=== PATIENT | male | born 1945 | race Caucasian/White ===

== ENCOUNTER 2017-06-28 13:29 | Emergency (ER) | payer MEDICARE, OTHER, SELFPAY | END 2017-06-28 18:04 | disposition short-term general hospital (02) | PROVIDERS: Emergency Provider Emergency Medicine; Visit Provider Emergency Medicine | DX: I24.9 Acute ischemic heart disease, unspecified (principal) | CPT/HCPCS: 71010; 71045; 80053; 84484; 85025; 85610; 85730; 93005; 93010; 96365; 96366; 99058; 99285; J1644 ==

== ENCOUNTER → 2018-12-27 09:55 | Outpatient (CLI) | payer MEDICARE, OTHER, SELFPAY ==
[2018-12-27 10:32] LABS: HEMOLYSIS < 15 (0-50)
[2018-12-27 10:40] LABS: Alanine Aminotransferase 36 IU/L (21-72); Albumin 4.5 g/dL (3.5-5.0); Albumin Globulin Ratio 1.6 (1.0-2.8); Alkaline Phosphatase 85 U/L (38-126); Aspartate Aminotransferase 33 IU/L (17-59); BUN Creatinine Ratio 17.3 (6-22); Blood Urea Nitrogen 19 mg/dL (9-20); Calcium 10.1 mg/dL (8.4-10.2); Carbon Dioxide 31 mmol/L (22-32); Chloride 100 mmol/L (98-107); Estimated Glomerular Filt Rate > 60.0 mL/min (>60); Globulin 2.8 g/dL (1.7-4.1); Glucose 354 mg/dL (80-110); Potassium 4.7 mmol/L (3.4-5.1); Sodium 137 mmol/L (137-145); Total Protein 7.3 g/dL (6.3-8.2)
[2018-12-27 11:01] LABS: Vitamin D 25 Hydroxy (D3) 21.7 ng/mL (30.0-100.0)
[2018-12-27 11:44] LABS: Creatinine Urine Random 60.1 mg/dL
[2018-12-27 11:49] LABS: Microalbumi Creatinin Ratio Ur 74.8 ug/mg CR (<30); Microalbumin Urine Random 4.5 mg/dL (0-1.6)
[2018-12-27 16:33] LABS: Prostate Specific Antigen < 0.064 ng/mL (0.10-4.00)
== END ==
PROVIDERS: PCP Student in an Organized Health Care Education/Training Program; Visit Provider Student in an Organized Health Care Education/Training Program
DX: C61 Malignant neoplasm of prostate (principal); E11.9 Type 2 diabetes mellitus without complications; E55.9 Vitamin D deficiency, unspecified; I24.9 Acute ischemic heart disease, unspecified; Z79.899 Other long term (current) drug therapy
CPT/HCPCS: 36415; 80053; 82043; 82306; 82570; 83036; 84153

== ENCOUNTER → 2019-03-25 10:01 | Outpatient (CLI) | payer MEDICARE, OTHER, SELFPAY ==
[2019-03-25 11:01] LABS: Hemoglobin A1C% w Est Avg Glu 8.2 % (4.0-6.0)
[2019-03-25 13:58] LABS: Creatinine Urine Random 101.4 mg/dL
[2019-03-25 14:02] LABS: Microalbumi Creatinin Ratio Ur 59.1 ug/mg CR (<30)
== END ==
PROVIDERS: PCP Student in an Organized Health Care Education/Training Program; Visit Provider Student in an Organized Health Care Education/Training Program
DX: E11.65 Type 2 diabetes mellitus with hyperglycemia (principal); R80.9 Proteinuria, unspecified
CPT/HCPCS: 36415; 82043; 82570; 83036

== ENCOUNTER → 2019-04-09 08:57 | Outpatient (CLI) | payer MEDICARE, OTHER, SELFPAY | PROVIDERS: PCP Student in an Organized Health Care Education/Training Program; Visit Provider Student in an Organized Health Care Education/Training Program | DX: E11.9 Type 2 diabetes mellitus without complications (principal) | CPT/HCPCS: G0108 ==

== ENCOUNTER → 2019-04-16 14:14 | Outpatient (CLI) | payer MEDICARE, OTHER, SELFPAY ==
--- NOTE | 2019-04-16 15:30 | DIET.PN ---
Exercise/Lifestyle change: 1. Importance of exercise 2. FITT (frequency, intensity, time, type) 3. Strength training tips and guidelines 4. Glucose monitoring/ranges before and after 5. Proper foot attire 6. Developing strategies for behavior change 7. SMART Goal Setting 8. Home exercise routine demonstration (as a class)
== END ==
PROVIDERS: PCP Student in an Organized Health Care Education/Training Program; Referring Provider Student in an Organized Health Care Education/Training Program; Visit Provider Student in an Organized Health Care Education/Training Program
DX: E11.9 Type 2 diabetes mellitus without complications (principal); Z71.3 Dietary counseling and surveillance
CPT/HCPCS: G0109

== ENCOUNTER → 2019-04-26 09:37 | Outpatient (CLI) | payer MEDICARE, OTHER, SELFPAY ==
--- NOTE | 2019-04-26 12:09 | DIET.PN ---
Diabetes: Healthy Eating 1 Intervention: ? Discussed pathophysiology of diabetes and impact of nutrition/diet on blood sugar control.? Discussed fed versus non-fed state.?? ? Reviewed importance of Balance, Variety, and Moderation. ? Discussed the effect of carbohydrates/protein/fat on blood sugar control.? ? Stressed importance of consistent carbohydrate intake at each meal and provided instructions for recommended servings/portions of carbohydrates/protein per meal. Provided educational material. ? Reviewed carbohydrate counting and measuring carbohydrate content via serving sizes and reading nutrition labels.? Provided handouts.?? ? Discussed the difference between simple versus complex carbohydrates and the effect of fiber on blood sugar control.? Discussed various methods to increase fiber content in diet. ? Discussed the plate method for creating more carbohydrate conscious balanced meals. ? Stressed importance of meal timing and not going >4-5 hours between meals. Encouraged adding protein to evening snack to support glucose control overnight. ? Discussed importance of making dietary habits part of lifestyle change.
== END ==
PROVIDERS: PCP Student in an Organized Health Care Education/Training Program; Referring Provider Student in an Organized Health Care Education/Training Program; Visit Provider Student in an Organized Health Care Education/Training Program
DX: E11.9 Type 2 diabetes mellitus without complications (principal); Z71.3 Dietary counseling and surveillance
CPT/HCPCS: G0109

== ENCOUNTER → 2019-04-30 14:26 | Outpatient (CLI) | payer MEDICARE, OTHER, SELFPAY ==
--- NOTE | 2019-04-30 16:10 | DIET.PN ---
Diabetes: Healthy Eating 2 Intervention: Fats effects on glucose, weight, heart disease, cholesterol Sat Vs Unsat Protein- animal and plant based options Low, med, high fat meats Sugar substitutes Sodium Health claims Grocery shopping guidelines Eating away from home Alcohol Sick day guidelines
== END ==
PROVIDERS: PCP Student in an Organized Health Care Education/Training Program; Referring Provider Student in an Organized Health Care Education/Training Program; Visit Provider Student in an Organized Health Care Education/Training Program
DX: E11.9 Type 2 diabetes mellitus without complications (principal); Z71.3 Dietary counseling and surveillance
CPT/HCPCS: G0109

== ENCOUNTER → 2019-05-08 10:56 | Outpatient (CLI) | payer MEDICARE, OTHER, SELFPAY ==
--- NOTE | 2019-05-08 10:57 | DI.RAD.S_ITS ---
PROCEDURE: XR CHEST 2V INDICATIONS: cough and Hx of lesion central chest last xray [place] 5 yrs TECHNIQUE: 2 views of the chest were acquired. COMPARISON: [facility], FABY, ABDOMEN ACUTE SERIES, 12/26/2011, 22:25. [facility], FABY, CHEST 1 VIEW, 06/28/2017, 13:50. FINDINGS: Surgical changes and devices: None. Lungs and pleura: Lungs are clear except for calcified granuloma lateral right upper lobe. This also was present 12/26/11. No pleural effusions or pneumothorax. Mediastinum: Mediastinal contours are normal. Heart size is normal. Bones and chest wall: No suspicious bony abnormalities. Soft tissues appear unremarkable. IMPRESSION: Normal for age, source of current cough symptoms is not seen. Calcified granuloma chronically present lateral right upper lobe, no followup needed. Dictated by: Juan Alberto Stewart M.D. on 05/08/2019 at 12:17 Approved by: Juan Alberto Stewart M.D. on 05/08/2019 at 12:18
== END ==
PROVIDERS: PCP Student in an Organized Health Care Education/Training Program; Referring Provider Student in an Organized Health Care Education/Training Program
DX: J40 Bronchitis, not specified as acute or chronic (principal)
CPT/HCPCS: 71046

== ENCOUNTER → 2019-08-23 11:25 | Outpatient (CLI) | payer MEDICARE, OTHER, SELFPAY ==
[2019-08-23 12:31] LABS: BUN Creatinine Ratio 16.2 (6-22); Blood Urea Nitrogen 17 mg/dL (9-20); Calcium 9.6 mg/dL (8.4-10.2); Carbon Dioxide 28 mmol/L (22-32); Chloride 102 mmol/L (98-107); Estimated Glomerular Filt Rate > 60.0 mL/min (>60); Glucose 113 mg/dL (80-110); HEMOLYSIS < 15 (0-50); Hemoglobin A1C% w Est Avg Glu 7.8 % (4.0-6.0); Potassium 4.4 mmol/L (3.4-5.1); Sodium 139 mmol/L (137-145)
== END ==
PROVIDERS: PCP Student in an Organized Health Care Education/Training Program; Referring Provider Student in an Organized Health Care Education/Training Program; Visit Provider Student in an Organized Health Care Education/Training Program
DX: E11.00 Type 2 diabetes mellitus with hyperosmolarity without nonketotic hyperglycemic-hyperosmolar coma (NKHHC) (principal); E11.65 Type 2 diabetes mellitus with hyperglycemia; I10 Essential (primary) hypertension; R80.9 Proteinuria, unspecified
CPT/HCPCS: 36415; 80048; 83036

== ENCOUNTER → 2019-11-26 06:58 | Outpatient (CLI) | payer MEDICARE, OTHER, SELFPAY ==
[2019-11-26 08:51] LABS: Hemoglobin A1C% w Est Avg Glu 7.3 % (4.0-6.0)
[2019-11-26 09:01] LABS: Cholesterol 132 mg/dL (140-199); HDL Cholesterol 34 mg/dL (40-60); LDL Cholesterol Calculated 45 mg/dL (<100); Triglycerides 266 mg/dL (35-150)
[2019-11-26 09:04] LABS: Microalbumin Urine Random 3.6 mg/dL (0-1.6)
[2019-11-26 09:13] LABS: Vitamin D 25 Hydroxy (D3) 39.5 ng/mL (30.0-100.0)
== END ==
PROVIDERS: PCP Student in an Organized Health Care Education/Training Program; Referring Provider Student in an Organized Health Care Education/Training Program; Visit Provider Student in an Organized Health Care Education/Training Program
DX: E11.29 Type 2 diabetes mellitus with other diabetic kidney complication (principal); E11.69 Type 2 diabetes mellitus with other specified complication; E55.9 Vitamin D deficiency, unspecified; E78.5 Hyperlipidemia, unspecified; R80.9 Proteinuria, unspecified; E11.65 Type 2 diabetes mellitus with hyperglycemia
CPT/HCPCS: 36415; 80061; 82043; 82306; 82570; 83036

== ENCOUNTER → 2020-02-22 07:48 | Outpatient (CLI) | payer MEDICARE, OTHER, SELFPAY ==
[2020-02-22 09:33] LABS: Hemoglobin A1C% w Est Avg Glu 7.6 % (4.0-6.0)
[2020-02-22 09:47] LABS: BUN Creatinine Ratio 16.4 (6-22); Blood Urea Nitrogen 20 mg/dL (9-20); Estimated Glomerular Filt Rate 58.1 mL/min (>60)
== END ==
PROVIDERS: PCP Student in an Organized Health Care Education/Training Program; Referring Provider Student in an Organized Health Care Education/Training Program; Visit Provider Student in an Organized Health Care Education/Training Program
DX: R80.9 Proteinuria, unspecified (principal); E11.65 Type 2 diabetes mellitus with hyperglycemia; E11.29 Type 2 diabetes mellitus with other diabetic kidney complication
CPT/HCPCS: 36415; 82565; 83036; 84520

== ENCOUNTER → 2020-05-21 07:38 | Outpatient (CLI) | payer MEDICARE, OTHER, SELFPAY ==
[2020-05-21] MEDS: COVID-19 VACC, Ad26(JANSSEN)/PF 0.5 ML IM (07:51)
== END ==
PROVIDERS: PCP Student in an Organized Health Care Education/Training Program; Visit Provider Internal Medicine
DX: Z23 Encounter for immunization (principal)
CPT/HCPCS: 0031A; 91303

== ENCOUNTER → 2020-06-01 09:12 | Outpatient (CLI) | payer MEDICARE, OTHER, SELFPAY ==
[2020-06-01 10:25] LABS: Hemoglobin A1C% w Est Avg Glu 7.1 % (4.0-6.0)
[2020-06-01 10:43] LABS: BUN Creatinine Ratio 15.7 (6-22); Blood Urea Nitrogen 18 mg/dL (9-20); Estimated Glomerular Filt Rate > 60.0 mL/min (>60)
[2020-06-01 11:14] LABS: Prostate Specific Antigen < 0.064 ng/mL (0.10-4.00)
== END ==
PROVIDERS: PCP Student in an Organized Health Care Education/Training Program; Referring Provider Student in an Organized Health Care Education/Training Program; Visit Provider Student in an Organized Health Care Education/Training Program
DX: C61 Malignant neoplasm of prostate (principal); E11.29 Type 2 diabetes mellitus with other diabetic kidney complication; Z98.890 Other specified postprocedural states; E11.65 Type 2 diabetes mellitus with hyperglycemia; R80.9 Proteinuria, unspecified
CPT/HCPCS: 36415; 82565; 83036; 84153; 84520

== ENCOUNTER → 2020-12-21 07:00 | Outpatient (CLI) | payer MEDICARE, OTHER, SELFPAY ==
[2020-12-21 08:20] LABS: Hemoglobin A1C% w Est Avg Glu 7.2 % (4.0-6.0)
[2020-12-21 08:25] LABS: BUN Creatinine Ratio 15.3 (6-22); Blood Urea Nitrogen 17 mg/dL (9-20); Calcium 10.3 mg/dL (8.4-10.2); Carbon Dioxide 27 mmol/L (22-32); Chloride 104 mmol/L (98-107); Estimated Glomerular Filt Rate > 60.0 mL/min (>60); Glucose 168 mg/dL (80-110); HEMOLYSIS < 15 (0-50); Potassium 4.8 mmol/L (3.4-5.1); Sodium 142 mmol/L (137-145)
[2020-12-21 08:27] LABS: Microalbumi Creatinin Ratio Ur 35.2 ug/mg CR (<30)
== END ==
PROVIDERS: PCP Student in an Organized Health Care Education/Training Program; Referring Provider Student in an Organized Health Care Education/Training Program; Visit Provider Student in an Organized Health Care Education/Training Program
DX: E11.29 Type 2 diabetes mellitus with other diabetic kidney complication (principal); R80.9 Proteinuria, unspecified
CPT/HCPCS: 36415; 80048; 82043; 82570; 83036

== ENCOUNTER → 2021-06-05 08:02 | Outpatient (CLI) | payer MEDICARE, OTHER, SELFPAY ==
[2021-06-05 09:00] LABS: Hemoglobin A1C% w Est Avg Glu 7.6 % (4.0-6.0)
[2021-06-05 09:07] LABS: BUN Creatinine Ratio 14.3 (6-22); Blood Urea Nitrogen 17 mg/dL (9-20); Estimated Glomerular Filt Rate 59.6 mL/min (>60)
[2021-06-05 09:34] LABS: Prostate Specific Antigen < 0.064 ng/mL (0.10-4.00)
== END ==
PROVIDERS: PCP Student in an Organized Health Care Education/Training Program; Referring Provider Student in an Organized Health Care Education/Training Program; Visit Provider Student in an Organized Health Care Education/Training Program
DX: E11.29 Type 2 diabetes mellitus with other diabetic kidney complication (principal); C61 Malignant neoplasm of prostate; R80.9 Proteinuria, unspecified
CPT/HCPCS: 36415; 82565; 83036; 84153; 84520

== ENCOUNTER → 2021-07-19 07:58 | Outpatient (CLI) | payer MEDICARE, OTHER, SELFPAY ==
[2021-07-19 08:47] LABS: COVID19 -Nasal RAPID Negative (Negative)
== END ==
PROVIDERS: PCP Student in an Organized Health Care Education/Training Program; Visit Provider Nurse Practitioner Family
DX: Z20.822 Contact with and (suspected) exposure to COVID-19 (principal)
CPT/HCPCS: 87635

== ENCOUNTER 2021-07-26 15:16 | Emergency (ER) | payer MEDICARE, OTHER, SELFPAY ==
[2021-07-26] VITALS (8 sets, daily range): BP systolic 132–162; BP diastolic 63–76; PULSE 80–89; RESP 15–24; TEMP 36.9; O2SAT 96–99
--- NOTE | 2021-07-26 15:24 | DI.RAD.S_ITS ---
PROCEDURE: XR CHEST 1V INDICATIONS: chest pain TECHNIQUE: One view of the chest was acquired. COMPARISON: [facility], FABY, XR CHEST 2V, 05/08/2019, 11:09. [facility], , CHEST 1 VIEW, 06/28/2017, 13:50. FINDINGS: Surgical changes and devices: None. Lungs and pleura: Stable subcentimeter pulmonary nodule in the right mid lung zone. This likely represents a pulmonary granuloma. Otherwise, lungs are clear. No focal consolidations. No substantial pleural effusion. No pneumothorax. Mediastinum: Mediastinal contours appear normal. Heart size is normal. Bones and chest wall: No suspicious bony lesions. Overlying soft tissues appear unremarkable. IMPRESSION: Stable radiographic evaluation of the chest without acute cardiopulmonary abnormalities or focal airspace disease. Dictated by: Edward Jaramillo M.D. on 07/26/2021 at 16:42 Approved by: Edward Jaramillo M.D. on 07/26/2021 at 16:42
[2021-07-26 15:55] LABS: Add Manual Diff / Slide Review NO; Basophils Absolute Auto 100 /uL (0-100); Basophils Percent Auto 0.8 % (0-2); Eosinophils Absolute Auto 300 /uL (0-450); Eosinophils Percent Auto 5.3 % (2-4); Hemoglobin 15.2 g/dL (13.5-17.5); Lymphocytes Absolute Auto 900 /uL (1100-4500); Lymphocytes Percent Auto 14.1 % (25-40); Mean Corpuscular HGB Conc 33.8 % (30-36); Mean Corpuscular Hemoglobin 28.7 PG (26-34); Mean Corpuscular Volume 84.8 fL (80-100); Monocytes Absolute Auto 600 /uL (0-900); Monocytes Percent Auto 9.6 % (3-14); Neutrophils Absolute Auto 4500 /uL (1500-7000); Neutrophils Percent Auto 70.2 % (50-75); Platelet Count 143 X10^3/uL (150-400); Red Cell Distribution Width 14.3 % (11.6-14.8); White Blood Cell Count 6.5 X10^3/uL (4.5-11.0)
[2021-07-26 16:08] LABS: Alanine Aminotransferase 25 IU/L (<50); Albumin 4.5 g/dL (3.5-5.0); Albumin Globulin Ratio 1.5 (1.0-2.8); Alkaline Phosphatase 95 U/L (38-126); Aspartate Aminotransferase 27 IU/L (17-59); BUN Creatinine Ratio 16.9 (6-22); Bilirubin Total 0.7 mg/dL (0.2-1.3); Blood Urea Nitrogen 20 mg/dL (9-20); Calcium 9.7 mg/dL (8.4-10.2); Carbon Dioxide 27 mmol/L (22-32); Chloride 104 mmol/L (98-107); Creatine Kinase 79 U/L (55-170); Estimated Glomerular Filt Rate > 60 mL/min (>60); Globulin 3.1 g/dL (1.7-4.1); Glucose 371 mg/dL (80-110); HEMOLYSIS 16 (0-50); Lipase 349 U/L (23-300); Magnesium 2.1 mg/dL (1.6-2.3); Potassium 4.3 mmol/L (3.4-5.1); Sodium 141 mmol/L (137-145); Total Protein 7.6 g/dL (6.3-8.2)
[2021-07-26 16:20] LABS: Troponin I < 0.012 ng/mL (0.01-0.034)
--- NOTE | 2021-07-26 16:29 | ED.CHESTPAIN ---
HPI - Chest Pain General Chief Complaint: Chest Pain Stated Complaint: LOTS OF JOINT PAIN LEFT SHOULDER PAIN GOES DOWN AR Time Seen by Provider: 07/26/21 15:35 Source: patient Mode of arrival: Ambulatory History of Present Illness HPI narrative: Patient is a 75-year-old male a history of coronary artery disease diabetes presenting today with on going and joint pain. He says his left shoulder hurts the most. His symptoms have been going on for about 1 month. He says couple weeks ago he had upper respiratory like virus he had a cough. He has had multiple negative COVID tests. However his joint continue to hurt. His left shoulder hurts he has aching in his arm. His right hip and left knee were also hurting. He says they seem to be worse in the morning better throughout the day. Pain also goes away Tylenol or ibuprofen. He it was his heart initially he took nitro couple times without any relief. And it has been ongoing for awhile. Today it is not any worse or different. He just wanted to make sure it is not his heart. He has no shortness of breath with exertion. He overall is feeling better from his illness he is appointment with his primary care provider but not for couple of weeks. Related Data Home Medications Medication Instructions Recorded Confirmed aspirin 81 mg tablet,delayed 81 mg PO QDAY #0 12/26/11 07/19/21 release Previous Rx's Medication Instructions Recorded Contour Blood Glucose Test Strips #100 each 02/05/19 clopidogrel 75 mg tablet 75 mg PO QDAY #90 tab 01/07/21 atorvastatin 40 mg tablet 40 mg PO BEDTIME #90 tab 02/11/21 metoprolol succinate 100 mg 100 mg PO DAILY #90 tab 02/11/21 tablet,extended release 24 hr (Toprol XL) glipizide 10 mg tablet See Rx Instructions .ROUTE 02/15/21 .COMPLEX #90 tab nitroglycerin 0.3 mg sublingual 0.3 mg SUBLINGUAL Q5-15M PRN #20 02/15/21 tablet tab empagliflozin 10 mg tablet 10 mg PO DAILY #90 tab 03/30/21 metformin 1,000 mg tablet 1,000 mg PO BID #180 tab 05/04/21 olmesartan 5 mg tablet 10 mg PO DAILY #180 tab 06/02/21 Allergies Allergy/AdvReac Type Severity Reaction Status Date / Time No Known Drug Allergies Allergy Unverified 07/19/21 07:29 Review of Systems Review of Systems Narrative: GENERAL: Denies chills, fatigue, malaise, fever, sweats, travel HEENT: Denies sinus pain, ear pain, sore throat, difficulty swallowing, neck pain RESPIRATORY: Denies dyspnea, cough, wheezing, hemoptysis, sputum. CARDIOVASCULAR: See HPI GASTROINTESTINAL: Denies nausea, vomiting, abdominal pain, diarrhea, constipation, melena. : Denies dysuria, frequency, incontinence, hematuria, urinary retention, flank pain. MUSCULOSKELETAL: See HPI SKIN: No rash, no erythema, no pruritus NEUROLOGIC: Denies weakness, dizziness, headache, numbness, change in speech, confusion PSYCHIATRIC: No concerning psychosocial issues. 12 point review of systems is negative except for those stated above and HPI Patient History Medical History (Updated 07/26/21 @ 17:51 by Ro Doss DO) Hearing loss (~1964) Prostate cancer Tinnitus (~1964) Vitamin D deficiency Social History Smoking Status: Never smoker eating out: 4 or more times/week Type(s) of exercise: other Smoking Status: Never smoker Exam Initial Vital Signs Initial Vital Signs: Vital Signs Temperature 98.4 F 07/26/21 15:19 Pulse Rate 89 07/26/21 15:19 Respiratory Rate 20 07/26/21 15:19 Blood Pressure 162/76 H 07/26/21 15:19 Pulse Oximetry 99 07/26/21 15:19 GENERAL: Alert well-appearing 75-year-old and in no acute distress. HEENT: Head atraumatic,EOMI, pupils reactive, face symmetric, moist mucous membranes CARDIOVASCULAR: Regular rate and rhythm without murmurs, rubs or gallops. RESPIRATORY: Breath sounds equal bilaterally, no wheezes rales or rhonchi. ABDOMEN: Soft, nontender. Normoactive bowel sounds all 4 quadrants. No guarding or rebound. EXTREMITIES: Normal range of motion, no clubbing or edema. Neurovascularly intact left shoulder no significant pain or swelling no erythema. Distal radial pulse intact NEUROLOGICAL: Alert and oriented x4.Normal gait and speech. SKIN: Warm, dry, no laceration, no petechiae, no rashes or lesions. Course Orders Ordered: ED Orders 07/26/21 15:20 Complete Blood Count AUTO DIFF Stat Comprehensive Metabolic Panel Stat Lipase Stat Magnesium Stat Troponin & CK Cardiac Panel Stat 07/26/21 15:24 XR chest 1V Stat EKG-12 Lead Stat 07/26/21 17:03 XR shoulder LT min 2V Stat Vital Signs Vital signs: Vital Signs - 8 hr 07/26/21 15:19 07/26/21 15:33 07/26/21 15:34 Temperature 98.4 F Pulse Rate 89 86 86 Respiratory Rate 20 Blood Pressure 162/76 H 151/69 H Pulse Oximetry 99 99 98 07/26/21 16:00 07/26/21 17:13 07/26/21 17:26 Temperature Pulse Rate 83 80 80 Respiratory Rate 24 23 18 Blood Pressure 138/63 132/70 Pulse Oximetry 97 97 97 07/26/21 17:30 07/26/21 18:00 Temperature Pulse Rate 83 80 Respiratory Rate 15 22 Blood Pressure 138/74 137/63 Pulse Oximetry 97 96 MDM - Chest Pain Lab Data Result diagrams: 07/26/21 15:20 07/26/21 15:20 Labs: Lab Results 07/26/21 07/26/21 Range/Units 15:20 15:20 WBC 6.5 (4.5-11.0) X10^3/uL RBC 5.30 (4.5-5.9) X10^6/uL Hgb 15.2 (13.5-17.5) g/dL Hct 45.0 (41-53) % MCV 84.8 (80-100) fL MCH 28.7 (26-34) PG MCHC 33.8 (30-36) % RDW 14.3 (11.6-14.8) % Plt Count 143 L (150-400) X10^3/uL Neut % (Auto) 70.2 (50-75) % Lymph % (Auto) 14.1 L (25-40) % Thomas % (Auto) 9.6 (3-14) % Eos % (Auto) 5.3 H (2-4) % Baso % (Auto) 0.8 (0-2) % Neut # (Auto) 4500 (1368-1499) /uL Lymph # (Auto) 900 L (3815-5300) /uL Thomas # (Auto) 600 (0-900) /uL Eos # (Auto) 300 (0-450) /uL Baso # (Auto) 100 (0-100) /uL Sodium 141 (137-145) mmol/L Potassium 4.3 (3.4-5.1) mmol/L Chloride 104 (98-107) mmol/L Carbon Dioxide 27 (22-32) mmol/L BUN 20 (9-20) mg/dL Creatinine 1.18 (0.66-1.25) mg/dL Estimated GFR > 60 (>60) mL/min BUN/Creatinine Ratio 16.9 (6-22) Glucose 371 H (80-110) mg/dL Calcium 9.7 (8.4-10.2) mg/dL Magnesium 2.1 (1.6-2.3) mg/dL Total Bilirubin 0.7 (0.2-1.3) mg/dL AST 27 (17-59) IU/L ALT 25 (<50) IU/L Alkaline Phosphatase 95 (38-126) U/L Total Creatine Kinase 79 (55-170) U/L CK-MB (CK-2) TNP CK-MB (CK-2) Rel Index TNP Troponin I < 0.012 (0.01-0.034) ng/mL Total Protein 7.6 (6.3-8.2) g/dL Albumin 4.5 (3.5-5.0) g/dL Globulin 3.1 (1.7-4.1) g/dL Albumin/Globulin Ratio 1.5 (1.0-2.8) Lipase 349 H (23-300) U/L Imaging Data Chest x-ray: Radiologist's Impression: XRay Report Signed Patient: Dennys Mckeon MR#: [id number] : 1945 Acct:[id number] Age/Sex: 75 / M Date of Service: 07/26/21 Loc: ED Accession Number: [id number] ?? Procedure: XR chest 1V Ordering Provider: Ro Doss D.O. PROCEDURE:? XR CHEST 1V ? INDICATIONS:? chest pain ? TECHNIQUE:? One view of the chest was acquired.? ? COMPARISON:? [facility], , XR CHEST 2V, 05/08/2019, 11:09.? [facility], , CHEST 1 VIEW, 06/28/2017, 13:50. ? FINDINGS:? ? Surgical changes and devices:? None.? ? Lungs and pleura:? Stable subcentimeter pulmonary nodule in the right mid lung zone.? This likely represents a pulmonary granuloma.? Otherwise, lungs are clear.? No focal consolidations.? No substantial pleural effusion.? No pneumothorax. ? Mediastinum:? Mediastinal contours appear normal.? Heart size is normal.? ? Bones and chest wall:? No suspicious bony lesions.? Overlying soft tissues appear unremarkable.? ? IMPRESSION:? Stable radiographic evaluation of the chest without acute cardiopulmonary abnormalities or focal airspace disease. ? ? ? Dictated by: Edward Jaramillo M.D. on 07/26/2021 at 16:42? Extremity x-ray #1: Radiologist's Impression: ession Number: [id number] ?? Procedure: XR shoulder LT min 2V Ordering Provider: Ro Doss D.O. PROCEDURE:? XR SHOULDER LT MIN 2V ? INDICATIONS:? pain ? TECHNIQUE:? 3 views of the shoulder were acquired.? ? COMPARISON:? None. ? FINDINGS:? ? Bones:? No fractures or dislocations.? No suspicious bony lesions.? Visualized ribs appear intact.? ? Soft tissues:? No suspicious soft tissue calcifications.? ? IMPRESSION:? No fracture. No acute osseous lesion. If symptoms and/or clinical suspicion for pathology persists, further assessment with repeat radiographs (7-10 days) or advanced imaging (e.g. CT, MRI or bone scan) should be considered. ? ? Dictated by: Shakira Arce MD, PhD on 07/26/2021 at 17:24 ? ? ECG Data Interpretation: Normal sinus rhythm rate 84 KS interval 152 QRS [address] changes similar to previous EKG Q-waves noted inferiorly. Right bundle-branch MDM Narrative Medical decision making narrative: Patient has been has had issues ongoing for least 1 month. Symptoms are not significantly worse today. EKG is similar to previous troponin and cardiac workup negative. Symptoms seem to be musculoskeletal and arthritis like in nature. Worse in the morning. Multiple large joints affected. Patient recently had upper respiratory like infection. This is possibly a reactive like arthritis. X-ray does not show significant bony arthritis. Pain is relatively well controlled with Tylenol and ibuprofen. Patient was most concerned about his heart which appears well at this time. Discharge Plan Departure Patient Disposition: Home Clinical Impression: Reactive arthritis Instructions: Reactive Arthritis Activity Restrictions/Additional Instructions: *You have been diagnosed with reactive arthritis *What to do: At this time I think your joints are hurting from a recent infection. Your x-ray does not show significant arthritis. Your heart workup in the emergency department appears okay however still recommend he follow-up with your well tester. *Continue to take medications as directed Tylenol 650 mg every 4-6 hours if needed for [id number] or arthritis Tylenol as directed [id number] *Follow up with your primary care provider in 2-3 days or call [phone] *Return to ER if you should have increasing pain fever chest pain shortness of breath any new, worsening or concerning symptoms Prescriptions: No Action aspirin 81 MG tablet,delayed release (DR/EC) 81 mg PO QDAY Qty: 0 0RF (DME) Contour Blood Glucose Test Strips Qty: 100 0RF Rx Instructions: Use to test blood sugars 1-2x daily. clopidogrel 75 mg tablet 75 mg PO QDAY Qty: 90 2RF metoprolol succinate [Toprol XL] 100 mg tablet extended release 24 hr 100 mg PO DAILY Qty: 90 1RF atorvastatin 40 mg tablet 40 mg PO BEDTIME Qty: 90 1RF empagliflozin 10 mg tablet 10 mg PO DAILY Qty: 90 1RF metformin 1,000 mg tablet 1,000 mg PO BID Qty: 180 0RF Rx Instructions: w/Meals olmesartan 5 mg tablet 10 mg PO DAILY Qty: 180 1RF nitroglycerin 0.3 mg tablet, sublingual 0.3 mg Sublingual Q5-15M PRN (Reason: chest pain) Qty: 20 11RF Rx Instructions: Max dose 3 tabs. glipizide 10 mg tablet See Rx Instructions .ROUTE .COMPLEX Qty: 90 1RF Dose Instruction: Take 1 tablet by mouth daily. Rx Instructions: Take 1 tablet by mouth daily. Referrals: Phil Beyer MD [Primary Care Provider] -
--- NOTE | 2021-07-26 17:03 | DI.RAD.S_ITS ---
PROCEDURE: XR SHOULDER LT MIN 2V INDICATIONS: pain TECHNIQUE: 3 views of the shoulder were acquired. COMPARISON: None. FINDINGS: Bones: No fractures or dislocations. No suspicious bony lesions. Visualized ribs appear intact. Soft tissues: No suspicious soft tissue calcifications. IMPRESSION: No fracture. No acute osseous lesion. If symptoms and/or clinical suspicion for pathology persists, further assessment with repeat radiographs (7-10 days) or advanced imaging (e.g. CT, MRI or bone scan) should be considered. Dictated by: Shakira Arce MD, PhD on 07/26/2021 at 17:24 Approved by: Shakira Arce MD, PhD on 07/26/2021 at 17:24
== END 2021-07-26 18:22 | disposition home or self-care (01) ==
PROVIDERS: Emergency Provider Emergency Medicine; PCP Student in an Organized Health Care Education/Training Program
DX: M02.312 Reiter's disease, left shoulder (principal); R07.9 Chest pain, unspecified
CPT/HCPCS: 36415; 71045; 73030; 80053; 82550; 83690; 83735; 84484; 85025; 93005; 93010; 99284

== ENCOUNTER 2021-07-29 20:30 | Emergency (ER) | payer MEDICARE, OTHER, SELFPAY ==
[2021-07-29 20:38] VITALS: BP 161/76; PULSE 82; RESP 18; TEMP 36.9; O2SAT 97; BMI 27.0
== END 2021-07-29 22:03 | disposition left against medical advice (07) ==
PROVIDERS: Emergency Provider Emergency Medicine; PCP Student in an Organized Health Care Education/Training Program
CPT/HCPCS: 99281

== ENCOUNTER → 2021-08-23 09:27 | Outpatient (CLI) | payer MEDICARE, OTHER, SELFPAY ==
--- NOTE | 2021-08-23 09:30 | DI.RAD.S_ITS ---
PROCEDURE: XR SHOULDER LT MIN 2V INDICATIONS: Shoulder pain TECHNIQUE: 3 views of the shoulder were acquired. COMPARISON: [facility], , XR SHOULDER LT MIN 2V, 07/26/2021, 16:55. FINDINGS: Bones: No fractures or dislocations. No suspicious bony lesions. Visualized ribs appear intact. Soft tissues: No suspicious soft tissue calcifications. IMPRESSION: Unremarkable left shoulder radiographs, no change from the prior Approved by: Ulices Foster M.D. on 08/23/2021 at 12:22
== END ==
PROVIDERS: PCP Student in an Organized Health Care Education/Training Program; Referring Provider Student in an Organized Health Care Education/Training Program; Visit Provider Student in an Organized Health Care Education/Training Program
DX: M25.512 Pain in left shoulder (principal)
CPT/HCPCS: 73030

== ENCOUNTER → 2021-08-25 06:40 | Outpatient (CLI) | payer MEDICARE, OTHER, SELFPAY ==
--- NOTE | 2021-08-25 06:42 | DI.MRI.S_ITS ---
PROCEDURE: MR SHOULDER LT WO CON INDICATIONS: Persistent left shoulder pain. TECHNIQUE: Noncontrast oblique coronal T2 fast spin echo with fat saturation, oblique sagittal T1 spin echo and T2 fast spin echo with fat saturation, axial T1 spin echo and T2 fast spin echo with fat saturation through the shoulder. COMPARISON: [facility], CR, XR SHOULDER LT MIN 2V, 07/26/2021, 16:55. [facility], CR, XR SHOULDER LT MIN 2V, 08/23/2021, 9:21. FINDINGS: Image quality: Excellent. Rotator cuff: There is moderate to severe supraspinatus and infraspinatus tendinosis. The teres minor tendon is intact. Moderate to severe tendinosis is also seen at the distal subscapularis tendon with low-grade intrasubstance tearing no superior insertion. No definite full-thickness rotator cuff tendon tear is seen. Edema is seen within the medial portions of the supraspinatus and subscapularis muscles, consistent low-grade strains. There is mild edema within the infraspinatus muscle near the myotendinous junction. Bones and bursae: No acute trabecular bone injury. Chronic traction cystic changes are seen at the posterosuperior humeral head and greater tuberosity near the rotator cuff tendon insertions. 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 Moderate fluid is seen in the subacromial/subdeltoid bursa. There is a small glenohumeral effusion. Capsule and soft tissues: There is nondisplaced tearing of the superior labrum extending into the anterosuperior and posterosuperior labrum. The biceps long head tendon demonstrates mild tendinosis. There is effacement of the normal fat signal in the rotator interval. The glenohumeral ligaments are grossly intact. IMPRESSION: 1. Moderate to severe rotator cuff tendinosis involving the supraspinatus, infraspinatus, and subscapularis tendons. There is superimposed low-grade intrasubstance tearing of the subscapularis tendon near its superior insertion. No full-thickness rotator cuff tendon tear. 2. Mild edema within the medial supraspinatus and subscapularis muscles and in the infraspinatus muscle at the myotendinous junction is consistent with low-grade muscle strains. 3. Mild tendinosis of the proximal biceps long head tendon. 4. Nondisplaced tearing of the superior labrum extending into the anterosuperior and posterosuperior labrum. 5. 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 6. Moderate subacromial/subdeltoid bursal effusion or bursitis. Small glenohumeral effusion. Dictated by: Satya Tee M.D. on 08/25/2021 at 8:48 Approved by: Satya Tee M.D. on 08/25/2021 at 8:55
== END ==
PROVIDERS: PCP Student in an Organized Health Care Education/Training Program; Referring Provider Student in an Organized Health Care Education/Training Program; Visit Provider Student in an Organized Health Care Education/Training Program
DX: M25.512 Pain in left shoulder (principal); M77.8 Other enthesopathies, not elsewhere classified; M75.102 Unspecified rotator cuff tear or rupture of left shoulder, not specified as traumatic; M75.22 Bicipital tendinitis, left shoulder; M19.012 Primary osteoarthritis, left shoulder; M25.412 Effusion, left shoulder
CPT/HCPCS: 73221

== ENCOUNTER → 2021-11-01 09:35 | Outpatient (CLI) | payer MEDICARE, OTHER, SELFPAY ==
[2021-11-01 12:03] LABS: Creatinine Urine Random 31.7 mg/dL
[2021-11-01 12:07] LABS: Microalbumi Creatinin Ratio Ur 28.3 ug/mg CR (<30); Microalbumin Urine Random 0.9 mg/dL (0-1.6)
[2021-11-01 12:09] LABS: Hemoglobin A1C% w Est Avg Glu 7.8 % (4.0-6.0)
[2021-11-01 12:20] LABS: BUN Creatinine Ratio 18.3 (6-22); Blood Urea Nitrogen 19 mg/dL (9-20); Cholesterol 115 mg/dL (140-199); Estimated Glomerular Filt Rate > 60 mL/min (>60); HDL Cholesterol 31 mg/dL (40-60); LDL Cholesterol Calculated 42 mg/dL (<100); Triglycerides 210 mg/dL (35-150)
== END ==
PROVIDERS: Family Provider Student in an Organized Health Care Education/Training Program; PCP Student in an Organized Health Care Education/Training Program; Referring Provider Student in an Organized Health Care Education/Training Program; Visit Provider Student in an Organized Health Care Education/Training Program
DX: E11.22 Type 2 diabetes mellitus with diabetic chronic kidney disease (principal); I10 Essential (primary) hypertension; E11.29 Type 2 diabetes mellitus with other diabetic kidney complication; N18.2 Chronic kidney disease, stage 2 (mild); R80.9 Proteinuria, unspecified; E11.69 Type 2 diabetes mellitus with other specified complication; E78.5 Hyperlipidemia, unspecified
CPT/HCPCS: 36415; 80061; 82043; 82565; 82570; 83036; 84520

== ENCOUNTER 2021-11-04 09:45 | Outpatient (RCR) | payer MEDICARE, OTHER, SELFPAY ==
--- NOTE | 2021-10-04 16:18 | PT.OIE ---
Current Diagnoses Pain in left shoulder (10/04/21) Muscle weakness (generalized) (10/04/21) Past Medical History (Last Updated 08/08/21 @ 10:04 by Phil Beyer MD) Acute coronary syndrome Dystrophic nail Hearing loss (~1964) Prostate cancer Tinnitus (~1964) Ureterolithiasis Vitamin D deficiency Visit Care Team Role Provider Type Phil Beyer MD Attending Provider Physician Family Provider Primary Care Provider Referring Provider Specialty: Internal Medicine Address: [address] [place] [address], [address], [facility] Email: [email or web address] Physical Therapy Initial Evaluation PT-OP-A Visit Information Start: 09/30/21 19:37 Freq: Status: Active Protocol: Document 10/04/21 08:17 LRN (Rec: 10/04/21 16:15 LRN [id number]) Out-Patient Physical Therapy Visit Information Visit Information Visit Type Initial Evaluation Visit Start Time 08:17 Visit Stop Time 09:07 Total Visit Minutes 50 Visit Number 03/27 Evaluation Information Evaluation Date 10/04/21 Precautions Precautions 4 heart attacks over past 20 yrs w/most recent 5-8 yrs ago (4 stents), prostate removed due to CA with PSA 0 since, Diabetes controlled by meds, CHF, HBP controlled by meds, arthritis - 5-8 yrs ago. PT-OP-B Current Condition Start: 09/30/21 19:37 Freq: Status: Active Protocol: Document 10/04/21 08:17 LRN (Rec: 10/04/21 16:15 LRN [id number]) Current Condition History of Current Condition Onset Date 3 months ago Current Complaints Most severe pain L shoulder when trying to lift the arm. History of Current Condition Instant onset of L sided pain in the shoulder, knee. Went to ER and was told he had reactive arthritis. He is having consistent L shoulder pain, generally around the joint and upper brachium. 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 Having LE knees/ hips problems and can't stand 15 minutes before starting to shake due to LE pains. 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 Prior Treatments and Tests Wears a Salonpas on L shoulder and takes Alleve and finds it moderately helpful. Can always feel the L shoulder but can't raise the arm. X-rays: No fractures or dislocations. MRI: Moderate to severe rotator cuff tendinosis involving the supraspinatus, infraspinatus, and subscapularis tendons. There is superimposed low- grade intrasubstance tearing of the subscapularis tendon near its superior insertion. No full- thickness rotator cuff tendon tear. Mild tendinosis of the proximal biceps long head tendon. Nondisplaced tearing of the superior labrum extending into the anterosuperior and posterosuperior labrum. 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 Moderate subacromial/subdeltoid bursal effusion or bursitis. Developmental History Developmental History Has daughter and son nearby who is able to help. Treatment Goals Patient/Caregiver Goals Pt goal is to be able to lift, and use the L arm above shoulder height to reach into cupboard, reach for tools with tolerable pain. Be able to reach out and close car door with L arm. Pt is R handed. 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 Baseline Function- Other No functional hindrances. Current Functional Impairments (Reported) Functional Limitations- ADL's Difficulty due to R hip and L > R knee pain. Knee pn relieved by cremes. has to help him put his T -shirt on and Salonpas patches , but has dementia. Personal Factors Other Personal Factors That May Effect Hand Ii Thermal Cutter to who has Therapy/Recovery dementia, Diabetes controlled by meds, CHF, HBP controlled by meds, arthritis diagnosed - 5-8 yrs ago. History of 4 heart attacks over past 20 yrs w/most recent 5-8 yrs ago (4 stents), prostate removed due to CA with PSA 0 since. PT-OP-C Subjective Start: 09/30/21 19:37 Freq: Status: Active Protocol: Document 10/04/21 08:17 LRN (Rec: 10/04/21 16:15 LRN [id number]) Patient Questionnaires Quick Dash- Upper Extremity Quick Dash UE Score 36 Quick Dash UE Impairment 20 to 39% Impaired (Score 20- 39) OP-PT Pain Assessment Pain Assessment Grid Paper Pain Assessment Grid Completed Yes Location L shoulder Pain Location Details Lateral L brachium Intensity 3 Scale Used Numeric (0 - 10) Description Aching,Sharp,Shooting Description- Other Pain range 3-7 Frequency Constant Radiating Location down arm to wrist (like heart attack pain) Pain Aggravating Factors Changing Position Other Pain Alleviating Factors Salonpas patch & Alleve. PT-OP-E Functional Tests Start: 09/30/21 19:37 Freq: Status: Active Protocol: Document 10/04/21 08:17 LRN (Rec: 10/04/21 16:15 LRN [id number]) Functional Tests Apley's Scratch Test Action 2- Left Top of shoulder Action 2- Right T2 Action 3- Left L4 Action 3- Right T12 PT-OP-J Posture/Palpation/Skin Start: 09/30/21 19:37 Freq: Status: Active Protocol: Document 10/04/21 08:17 LRN (Rec: 10/04/21 16:15 LRN [id number]) Posture Evaluation Position Standing Head/C-Spine Posture Forward Head Shoulder Posture (L) Forward,(R) Forward,(L) Elevated Scapula Posture (L) Rotated Up Comments Posture Comments Mild C-curve of spine with apex on L side. Palpation Assessment Location L shoulder Palpation Location Anterior acromion, posterior border of middle deltoid Palpation Findings Soft Tissue Tightness,Muscle Guarding,Tenderness PT-OP-K Range of Motion Start: 09/30/21 19:37 Freq: Status: Active Protocol: Document 10/04/21 08:17 LRN (Rec: 10/04/21 16:15 LRN [id number]) Cervical Spine Range of Motion Cervical Spine Active Degrees Testing Position Sitting Flexion 40 Extension 40 Rotation Left 60 Rotation Right 70 Lateral Flexion Left 34 Lateral Flexion Right 39 Comments Discomfort with extension and SB L>R Shoulder Goniometric Range of Motion Shoulder Right Passive Shoulder ROM WFL Yes Testing Position Supine Flexion 152 Abduction 150 External Rotation at 0 degrees Abduction 52 Internal Rotation 90 Comments AB pain range is 90-150 Left Passive Shoulder ROM WFL No Testing Position Supine Flexion 125 Abduction 70 External Rotation at 90 degrees 58 Abduction Internal Rotation 34 Right Active Shoulder ROM WFL Yes Testing Position Sitting Flexion 130 Extension 65 Abduction 140 Internal Rotation Behind Back (text) T12 Comments ER Reaching behind head - T2 Left Active Shoulder ROM WFL No Testing Position Sitting Flexion 70 Extension 57 Abduction 70 Internal Rotation Behind Back (text) L4 Comments ER Reaching behind head - Top of shoulder Elbow/Forearm Range of Motion Elbow/Forearm Right Active Elbow/Forearm ROM WFL Yes Left Active Elbow/Forearm ROM WFL Yes PT-OP-L Special Tests Start: 09/30/21 19:37 Freq: Status: Active Protocol: Document 10/04/21 08:17 LRN (Rec: 10/04/21 16:15 LRN [id number]) Special Tests Shoulder Special Tests Elevation Impingement Test Results + L shoulder [place] Impingement Test Results + L shoulder Drop Arm Rotator Cuff Test Results + L shoulder Comments Pt able to lower arm if moving extremely slow. PT-OP-M Strength Start: 09/30/21 19:37 Freq: Status: Active Protocol: Document 10/04/21 08:17 LRN (Rec: 10/04/21 16:15 LRN [id number]) Shoulder Strength Shoulder Manual Muscle Testing Right External Rotation 3 Fair Comments Generally 5/5 except as indicated abovel Left Flexion 2 Poor Extension 2+ Poor+ Abduction (C5) 2 Poor External Rotation 2 Poor Internal Rotation 3 Fair Elbow/Forearm Strength Elbow and Forearm Manual Muscle Testing Right Comments Generally 5/5 Left Comments Generally 5/5 PT-OP-Q Treatments Start: 09/30/21 19:37 Freq: Status: Active Protocol: Document 10/04/21 08:17 LRN (Rec: 10/04/21 16:15 LRN [id number]) Therapeutic Exercises Sitting Exercises L shoulder ER stretch Sitting Exercise Name ER stretch Side left Equipment Used goniometer, but I/S pt to use cane or broom handle. Reps/Minutes 2' Self-Care/Home Management Treatment Education Other Education Discussed results of evaluation, goals, and plan of care (POC). Pt agreeable to goals and POC. Educated pt in use of cryotherapy to the L shoulder for pain management. Discussed and generally educated pt in importance of the rotator cuff muscles in movement of the L arm ( coordination and function), as well as importance of proper posturing to allow for painfree arm motion. Activities Self-Care/Home Management Activities I/S pt in active sitting shoulder IR/ER and Passive stretch of L shoulder into ER using a cane but demonstrating with goniometer. Requested pt to bring in ex's previously issued for review. PT-OP-T Assessment and Plan Start: 09/30/21 19:37 Freq: Status: Active Protocol: Document 10/04/21 08:17 LRN (Rec: 10/04/21 16:15 LRN [id number]) Physical Therapy Assessment Rehab Potential Rehabilitation Potential Good Evaluation Complexity Number of Personal Factors/Comorbidities 3 or More Number of Body Systems Impaired 4 or More Clinical Presentation at Evaluation Evolving Impairments Impairments Activity Tolerance,Functional Activities,Functional Mobility ,Pain,Posture,ROM,Soft Tissue Mobility,Strength Goals Three Impairment Decreased L shoulder strength with Pain rating 3-7/10. Impairment L shoulder strength is 2/5 except ext is 2+/5, IR is 3/5. (R shoulder is 5/5 except ER is 3/5). Initial Pain rating 3-7/10. Short Term Goal (STG) Pt will be able to lift L arm overhead with tolerable pain. STG Duration 11/20/21 Pairer Substandard Goal (LTG) Improve L shoulder strength with pt able to reach cupboards for tools and be able to reach out to side to the close the car door with tolerable pain of 1-2/10. LTG Duration 01/02/22 Two Impairment Decreased L shoulder ROM with Pain rating 3-7/10. Impairment L shoulder AROM sitting: Flex & AB is 70 deg's, ext is 57 deg's. Reaching behind back is to L4, behind head is to top of the shoulder. (R shoulder sitting: Flex 130 deg 's, AB is 140 deg's, ext 65. Behind back is &12, behind head is T2). L shoulder PROM supine (in deg 's): Flex 125, AB 70, ER 58, IR 34. (R shldr supine: Flex 152, AB 250, ER 52, IR 90). Short Term Goal (STG) Pt will be educated in neck AROM ex's. STG Duration 10/08/21 Usp Goal (LTG) Improve L shoulder AROM in order for the pt to be able to tolerate a functional PROM of overhead, and out to side with tolerable pain. LTG Duration 01/02/22 One Impairment Partially lacks knowledge of self detention program. Short Term Goal (STG) Pt will be educated in use of home modalities for pain management. STG Duration 10/08/21 Usp Goal (LTG) Pt will be independent in a self care HEP. LTG Duration 01/02/22 Assessment Summary Assessment Pt presents with signs and symptoms of L rotator cuff dysfunction with MRI indicating low-grade intrasubstance tearing of the subscapularis tendon near its superior insertion, and tendinosis involving the supraspinatus, infraspinatus, and subscapularis tendons. Pt is is limited in active and passive L shoulder mobility and limited in strength due to pain. Pt demonstrates poor L shoulder posturing at the GHJ , causing poor mechanics at the joint. Pt will beneifit from skilled physical therapy to progress the pt towards achieving the above stated goals. Physical Therapy Plan Frequency and Duration Frequency of Treatment 2x/Week Plan of Care Start Date 10/04/21 Plan of Care End Date 01/02/22 Therapeutic Interventions Therapeutic Interventions Aquatic Therapy,Home Exercise Program,Manual Therapy, Neuromuscular Re-education, Patient/Caregiver Education, Self-Care/Home Management,Soft Tissue Mobilization,Taping, Therapeutic Exercises Modalities Cold Pack/Ice Massage,Electric Stimulation,Hot Packs, Ultrasound Next Visit Focus/Plan Next Note Type Treatment Note Next Visit Plan CAUTION: Tear of subscapularis tendon near its superior insertion. Review active sitting shoulder IR/ER and Passive stretch of L shoulder into ER with cane. Review pt's previously issued HEP. Pt education: posture, pain management. Modalities: US, MH or ICE/ EStim. Ther Ex: L shoulder/scapula stab: PROM/AROM/ARROM.
--- NOTE | 2021-10-04 16:18 | PT.OPPOC ---
Physical, Occupational & Speech Therapy At [facility] Current Diagnoses Pain in left shoulder (10/04/21) Muscle weakness (generalized) (10/04/21) Visit Care Team Role Provider Type Phil Beyer MD Attending Provider Physician Family Provider Primary Care Provider Referring Provider Specialty: Internal Medicine Address: [address] [place] [address], [facility] Email: [email or web address] Plan Of Care PT-OP-T Assessment and Plan Start: 09/30/21 19:37 Freq: Status: Active Protocol: Document 10/04/21 08:17 LRN (Rec: 10/04/21 16:15 LRN [id number]) Physical Therapy Assessment Rehab Potential Rehabilitation Potential Good Evaluation Complexity Number of Personal Factors/Comorbidities 3 or More Number of Body Systems Impaired 4 or More Clinical Presentation at Evaluation Evolving Impairments Impairments Activity Tolerance,Functional Activities,Functional Mobility ,Pain,Posture,ROM,Soft Tissue Mobility,Strength Goals Three Impairment Decreased L shoulder strength with Pain rating 3-7/10. Impairment L shoulder strength is 2/5 except ext is 2+/5, IR is 3/5. (R shoulder is 5/5 except ER is 3/5). Initial Pain rating 3-7/10. Short Term Goal (STG) Pt will be able to lift L arm overhead with tolerable pain. STG Duration 11/20/21 Retirement Goal (LTG) Improve L shoulder strength with pt able to reach cupboards for tools and be able to reach out to side to the close the car door with tolerable pain of 1-2/10. LTG Duration 01/02/22 Two Impairment Decreased L shoulder ROM with Pain rating 3-7/10. Impairment L shoulder AROM sitting: Flex & AB is 70 deg's, ext is 57 deg's. Reaching behind back is to L4, behind head is to top of the shoulder. (R shoulder sitting: Flex 130 deg 's, AB is 140 deg's, ext 65. Behind back is &12, behind head is T2). L shoulder PROM supine (in deg 's): Flex 125, AB 70, ER 58, IR 34. (R shldr supine: Flex 152, AB 250, ER 52, IR 90). Short Term Goal (STG) Pt will be educated in neck AROM ex's. STG Duration 10/08/21 Customer Service Operator Goal (LTG) Improve L shoulder AROM in order for the pt to be able to tolerate a functional PROM of overhead, and out to side with tolerable pain. LTG Duration 01/02/22 One Impairment Partially lacks knowledge of self jail program. Short Term Goal (STG) Pt will be educated in use of home modalities for pain management. STG Duration 10/08/21 Customer Service Operator Goal (LTG) Pt will be independent in a self care HEP. LTG Duration 01/02/22 Assessment Summary Assessment Pt presents with signs and symptoms of L rotator cuff dysfunction with MRI indicating low-grade intrasubstance tearing of the subscapularis tendon near its superior insertion, and tendinosis involving the supraspinatus, infraspinatus, and subscapularis tendons. Pt is is limited in active and passive L shoulder mobility and limited in strength due to pain. Pt demonstrates poor L shoulder posturing at the GHJ , causing poor mechanics at the joint. Pt will beneifit from skilled physical therapy to progress the pt towards achieving the above stated goals. Physical Therapy Plan Frequency and Duration Frequency of Treatment 2x/Week Plan of Care Start Date 10/04/21 Plan of Care End Date 01/02/22 Therapeutic Interventions Therapeutic Interventions Aquatic Therapy,Home Exercise Program,Manual Therapy, Neuromuscular Re-education, Patient/Caregiver Education, Self-Care/Home Management,Soft Tissue Mobilization,Taping, Therapeutic Exercises Modalities Cold Pack/Ice Massage,Electric Stimulation,Hot Packs, Ultrasound Next Visit Focus/Plan Next Note Type Treatment Note Next Visit Plan CAUTION: Tear of subscapularis tendon near its superior insertion. Review active sitting shoulder IR/ER and Passive stretch of L shoulder into ER with cane. Review pt's previously issued HEP. Pt education: posture, pain management. Modalities: US, MH or ICE/ EStim. Ther Ex: L shoulder/scapula stab: PROM/AROM/ARROM. Plan of Care Dates Plan of Care Start Date 10/04/21 Plan of Care End Date 01/02/22 Electronically Signed by: Giovanna Gautam, PT 10/04/21 1017 If you are in agreement with this Plan of Care, please return a signed and dated copy. I have reviewed this Plan of Care and certify that the skilled therapy services above are required to meet the patient?s needs. Physician Signature Date Printed Name and Credentials Clinical Instructor Signature Printed Name and Credentials
--- NOTE | 2021-10-06 08:15 | PT.OTN ---
Current Diagnoses Pain in left shoulder (10/06/21) Muscle weakness (generalized) (10/06/21) Physical Therapy Treatment Note PT-OP-A Visit Information Start: 09/30/21 19:37 Freq: Status: Active Protocol: Document 10/06/21 07:31 SP (Rec: 10/06/21 08:18 SP [id number]) Out-Patient Physical Therapy Visit Information Visit Information Visit Type Treatment Note Visit Note SUHAS Hurd assisted pt with manual while being directly supervised by WELL DRILL OPERATOR ROTARY DRILL Aleena with pt feedback pressure/benefit response post WELL DRILL OPERATOR ROTARY DRILL demonstration. Visit Start Time 07:31 Visit Stop Time 08:15 Total Visit Minutes 44 Visit Number 04/27 Number of WELL DRILL OPERATOR ROTARY DRILL Visits 1 Evaluation Information Evaluation Date 10/04/21 Precautions Precautions 4 heart attacks over past 20 yrs w/most recent 5-8 yrs ago (4 stents), prostate removed due to CA with PSA 0 since, Diabetes controlled by meds, CHF, HBP controlled by meds, arthritis - 5-8 yrs ago. PT-OP-B Current Condition Start: 09/30/21 19:37 Freq: Status: Active Protocol: Document 10/04/21 08:17 LRN (Rec: 10/04/21 16:15 LRN [id number]) Current Condition History of Current Condition Onset Date 3 months ago Current Complaints Most severe pain L shoulder when trying to lift the arm. History of Current Condition Instant onset of L sided pain in the shoulder, knee. Went to ER and was told he had reactive arthritis. He is having consistent L shoulder pain, generally around the joint and upper brachium. 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 Having LE knees/ hips problems and can't stand 15 minutes before starting to shake due to LE pains. 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 Prior Treatments and Tests Wears a Salonpas on L shoulder and takes Alleve and finds it moderately helpful. Can always feel the L shoulder but can't raise the arm. X-rays: No fractures or dislocations. MRI: Moderate to severe rotator cuff tendinosis involving the supraspinatus, infraspinatus, and subscapularis tendons. There is superimposed low- grade intrasubstance tearing of the subscapularis tendon near its superior insertion. No full- thickness rotator cuff tendon tear. Mild tendinosis of the proximal biceps long head tendon. Nondisplaced tearing of the superior labrum extending into the anterosuperior and posterosuperior labrum. 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 Moderate subacromial/subdeltoid bursal effusion or bursitis. Developmental History Developmental History Has daughter and son nearby who is able to help. Treatment Goals Patient/Caregiver Goals Pt goal is to be able to lift, and use the L arm above shoulder height to reach into cupboard, reach for tools with tolerable pain. Be able to reach out and close car door with L arm. Pt is R handed. 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 Baseline Function- Other No functional hindrances. Current Functional Impairments (Reported) Functional Limitations- ADL's Difficulty due to R hip and L > R knee pain. Knee pn relieved by cremes. has to help him put his T -shirt on and Salonpas patches , but has dementia. 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 History of 4 heart attacks over past 20 yrs w/most recent 5-8 yrs ago (4 stents), prostate removed due to CA with PSA 0 since. PT-OP-C Subjective Start: 09/30/21 19:37 Freq: Status: Active Protocol: Document 10/06/21 07:31 SP (Rec: 10/06/21 08:18 SP [id number]) OP-PT Subjective Patient Comments Patient Comments Pt stated manual and gentle HEP initiated eval last tx was helpful. He reports continues have pain in L shld what coming for but has pain in all his jts B knees/hips worse than L shld today. PT-OP-E Functional Tests Start: 09/30/21 19:37 Freq: Status: Active Protocol: Document 10/04/21 08:17 LRN (Rec: 10/04/21 16:15 LRN [id number]) Functional Tests Apley's Scratch Test Action 2- Left Top of shoulder Action 2- Right T2 Action 3- Left L4 Action 3- Right T12 PT-OP-J Posture/Palpation/Skin Start: 09/30/21 19:37 Freq: Status: Active Protocol: Document 10/04/21 08:17 LRN (Rec: 10/04/21 16:15 LRN [id number]) Posture Evaluation Position Standing Head/C-Spine Posture Forward Head Shoulder Posture (L) Forward,(R) Forward,(L) Elevated Scapula Posture (L) Rotated Up Comments Posture Comments Mild C-curve of spine with apex on L side. Palpation Assessment Location L shoulder Palpation Location Anterior acromion, posterior border of middle deltoid Palpation Findings Soft Tissue Tightness,Muscle Guarding,Tenderness PT-OP-K Range of Motion Start: 09/30/21 19:37 Freq: Status: Active Protocol: Document 10/04/21 08:17 LRN (Rec: 10/04/21 16:15 LRN [id number]) Cervical Spine Range of Motion Cervical Spine Active Degrees Testing Position Sitting Flexion 40 Extension 40 Rotation Left 60 Rotation Right 70 Lateral Flexion Left 34 Lateral Flexion Right 39 Comments Discomfort with extension and SB L>R Shoulder Goniometric Range of Motion Shoulder Right Passive Shoulder ROM WFL Yes Testing Position Supine Flexion 152 Abduction 150 External Rotation at 0 degrees Abduction 52 Internal Rotation 90 Comments AB pain range is 90-150 Left Passive Shoulder ROM WFL No Testing Position Supine Flexion 125 Abduction 70 External Rotation at 90 degrees 58 Abduction Internal Rotation 34 Right Active Shoulder ROM WFL Yes Testing Position Sitting Flexion 130 Extension 65 Abduction 140 Internal Rotation Behind Back (text) T12 Comments ER Reaching behind head - T2 Left Active Shoulder ROM WFL No Testing Position Sitting Flexion 70 Extension 57 Abduction 70 Internal Rotation Behind Back (text) L4 Comments ER Reaching behind head - Top of shoulder Elbow/Forearm Range of Motion Elbow/Forearm Right Active Elbow/Forearm ROM WFL Yes Left Active Elbow/Forearm ROM WFL Yes PT-OP-L Special Tests Start: 09/30/21 19:37 Freq: Status: Active Protocol: Document 10/04/21 08:17 LRN (Rec: 10/04/21 16:15 LRN [id number]) Special Tests Shoulder Special Tests Elevation Impingement Test Results + L shoulder [place] Impingement Test Results + L shoulder Drop Arm Rotator Cuff Test Results + L shoulder Comments Pt able to lower arm if moving extremely slow. PT-OP-M Strength Start: 09/30/21 19:37 Freq: Status: Active Protocol: Document 10/04/21 08:17 LRN (Rec: 10/04/21 16:15 LRN [id number]) Shoulder Strength Shoulder Manual Muscle Testing Right External Rotation 3 Fair Comments Generally 5/5 except as indicated abovel Left Flexion 2 Poor Extension 2+ Poor+ Abduction (C5) 2 Poor External Rotation 2 Poor Internal Rotation 3 Fair Elbow/Forearm Strength Elbow and Forearm Manual Muscle Testing Right Comments Generally 5/5 Left Comments Generally 5/5 PT-OP-Q Treatments Start: 09/30/21 19:37 Freq: Status: Active Protocol: Document 10/06/21 07:31 SP (Rec: 10/06/21 08:18 SP [id number]) Therapeutic Exercises Supine Exercises FF Supine Exercise Name in PT only Side left Resistance AAROM w/ dowel (together BUE vs RUE assist LUE) Reps/Minutes x2 reps each set up Comments caused increased anterior shld pain so stopped. Sitting Exercises table slide Sitting Exercise Name added toHEP: FF Side left Reps/Minutes x10 Comments good form, painfree scap retraction Sitting Exercise Name added to HEP Side left Reps/Minutes 5 sec hold x10 Comments good postural corrections with less UT recruitment UT stretch Sitting Exercise Name added to HEP Side left Resistance opp UE gentle AAROM Reps/Minutes 15 sec x3 Comments cued can add little overpressure stretch with opp UE, good postur alignment L shoulder ER stretch Sitting Exercise Name ER stretch- reviewed HEP ( given supine by physician vs seated today) Side left Equipment Used purple wand (uses stick at home) Reps/Minutes x10 Comments cued posture and painfree range Manual Therapy Treatment Soft Tissue Mobilization deltoid Body Location L anterolateral deltoid Mobilization Type Cross-Friction,Strumming Intensity/Depth Superficial Body Position Hooklying Comments manual Pec, bicep tendon Body Location L major, minor, prox long head bicep Mobilization Type Instrument Assisted,Myofascial Release,Strumming Intensity/Depth Superficial Body Position Hooklying Comments manual RTC Body Location L : supra, infraspinatus Mobilization Type Cross-Friction,Myofascial Release,Strumming Intensity/Depth Superficial Body Position Hooklying Comments manual Joint Mobilizations GH jt Joint L shld Direction AP, inferior glide Grade II Body Position Hooklying Comments good feedback response Manual Techniques PROM L shld Type FF, ABD, ER Body Position Hooklying Comments manual, limited range (didn't measure) stayed in painfree range Self-Care/Home Management Treatment Education Patient Education Body Mechanics,Home Exercise Program,Pain Management, Posture Other Education Time spent discussion previous HEP given to him from ortho and general practioner and what able to do as HEP at this time for painfree, see HOs scanned today from WELL DRILL OPERATOR ROTARY DRILL: UT stretch, scap retraction, AAROM w/dowel, table slide FF only at this time with better understanding painfree range with good postural form. PT-OP-T Assessment and Plan Start: 09/30/21 19:37 Freq: Status: Active Protocol: Document 10/06/21 07:31 SP (Rec: 10/06/21 08:18 SP [id number]) Physical Therapy Assessment Goals Three Impairment Decreased L shoulder strength with Pain rating 3-7/10. Impairment L shoulder strength is 2/5 except ext is 2+/5, IR is 3/5. (R shoulder is 5/5 except ER is 3/5). Initial Pain rating 3-7/10. Short Term Goal (STG) Pt will be able to lift L arm overhead with tolerable pain. STG Duration 11/20/21 [facility] Goal (LTG) Improve L shoulder strength with pt able to reach cupboards for tools and be able to reach out to side to the close the car door with tolerable pain of 1-2/10. LTG Duration 01/02/22 Two Impairment Decreased L shoulder ROM with Pain rating 3-7/10. Impairment L shoulder AROM sitting: Flex & AB is 70 deg's, ext is 57 deg's. Reaching behind back is to L4, behind head is to top of the shoulder. (R shoulder sitting: Flex 130 deg 's, AB is 140 deg's, ext 65. Behind back is &12, behind head is T2). L shoulder PROM supine (in deg 's): Flex 125, AB 70, ER 58, IR 34. (R shldr supine: Flex 152, AB 250, ER 52, IR 90). Short Term Goal (STG) Pt will be educated in neck AROM ex's. STG Duration 10/08/21 [facility] Goal (LTG) Improve L shoulder AROM in order for the pt to be able to tolerate a functional PROM of overhead, and out to side with tolerable pain. LTG Duration 01/02/22 One Impairment Partially lacks knowledge of self longterm program. Short Term Goal (STG) Pt will be educated in use of home modalities for pain management. STG Duration 10/08/21 [facility] Goal (LTG) Pt will be independent in a self care HEP. LTG Duration 01/02/22 Assessment Summary Assessment Pt improved understanding of postural alignment and better GH jt positioning with scap retraction and added table slides today painfree ROM. Physical Therapy Plan Frequency and Duration Frequency of Treatment 2x/Week Plan of Care Start Date 10/04/21 Plan of Care End Date 01/02/22 Next Visit Focus/Plan Next Note Type Treatment Note Next Visit Plan Reviewed HEP: scap retraction, table slide, shld ER AAROM, progress scaption/ER with table slide next tx. Initiated manual scapulothoracic L next tx. CAUTION: Tear of subscapularis tendon near its superior insertion. Review active sitting shoulder IR/ER and Passive stretch of L shoulder into ER with cane. Pt education: posture, pain management. Modalities: US, MH or ICE/ EStim. Ther Ex: L shoulder/scapula stab: PROM/AROM/ARROM.
--- NOTE | 2021-10-11 12:31 | PT.OTN ---
Current Diagnoses Pain in left shoulder (10/11/21) Muscle weakness (generalized) (10/11/21) Physical Therapy Treatment Note PT-OP-A Visit Information Start: 09/30/21 19:37 Freq: Status: Active Protocol: Document 10/11/21 08:15 LRN (Rec: 10/11/21 09:03 LRN [id number]) Out-Patient Physical Therapy Visit Information Visit Information Visit Type Treatment Note Visit Start Time 08:15 Visit Stop Time 08:58 Total Visit Minutes 43 Visit Number 05/25 Precautions Precautions 4 heart attacks over past 20 yrs w/most recent 5-8 yrs ago (4 stents), prostate removed due to CA with PSA 0 since, Diabetes controlled by meds, CHF, HBP controlled by meds, arthritis - 5-8 yrs ago. PT-OP-B Current Condition Start: 09/30/21 19:37 Freq: Status: Active Protocol: Document 10/04/21 08:17 LRN (Rec: 10/04/21 16:15 LRN [id number]) Current Condition History of Current Condition Onset Date 3 months ago Current Complaints Most severe pain L shoulder when trying to lift the arm. History of Current Condition Instant onset of L sided pain in the shoulder, knee. Went to ER and was told he had reactive arthritis. He is having consistent L shoulder pain, generally around the joint and upper brachium. 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 Having LE knees/ hips problems and can't stand 15 minutes before starting to shake due to LE pains. 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 Prior Treatments and Tests Wears a Salonpas on L shoulder and takes Alleve and finds it moderately helpful. Can always feel the L shoulder but can't raise the arm. X-rays: No fractures or dislocations. MRI: Moderate to severe rotator cuff tendinosis involving the supraspinatus, infraspinatus, and subscapularis tendons. There is superimposed low- grade intrasubstance tearing of the subscapularis tendon near its superior insertion. No full- thickness rotator cuff tendon tear. Mild tendinosis of the proximal biceps long head tendon. Nondisplaced tearing of the superior labrum extending into the anterosuperior and posterosuperior labrum. 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 Moderate subacromial/subdeltoid bursal effusion or bursitis. Developmental History Developmental History Has daughter and son nearby who is able to help. Treatment Goals Patient/Caregiver Goals Pt goal is to be able to lift, and use the L arm above shoulder height to reach into cupboard, reach for tools with tolerable pain. Be able to reach out and close car door with L arm. Pt is R handed. 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 Baseline Function- Other No functional hindrances. Current Functional Impairments (Reported) Functional Limitations- ADL's Difficulty due to R hip and L > R knee pain. Knee pn relieved by cremes. has to help him put his T -shirt on and Salonpas patches , but has dementia. 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 History of 4 heart attacks over past 20 yrs w/most recent 5-8 yrs ago (4 stents), prostate removed due to CA with PSA 0 since. PT-OP-C Subjective Start: 09/30/21 19:37 Freq: Status: Active Protocol: Document 10/11/21 08:15 LRN (Rec: 10/11/21 09:03 LRN [id number]) OP-PT Subjective Patient Comments Patient Comments Feels he is getting better. PT-OP-E Functional Tests Start: 09/30/21 19:37 Freq: Status: Active Protocol: Document 10/04/21 08:17 LRN (Rec: 10/04/21 16:15 LRN [id number]) Functional Tests Apley's Scratch Test Action 2- Left Top of shoulder Action 2- Right T2 Action 3- Left L4 Action 3- Right T12 PT-OP-J Posture/Palpation/Skin Start: 09/30/21 19:37 Freq: Status: Active Protocol: Document 10/04/21 08:17 LRN (Rec: 10/04/21 16:15 LRN [id number]) Posture Evaluation Position Standing Head/C-Spine Posture Forward Head Shoulder Posture (L) Forward,(R) Forward,(L) Elevated Scapula Posture (L) Rotated Up Comments Posture Comments Mild C-curve of spine with apex on L side. Palpation Assessment Location L shoulder Palpation Location Anterior acromion, posterior border of middle deltoid Palpation Findings Soft Tissue Tightness,Muscle Guarding,Tenderness PT-OP-K Range of Motion Start: 09/30/21 19:37 Freq: Status: Active Protocol: Document 10/04/21 08:17 LRN (Rec: 10/04/21 16:15 LRN [id number]) Cervical Spine Range of Motion Cervical Spine Active Degrees Testing Position Sitting Flexion 40 Extension 40 Rotation Left 60 Rotation Right 70 Lateral Flexion Left 34 Lateral Flexion Right 39 Comments Discomfort with extension and SB L>R Shoulder Goniometric Range of Motion Shoulder Right Passive Shoulder ROM WFL Yes Testing Position Supine Flexion 152 Abduction 150 External Rotation at 0 degrees Abduction 52 Internal Rotation 90 Comments AB pain range is 90-150 Left Passive Shoulder ROM WFL No Testing Position Supine Flexion 125 Abduction 70 External Rotation at 90 degrees 58 Abduction Internal Rotation 34 Right Active Shoulder ROM WFL Yes Testing Position Sitting Flexion 130 Extension 65 Abduction 140 Internal Rotation Behind Back (text) T12 Comments ER Reaching behind head - T2 Left Active Shoulder ROM WFL No Testing Position Sitting Flexion 70 Extension 57 Abduction 70 Internal Rotation Behind Back (text) L4 Comments ER Reaching behind head - Top of shoulder Elbow/Forearm Range of Motion Elbow/Forearm Right Active Elbow/Forearm ROM WFL Yes Left Active Elbow/Forearm ROM WFL Yes PT-OP-L Special Tests Start: 09/30/21 19:37 Freq: Status: Active Protocol: Document 10/04/21 08:17 LRN (Rec: 10/04/21 16:15 LRN [id number]) Special Tests Shoulder Special Tests Elevation Impingement Test Results + L shoulder [place] Impingement Test Results + L shoulder Drop Arm Rotator Cuff Test Results + L shoulder Comments Pt able to lower arm if moving extremely slow. PT-OP-M Strength Start: 09/30/21 19:37 Freq: Status: Active Protocol: Document 10/04/21 08:17 LRN (Rec: 10/04/21 16:15 LRN [id number]) Shoulder Strength Shoulder Manual Muscle Testing Right External Rotation 3 Fair Comments Generally 5/5 except as indicated abovel Left Flexion 2 Poor Extension 2+ Poor+ Abduction (C5) 2 Poor External Rotation 2 Poor Internal Rotation 3 Fair Elbow/Forearm Strength Elbow and Forearm Manual Muscle Testing Right Comments Generally 5/5 Left Comments Generally 5/5 PT-OP-Q Treatments Start: 09/30/21 19:37 Freq: Status: Active Protocol: Document 10/11/21 08:15 LRN (Rec: 10/11/21 09:03 LRN [id number]) Therapeutic Exercises Supine Exercises Lat pull down Supine Exercise Name Lat pull down and with manual c. tx Equipment Used Lev 2 Reps/Minutes 15x Comments Extra time to determine margarita and relief of pain with manual tx/ ER/IR Supine Exercise Name Windshield Wipe Side left Reps/Minutes 15x Comments Painfree range. extra time to determine tolerated range. FF Supine Exercise Name FF w/scaption & ER Side bilateral Equipment Used BLue dowel Reps/Minutes 15x Comments assist on return to normal position Sidelying Exercises Shldr ER Sidelying Exercise Name Shldr ER Side left Reps/Minutes 15x Comments Extra time for positioning Sitting Exercises Table slide w/scap retract & depression Sitting Exercise Name Table slide with scaption/ER Side left Reps/Minutes 10x Comments Much phy & v cuing needed at scapula table slide Sitting Exercise Name added to HEP: FF Side left Reps/Minutes x10 Comments good form, painfree scap retraction Sitting Exercise Name added to HEP Side left Reps/Minutes 5 sec hold x10 Comments good postural corrections with less UT recruitment UT stretch Sitting Exercise Name added to HEP Side left Resistance opp UE gentle AAROM Reps/Minutes 15 sec x3 Comments cued can add little overpressure stretch with opp UE, good postur alignment L shoulder ER stretch Sitting Exercise Name ER stretch- reviewed HEP ( given supine by physician vs seated today) Side left Equipment Used purple wand (uses stick at home) Reps/Minutes x10 Comments cued posture and painfree range Self-Care/Home Management Treatment Education Patient Education Home Exercise Program Activities Self-Care/Home Management Activities Issued & reveiwed HEP: Sidelie shoulder ER/IR strengthening. PT-OP-T Assessment and Plan Start: 09/30/21 19:37 Freq: Status: Active Protocol: Document 10/11/21 08:15 LRN (Rec: 10/11/21 09:03 LRN [id number]) Physical Therapy Assessment Goals Three Impairment Decreased L shoulder strength with Pain rating 3-7/10. Impairment L shoulder strength is 2/5 except ext is 2+/5, IR is 3/5. (R shoulder is 5/5 except ER is 3/5). Initial Pain rating 3-7/10. Short Term Goal (STG) Pt will be able to lift L arm overhead with tolerable pain. STG Duration 11/20/21 [facility] Goal (LTG) Improve L shoulder strength with pt able to reach cupboards for tools and be able to reach out to side to the close the car door with tolerable pain of 1-2/10. LTG Duration 01/02/22 Two Impairment Decreased L shoulder ROM with Pain rating 3-7/10. Impairment L shoulder AROM sitting: Flex & AB is 70 deg's, ext is 57 deg's. Reaching behind back is to L4, behind head is to top of the shoulder. (R shoulder sitting: Flex 130 deg 's, AB is 140 deg's, ext 65. Behind back is &12, behind head is T2). L shoulder PROM supine (in deg 's): Flex 125, AB 70, ER 58, IR 34. (R shldr supine: Flex 152, AB 250, ER 52, IR 90). Short Term Goal (STG) Pt will be educated in neck AROM ex's. STG Duration 10/08/21 [facility] Goal (LTG) Improve L shoulder AROM in order for the pt to be able to tolerate a functional PROM of overhead, and out to side with tolerable pain. LTG Duration 01/02/22 One Impairment Partially lacks knowledge of self fci program. Short Term Goal (STG) Pt will be educated in use of home modalities for pain management. STG Duration 10/08/21 Analysis Internship Goal (LTG) Pt will be independent in a self care HEP. LTG Duration 01/02/22 Assessment Summary Assessment Pt did well with issued HEP, he appeared to know them well, except review of ER stretch was needed since pt was doing as a shoulder AB stretch. Pain with resistive IR as expected. Pain in L brachium probably due to nerve pain since manual C. tx relieved pain with supine lat pull down . Physical Therapy Plan Frequency and Duration Frequency of Treatment 2x/Week Plan of Care Start Date 10/04/21 Plan of Care End Date 01/02/22 Next Visit Focus/Plan Next Note Type Treatment Note Next Visit Plan Review: scaption/ER with table slide next tx. Add Scap protraction. Possible IFES at C5-C7 to decrease L brachial nerve pain. Next treatment address pt education (STG #1): posture, pain management ( [place]). CAUTION: Tear of subscapularis tendon near its superior insertion. Modalities: US, MH or ICE/ EStim. Ther Ex: L shoulder/scapula stab: PROM/AROM/ARROM.
--- NOTE | 2021-10-14 07:43 | PT-OP ANOTE ---
Pt DNS for 730 appt today, BIOLOGY ADJUNCT INSTRUCTOR called and spoke with , she reported he went to town and wonder if forgot about appt. BIOLOGY ADJUNCT INSTRUCTOR reminded may receive a NS fee for missed appt. BIOLOGY ADJUNCT INSTRUCTOR also discussed next appt on 10/19, she confirmed all appts are written on their calendar.
--- NOTE | 2021-10-19 09:00 | PT.OTN ---
Current Diagnoses Pain in left shoulder (10/19/21) Muscle weakness (generalized) (10/19/21) Physical Therapy Treatment Note PT-OP-A Visit Information Start: 09/30/21 19:37 Freq: Status: Active Protocol: Document 10/19/21 08:14 NBM (Rec: 10/19/21 09:04 NBM [id number]) Out-Patient Physical Therapy Visit Information Visit Information Visit Type Treatment Note Visit Start Time 08:15 Visit Stop Time 08:55 Total Visit Minutes 40 Visit Number 06/25 Number of AREA COORDINATOR Visits 1 PT-OP-B Current Condition Start: 09/30/21 19:37 Freq: Status: Active Protocol: Document 10/04/21 08:17 LRN (Rec: 10/04/21 16:15 LRN [id number]) Current Condition History of Current Condition Onset Date 3 months ago Current Complaints Most severe pain L shoulder when trying to lift the arm. History of Current Condition Instant onset of L sided pain in the shoulder, knee. Went to ER and was told he had reactive arthritis. He is having consistent L shoulder pain, generally around the joint and upper brachium. 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 Having LE knees/ hips problems and can't stand 15 minutes before starting to shake due to LE pains. 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 Prior Treatments and Tests Wears a Salonpas on L shoulder and takes Alleve and finds it moderately helpful. Can always feel the L shoulder but can't raise the arm. X-rays: No fractures or dislocations. MRI: Moderate to severe rotator cuff tendinosis involving the supraspinatus, infraspinatus, and subscapularis tendons. There is superimposed low- grade intrasubstance tearing of the subscapularis tendon near its superior insertion. No full- thickness rotator cuff tendon tear. Mild tendinosis of the proximal biceps long head tendon. Nondisplaced tearing of the superior labrum extending into the anterosuperior and posterosuperior labrum. 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 Moderate subacromial/subdeltoid bursal effusion or bursitis. Developmental History Developmental History Has daughter and son nearby who is able to help. Treatment Goals Patient/Caregiver Goals Pt goal is to be able to lift, and use the L arm above shoulder height to reach into cupboard, reach for tools with tolerable pain. Be able to reach out and close car door with L arm. Pt is R handed. 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 Baseline Function- Other No functional hindrances. Current Functional Impairments (Reported) Functional Limitations- ADL's Difficulty due to R hip and L > R knee pain. Knee pn relieved by cremes. has to help him put his T -shirt on and Salonpas patches , but has dementia. 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 History of 4 heart attacks over past 20 yrs w/most recent 5-8 yrs ago (4 stents), prostate removed due to CA with PSA 0 since. PT-OP-C Subjective Start: 09/30/21 19:37 Freq: Status: Active Protocol: Document 10/19/21 08:14 NBM (Rec: 10/19/21 09:04 NBM [id number]) OP-PT Subjective Patient Comments Patient Comments Pt says shoulder is doing well and he has been doing his exercises, but his legs are really hurting, especially in the morning. He sees his MD on 11/01 and is going to ask for PT referral for legs. PT-OP-E Functional Tests Start: 09/30/21 19:37 Freq: Status: Active Protocol: Document 10/04/21 08:17 LRN (Rec: 10/04/21 16:15 LRN [id number]) Functional Tests Apley's Scratch Test Action 2- Left Top of shoulder Action 2- Right T2 Action 3- Left L4 Action 3- Right T12 PT-OP-J Posture/Palpation/Skin Start: 09/30/21 19:37 Freq: Status: Active Protocol: Document 10/04/21 08:17 LRN (Rec: 10/04/21 16:15 LRN [id number]) Posture Evaluation Position Standing Head/C-Spine Posture Forward Head Shoulder Posture (L) Forward,(R) Forward,(L) Elevated Scapula Posture (L) Rotated Up Comments Posture Comments Mild C-curve of spine with apex on L side. Palpation Assessment Location L shoulder Palpation Location Anterior acromion, posterior border of middle deltoid Palpation Findings Soft Tissue Tightness,Muscle Guarding,Tenderness PT-OP-K Range of Motion Start: 09/30/21 19:37 Freq: Status: Active Protocol: Document 10/04/21 08:17 LRN (Rec: 10/04/21 16:15 LRN [id number]) Cervical Spine Range of Motion Cervical Spine Active Degrees Testing Position Sitting Flexion 40 Extension 40 Rotation Left 60 Rotation Right 70 Lateral Flexion Left 34 Lateral Flexion Right 39 Comments Discomfort with extension and SB L>R Shoulder Goniometric Range of Motion Shoulder Right Passive Shoulder ROM WFL Yes Testing Position Supine Flexion 152 Abduction 150 External Rotation at 0 degrees Abduction 52 Internal Rotation 90 Comments AB pain range is 90-150 Left Passive Shoulder ROM WFL No Testing Position Supine Flexion 125 Abduction 70 External Rotation at 90 degrees 58 Abduction Internal Rotation 34 Right Active Shoulder ROM WFL Yes Testing Position Sitting Flexion 130 Extension 65 Abduction 140 Internal Rotation Behind Back (text) T12 Comments ER Reaching behind head - T2 Left Active Shoulder ROM WFL No Testing Position Sitting Flexion 70 Extension 57 Abduction 70 Internal Rotation Behind Back (text) L4 Comments ER Reaching behind head - Top of shoulder Elbow/Forearm Range of Motion Elbow/Forearm Right Active Elbow/Forearm ROM WFL Yes Left Active Elbow/Forearm ROM WFL Yes PT-OP-L Special Tests Start: 09/30/21 19:37 Freq: Status: Active Protocol: Document 10/04/21 08:17 LRN (Rec: 10/04/21 16:15 LRN [id number]) Special Tests Shoulder Special Tests Elevation Impingement Test Results + L shoulder [place] Impingement Test Results + L shoulder Drop Arm Rotator Cuff Test Results + L shoulder Comments Pt able to lower arm if moving extremely slow. PT-OP-M Strength Start: 09/30/21 19:37 Freq: Status: Active Protocol: Document 10/04/21 08:17 LRN (Rec: 10/04/21 16:15 LRN [id number]) Shoulder Strength Shoulder Manual Muscle Testing Right External Rotation 3 Fair Comments Generally 5/5 except as indicated abovel Left Flexion 2 Poor Extension 2+ Poor+ Abduction (C5) 2 Poor External Rotation 2 Poor Internal Rotation 3 Fair Elbow/Forearm Strength Elbow and Forearm Manual Muscle Testing Right Comments Generally 5/5 Left Comments Generally 5/5 PT-OP-Q Treatments Start: 09/30/21 19:37 Freq: Status: Active Protocol: Document 10/19/21 08:14 NBM (Rec: 10/19/21 09:04 NBM [id number]) Therapeutic Exercises Sidelying Exercises Shldr IR Sidelying Exercise Name added to HEP Side left Resistance 1# Reps/Minutes x15 Comments increased pn after 5reps 1#-dc 'd Shldr ER Sidelying Exercise Name added to HEP Side left Resistance None Reps/Minutes x15 Comments most challenging at end-range Sitting Exercises Table slide w/scap retract & depression Sitting Exercise Name Table slide with scaption/ER Side left Reps/Minutes 10x Comments Much phy & v cuing needed at scapula table slide Sitting Exercise Name added to HEP: FF Side left Reps/Minutes x10 Comments good form, painfree scap retraction Sitting Exercise Name rows Side bilateral Resistance Lvl2 Tb held by AREA COORDINATOR Reps/Minutes 5 sec hold x10 Comments good response - cued for less UT recruitment UT stretch Sitting Exercise Name added to HEP Side bilateral Resistance opp UE gentle AAROM Reps/Minutes 30 sec x 2 Comments pt able to add little overpressure stretch w/ L hand L shoulder ER stretch Sitting Exercise Name ER stretch- reviewed HEP ( given supine by physician vs seated today) Side left Equipment Used purple wand (uses stick at home) Reps/Minutes x10 Comments cued posture and painfree range Manual Therapy Treatment Soft Tissue Mobilization deltoid Body Location L anterolateral deltoid Mobilization Type Cross-Friction,Strumming Intensity/Depth Superficial Body Position Hooklying Comments manual Pec, bicep tendon Body Location L major, minor, prox long head bicep Mobilization Type Instrument Assisted,Myofascial Release,Strumming Intensity/Depth Superficial Body Position Hooklying Comments manual Self-Care/Home Management Treatment Education Patient Education Home Exercise Program Other Education Pt given HO for IR/ER sidelying exercises. PT-OP-R Modalities Start: 09/30/21 19:37 Freq: Status: Active Protocol: Document 10/19/21 08:14 NBM (Rec: 08/09/22 09:04 [facility] [id number]) Hot Pack/Cold Pack Treatment Cold Pack Location L shoulder Patient Position Hooklying Treatment Duration (minutes) 10 Patient Tolerance Good Comments w UE pillow support PT-OP-T Assessment and Plan Start: 09/30/21 19:37 Freq: Status: Active Protocol: Document 10/19/21 08:14 [facility] (Rec: 10/19/21 09:04 [facility] [id number]) Physical Therapy Assessment Goals Three Impairment Decreased L shoulder strength with Pain rating 3-7/10. Impairment L shoulder strength is 2/5 except ext is 2+/5, IR is 3/5. (R shoulder is 5/5 except ER is 3/5). Initial Pain rating 3-7/10. Short Term Goal (STG) Pt will be able to lift L arm overhead with tolerable pain. STG Duration 11/20/21 Half-Way Goal (LTG) Improve L shoulder strength with pt able to reach cupboards for tools and be able to reach out to side to the close the car door with tolerable pain of 1-2/10. LTG Duration 01/02/22 Two Impairment Decreased L shoulder ROM with Pain rating 3-7/10. Impairment L shoulder AROM sitting: Flex & AB is 70 deg's, ext is 57 deg's. Reaching behind back is to L4, behind head is to top of the shoulder. (R shoulder sitting: Flex 130 deg 's, AB is 140 deg's, ext 65. Behind back is &12, behind head is T2). L shoulder PROM supine (in deg 's): Flex 125, AB 70, ER 58, IR 34. (R shldr supine: Flex 152, AB 250, ER 52, IR 90). Short Term Goal (STG) Pt will be educated in neck AROM ex's. STG Duration 10/08/21 Road Crossing Guard Goal (LTG) Improve L shoulder AROM in order for the pt to be able to tolerate a functional PROM of overhead, and out to side with tolerable pain. LTG Duration 01/02/22 One Impairment Partially lacks knowledge of self [facility] program. Short Term Goal (STG) Pt will be educated in use of home modalities for pain management. STG Duration 10/08/21 Half-Way Goal (LTG) Pt will be independent in a self care HEP. LTG Duration 01/02/22 Assessment Summary Assessment Pt is able to perform treatment today without increase in symptoms. Pt requires consistent cues for UT overrecruitment and scapular retraction for improved posture. Physical Therapy Plan Frequency and Duration Frequency of Treatment 2x/Week Plan of Care Start Date 10/04/21 Plan of Care End Date 01/02/22 Therapeutic Interventions Therapeutic Interventions Aquatic Therapy,Home Exercise Program,Manual Therapy, Neuromuscular Re-education, Patient/Caregiver Education, Self-Care/Home Management,Soft Tissue Mobilization,Taping, Therapeutic Exercises Modalities Cold Pack/Ice Massage,Electric Stimulation,Hot Packs, Ultrasound Next Visit Focus/Plan Next Note Type Treatment Note Next Visit Plan Review: scaption/ER with table slide next tx. Add Scap protraction. Possible IFES at C5-C7 to decrease L brachial nerve pain. Next treatment address pt education (STG #1): posture, pain management ( [place]). CAUTION: Tear of subscapularis tendon near its superior insertion. Modalities: US, MH or ICE/ EStim. Ther Ex: L shoulder/scapula stab: PROM/AROM/ARROM.
--- NOTE | 2021-10-22 10:45 | PT.OTN ---
Current Diagnoses Pain in left shoulder (10/22/21) Muscle weakness (generalized) (10/22/21) Physical Therapy Treatment Note PT-OP-A Visit Information Start: 09/30/21 19:37 Freq: Status: Active Protocol: Document 10/22/21 09:49 NBM (Rec: 10/22/21 10:45 NBM [id number]) Out-Patient Physical Therapy Visit Information Visit Information Visit Type Treatment Note Visit Start Time 10:00 Visit Stop Time 10:40 Total Visit Minutes 40 Visit Number 07/25 Number of OCEANOGRAPHY PROFESSOR Visits 2 Precautions Precautions 4 heart attacks over past 20 yrs w/most recent 5-8 yrs ago (4 stents), prostate removed due to CA with PSA 0 since, Diabetes controlled by meds, CHF, HBP controlled by meds, arthritis - 5-8 yrs ago. PT-OP-B Current Condition Start: 09/30/21 19:37 Freq: Status: Active Protocol: Document 10/04/21 08:17 LRN (Rec: 10/04/21 16:15 LRN [id number]) Current Condition History of Current Condition Onset Date 3 months ago Current Complaints Most severe pain L shoulder when trying to lift the arm. History of Current Condition Instant onset of L sided pain in the shoulder, knee. Went to ER and was told he had reactive arthritis. He is having consistent L shoulder pain, generally around the joint and upper brachium. 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 Having LE knees/ hips problems and can't stand 15 minutes before starting to shake due to LE pains. 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 Prior Treatments and Tests Wears a Salonpas on L shoulder and takes Alleve and finds it moderately helpful. Can always feel the L shoulder but can't raise the arm. X-rays: No fractures or dislocations. MRI: Moderate to severe rotator cuff tendinosis involving the supraspinatus, infraspinatus, and subscapularis tendons. There is superimposed low- grade intrasubstance tearing of the subscapularis tendon near its superior insertion. No full- thickness rotator cuff tendon tear. Mild tendinosis of the proximal biceps long head tendon. Nondisplaced tearing of the superior labrum extending into the anterosuperior and posterosuperior labrum. 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 Moderate subacromial/subdeltoid bursal effusion or bursitis. Developmental History Developmental History Has daughter and son nearby who is able to help. Treatment Goals Patient/Caregiver Goals Pt goal is to be able to lift, and use the L arm above shoulder height to reach into cupboard, reach for tools with tolerable pain. Be able to reach out and close car door with L arm. Pt is R handed. 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 Baseline Function- Other No functional hindrances. Current Functional Impairments (Reported) Functional Limitations- ADL's Difficulty due to R hip and L > R knee pain. Knee pn relieved by cremes. has to help him put his T -shirt on and Salonpas patches , but has dementia. 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 History of 4 heart attacks over past 20 yrs w/most recent 5-8 yrs ago (4 stents), prostate removed due to CA with PSA 0 since. PT-OP-C Subjective Start: 09/30/21 19:37 Freq: Status: Active Protocol: Document 10/22/21 09:49 NBM (Rec: 10/22/21 10:45 [facility] [id number]) OP-PT Subjective Patient Comments Patient Comments Pt states his legs are really bothering him, especially in the morning, and his L shoulder has a dull ache. He got stuck on the couch after napping and wasn't able to get up and might have hurt his shoulder pushing up. He sees his MD on 11/01 and is going to ask for PT referral for legs. [ End ] PT-OP-E Functional Tests Start: 09/30/21 19:37 Freq: Status: Active Protocol: Document 10/04/21 08:17 LRN (Rec: 10/04/21 16:15 LRN [id number]) Functional Tests Apley's Scratch Test Action 2- Left Top of shoulder Action 2- Right T2 Action 3- Left L4 Action 3- Right T12 PT-OP-J Posture/Palpation/Skin Start: 09/30/21 19:37 Freq: Status: Active Protocol: Document 10/04/21 08:17 LRN (Rec: 10/04/21 16:15 LRN [id number]) Posture Evaluation Position Standing Head/C-Spine Posture Forward Head Shoulder Posture (L) Forward,(R) Forward,(L) Elevated Scapula Posture (L) Rotated Up Comments Posture Comments Mild C-curve of spine with apex on L side. Palpation Assessment Location L shoulder Palpation Location Anterior acromion, posterior border of middle deltoid Palpation Findings Soft Tissue Tightness,Muscle Guarding,Tenderness PT-OP-K Range of Motion Start: 09/30/21 19:37 Freq: Status: Active Protocol: Document 10/04/21 08:17 LRN (Rec: 10/04/21 16:15 LRN [id number]) Cervical Spine Range of Motion Cervical Spine Active Degrees Testing Position Sitting Flexion 40 Extension 40 Rotation Left 60 Rotation Right 70 Lateral Flexion Left 34 Lateral Flexion Right 39 Comments Discomfort with extension and SB L>R Shoulder Goniometric Range of Motion Shoulder Right Passive Shoulder ROM WFL Yes Testing Position Supine Flexion 152 Abduction 150 External Rotation at 0 degrees Abduction 52 Internal Rotation 90 Comments AB pain range is 90-150 Left Passive Shoulder ROM WFL No Testing Position Supine Flexion 125 Abduction 70 External Rotation at 90 degrees 58 Abduction Internal Rotation 34 Right Active Shoulder ROM WFL Yes Testing Position Sitting Flexion 130 Extension 65 Abduction 140 Internal Rotation Behind Back (text) T12 Comments ER Reaching behind head - T2 Left Active Shoulder ROM WFL No Testing Position Sitting Flexion 70 Extension 57 Abduction 70 Internal Rotation Behind Back (text) L4 Comments ER Reaching behind head - Top of shoulder Elbow/Forearm Range of Motion Elbow/Forearm Right Active Elbow/Forearm ROM WFL Yes Left Active Elbow/Forearm ROM WFL Yes PT-OP-L Special Tests Start: 09/30/21 19:37 Freq: Status: Active Protocol: Document 10/04/21 08:17 LRN (Rec: 10/04/21 16:15 LRN [id number]) Special Tests Shoulder Special Tests Elevation Impingement Test Results + L shoulder [place] Impingement Test Results + L shoulder Drop Arm Rotator Cuff Test Results + L shoulder Comments Pt able to lower arm if moving extremely slow. PT-OP-M Strength Start: 09/30/21 19:37 Freq: Status: Active Protocol: Document 10/04/21 08:17 LRN (Rec: 10/04/21 16:15 LRN [id number]) Shoulder Strength Shoulder Manual Muscle Testing Right External Rotation 3 Fair Comments Generally 5/5 except as indicated abovel Left Flexion 2 Poor Extension 2+ Poor+ Abduction (C5) 2 Poor External Rotation 2 Poor Internal Rotation 3 Fair Elbow/Forearm Strength Elbow and Forearm Manual Muscle Testing Right Comments Generally 5/5 Left Comments Generally 5/5 PT-OP-Q Treatments Start: 09/30/21 19:37 Freq: Status: Active Protocol: Document 10/22/21 09:49 NBM (Rec: 10/22/21 10:45 NBM [id number]) Therapeutic Exercises Supine Exercises Scap protraction Supine Exercise Name serratus punch - added to HEP Reps/Minutes 15x FF Supine Exercise Name FF w/scaption & ER Side bilateral Equipment Used Purple dowel Reps/Minutes 15x Comments assist on return to normal position Sitting Exercises Table slide w/scap retract & depression Sitting Exercise Name Table slide with scaption/ER Side left Reps/Minutes 10x Comments Cues for initial positioning table slide Sitting Exercise Name FF, scaption Side left Reps/Minutes x10 Comments good form, painfree scap retraction Sitting Exercise Name rows Side bilateral Resistance Lvl2 Tb held by OCEANOGRAPHY PROFESSOR Reps/Minutes 5 sec hold x10 Comments good response - cued for less UT recruitment UT stretch Side bilateral Resistance opp UE gentle AAROM Reps/Minutes 30 sec x 2 Comments pt able to add little overpressure stretch w/ L hand L shoulder ER stretch Sitting Exercise Name ER stretch- reviewed HEP ( given supine by physician vs seated today) Side left Equipment Used purple wand (uses stick at home) Reps/Minutes x10 Comments cued posture, elbow at side, painfree range Manual Therapy Treatment Soft Tissue Mobilization UT Body Location Elder UT, cervical paraspinals Mobilization Type Rolling,Sustained Pressure, Trigger Point Release Intensity/Depth Moderate Body Position Hooklying deltoid Body Location L anterolateral deltoid Mobilization Type Cross-Friction,Strumming Intensity/Depth Superficial Body Position Hooklying Comments manual Self-Care/Home Management Treatment Education Patient Education Home Exercise Program Other Education Pt given HO for supine scap protraction, and Table slides in scaption/ER - added to HEP. PT-OP-R Modalities Start: 09/30/21 19:37 Freq: Status: Active Protocol: Document 10/22/21 09:49 NBM (Rec: 10/22/21 10:45 NBM [id number]) Hot Pack/Cold Pack Treatment Cold Pack Location L shoulder Patient Position Hooklying Treatment Duration (minutes) 10 Patient Tolerance Good Comments w UE pillow support PT-OP-T Assessment and Plan Start: 09/30/21 19:37 Freq: Status: Active Protocol: Document 10/22/21 09:49 NBM (Rec: 10/22/21 10:45 NB [id number]) Physical Therapy Assessment Goals Three Impairment Decreased L shoulder strength with Pain rating 3-7/10. Impairment L shoulder strength is 2/5 except ext is 2+/5, IR is 3/5. (R shoulder is 5/5 except ER is 3/5). Initial Pain rating 3-7/10. Short Term Goal (STG) Pt will be able to lift L arm overhead with tolerable pain. STG Duration 11/20/21 Neighborhood Planner Goal (LTG) Improve L shoulder strength with pt able to reach cupboards for tools and be able to reach out to side to the close the car door with tolerable pain of 1-2/10. LTG Duration 01/02/22 Two Impairment Decreased L shoulder ROM with Pain rating 3-7/10. Impairment L shoulder AROM sitting: Flex & AB is 70 deg's, ext is 57 deg's. Reaching behind back is to L4, behind head is to top of the shoulder. (R shoulder sitting: Flex 130 deg 's, AB is 140 deg's, ext 65. Behind back is &12, behind head is T2). L shoulder PROM supine (in deg 's): Flex 125, AB 70, ER 58, IR 34. (R shldr supine: Flex 152, AB 250, ER 52, IR 90). Short Term Goal (STG) Pt will be educated in neck AROM ex's. STG Duration 10/08/21 Senior Care Goal (LTG) Improve L shoulder AROM in order for the pt to be able to tolerate a functional PROM of overhead, and out to side with tolerable pain. LTG Duration 01/02/22 One Impairment Partially lacks knowledge of self longterm program. Short Term Goal (STG) Pt will be educated in use of home modalities for pain management. STG Duration 10/08/21 Senior Care Goal (LTG) Pt will be independent in a self care HEP. LTG Duration 01/02/22 Assessment Summary Assessment Pt requires cues for posture and elbow positioning for HEP exercises and is able to demonstrate exercise correctly with repetition. Pt requires cues for holding stretch and is challenged w/ self- awareness for improved posture . Physical Therapy Plan Frequency and Duration Frequency of Treatment 2x/Week Plan of Care Start Date 10/04/21 Plan of Care End Date 01/02/22 Therapeutic Interventions Therapeutic Interventions Aquatic Therapy,Home Exercise Program,Manual Therapy, Neuromuscular Re-education, Patient/Caregiver Education, Self-Care/Home Management,Soft Tissue Mobilization,Taping, Therapeutic Exercises Modalities Cold Pack/Ice Massage,Electric Stimulation,Hot Packs, Ultrasound Next Visit Focus/Plan Next Note Type Treatment Note Next Visit Plan Review: sidelying IR/ER, scaption/ER with table slide and Scap protraction. Possible IFES at C5-C7 to decrease L brachial nerve pain . Next treatment address pt education (STG #1): posture, pain management (RICE). CAUTION: Tear of subscapularis tendon near its superior insertion. Modalities: US, MH or ICE/ EStim. Ther Ex: L shoulder/scapula stab: PROM/AROM/ARROM.
--- NOTE | 2021-10-26 17:10 | PT.OTN ---
Current Diagnoses Pain in left shoulder (10/26/21) Muscle weakness (generalized) (10/26/21) Physical Therapy Treatment Note PT-OP-A Visit Information Start: 09/30/21 19:37 Freq: Status: Active Protocol: Document 10/26/21 08:17 LRN (Rec: 10/26/21 09:04 LRN [id number]) Out-Patient Physical Therapy Visit Information Visit Information Visit Type Treatment Note Visit Start Time 08:17 Visit Stop Time 08:57 Total Visit Minutes 40 Visit Number 15 Precautions Precautions 4 heart attacks over past 20 yrs w/most recent 5-8 yrs ago (4 stents), prostate removed due to CA with PSA 0 since, Diabetes controlled by meds, CHF, HBP controlled by meds, arthritis - 5-8 yrs ago. PT-OP-B Current Condition Start: 09/30/21 19:37 Freq: Status: Active Protocol: Document 10/04/21 08:17 LRN (Rec: 10/04/21 16:15 LRN [id number]) Current Condition History of Current Condition Onset Date 3 months ago Current Complaints Most severe pain L shoulder when trying to lift the arm. History of Current Condition Instant onset of L sided pain in the shoulder, knee. Went to ER and was told he had reactive arthritis. He is having consistent L shoulder pain, generally around the joint and upper brachium. 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 Having LE knees/ hips problems and can't stand 15 minutes before starting to shake due to LE pains. 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 Prior Treatments and Tests Wears a Salonpas on L shoulder and takes Alleve and finds it moderately helpful. Can always feel the L shoulder but can't raise the arm. X-rays: No fractures or dislocations. MRI: Moderate to severe rotator cuff tendinosis involving the supraspinatus, infraspinatus, and subscapularis tendons. There is superimposed low- grade intrasubstance tearing of the subscapularis tendon near its superior insertion. No full- thickness rotator cuff tendon tear. Mild tendinosis of the proximal biceps long head tendon. Nondisplaced tearing of the superior labrum extending into the anterosuperior and posterosuperior labrum. 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 Moderate subacromial/subdeltoid bursal effusion or bursitis. Developmental History Developmental History Has daughter and son nearby who is able to help. Treatment Goals Patient/Caregiver Goals Pt goal is to be able to lift, and use the L arm above shoulder height to reach into cupboard, reach for tools with tolerable pain. Be able to reach out and close car door with L arm. Pt is R handed. 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 Baseline Function- Other No functional hindrances. Current Functional Impairments (Reported) Functional Limitations- ADL's Difficulty due to R hip and L > R knee pain. Knee pn relieved by cremes. has to help him put his T -shirt on and Salonpas patches , but has dementia. 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 History of 4 heart attacks over past 20 yrs w/most recent 5-8 yrs ago (4 stents), prostate removed due to CA with PSA 0 since. PT-OP-C Subjective Start: 09/30/21 19:37 Freq: Status: Active Protocol: Document 10/26/21 08:17 LRN (Rec: 10/26/21 09:04 LRN [id number]) OP-PT Subjective Patient Comments Patient Comments States his L shoulder is still stiff but can reach up if goes slow. States he is so much better. Can reach top of head to wash hair. Doesn't have more pain in the L shoulder than the R shoulder. Is no longer using medicated pads on his shoulder due to rashes and for the most part stopped tylenol and alleve, and ms spasms meds. States he is primarily very stiff in the morning, but goes away after being up first in the AM . At least 90% better. PT-OP-E Functional Tests Start: 09/30/21 19:37 Freq: Status: Active Protocol: Document 10/04/21 08:17 LRN (Rec: 10/04/21 16:15 LRN [id number]) Functional Tests Apley's Scratch Test Action 2- Left Top of shoulder Action 2- Right T2 Action 3- Left L4 Action 3- Right T12 PT-OP-J Posture/Palpation/Skin Start: 09/30/21 19:37 Freq: Status: Active Protocol: Document 10/04/21 08:17 LRN (Rec: 10/04/21 16:15 LRN [id number]) Posture Evaluation Position Standing Head/C-Spine Posture Forward Head Shoulder Posture (L) Forward,(R) Forward,(L) Elevated Scapula Posture (L) Rotated Up Comments Posture Comments Mild C-curve of spine with apex on L side. Palpation Assessment Location L shoulder Palpation Location Anterior acromion, posterior border of middle deltoid Palpation Findings Soft Tissue Tightness,Muscle Guarding,Tenderness PT-OP-K Range of Motion Start: 09/30/21 19:37 Freq: Status: Active Protocol: Document 10/26/21 08:17 LRN (Rec: 10/26/21 09:04 LRN [id number]) Shoulder Goniometric Range of Motion Shoulder Right Active Shoulder ROM WFL Yes Testing Position Sitting Flexion 130 Extension 65 Abduction 140 Internal Rotation Behind Back (text) T12 Comments ER Reaching behind head - T2 Left Active Shoulder ROM WFL No Testing Position Sitting Flexion 128 Extension 45 Abduction 125 Internal Rotation Behind Back (text) L1 Comments ER Reaching behind head - T1 PT-OP-L Special Tests Start: 09/30/21 19:37 Freq: Status: Active Protocol: Document 10/04/21 08:17 LRN (Rec: 10/04/21 16:15 LRN [id number]) Special Tests Shoulder Special Tests Elevation Impingement Test Results + L shoulder [place] Impingement Test Results + L shoulder Drop Arm Rotator Cuff Test Results + L shoulder Comments Pt able to lower arm if moving extremely slow. PT-OP-M Strength Start: 09/30/21 19:37 Freq: Status: Active Protocol: Document 10/04/21 08:17 LRN (Rec: 10/04/21 16:15 LRN [id number]) Shoulder Strength Shoulder Manual Muscle Testing Right External Rotation 3 Fair Comments Generally 5/5 except as indicated abovel Left Flexion 2 Poor Extension 2+ Poor+ Abduction (C5) 2 Poor External Rotation 2 Poor Internal Rotation 3 Fair Elbow/Forearm Strength Elbow and Forearm Manual Muscle Testing Right Comments Generally 5/5 Left Comments Generally 5/5 PT-OP-Q Treatments Start: 09/30/21 19:37 Freq: Status: Active Protocol: Document 10/26/21 08:17 LRN (Rec: 10/26/21 09:04 LRN [id number]) Therapeutic Exercises Supine Exercises Scap protraction Supine Exercise Name serratus punch Reps/Minutes 15x Comments Cuing needed to L scapula for retract/depression on return from protraction Lat pull down Supine Exercise Name Lat pull down Equipment Used Lev 2 Reps/Minutes 15x Comments Extra time to determine margarita and relief of pain with manual tx/ Sidelying Exercises Shldr ER Sidelying Exercise Name Shoulder ER with scapular retract/depression Side left Reps/Minutes 15x with some 5SH. Sitting Exercises Shoulder Protraction Sitting Exercise Name L Shoulder Protraction Side left Equipment Used Table set for 90 degs shoulder flex Reps/Minutes 5 SH L shoulder AROM Sitting Exercise Name L shoulder AROM stretch Side left Comments ROM taken Table slide w/scap retract & depression Sitting Exercise Name Table slide with scaption/ER Side left Equipment Used Table set for 90 degs shoulder flex Reps/Minutes 10x Comments Cues for initial positioning table slide Sitting Exercise Name FF, scaption Side left Reps/Minutes 15 SH x10 Comments good form, painfree UT stretch Side bilateral Resistance opp UE gentle AAROM Reps/Minutes 30 sec x 2 Comments pt able to add little overpressure stretch w/ L hand Self-Care/Home Management Treatment Education Patient Education Pain Management Other Education Discussed and educated pt in use of heat prior to ex to improve mobility and use of ice for pain management. Pt educated in proper standing and sitting posture with handout issued. PT-OP-R Modalities Start: 09/30/21 19:37 Freq: Status: Active Protocol: Document 10/22/21 09:49 NBM (Rec: 10/22/21 10:45 NBM [id number]) Hot Pack/Cold Pack Treatment Cold Pack Location L shoulder Patient Position Hooklying Treatment Duration (minutes) 10 Patient Tolerance Good Comments w UE pillow support PT-OP-T Assessment and Plan Start: 09/30/21 19:37 Freq: Status: Active Protocol: Document 10/26/21 08:17 LRN (Rec: 10/26/21 09:04 LRN [id number]) Physical Therapy Assessment Goals Three Impairment Decreased L shoulder strength with Pain rating 3-7/10. Impairment L shoulder strength is 2/5 except ext is 2+/5, IR is 3/5. (R shoulder is 5/5 except ER is 3/5). Initial Pain rating 3-7/10. Short Term Goal (STG) Pt will be able to lift L arm overhead with tolerable pain. (10/26/21: Able to lift arm overhead with tolerable pain). STG Duration 11/20/21 (10/26/21: MET GOAL) Fdc Goal (LTG) Improve L shoulder strength with pt able to reach cupboards for tools and be able to reach out to side to the close the car door with tolerable pain of 1-2/10. (10/26/21: Can close his car door and reach his seatbelt without pain). LTG Duration 01/02/22 (10/26/21: MET GOAL) Two Impairment Decreased L shoulder ROM with Pain rating 3-7/10. Impairment L shoulder AROM sitting: Flex & AB is 70 deg's, ext is 57 deg's. Reaching behind back is to L4, behind head is to top of the shoulder. (R shoulder sitting: Flex 130 deg 's, AB is 140 deg's, ext 65. Behind back is &12, behind head is T2). L shoulder PROM supine (in deg 's): Flex 125, AB 70, ER 58, IR 34. (R shldr supine: Flex 152, AB 250, ER 52, IR 90). Short Term Goal (STG) Pt will be educated in neck AROM ex's. STG Duration 10/08/21 (10/26/21: MET GOAL) Welding Machine Operator/Tender Goal (LTG) Improve L shoulder AROM in order for the pt to be able to tolerate a functional PROM of overhead, and out to side with tolerable pain. LTG Duration 01/02/22 One Impairment Partially lacks knowledge of self shelter program. Short Term Goal (STG) Pt will be educated in use of home modalities for pain management. STG Duration 10/08/21 (10/26/21: MET GOAL) Fdc Goal (LTG) Pt will be independent in a self care HEP. LTG Duration 01/02/22 Assessment Summary Assessment Pt doing very well with return of functional use of his L UE . AROM L shoulder much improved. He appears to be doing his HEP. He will use ice to L shoulder at home. Physical Therapy Plan Frequency and Duration Frequency of Treatment 2x/Week Plan of Care Start Date 10/04/21 Plan of Care End Date 01/02/22 Next Visit Focus/Plan Next Note Type Treatment Note Next Visit Plan Teach HEP of C. active stretch exercises. Strengthen shoulder ext. Expect DC to HEP in 1-2 weeks. CAUTION: Tear of subscapularis tendon near its superior insertion. Modalities: US, MH or ICE/ EStim. Ther Ex: L shoulder/scapula stab: PROM/AROM/ARROM.
--- NOTE | 2021-10-28 15:38 | PT.OTN ---
Current Diagnoses Pain in left shoulder (10/28/21) Muscle weakness (generalized) (10/28/21) Physical Therapy Treatment Note PT-OP-A Visit Information Start: 09/30/21 19:37 Freq: Status: Active Protocol: Document 10/28/21 08:16 LRN (Rec: 10/28/21 09:00 LRN [id number]) Out-Patient Physical Therapy Visit Information Visit Information Visit Type Treatment Note Visit Start Time 08:17 Visit Stop Time 08:56 Total Visit Minutes 39 Visit Number 09/24 Precautions Precautions 4 heart attacks over past 20 yrs w/most recent 5-8 yrs ago (4 stents), prostate removed due to CA with PSA 0 since, Diabetes controlled by meds, CHF, HBP controlled by meds, arthritis - 5-8 yrs ago. PT-OP-B Current Condition Start: 09/30/21 19:37 Freq: Status: Active Protocol: Document 10/04/21 08:17 LRN (Rec: 10/04/21 16:15 LRN [id number]) Current Condition History of Current Condition Onset Date 3 months ago Current Complaints Most severe pain L shoulder when trying to lift the arm. History of Current Condition Instant onset of L sided pain in the shoulder, knee. Went to ER and was told he had reactive arthritis. He is having consistent L shoulder pain, generally around the joint and upper brachium. 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 Having LE knees/ hips problems and can't stand 15 minutes before starting to shake due to LE pains. 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 Prior Treatments and Tests Wears a Salonpas on L shoulder and takes Alleve and finds it moderately helpful. Can always feel the L shoulder but can't raise the arm. X-rays: No fractures or dislocations. MRI: Moderate to severe rotator cuff tendinosis involving the supraspinatus, infraspinatus, and subscapularis tendons. There is superimposed low- grade intrasubstance tearing of the subscapularis tendon near its superior insertion. No full- thickness rotator cuff tendon tear. Mild tendinosis of the proximal biceps long head tendon. Nondisplaced tearing of the superior labrum extending into the anterosuperior and posterosuperior labrum. 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 Moderate subacromial/subdeltoid bursal effusion or bursitis. Developmental History Developmental History Has daughter and son nearby who is able to help. Treatment Goals Patient/Caregiver Goals Pt goal is to be able to lift, and use the L arm above shoulder height to reach into cupboard, reach for tools with tolerable pain. Be able to reach out and close car door with L arm. Pt is R handed. 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 Baseline Function- Other No functional hindrances. Current Functional Impairments (Reported) Functional Limitations- ADL's Difficulty due to R hip and L > R knee pain. Knee pn relieved by cremes. has to help him put his T -shirt on and Salonpas patches , but has dementia. 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 History of 4 heart attacks over past 20 yrs w/most recent 5-8 yrs ago (4 stents), prostate removed due to CA with PSA 0 since. PT-OP-C Subjective Start: 09/30/21 19:37 Freq: Status: Active Protocol: Document 10/28/21 08:16 LRN (Rec: 10/28/21 09:00 LRN [id number]) OP-PT Subjective Patient Comments Patient Comments States his L shoulder is doing better than everywhere else in his body. PT-OP-E Functional Tests Start: 09/30/21 19:37 Freq: Status: Active Protocol: Document 10/04/21 08:17 LRN (Rec: 10/04/21 16:15 LRN [id number]) Functional Tests Apley's Scratch Test Action 2- Left Top of shoulder Action 2- Right T2 Action 3- Left L4 Action 3- Right T12 PT-OP-J Posture/Palpation/Skin Start: 09/30/21 19:37 Freq: Status: Active Protocol: Document 10/04/21 08:17 LRN (Rec: 10/04/21 16:15 LRN [id number]) Posture Evaluation Position Standing Head/C-Spine Posture Forward Head Shoulder Posture (L) Forward,(R) Forward,(L) Elevated Scapula Posture (L) Rotated Up Comments Posture Comments Mild C-curve of spine with apex on L side. Palpation Assessment Location L shoulder Palpation Location Anterior acromion, posterior border of middle deltoid Palpation Findings Soft Tissue Tightness,Muscle Guarding,Tenderness PT-OP-K Range of Motion Start: 09/30/21 19:37 Freq: Status: Active Protocol: Document 10/26/21 08:17 LRN (Rec: 10/26/21 09:04 LRN [id number]) Shoulder Goniometric Range of Motion Shoulder Right Active Shoulder ROM WFL Yes Testing Position Sitting Flexion 130 Extension 65 Abduction 140 Internal Rotation Behind Back (text) T12 Comments ER Reaching behind head - T2 Left Active Shoulder ROM WFL No Testing Position Sitting Flexion 128 Extension 45 Abduction 125 Internal Rotation Behind Back (text) L1 Comments ER Reaching behind head - T1 PT-OP-L Special Tests Start: 09/30/21 19:37 Freq: Status: Active Protocol: Document 10/04/21 08:17 LRN (Rec: 10/04/21 16:15 LRN [id number]) Special Tests Shoulder Special Tests Elevation Impingement Test Results + L shoulder [place] Impingement Test Results + L shoulder Drop Arm Rotator Cuff Test Results + L shoulder Comments Pt able to lower arm if moving extremely slow. PT-OP-M Strength Start: 09/30/21 19:37 Freq: Status: Active Protocol: Document 10/04/21 08:17 LRN (Rec: 10/04/21 16:15 LRN [id number]) Shoulder Strength Shoulder Manual Muscle Testing Right External Rotation 3 Fair Comments Generally 5/5 except as indicated abovel Left Flexion 2 Poor Extension 2+ Poor+ Abduction (C5) 2 Poor External Rotation 2 Poor Internal Rotation 3 Fair Elbow/Forearm Strength Elbow and Forearm Manual Muscle Testing Right Comments Generally 5/5 Left Comments Generally 5/5 PT-OP-Q Treatments Start: 09/30/21 19:37 Freq: Status: Active Protocol: Document 10/28/21 08:16 LRN (Rec: 10/28/21 09:00 LRN [id number]) Therapeutic Exercises Supine Exercises Lat pull down Supine Exercise Name Lat pull down Equipment Used Lev 3 Reps/Minutes 15x Comments Extra time to determine margarita and relief of pain with manual tx/ FF Supine Exercise Name FF w/scaption & ER Side bilateral Equipment Used Purple dowel Reps/Minutes 15x Comments assist on return to normal position Sitting Exercises Shoulder Ext Sitting Exercise Name Shoulder ext strengthening Side left Equipment Used Lev 3 TB Reps/Minutes 10x Cervical AROM Sitting Exercise Name C/S AROM stretchung. Side bilateral Reps/Minutes 8' Self-Care/Home Management Treatment Education Patient Education Home Exercise Program,Pain Management Other Education Per pt request discussed current condition and his other health concerns of weakness of LE's and general joint pain. Requested pt discuss with referring physician and if appropriate return to therapy with new referral to add areas of concern. Activities Self-Care/Home Management Activities Issued & reviewed HEP: Shoulder Ext & C/S SB & Rotation active stretches and Chin tuck/neck elongation. PT-OP-R Modalities Start: 09/30/21 19:37 Freq: Status: Active Protocol: Document 10/22/21 09:49 NBM (Rec: 10/22/21 10:45 NBM [id number]) Hot Pack/Cold Pack Treatment Cold Pack Location L shoulder Patient Position Hooklying Treatment Duration (minutes) 10 Patient Tolerance Good Comments w UE pillow support PT-OP-T Assessment and Plan Start: 09/30/21 19:37 Freq: Status: Active Protocol: Document 10/28/21 08:16 LRN (Rec: 10/28/21 09:00 LRN [id number]) Physical Therapy Assessment Goals Three Impairment Decreased L shoulder strength with Pain rating 3-7/10. Impairment L shoulder strength is 2/5 except ext is 2+/5, IR is 3/5. (R shoulder is 5/5 except ER is 3/5). Initial Pain rating 3-7/10. Short Term Goal (STG) Pt will be able to lift L arm overhead with tolerable pain. (10/26/21: Able to lift arm overhead with tolerable pain). STG Duration 11/20/21 (10/26/21: MET GOAL) Retirement Goal (LTG) Improve L shoulder strength with pt able to reach cupboards for tools and be able to reach out to side to the close the car door with tolerable pain of 1-2/10. (10/26/21: Can close his car door and reach his seatbelt without pain). LTG Duration 01/02/22 (10/26/21: MET GOAL) Two Impairment Decreased L shoulder ROM with Pain rating 3-7/10. Impairment L shoulder AROM sitting: Flex & AB is 70 deg's, ext is 57 deg's. Reaching behind back is to L4, behind head is to top of the shoulder. (R shoulder sitting: Flex 130 deg 's, AB is 140 deg's, ext 65. Behind back is &12, behind head is T2). L shoulder PROM supine (in deg 's): Flex 125, AB 70, ER 58, IR 34. (R shldr supine: Flex 152, AB 250, ER 52, IR 90). Short Term Goal (STG) Pt will be educated in neck AROM ex's. STG Duration 10/08/21 (10/26/21: MET GOAL) Retirement Goal (LTG) Improve L shoulder AROM in order for the pt to be able to tolerate a functional PROM of overhead, and out to side with tolerable pain. LTG Duration 01/02/22 One Impairment Partially lacks knowledge of self half-way program. Short Term Goal (STG) Pt will be educated in use of home modalities for pain management. STG Duration 10/08/21 (10/26/21: MET GOAL) Linen Folder Goal (LTG) Pt will be independent in a self care HEP. LTG Duration 01/02/22 Assessment Summary Assessment Pt weak with Serratus Anterior and did not tolerate weighted resistance, but good tolerance to TBand. Physical Therapy Plan Frequency and Duration Frequency of Treatment 2x/Week Plan of Care Start Date 10/04/21 Plan of Care End Date 01/02/22 Next Visit Focus/Plan Next Note Type Treatment Note Next Visit Plan Review HEP of C. active stretch exercises. Strengthen shoulder ext. Pt to return with new referral for weakness if referring physician feels it is appropriate, otherwise expect DC to HEP next visit. CAUTION: Tear of subscapularis tendon near its superior insertion. Modalities: US, MH or ICE/ EStim. Ther Ex: L shoulder/scapula stab: PROM/AROM/ARROM.
--- NOTE | 2021-11-01 08:37 | PT-OP ANOTE ---
Pt called and notified of missed appt and notified of next appt, but to schedule with PT for possible DC or re-eval for new condition. Requested pt call back to notify of plan.
--- NOTE | 2021-11-04 07:41 | PT-OP ANOTE ---
Pt arrive for appt with ACID DIPPER at 0730 today and stated he got the message left later day yesterday, decided to come in to speak in person instead of cancelling over phone message, reported his shoulder is great, wanting to reschedule today's appt to see PT for DC and schedule appt with PT for reeval for new referral of LE weakness sent from Dr Shah. ACID DIPPER assisted pt to front end application developer and today's appt rescheduled for 944 with RACHEL Ho.
--- NOTE | 2021-11-04 10:20 | PT.OTN ---
Current Diagnoses Pain in left shoulder (11/04/21) Muscle weakness (generalized) (11/04/21) Physical Therapy Treatment Note PT-OP-A Visit Information Start: 09/30/21 19:37 Freq: Status: Active Protocol: Document 11/04/21 09:49 LRN (Rec: 11/04/21 10:19 LRN [id number]) Out-Patient Physical Therapy Visit Information Visit Information Visit Type Treatment Note Visit Start Time 09:49 Visit Stop Time 10:14 Total Visit Minutes 25 Visit Number 15 Precautions Precautions 4 heart attacks over past 20 yrs w/most recent 5-8 yrs ago (4 stents), prostate removed due to CA with PSA 0 since, Diabetes controlled by meds, CHF, HBP controlled by meds, arthritis - 5-8 yrs ago. PT-OP-B Current Condition Start: 09/30/21 19:37 Freq: Status: Active Protocol: Document 10/04/21 08:17 LRN (Rec: 10/04/21 16:15 LRN [id number]) Current Condition History of Current Condition Onset Date 3 months ago Current Complaints Most severe pain L shoulder when trying to lift the arm. History of Current Condition Instant onset of L sided pain in the shoulder, knee. Went to ER and was told he had reactive arthritis. He is having consistent L shoulder pain, generally around the joint and upper brachium. 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 Having LE knees/ hips problems and can't stand 15 minutes before starting to shake due to LE pains. 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 Prior Treatments and Tests Wears a Salonpas on L shoulder and takes Alleve and finds it moderately helpful. Can always feel the L shoulder but can't raise the arm. X-rays: No fractures or dislocations. MRI: Moderate to severe rotator cuff tendinosis involving the supraspinatus, infraspinatus, and subscapularis tendons. There is superimposed low- grade intrasubstance tearing of the subscapularis tendon near its superior insertion. No full- thickness rotator cuff tendon tear. Mild tendinosis of the proximal biceps long head tendon. Nondisplaced tearing of the superior labrum extending into the anterosuperior and posterosuperior labrum. 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 Moderate subacromial/subdeltoid bursal effusion or bursitis. Developmental History Developmental History Has daughter and son nearby who is able to help. Treatment Goals Patient/Caregiver Goals Pt goal is to be able to lift, and use the L arm above shoulder height to reach into cupboard, reach for tools with tolerable pain. Be able to reach out and close car door with L arm. Pt is R handed. 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 Baseline Function- Other No functional hindrances. Current Functional Impairments (Reported) Functional Limitations- ADL's Difficulty due to R hip and L > R knee pain. Knee pn relieved by cremes. has to help him put his T -shirt on and Salonpas patches , but has dementia. 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 History of 4 heart attacks over past 20 yrs w/most recent 5-8 yrs ago (4 stents), prostate removed due to CA with PSA 0 since. PT-OP-C Subjective Start: 09/30/21 19:37 Freq: Status: Active Protocol: Document 11/04/21 09:49 LRN (Rec: 11/04/21 10:19 N [id number]) OP-PT Subjective Patient Comments Patient Comments Pt requests early leave due to rescheuling of appt from 8a to 09:45 today. He has an eye appt at 10:30a. put him on steroids so his pain is gone. No pain or stiffness in knees and hips like last time . PT-OP-E Functional Tests Start: 09/30/21 19:37 Freq: Status: Active Protocol: Document 11/04/21 09:49 LRN (Rec: 11/04/21 10:19 N [id number]) Functional Tests Madaney's Scratch Test Action 2- Left ER Reaching behind head - T2 Action 2- Right ER Reaching behind head - T2 Action 3- Left T12 Action 3- Right T12 PT-OP-J Posture/Palpation/Skin Start: 09/30/21 19:37 Freq: Status: Active Protocol: Document 10/04/21 08:17 LRN (Rec: 10/04/21 16:15 LRN [id number]) Posture Evaluation Position Standing Head/C-Spine Posture Forward Head Shoulder Posture (L) Forward,(R) Forward,(L) Elevated Scapula Posture (L) Rotated Up Comments Posture Comments Mild C-curve of spine with apex on L side. Palpation Assessment Location L shoulder Palpation Location Anterior acromion, posterior border of middle deltoid Palpation Findings Soft Tissue Tightness,Muscle Guarding,Tenderness PT-OP-K Range of Motion Start: 09/30/21 19:37 Freq: Status: Active Protocol: Document 11/04/21 09:49 LRN (Rec: 11/04/21 10:19 LRN [id number]) Shoulder Goniometric Range of Motion Shoulder Right Passive Shoulder ROM WFL Yes Testing Position Supine Flexion 152 Abduction 150 External Rotation at 0 degrees Abduction 52 Internal Rotation 90 Left Passive Shoulder ROM WFL No Testing Position Supine Flexion 150 Abduction 135 External Rotation at 90 degrees 75 Abduction Internal Rotation 68 Right Active Shoulder ROM WFL Yes Testing Position Sitting Flexion 130 Extension 65 Abduction 140 Internal Rotation Behind Back (text) T12 Comments ER Reaching behind head - T2 Left Active Shoulder ROM WFL No Testing Position Sitting Flexion 135 Extension 62 Horizontal Adduction 150 Internal Rotation Behind Back (text) T12 Comments ER Reaching behind head - T2 PT-OP-L Special Tests Start: 09/30/21 19:37 Freq: Status: Active Protocol: Document 10/04/21 08:17 LRN (Rec: 10/04/21 16:15 LRN [id number]) Special Tests Shoulder Special Tests Elevation Impingement Test Results + L shoulder [place] Impingement Test Results + L shoulder Drop Arm Rotator Cuff Test Results + L shoulder Comments Pt able to lower arm if moving extremely slow. PT-OP-M Strength Start: 09/30/21 19:37 Freq: Status: Active Protocol: Document 10/04/21 08:17 LRN (Rec: 10/04/21 16:15 LRN [id number]) Shoulder Strength Shoulder Manual Muscle Testing Right External Rotation 3 Fair Comments Generally 5/5 except as indicated abovel Left Flexion 2 Poor Extension 2+ Poor+ Abduction (C5) 2 Poor External Rotation 2 Poor Internal Rotation 3 Fair Elbow/Forearm Strength Elbow and Forearm Manual Muscle Testing Right Comments Generally 5/5 Left Comments Generally 5/5 PT-OP-Q Treatments Start: 09/30/21 19:37 Freq: Status: Active Protocol: Document 11/04/21 09:49 LRN (Rec: 11/04/21 10:19 LRN [id number]) Therapeutic Exercises Supine Exercises L shoulder ROM Supine Exercise Name Shoulder flex, ER Side bilateral Comments ROM taken Scap protraction Supine Exercise Name serratus punch Reps/Minutes 30x Comments Cuing needed to L scapula for retract/depression on return from protraction Lat pull down Supine Exercise Name Lat pull down Equipment Used Lev 3 Reps/Minutes 15x Comments Extra time to determine margarita and relief of pain with manual tx/ ER/IR Supine Exercise Name ER stretch w/cane, elbow by side Side left Reps/Minutes 2SH x 10 FF Supine Exercise Name FF w/scaption & ER Side bilateral Equipment Used Purple dowel Reps/Minutes 15x Comments assist on return to normal position Sitting Exercises Cervical AROM Sitting Exercise Name C/S AROM (SB, rot) stretchung. Side bilateral Reps/Minutes 5x each L shoulder AROM Sitting Exercise Name L shoulder AROM stretch Side left Comments ROM taken Table slide w/scap retract & depression Sitting Exercise Name Table slide with scaption/ER Side left Equipment Used Table set for 90 degs shoulder flex Reps/Minutes 2x Comments Cues for initial positioning table slide Sitting Exercise Name FF, scaption Side left Reps/Minutes 2x Comments good form, painfree Self-Care/Home Management Treatment Education Patient Education Home Exercise Program Activities Self-Care/Home Management Activities Verbal review f/b active review of HEP. PT-OP-R Modalities Start: 09/30/21 19:37 Freq: Status: Active Protocol: Document 10/22/21 09:49 NBM (Rec: 10/22/21 10:45 NB [id number]) Hot Pack/Cold Pack Treatment Cold Pack Location L shoulder Patient Position Hooklying Treatment Duration (minutes) 10 Patient Tolerance Good Comments w UE pillow support PT-OP-T Assessment and Plan Start: 09/30/21 19:37 Freq: Status: Active Protocol: Document 11/04/21 09:49 LRN (Rec: 11/04/21 10:19 LRN [id number]) Physical Therapy Assessment Goals Three Impairment Decreased L shoulder strength with Pain rating 3-7/10. Impairment L shoulder strength is 2/5 except ext is 2+/5, IR is 3/5. (R shoulder is 5/5 except ER is 3/5). Initial Pain rating 3-7/10. Short Term Goal (STG) Pt will be able to lift L arm overhead with tolerable pain. (10/26/21: Able to lift arm overhead with tolerable pain). STG Duration 11/20/21 (10/26/21: MET GOAL) Retirement Goal (LTG) Improve L shoulder strength with pt able to reach cupboards for tools and be able to reach out to side to the close the car door with tolerable pain of 1-2/10. (10/26/21: Can close his car door and reach his seatbelt without pain). LTG Duration 01/02/22 (10/26/21: MET GOAL) Two Impairment Decreased L shoulder ROM with Pain rating 3-7/10. Impairment L shoulder AROM sitting: Flex & AB is 70 deg's, ext is 57 deg's. Reaching behind back is to L4, behind head is to top of the shoulder. (R shoulder sitting: Flex 130 deg 's, AB is 140 deg's, ext 65. Behind back is &12, behind head is T2). L shoulder PROM supine (in deg 's): Flex 125, AB 70, ER 58, IR 34. (R shldr supine: Flex 152, AB 250, ER 52, IR 90). Short Term Goal (STG) Pt will be educated in neck AROM ex's. STG Duration 10/08/21 (10/26/21: MET GOAL) Outside Sales Professional Goal (LTG) Improve L shoulder AROM in order for the pt to be able to tolerate a functional PROM of overhead, and out to side with tolerable pain. LTG Duration 01/02/22 (11/04/21: MET GOAL) One Impairment Partially lacks knowledge of self prison program. Short Term Goal (STG) Pt will be educated in use of home modalities for pain management. STG Duration 10/08/21 (10/26/21: MET GOAL) Retirement Goal (LTG) Pt will be independent in a self care HEP. ((11/04/21: Reviewed HEP) LTG Duration 01/02/22 (11/04/21: MET GOAL) Assessment Summary Assessment Pt therapy shortened due to rescheuduling for PT to see for DC. Pt had appt conflict with eye appt at 10:30am. Pt well aware of his HEP and scapular positioning effect on L shoulder pain. Pt is having less pain today due to steroid medications started due to reactive arthritis. Physical Therapy Plan Frequency and Duration Frequency of Treatment 2x/Week Plan of Care Start Date 10/04/21 Plan of Care End Date 01/02/22 Discharge Physical Therapy Discharge Reasons Goals Met Discharge Comments Thank you for your referral. Pt to start PT for LE weakness at next appt after DC from today's L shoulder rehabilitation.
== END 2021-11-09 13:17 ==
LOC: PHYS 09:45
PROVIDERS: Family Provider Student in an Organized Health Care Education/Training Program; PCP Student in an Organized Health Care Education/Training Program; Referring Provider Student in an Organized Health Care Education/Training Program; Visit Provider Student in an Organized Health Care Education/Training Program
DX: M25.512 Pain in left shoulder (principal); M62.81 Muscle weakness (generalized)
CPT/HCPCS: 97110; 97140; 97162; 97535

== ENCOUNTER 2022-02-07 07:30 | Outpatient (RCR) | payer MEDICARE, OTHER, SELFPAY ==
--- NOTE | 2021-12-20 09:37 | PT.OIE ---
Current Diagnoses Polymyalgia rheumatica (12/20/21) Other symptoms and signs involving the musculoskeletal system (12/20/21) Past Medical History (Last Updated 08/08/21 @ 10:04 by Phil Beyer MD) Acute coronary syndrome Dystrophic nail Hearing loss (~1965) Prostate cancer Tinnitus (~1965) Ureterolithiasis Vitamin D deficiency Visit Care Team Role Provider Type Phil Beyer MD Attending Provider Physician Family Provider Primary Care Provider Referring Provider Specialty: Internal Medicine Address: [address] [place] [address], [address], [facility] Email: [email or web address] Physical Therapy Initial Evaluation PT-OP-A Visit Information Start: 12/19/21 21:22 Freq: Status: Active Protocol: Document 12/20/21 07:31 AMB (Rec: 12/20/21 07:40 AMB [id number]) Out-Patient Physical Therapy Visit Information Visit Information Visit Type Initial Evaluation Visit Start Time 07:30 Visit Stop Time 08:15 Total Visit Minutes 45 Visit Number 1 PT-OP-B Current Condition Start: 12/19/21 21:22 Freq: Status: Active Protocol: Document 12/20/21 07:31 AMB (Rec: 12/20/21 07:40 AMB [id number]) Current Condition History of Current Condition Onset Date 6 months Current Complaints Bilateral leg pain and weakness History of Current Condition On steroids, has 4 day left before completely off of steroids. Bilateral hips knees ankles, feels like pain would move around. Overnight all of a sudden pain and weakness started 6 months ago. Generally on feet all day, denies peripheral neuropathy. Getting out of bed, getting off the floor without UE assistance, standing for more than 15 minutes is still challenging. 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 Stopped biking and sailing due to this , felt balance/strength wasn't up to it. Treatment Goals Patient/Caregiver Goals Get stronger, be able to sail without worrying he's going to fall off the boat. Personal Factors Other Personal Factors That May Effect DMII, CHF Therapy/Recovery PT-OP-C Subjective Start: 12/19/21 21:22 Freq: Status: Active Protocol: Document 12/20/21 07:30 AMB (Rec: 12/20/21 08:18 AMB [id number]) Patient Questionnaires Lower Extremity Functional Scale LEFS Score 54 LEFS Impairment 20 to 39% Impaired (Score 48- 62) OP-PT Pain Assessment Comments Pain Comments knees 3/10, hip pain bilateral , shoulder pain bilateral PT-OP-D Balance Start: 12/19/21 21:22 Freq: Status: Active Protocol: Document 12/20/21 07:30 AMB (Rec: 12/20/21 09:37 AMB [id number]) Balance Tests mCTSIB mCTSIB Position 1 30 mCTSIB Position 2 increased ankle sway Single Limb Standing Single Limb- Right 6 Single Limb- Left 6 PT-OP-E Functional Tests Start: 12/19/21 21:22 Freq: Status: Active Protocol: Document 12/20/21 07:30 AMB (Rec: 12/20/21 08:18 AMB [id number]) Functional Tests Five Times Sit to Stand Test Score 16 PT-OP-G Mobility & Gait Start: 12/19/21 21:22 Freq: Status: Active Protocol: Document 12/20/21 07:30 AMB (Rec: 12/20/21 09:37 AMB [id number]) OP Gait Assessment Comments Gait Comments stiff torso without significant trunk rotation PT-OP-K Range of Motion Start: 12/19/21 21:22 Freq: Status: Active Protocol: Document 12/20/21 07:47 AMB (Rec: 12/20/21 07:47 AMB [id number]) Knee Goniometric Range of Motion Knee Left Knee ROM WFL Yes Comments L and R WFL PT-OP-M Strength Start: 12/19/21 21:22 Freq: Status: Active Protocol: Document 12/20/21 07:41 AMB (Rec: 12/20/21 07:47 AMB [id number]) Hip Strength Hip Manual Muscle Testing Right Flexion (L2) 4+ Good+ Extension (S1) 4+ Good+ Abduction 4+ Good+ Adduction 4+ Good+ Left Flexion (L2) 4+ Good+ Extension (S1) 4+ Good+ Abduction 4+ Good+ Adduction 4+ Good+ Knee Strength Knee Manual Muscle Testing Right Flexion (S2) 4+ Good+ Extension (L3) 4 Good Left Flexion (S2) 4+ Good+ Extension (L3) 4- Good- PT-OP-Q Treatments Start: 12/19/21 21:22 Freq: Status: Active Protocol: Document 12/20/21 07:30 AMB (Rec: 12/20/21 08:18 AMB [id number]) Therapeutic Exercises Standing Exercises wall squat Reps/Minutes 20 Comments small PT-OP-T Assessment and Plan Start: 12/19/21 21:22 Freq: Status: Active Protocol: Document 12/20/21 09:10 AMB (Rec: 12/20/21 09:33 AMB [id number]) Physical Therapy Assessment Rehab Potential Rehabilitation Potential Good Impairments Impairments Activity Tolerance,Balance, Functional Activities,Gait, Pain,Strength Goals Three Impairment ADLs Short Term Goal (STG) Dennys will move from supine to sitting with good body mechanics without an increase in pain. STG Duration 5 weeks Correction Goal (LTG) Dennys will perform a floor transfer without UE support. LTG Duration 10 weeks Two Impairment Strength Short Term Goal (STG) Dennys will improve his quad strength to at lest 4+/5. STG Duration 4 weeks Inclusion Teacher Goal (LTG) Dennys will show improved LE strength by performing a full squat. LTG Duration 8 weeks Assessment Summary Assessment Dennys attends PT with concerns regarding recent onset pain/stiffness/weakness in bilateral LEs. Pain has been well managed with 6 weeks of steroids, but weakness remains. Will be finished tapering this week and is concerned about rebound pain. Presented with weakness most evident in bilateral quads. Will benefit from PT to strengthen quads without flaring hernia. Will also address more advanced transfers being more challenging and feeling of being off balance so pt can return to sailing/bicycling safely. Physical Therapy Plan Frequency and Duration Frequency of Treatment 2x/Week Duration of treatment (weeks) 10 Plan of Care Start Date 12/20/21 Plan of Care End Date 02/28/22 Therapeutic Interventions Therapeutic Interventions Aquatic Therapy,Gait Training, Home Exercise Program,Manual Therapy,Neuromuscular Re- education,Self-Care/Home Management,Therapeutic Activities,Therapeutic Exercises Modalities Cold Pack/Ice Massage,Electric Stimulation,Hot Packs Next Visit Focus/Plan Next Note Type Treatment Note Next Visit Plan Follow up with wall sits, consider mild lunges to work on strengthening and balance if pain allows
--- NOTE | 2021-12-20 09:37 | PT.OPPOC ---
Physical, Occupational & Speech Therapy At [facility] Current Diagnoses Polymyalgia rheumatica (12/20/21) Other symptoms and signs involving the musculoskeletal system (12/20/21) Visit Care Team Role Provider Type Phil Beyer MD Attending Provider Physician Family Provider Primary Care Provider Referring Provider Specialty: Internal Medicine Address: [address] [place] [address], [address], [facility] Email: [email or web address] Plan Of Care PT-OP-T Assessment and Plan Start: 12/19/21 21:22 Freq: Status: Active Protocol: Document 12/20/21 09:10 AMB (Rec: 12/20/21 09:33 AMB [id number]) Physical Therapy Assessment Rehab Potential Rehabilitation Potential Good Impairments Impairments Activity Tolerance,Balance, Functional Activities,Gait, Pain,Strength Goals Three Impairment ADLs Short Term Goal (STG) Dennys will move from supine to sitting with good body mechanics without an increase in pain. STG Duration 5 weeks Tree Feller Operator Goal (LTG) Dennys will perform a floor transfer without UE support. LTG Duration 10 weeks Two Impairment Strength Short Term Goal (STG) Dennys will improve his quad strength to at lest 4+/5. STG Duration 4 weeks Tree Feller Operator Goal (LTG) Dennys will show improved LE strength by performing a full squat. LTG Duration 8 weeks Assessment Summary Assessment Dennys attends PT with concerns regarding recent onset pain/stiffness/weakness in bilateral LEs. Pain has been well managed with 6 weeks of steroids, but weakness remains. Will be finished tapering this week and is concerned about rebound pain. Presented with weakness most evident in bilateral quads. Will benefit from PT to strengthen quads without flaring hernia. Will also address more advanced transfers being more challenging and feeling of being off balance so pt can return to sailing/bicycling safely. Physical Therapy Plan Frequency and Duration Frequency of Treatment 2x/Week Duration of treatment (weeks) 10 Plan of Care Start Date 12/20/21 Plan of Care End Date 02/28/22 Therapeutic Interventions Therapeutic Interventions Aquatic Therapy,Gait Training, Home Exercise Program,Manual Therapy,Neuromuscular Re- education,Self-Care/Home Management,Therapeutic Activities,Therapeutic Exercises Modalities Cold Pack/Ice Massage,Electric Stimulation,Hot Packs Next Visit Focus/Plan Next Note Type Treatment Note Next Visit Plan Follow up with wall sits, consider mild lunges to work on strengthening and balance if pain allows Plan of Care Dates Plan of Care Start Date 12/20/21 Plan of Care End Date 02/28/22 Electronically Signed by: Linda Jimenez, PT 12/20/21 0937 If you are in agreement with this Plan of Care, please return a signed and dated copy. I have reviewed this Plan of Care and certify that the skilled therapy services above are required to meet the patient?s needs. Physician Signature Date Printed Name and Credentials Clinical Instructor Signature Printed Name and Credentials
--- NOTE | 2021-12-24 14:30 | PT.OTN ---
Current Diagnoses Polymyalgia rheumatica (12/24/21) Other symptoms and signs involving the musculoskeletal system (12/24/21) Physical Therapy Treatment Note PT-OP-A Visit Information Start: 12/19/21:22 Freq: Status: Active Protocol: Document 12/24/21 09:45 AMB (Rec: 12/24/21 10:40 AMB [id number]) Out-Patient Physical Therapy Visit Information Visit Information Visit Type Treatment Note Visit Start Time 09:45 Visit Stop Time 10:30 Total Visit Minutes 45 Visit Number 2 PT-OP-B Current Condition Start: 12/19/21 21:22 Freq: Status: Active Protocol: Document 12/20/21 07:31 AMB (Rec: 12/20/21 07:40 AMB [id number]) Current Condition History of Current Condition Onset Date 6 months Current Complaints Bilateral leg pain and weakness History of Current Condition On steroids, has 4 day left before completely off of steroids. Bilateral hips knees ankles, feels like pain would move around. Overnight all of a sudden pain and weakness started 6 months ago. Generally on feet all day, denies peripheral neuropathy. Getting out of bed, getting off the floor without UE assistance, standing for more than 15 minutes is still challenging. Everything that I picker/puller now feels much heavier than 6 months ago. 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 Stopped biking and sailing due to this , felt balance/strength wasn't up to it. Treatment Goals Patient/Caregiver Goals Get stronger, be able to sail without worrying he's going to fall off the boat. Personal Factors Other Personal Factors That May Effect DMII, CHF Therapy/Recovery PT-OP-C Subjective Start: 12/19/21:22 Freq: Status: Active Protocol: Document 12/24/21 09:45 AMB (Rec: 12/24/21 10:40 AMB [id number]) OP-PT Subjective Patient Comments Patient Comments Pt walked 2.5 miles a couple of times and was sore with that, had to sit down a couple times but not too bad. Took him over an hour. PT-OP-D Balance Start: 12/19/21:22 Freq: Status: Active Protocol: Document 12/20/21 07:30 AMB (Rec: 12/20/21 09:37 AMB [id number]) Balance Tests mCTSIB mCTSIB Position 1 30 mCTSIB Position 2 increased ankle sway Single Limb Standing Single Limb- Right 6 Single Limb- Left 6 PT-OP-E Functional Tests Start: 12/19/21 21:22 Freq: Status: Active Protocol: Document 12/20/21 07:30 AMB (Rec: 12/20/21 08:18 AMB [id number]) Functional Tests Five Times Sit to Stand Test Score 16 PT-OP-G Mobility & Gait Start: 12/19/21 21:22 Freq: Status: Active Protocol: Document 12/20/21 07:30 AMB (Rec: 12/20/21 09:37 AMB [id number]) OP Gait Assessment Comments Gait Comments stiff torso without significant trunk rotation PT-OP-K Range of Motion Start: 12/19/21 21:22 Freq: Status: Active Protocol: Document 12/20/21 07:47 AMB (Rec: 12/20/21 07:47 AMB [id number]) Knee Goniometric Range of Motion Knee Left Knee ROM WFL Yes Comments L and R WFL PT-OP-M Strength Start: 12/19/21 21:22 Freq: Status: Active Protocol: Document 12/20/21 07:41 AMB (Rec: 12/20/21 07:47 AMB [id number]) Hip Strength Hip Manual Muscle Testing Right Flexion (L2) 4+ Good+ Extension (S1) 4+ Good+ Abduction 4+ Good+ Adduction 4+ Good+ Left Flexion (L2) 4+ Good+ Extension (S1) 4+ Good+ Abduction 4+ Good+ Adduction 4+ Good+ Knee Strength Knee Manual Muscle Testing Right Flexion (S2) 4+ Good+ Extension (L3) 4 Good Left Flexion (S2) 4+ Good+ Extension (L3) 4- Good- PT-OP-Q Treatments Start: 12/19/21 21:22 Freq: Status: Active Protocol: Document 12/24/21 09:45 AMB (Rec: 12/24/21 10:40 AMB [id number]) Cardio Equipment Recumbent Elliptical (Biodex) Duration (Minutes) 5 Resistance 3 Gym Equipment Shuttle Recovery Bilateral Squats Resistance 75 Shuttle Recovery Platform Stable Shuttle Balance BLUE Details WBOS and stride stance Reps/Duration 7 min Comments added EO HT, pt did well Therapeutic Exercises Standing Exercises mini squat Standing Exercise Name on blue foam mini lunges Reps/Minutes 2x10 wall squat Reps/Minutes 20 Comments small PT-OP-T Assessment and Plan Start: 12/19/21 21:22 Freq: Status: Active Protocol: Document 12/24/21 09:45 AMB (Rec: 12/24/21 10:40 AMB [id number]) Physical Therapy Assessment Goals Three Impairment ADLs Short Term Goal (STG) Dennys will move from supine to sitting with good body mechanics without an increase in pain. STG Duration 5 weeks Hoe Runner Goal (LTG) Dennys will perform a floor transfer without UE support. LTG Duration 10 weeks Two Impairment Strength Short Term Goal (STG) Dennys will improve his quad strength to at lest 4+/5. STG Duration 4 weeks Hoe Runner Goal (LTG) Dennys will show improved LE strength by performing a full squat. LTG Duration 8 weeks Assessment Summary Assessment Dennys tolerated squats and lunges well. Did get some fatigue after reps, is concerned with balance as has a sail boat. Feeling like strength/agility isn't quite there yet. Denies current joint pain, has been off steroids for 3 days. Physical Therapy Plan Frequency and Duration Frequency of Treatment 2x/Week Duration of treatment (weeks) 10 Plan of Care Start Date 12/20/21 Plan of Care End Date 02/28/22 Next Visit Focus/Plan Next Note Type Treatment Note Next Visit Plan Progress strength/balance, body weight strengthening, progress dynamic balance
--- NOTE | 2021-12-27 08:14 | PT.OTN ---
Current Diagnoses Polymyalgia rheumatica (12/27/21) Other symptoms and signs involving the musculoskeletal system (12/27/21) Physical Therapy Treatment Note PT-OP-A Visit Information Start: 12/19/21 21:22 Freq: Status: Active Protocol: Document 12/27/21 07:31 AMB (Rec: 12/27/21 08:14 AMB [id number]) Out-Patient Physical Therapy Visit Information Visit Information Visit Type Treatment Note Visit Start Time 07:30 Visit Stop Time 08:15 Total Visit Minutes 45 Visit Number 3 PT-OP-B Current Condition Start: 12/19/21 21:22 Freq: Status: Active Protocol: Document 12/20/21 07:31 AMB (Rec: 12/20/21 07:40 AMB [id number]) Current Condition History of Current Condition Onset Date 6 months Current Complaints Bilateral leg pain and weakness History of Current Condition On steroids, has 4 day left before completely off of steroids. Bilateral hips knees ankles, feels like pain would move around. Overnight all of a sudden pain and weakness started 6 months ago. Generally on feet all day, denies peripheral neuropathy. Getting out of bed, getting off the floor without UE assistance, standing for more than 15 minutes is still challenging. Everything that I cotton picker now feels much heavier than 6 months ago. 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 Stopped biking and sailing due to this , felt balance/strength wasn't up to it. Treatment Goals Patient/Caregiver Goals Get stronger, be able to sail without worrying he's going to fall off the boat. Personal Factors Other Personal Factors That May Effect DMII, CHF Therapy/Recovery PT-OP-C Subjective Start: 12/19/21:22 Freq: Status: Active Protocol: Document 12/27/21 07:31 AMB (Rec: 12/27/21 08:14 AMB [id number]) OP-PT Subjective Patient Comments Patient Comments Pt was sore this weekend, was working out in the shop, but didn't go on any walks. PT-OP-D Balance Start: 12/19/21 21:22 Freq: Status: Active Protocol: Document 12/20/21 07:30 AMB (Rec: 12/20/21 09:37 AMB [id number]) Balance Tests mCTSIB mCTSIB Position 1 30 mCTSIB Position 2 increased ankle sway Single Limb Standing Single Limb- Right 6 Single Limb- Left 6 PT-OP-E Functional Tests Start: 12/19/21 21:22 Freq: Status: Active Protocol: Document 12/20/21 07:30 AMB (Rec: 12/20/21 08:18 AMB [id number]) Functional Tests Five Times Sit to Stand Test Score 16 PT-OP-G Mobility & Gait Start: 12/19/21 21:22 Freq: Status: Active Protocol: Document 12/20/21 07:30 AMB (Rec: 12/20/21 09:37 AMB [id number]) OP Gait Assessment Comments Gait Comments stiff torso without significant trunk rotation PT-OP-K Range of Motion Start: 12/19/21 21:22 Freq: Status: Active Protocol: Document 12/20/21 07:47 AMB (Rec: 12/20/21 07:47 AMB [id number]) Knee Goniometric Range of Motion Knee Left Knee ROM WFL Yes Comments L and R WFL PT-OP-M Strength Start: 12/19/21 21:22 Freq: Status: Active Protocol: Document 12/20/21 07:41 AMB (Rec: 12/20/21 07:47 AMB [id number]) Hip Strength Hip Manual Muscle Testing Right Flexion (L2) 4+ Good+ Extension (S1) 4+ Good+ Abduction 4+ Good+ Adduction 4+ Good+ Left Flexion (L2) 4+ Good+ Extension (S1) 4+ Good+ Abduction 4+ Good+ Adduction 4+ Good+ Knee Strength Knee Manual Muscle Testing Right Flexion (S2) 4+ Good+ Extension (L3) 4 Good Left Flexion (S2) 4+ Good+ Extension (L3) 4- Good- PT-OP-Q Treatments Start: 12/19/21 21:22 Freq: Status: Active Protocol: Document 12/27/21 07:31 AMB (Rec: 12/27/21 08:14 AMB [id number]) Cardio Equipment Recumbent Elliptical (Biodex) Duration (Minutes) 6 Resistance 3 Gym Equipment Shuttle Recovery Bilateral Squats Resistance 62 Shuttle Recovery Platform Stable Reps/Time 2x15 Shuttle Balance BLUE Details WBOS and stride stance Reps/Duration 7 min Comments added EO HT, pt did well Therapeutic Exercises Standing Exercises sit to stand Reps/Minutes 10 Comments some knee discomfort mini squat Standing Exercise Name on blue foam mini lunges Reps/Minutes 2x10 wall squat Reps/Minutes 20 Comments small Neuro Re-Education Treatment Balance Activities blue foam Comments modified tandem EO HT PT-OP-T Assessment and Plan Start: 12/19/21 21:22 Freq: Status: Active Protocol: Document 12/27/21 07:31 AMB (Rec: 12/27/21 08:14 AMB [id number]) Physical Therapy Assessment Goals Three Impairment ADLs Short Term Goal (STG) Dennys will move from supine to sitting with good body mechanics without an increase in pain. STG Duration 5 weeks Group Home Goal (LTG) Dennys will perform a floor transfer without UE support. LTG Duration 10 weeks Two Impairment Strength Short Term Goal (STG) Dennys will improve his quad strength to at lest 4+/5. STG Duration 4 weeks Supervisor Telephone Answering Service Goal (LTG) Dennys will show improved LE strength by performing a full squat. LTG Duration 8 weeks Assessment Summary Assessment Dennys is doing well with his strengthening and balance, but did reduce reps a bit because of his soreness after last visit. Had soreness in shoulders and elbows as well, so thinking it's more being off the steroids than the exericses. Physical Therapy Plan Next Visit Focus/Plan Next Note Type Treatment Note Next Visit Plan Progress strength/balance, body weight strengthening, progress dynamic balance
--- NOTE | 2021-12-29 08:15 | PT.OTN ---
Current Diagnoses Polymyalgia rheumatica (12/29/21) Other symptoms and signs involving the musculoskeletal system (12/29/21) Physical Therapy Treatment Note PT-OP-A Visit Information Start: 12/19/21 21:22 Freq: Status: Active Protocol: Document 12/29/21 07:29 SP (Rec: 12/29/21 08:18 SP [id number]) Out-Patient Physical Therapy Visit Information Visit Information Visit Type Treatment Note Visit Start Time 07:30 Visit Stop Time 08:15 Total Visit Minutes 45 Visit Number 4 Number of PEARL GLUE OPERATOR Visits 1 PT-OP-B Current Condition Start: 12/19/21 21:22 Freq: Status: Active Protocol: Document 12/20/21 07:31 AMB (Rec: 12/20/21 07:40 AMB [id number]) Current Condition History of Current Condition Onset Date 6 months Current Complaints Bilateral leg pain and weakness History of Current Condition On steroids, has 4 day left before completely off of steroids. Bilateral hips knees ankles, feels like pain would move around. Overnight all of a sudden pain and weakness started 6 months ago. Generally on feet all day, denies peripheral neuropathy. Getting out of bed, getting off the floor without UE assistance, standing for more than 15 minutes is still challenging. Everything that I pickle cutter now feels much heavier than 6 months ago. 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 Stopped biking and sailing due to this , felt balance/strength wasn't up to it. Treatment Goals Patient/Caregiver Goals Get stronger, be able to sail without worrying he's going to fall off the boat. Personal Factors Other Personal Factors That May Effect DMII, CHF Therapy/Recovery PT-OP-C Subjective Start: 12/19/21 21:22 Freq: Status: Active Protocol: Document 12/29/21 07:29 SP (Rec: 12/29/21 08:18 SP [id number]) OP-PT Subjective Patient Comments Patient Comments Pt reports is sore after txs takes couple days to recovery. Compliant with wall sits and lunges if not sore. Only taking 5 mg every 3 days and seems like is helping with mobility. He states wants to be able to get something off the floor if needs to, at the moment has to go really really slow to acccomplish getting it due to pain and feels like going to balance and falling. PT-OP-D Balance Start: 12/19/21 21:22 Freq: Status: Active Protocol: Document 12/20/21 07:30 AMB (Rec: 12/20/21 09:37 AMB [id number]) Balance Tests mCTSIB mCTSIB Position 1 30 mCTSIB Position 2 increased ankle sway Single Limb Standing Single Limb- Right 6 Single Limb- Left 6 PT-OP-E Functional Tests Start: 12/19/21 21:22 Freq: Status: Active Protocol: Document 12/20/21 07:30 AMB (Rec: 12/20/21 08:18 AMB [id number]) Functional Tests Five Times Sit to Stand Test Score 16 PT-OP-G Mobility & Gait Start: 12/19/21 21:22 Freq: Status: Active Protocol: Document 12/20/21 07:30 AMB (Rec: 12/20/21 09:37 AMB [id number]) OP Gait Assessment Comments Gait Comments stiff torso without significant trunk rotation PT-OP-K Range of Motion Start: 12/19/21 21:22 Freq: Status: Active Protocol: Document 12/20/21 07:47 AMB (Rec: 12/20/21 07:47 AMB [id number]) Knee Goniometric Range of Motion Knee Left Knee ROM WFL Yes Comments L and R WFL PT-OP-M Strength Start: 12/19/21 21:22 Freq: Status: Active Protocol: Document 12/20/21 07:41 AMB (Rec: 12/20/21 07:47 AMB [id number]) Hip Strength Hip Manual Muscle Testing Right Flexion (L2) 4+ Good+ Extension (S1) 4+ Good+ Abduction 4+ Good+ Adduction 4+ Good+ Left Flexion (L2) 4+ Good+ Extension (S1) 4+ Good+ Abduction 4+ Good+ Adduction 4+ Good+ Knee Strength Knee Manual Muscle Testing Right Flexion (S2) 4+ Good+ Extension (L3) 4 Good Left Flexion (S2) 4+ Good+ Extension (L3) 4- Good- PT-OP-Q Treatments Start: 12/19/21 21:22 Freq: Status: Active Protocol: Document 12/29/21 07:29 SP (Rec: 12/29/21 08:18 SP [id number]) Cardio Equipment Recumbent Elliptical (Biodex) Duration (Minutes) 6 Resistance 3 Seat Position 8 Other LEs only 40-45 RPM, 545 steps Gym Equipment Shuttle Recovery Unilateral Squats Resistance 37# Reps/Time x10 Bilateral Squats Resistance 62 Shuttle Recovery Platform Stable Reps/Time x20 Therapeutic Exercises Standing Exercises sit to stand Resistance mesh chair Equipment Used 5 reps floor, 5 reps blue foam Comments not pain but tiring mini squat Standing Exercise Name on blue foam Equipment Used hands hover rail Reps/Minutes 5 reps 3 sec holds Neuro Re-Education Treatment Balance Activities corner balance Details added to HEP Equipment back to wall, chair front Comments 1. NBOS EC 30s 2. semi tandem EC 30s B 3. tandem EO head turns 4. SLS not timed intermittent contact wall ball cone transfer squats Surface 6 cones, 4 pods, 10 golf balls , Comments squat cross body transfer balls, little more challenge pods but no LOB, try floor next for few and maybe red yoga mat? hurdles Details next tx uneven surface blue foam Comments modified tandem EO HT, EC up to 30 sec NBOS PT-OP-T Assessment and Plan Start: 12/19/21 21:22 Freq: Status: Active Protocol: Document 12/29/21 07:29 SP (Rec: 12/29/21 08:18 SP [id number]) Physical Therapy Assessment Goals Three Impairment ADLs Impairment L shoulder strength is 2/5 except ext is 2+/5, IR is 3/5. (R shoulder is 5/5 except ER is 3/5). Initial Pain rating 3-7/10. Short Term Goal (STG) Dennys will move from supine to sitting with good body mechanics without an increase in pain. STG Duration 5 weeks Sonar Subsystem Equipment Operator Goal (LTG) Dennys will perform a floor transfer without UE support. LTG Duration 10 weeks Two Impairment Strength Impairment L shoulder AROM sitting: Flex & AB is 70 deg's, ext is 57 deg's. Reaching behind back is to L4, behind head is to top of the shoulder. (R shoulder sitting: Flex 130 deg 's, AB is 140 deg's, ext 65. Behind back is &12, behind head is T2). L shoulder PROM supine (in deg 's): Flex 125, AB 70, ER 58, IR 34. (R shldr supine: Flex 152, AB 250, ER 52, IR 90). Short Term Goal (STG) Dennys will improve his quad strength to at lest 4+/5. STG Duration 4 weeks Sonar Subsystem Equipment Operator Goal (LTG) Dennys will show improved LE strength by performing a full squat. LTG Duration 8 weeks Assessment Summary Assessment Pt worked hard during tx, occasional seated rests. Added corner balance to HEP for self carryover balance recovery with safe support able to complete EC positions. Responded well to squat ball/ cone transfer, added pods for more flexion challenge to allow getting items off floor nervous about. Will continue use pods and add few on floor level next tx. possibly add yoga mat for challenge stability w/ cone level 1st. Physical Therapy Plan Frequency and Duration Frequency of Treatment 2x/Week Duration of treatment (weeks) 10 Plan of Care Start Date 12/20/21 Plan of Care End Date 02/28/22 Therapeutic Interventions Therapeutic Interventions Aquatic Therapy,Gait Training, Home Exercise Program,Manual Therapy,Neuromuscular Re- education,Self-Care/Home Management,Therapeutic Activities,Therapeutic Exercises Modalities Cold Pack/Ice Massage,Electric Stimulation,Hot Packs Next Visit Focus/Plan Next Note Type Treatment Note Next Visit Plan see assessment 12/29 for activities try. POC: Progress strength/balance , body weight strengthening, progress dynamic balance
--- NOTE | 2022-01-03 12:53 | PT.OTN ---
Current Diagnoses Polymyalgia rheumatica (01/03/22) Other symptoms and signs involving the musculoskeletal system (01/03/22) Physical Therapy Treatment Note PT-OP-A Visit Information Start: 12/19/21 21:22 Freq: Status: Active Protocol: Document 01/03/22 07:27 AMB (Rec: 01/03/22 08:16 AMB [id number]) Out-Patient Physical Therapy Visit Information Visit Information Visit Type Treatment Note Visit Start Time 07:30 Visit Stop Time 08:15 Total Visit Minutes 45 Visit Number 5 PT-OP-B Current Condition Start: 12/19/21 21:22 Freq: Status: Active Protocol: Document 12/20/21 07:31 AMB (Rec: 12/20/21 07:40 AMB [id number]) Current Condition History of Current Condition Onset Date 6 months Current Complaints Bilateral leg pain and weakness History of Current Condition On steroids, has 4 day left before completely off of steroids. Bilateral hips knees ankles, feels like pain would move around. Overnight all of a sudden pain and weakness started 6 months ago. Generally on feet all day, denies peripheral neuropathy. Getting out of bed, getting off the floor without UE assistance, standing for more than 15 minutes is still challenging. Everything that I tack picker now feels much heavier than 6 months ago. 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 Stopped biking and sailing due to this , felt balance/strength wasn't up to it. Treatment Goals Patient/Caregiver Goals Get stronger, be able to sail without worrying he's going to fall off the boat. Personal Factors Other Personal Factors That May Effect DMII, CHF Therapy/Recovery PT-OP-C Subjective Start: 12/19/21:22 Freq: Status: Active Protocol: Document 01/03/22 07:27 AMB (Rec: 01/03/22 08:16 AMB [id number]) OP-PT Subjective Patient Comments Patient Comments Pt reports worked on cars all day yesterday. Has to lie down on the ground and getting up is challenging. PT-OP-D Balance Start: 12/19/21 21:22 Freq: Status: Active Protocol: Document 12/20/21 07:30 AMB (Rec: 12/20/21 09:37 AMB [id number]) Balance Tests mCTSIB mCTSIB Position 1 30 mCTSIB Position 2 increased ankle sway Single Limb Standing Single Limb- Right 6 Single Limb- Left 6 PT-OP-E Functional Tests Start: 12/19/21 21:22 Freq: Status: Active Protocol: Document 12/20/21 07:30 AMB (Rec: 12/20/21 08:18 AMB [id number]) Functional Tests Five Times Sit to Stand Test Score 16 PT-OP-G Mobility & Gait Start: 12/19/21 21:22 Freq: Status: Active Protocol: Document 12/20/21 07:30 AMB (Rec: 12/20/21 09:37 AMB [id number]) OP Gait Assessment Comments Gait Comments stiff torso without significant trunk rotation PT-OP-K Range of Motion Start: 12/19/21 21:22 Freq: Status: Active Protocol: Document 12/20/21 07:47 AMB (Rec: 12/20/21 07:47 AMB [id number]) Knee Goniometric Range of Motion Knee Left Knee ROM WFL Yes Comments L and R WFL PT-OP-M Strength Start: 12/19/21 21:22 Freq: Status: Active Protocol: Document 12/20/21 07:41 AMB (Rec: 12/20/21 07:47 AMB [id number]) Hip Strength Hip Manual Muscle Testing Right Flexion (L2) 4+ Good+ Extension (S1) 4+ Good+ Abduction 4+ Good+ Adduction 4+ Good+ Left Flexion (L2) 4+ Good+ Extension (S1) 4+ Good+ Abduction 4+ Good+ Adduction 4+ Good+ Knee Strength Knee Manual Muscle Testing Right Flexion (S2) 4+ Good+ Extension (L3) 4 Good Left Flexion (S2) 4+ Good+ Extension (L3) 4- Good- PT-OP-Q Treatments Start: 12/19/21 21:22 Freq: Status: Active Protocol: Document 01/03/22 07:30 AMB (Rec: 01/03/22 12:52 AMB [id number]) Cardio Equipment Recumbent Elliptical (Biodex) Duration (Minutes) 6 Resistance 3 Seat Position 8 Other LEs only 40-45 RPM, Therapeutic Exercises Standing Exercises mini lunges Reps/Minutes 2x10 Therapeutic Activity Therapeutic Activity bed mobility Reps/Minutes 5 min Comments cued punch to roll over then push with elbow and free hand floor transfer Reps/Minutes 10 min Comments with environmental support as needed, sit<>quadruped<>high kneeling<>stand using chair Neuro Re-Education Treatment Balance Activities corner balance Details reviewed Equipment back to wall, chair front Comments 1. NBOS EC 30s 2. semi tandem EC 30s B 3. tandem EO head turns 4. SLS not timed intermittent contact wall hurdles Reps/Duration 5 min Comments hurdles with green and blue balance foam between hurdles ( challenging) PT-OP-T Assessment and Plan Start: 12/19/21 21:22 Freq: Status: Active Protocol: Document 01/03/22 07:27 AMB (Rec: 01/03/22 08:16 AMB [id number]) Physical Therapy Assessment Goals Three Impairment ADLs Short Term Goal (STG) Dennys will move from supine to sitting with good body mechanics without an increase in pain. STG Duration 5 weeks Nightclub Manager Goal (LTG) Dennys will perform a floor transfer without UE support. LTG Duration 10 weeks Two Impairment Strength Short Term Goal (STG) Dennys will improve his quad strength to at lest 4+/5. STG Duration 4 weeks Nightclub Manager Goal (LTG) Dennys will show improved LE strength by performing a full squat. LTG Duration 8 weeks Assessment Summary Assessment Pt with good challenge with dynamic balance challenges with balance pods and hurdles. floor transfer with UE support is going well, pt reports significant difficulty getting up from couch when lying down, encouraged to use both hands to push up rather than just one. Physical Therapy Plan Frequency and Duration Frequency of Treatment 2x/Week Duration of treatment (weeks) 10 Plan of Care Start Date 12/20/21 Plan of Care End Date 02/28/22 Next Visit Focus/Plan Next Note Type Treatment Note Next Visit Plan POC: Progress strength/balance , body weight strengthening, progress dynamic balance
--- NOTE | 2022-01-05 08:15 | PT.OTN ---
Current Diagnoses Polymyalgia rheumatica (01/05/22) Other symptoms and signs involving the musculoskeletal system (01/05/22) Physical Therapy Treatment Note PT-OP-A Visit Information Start: 12/19/21: Freq: Status: Active Protocol: Document 01/05/22 07:31 SP (Rec: 01/05/22 08:18 SP [id number]) Out-Patient Physical Therapy Visit Information Visit Information Visit Type Treatment Note Visit Note SUHAS Smith provided support to pt needed during balance activities under direct supervision and guidence of LOADING MACHINE ADJUSTER Bry. Visit Start Time 07:31 Visit Stop Time 08:15 Total Visit Minutes 44 Visit Number 6 Number of LOADING MACHINE ADJUSTER Visits 1 PT-OP-B Current Condition Start: 12/19/21:22 Freq: Status: Active Protocol: Document 12/20/21 07:31 AMB (Rec: 12/20/21 07:40 AMB [id number]) Current Condition History of Current Condition Onset Date 6 months Current Complaints Bilateral leg pain and weakness History of Current Condition On steroids, has 4 day left before completely off of steroids. Bilateral hips knees ankles, feels like pain would move around. Overnight all of a sudden pain and weakness started 6 months ago. Generally on feet all day, denies peripheral neuropathy. Getting out of bed, getting off the floor without UE assistance, standing for more than 15 minutes is still challenging. Everything that I pick out hand now feels much heavier than 6 months ago. 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 Stopped biking and sailing due to this , felt balance/strength wasn't up to it. Treatment Goals Patient/Caregiver Goals Get stronger, be able to sail without worrying he's going to fall off the boat. Personal Factors Other Personal Factors That May Effect DMII, CHF Therapy/Recovery PT-OP-C Subjective Start: 12/19/21: Freq: Status: Active Protocol: Document 01/05/22 07:31 SP (Rec: 01/05/22 08:18 SP [id number]) OP-PT Subjective Patient Comments Patient Comments Pt stated being taught using both UEs to help sit up to get off couch and getting on/off floor in PT has help alot more at home. Is able to get things off floor with more ease. PT-OP-D Balance Start: 12/19/21 21:22 Freq: Status: Active Protocol: Document 12/20/21 07:30 AMB (Rec: 12/20/21 09:37 AMB [id number]) Balance Tests mCTSIB mCTSIB Position 1 30 mCTSIB Position 2 increased ankle sway Single Limb Standing Single Limb- Right 6 Single Limb- Left 6 PT-OP-E Functional Tests Start: 12/19/21 21:22 Freq: Status: Active Protocol: Document 12/20/21 07:30 AMB (Rec: 12/20/21 08:18 AMB [id number]) Functional Tests Five Times Sit to Stand Test Score 16 PT-OP-G Mobility & Gait Start: 12/19/21 21:22 Freq: Status: Active Protocol: Document 12/20/21 07:30 AMB (Rec: 12/20/21 09:37 AMB [id number]) OP Gait Assessment Comments Gait Comments stiff torso without significant trunk rotation PT-OP-K Range of Motion Start: 12/19/21 21:22 Freq: Status: Active Protocol: Document 12/20/21 07:47 AMB (Rec: 12/20/21 07:47 AMB [id number]) Knee Goniometric Range of Motion Knee Left Knee ROM WFL Yes Comments L and R WFL PT-OP-M Strength Start: 12/19/21 21:22 Freq: Status: Active Protocol: Document 12/20/21 07:41 AMB (Rec: 12/20/21 07:47 AMB [id number]) Hip Strength Hip Manual Muscle Testing Right Flexion (L2) 4+ Good+ Extension (S1) 4+ Good+ Abduction 4+ Good+ Adduction 4+ Good+ Left Flexion (L2) 4+ Good+ Extension (S1) 4+ Good+ Abduction 4+ Good+ Adduction 4+ Good+ Knee Strength Knee Manual Muscle Testing Right Flexion (S2) 4+ Good+ Extension (L3) 4 Good Left Flexion (S2) 4+ Good+ Extension (L3) 4- Good- PT-OP-Q Treatments Start: 12/19/21 21:22 Freq: Status: Active Protocol: Document 01/05/22 07:31 SP (Rec: 01/05/22 08:18 SP [id number]) Cardio Equipment Recumbent Elliptical ([employer]) Duration (Minutes) 6 Resistance 4 Seat Position 8 Other LEs only 45 RPM, Gym Equipment Shuttle Balance BLUE Details Red: WBOS (4s), NBOS, stagger Reps/Duration 7 min Comments 1. wt shifting 2. HTs CUed core, glut fac and trunk alignment for improved stability, Mod<> CG/Min Therapeutic Exercises Standing Exercises sit to stand Resistance mesh chair Equipment Used 5 reps blue foam Comments not pain but tiring Therapeutic Activity Therapeutic Activity floor transfer Reps/Minutes 3 reps Comments Environmental support as needed, supine<>sit<>quadruped <>high kneeling<><> squat<> stand: using chair and without hands on thighs Neuro Re-Education Treatment Balance Activities ball cone transfer squats Surface pods, 3 golf balls, Reps/Duration x3 sets Comments squat cross body transfer balls, improved squat range and transfer using pods no LOB hurdles Reps/Duration 5 min Comments hurdles with green and blue balance foam between hurdles ( challenging) PT-OP-T Assessment and Plan Start: 12/19/21 21:22 Freq: Status: Active Protocol: Document 01/05/22 07:31 SP (Rec: 01/05/22 08:18 SP [id number]) Physical Therapy Assessment Goals Three Impairment ADLs Impairment L shoulder strength is 2/5 except ext is 2+/5, IR is 3/5. (R shoulder is 5/5 except ER is 3/5). Initial Pain rating 3-7/10. Short Term Goal (STG) Dennys will move from supine to sitting with good body mechanics without an increase in pain. STG Duration 5 weeks Senior Living Goal (LTG) Dennys will perform a floor transfer without UE support. LTG Duration 10 weeks Two Impairment Strength Impairment L shoulder AROM sitting: Flex & AB is 70 deg's, ext is 57 deg's. Reaching behind back is to L4, behind head is to top of the shoulder. (R shoulder sitting: Flex 130 deg 's, AB is 140 deg's, ext 65. Behind back is &12, behind head is T2). L shoulder PROM supine (in deg 's): Flex 125, AB 70, ER 58, IR 34. (R shldr supine: Flex 152, AB 250, ER 52, IR 90). Short Term Goal (STG) Dennys will improve his quad strength to at lest 4+/5. STG Duration 4 weeks [employer] Supervisor Goal (LTG) Dennys will show improved LE strength by performing a full squat. LTG Duration 8 weeks Assessment Summary Assessment Pt improved dynamic balance able to progress challenge uneven surface shuttle balance with head turns various stance Mod>CG/Min. Able to squat deeper for ball transfer to pods no LOB today to allow functional strength ease picking up items of floor in garage simulation. Physical Therapy Plan Frequency and Duration Frequency of Treatment 2x/Week Duration of treatment (weeks) 10 Plan of Care Start Date 12/20/21 Plan of Care End Date 02/28/22 Therapeutic Interventions Therapeutic Interventions Aquatic Therapy,Gait Training, Home Exercise Program,Manual Therapy,Neuromuscular Re- education,Self-Care/Home Management,Therapeutic Activities,Therapeutic Exercises Modalities Cold Pack/Ice Massage,Electric Stimulation,Hot Packs Next Visit Focus/Plan Next Note Type Treatment Note Next Visit Plan Continue challenge balance. POC: Progress strength/balance , body weight strengthening, progress dynamic balance
--- NOTE | 2022-01-11 15:53 | PT.OTN ---
Current Diagnoses Polymyalgia rheumatica (01/11/22) Other symptoms and signs involving the musculoskeletal system (01/11/22) Physical Therapy Treatment Note PT-OP-A Visit Information Start: 12/19/21 21:22 Freq: Status: Active Protocol: Document 01/11/22 07:36 AMB (Rec: 01/11/22 08:25 AMB [id number]) Out-Patient Physical Therapy Visit Information Visit Information Visit Type Treatment Note Visit Start Time 07:31 Visit Stop Time 08:15 Total Visit Minutes 44 Visit Number 7 Number of RADIOLOGY ASST Visits 0 PT-OP-B Current Condition Start: 12/19/21 21:22 Freq: Status: Active Protocol: Document 12/20/21 07:31 AMB (Rec: 12/20/21 07:40 AMB [id number]) Current Condition History of Current Condition Onset Date 6 months Current Complaints Bilateral leg pain and weakness History of Current Condition On steroids, has 4 day left before completely off of steroids. Bilateral hips knees ankles, feels like pain would move around. Overnight all of a sudden pain and weakness started 6 months ago. Generally on feet all day, denies peripheral neuropathy. Getting out of bed, getting off the floor without UE assistance, standing for more than 15 minutes is still challenging. 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 Stopped biking and sailing due to this , felt balance/strength wasn't up to it. Treatment Goals Patient/Caregiver Goals Get stronger, be able to sail without worrying he's going to fall off the boat. Personal Factors Other Personal Factors That May Effect DMII, CHF Therapy/Recovery PT-OP-C Subjective Start: 12/19/21:22 Freq: Status: Active Protocol: Document 01/11/22 07:30 AMB (Rec: 01/11/22 15:51 AMB [id number]) OP-PT Subjective Patient Comments Patient Comments Pt reports he is taking steroids every 3 days now. Getting better picking things up from the floor and getting off the couch. Not sure if he will get back to sailing. PT-OP-D Balance Start: 12/19/21 21:22 Freq: Status: Active Protocol: Document 12/20/21 07:30 AMB (Rec: 12/20/21 09:37 AMB [id number]) Balance Tests mCTSIB mCTSIB Position 1 30 mCTSIB Position 2 increased ankle sway Single Limb Standing Single Limb- Right 6 Single Limb- Left 6 PT-OP-E Functional Tests Start: 12/19/21 21:22 Freq: Status: Active Protocol: Document 12/20/21 07:30 AMB (Rec: 12/20/21 08:18 AMB [id number]) Functional Tests Five Times Sit to Stand Test Score 16 PT-OP-G Mobility & Gait Start: 12/19/21 21:22 Freq: Status: Active Protocol: Document 12/20/21 07:30 AMB (Rec: 12/20/21 09:37 AMB [id number]) OP Gait Assessment Comments Gait Comments stiff torso without significant trunk rotation PT-OP-K Range of Motion Start: 12/19/21 21:22 Freq: Status: Active Protocol: Document 12/20/21 07:47 AMB (Rec: 12/20/21 07:47 AMB [id number]) Knee Goniometric Range of Motion Knee Left Knee ROM WFL Yes Comments L and R WFL PT-OP-M Strength Start: 12/19/21 21:22 Freq: Status: Active Protocol: Document 12/20/21 07:41 AMB (Rec: 12/20/21 07:47 AMB [id number]) Hip Strength Hip Manual Muscle Testing Right Flexion (L2) 4+ Good+ Extension (S1) 4+ Good+ Abduction 4+ Good+ Adduction 4+ Good+ Left Flexion (L2) 4+ Good+ Extension (S1) 4+ Good+ Abduction 4+ Good+ Adduction 4+ Good+ Knee Strength Knee Manual Muscle Testing Right Flexion (S2) 4+ Good+ Extension (L3) 4 Good Left Flexion (S2) 4+ Good+ Extension (L3) 4- Good- PT-OP-Q Treatments Start: 12/19/21 21:22 Freq: Status: Active Protocol: Document 01/11/22 07:30 AMB (Rec: 01/11/22 15:51 AMB [id number]) Cardio Equipment Recumbent Elliptical ([employer]) Duration (Minutes) 6 Resistance 5 Seat Position 8 Other LEs only 45 RPM, Gym Equipment Shuttle Balance BLUE Details Red: NBOS, stagger Reps/Duration 8 min Comments 1. wt shifting 2. HTs m/l: challenging WBOS CUed core, glut fac and trunk alignment for improved stability, Mod<> CG/Min Therapeutic Exercises Standing Exercises sit to stand Resistance mesh chair Equipment Used 5 reps blue foam Comments not pain but tiring mini lunges Reps/Minutes 2x10 wall squat Standing Exercise Name reviewed Reps/Minutes 3x20 Comments small Neuro Re-Education Treatment Balance Activities single leg stance Comments challenging, next to railing blue foam Comments modified tandem EO HT, EC up to 30 sec NBOS PT-OP-T Assessment and Plan Start: 12/19/21 21:22 Freq: Status: Active Protocol: Document 01/11/22 07:36 AMB (Rec: 01/11/22 08:25 AMB [id number]) Physical Therapy Assessment Goals Three Impairment ADLs Short Term Goal (STG) Dennys will move from supine to sitting with good body mechanics without an increase in pain. STG Duration 5 weeks Correction Goal (LTG) Dennys will perform a floor transfer without UE support. LTG Duration 10 weeks Two Impairment Strength Short Term Goal (STG) Dennys will improve his quad strength to at lest 4+/5. STG Duration 4 weeks Correction Goal (LTG) Dennys will show improved LE strength by performing a full squat. LTG Duration 8 weeks Assessment Summary Assessment 5x sit to stand 13 seconds. Overall Dennys feels that he is improving, feeling better balanced, still feels fatigued after session which he reports would not be his normal. Stiffness in morning is noticable on days not taking steroids. Physical Therapy Plan Frequency and Duration Frequency of Treatment 2x/Week Duration of treatment (weeks) 10 Plan of Care Start Date 12/20/21 Plan of Care End Date 02/28/22 Next Visit Focus/Plan Next Note Type Treatment Note Next Visit Plan Continue challenge balance. POC: Progress strength/balance , body weight strengthening, progress dynamic balance
--- NOTE | 2022-01-13 08:16 | PT.OTN ---
Current Diagnoses Polymyalgia rheumatica (01/13/22) Other symptoms and signs involving the musculoskeletal system (01/13/22) Physical Therapy Treatment Note PT-OP-A Visit Information Start: 12/19/21 21:22 Freq: Status: Active Protocol: Document 01/13/22 07:20 TS (Rec: 01/13/22 08:38 TS [id number]) Out-Patient Physical Therapy Visit Information Visit Information Visit Type Treatment Note Visit Note SIDRAA Luis lead treatment supervised and directd by ANGEL Flood Visit Start Time 07:30 Visit Stop Time 08:16 Total Visit Minutes 46 Visit Number 8 Number of TECHNOLOGY COACH Visits 1 PT-OP-B Current Condition Start: 12/19/21 21:22 Freq: Status: Active Protocol: Document 12/20/21 07:31 AMB (Rec: 12/20/21 07:40 AMB [id number]) Current Condition History of Current Condition Onset Date 6 months Current Complaints Bilateral leg pain and weakness History of Current Condition On steroids, has 4 day left before completely off of steroids. Bilateral hips knees ankles, feels like pain would move around. Overnight all of a sudden pain and weakness started 6 months ago. Generally on feet all day, denies peripheral neuropathy. Getting out of bed, getting off the floor without UE assistance, standing for more than 15 minutes is still challenging. 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 Stopped biking and sailing due to this , felt balance/strength wasn't up to it. Treatment Goals Patient/Caregiver Goals Get stronger, be able to sail without worrying he's going to fall off the boat. Personal Factors Other Personal Factors That May Effect DMII, CHF Therapy/Recovery PT-OP-C Subjective Start: 12/19/21 21: Freq: Status: Active Protocol: Document 01/13/22 07:20 TS (Rec: 01/13/22 08:38 TS [id number]) OP-PT Subjective Patient Comments Patient Comments Pt states he's feeling good. Says his balance is improving and is having an easier time getting out of bed and off the floor. PT-OP-D Balance Start: 12/19/21:22 Freq: Status: Active Protocol: Document 12/20/21 07:30 AMB (Rec: 12/20/21 09:37 AMB [id number]) Balance Tests mCTSIB mCTSIB Position 1 30 mCTSIB Position 2 increased ankle sway Single Limb Standing Single Limb- Right 6 Single Limb- Left 6 PT-OP-E Functional Tests Start: 12/19/21 21:22 Freq: Status: Active Protocol: Document 12/20/21 07:30 AMB (Rec: 12/20/21 08:18 AMB [id number]) Functional Tests Five Times Sit to Stand Test Score 16 PT-OP-G Mobility & Gait Start: 12/19/21 21:22 Freq: Status: Active Protocol: Document 12/20/21 07:30 AMB (Rec: 12/20/21 09:37 AMB [id number]) OP Gait Assessment Comments Gait Comments stiff torso without significant trunk rotation PT-OP-K Range of Motion Start: 12/19/21 21:22 Freq: Status: Active Protocol: Document 12/20/21 07:47 AMB (Rec: 12/20/21 07:47 AMB [id number]) Knee Goniometric Range of Motion Knee Left Knee ROM WFL Yes Comments L and R WFL PT-OP-M Strength Start: 12/19/21 21:22 Freq: Status: Active Protocol: Document 12/20/21 07:41 AMB (Rec: 12/20/21 07:47 AMB [id number]) Hip Strength Hip Manual Muscle Testing Right Flexion (L2) 4+ Good+ Extension (S1) 4+ Good+ Abduction 4+ Good+ Adduction 4+ Good+ Left Flexion (L2) 4+ Good+ Extension (S1) 4+ Good+ Abduction 4+ Good+ Adduction 4+ Good+ Knee Strength Knee Manual Muscle Testing Right Flexion (S2) 4+ Good+ Extension (L3) 4 Good Left Flexion (S2) 4+ Good+ Extension (L3) 4- Good- PT-OP-Q Treatments Start: 12/19/21 21:22 Freq: Status: Active Protocol: Document 01/13/22 07:20 TS (Rec: 01/13/22 08:38 TS [id number]) Cardio Equipment Recumbent Elliptical ([employer]) Duration (Minutes) 6 Resistance 5 Seat Position 10 Other LEs only 40-45 RPM, Gym Equipment Shuttle Balance BLUE Details Red: NBOS, stagger Reps/Duration 8 min Comments 1. wt shifting 2. HTs 3. eyes closed m/l: challenging WBOS CUed core, glut fac and trunk alignment for improved stability, Mod<> CG/Min Therapeutic Exercises Standing Exercises sit to stand Resistance mesh chair Equipment Used 1x10, 1x5 (legs fatiguing)reps blue foam Comments not pain but tiring having feet higher on foam mini lunges Standing Exercise Name Mini lunges with chair support Equipment Used Chair for UE support Reps/Minutes 1x10 Comments Cues to keep knees behind toes wall squat Standing Exercise Name Wall Squat Reps/Minutes 3x20, 1x12 Comments Cued for upright posture and core activation legs feeling shaky Therapeutic Activity Therapeutic Activity bed mobility Reps/Minutes 3 min Comments cued punch to roll over then push with elbow and free hand floor transfer Name Floor transfer on yoga mat Reps/Minutes 2reps Comments supine to quadruped to kneeling to standing Neuro Re-Education Treatment Balance Activities Tandem walk Details Tandem walk in // bars Reps/Duration 2x10' eyes open, 2x10 HT 2 x10 ' eyes closed Comments Cued for core activation. Displayed some buckling of RLE with tandem stance. single leg stance Details SLS w/ handrail & SLS balancing madrigal bag on head Equipment Handrail Comments RLE 5 secs, LLE 20 secs without madrigal bag, RLE 8 secs with madrigal bag, LLE with madrigal bag 20 secs. Pt education on core activation and evenly distribute weight across foot. PT-OP-T Assessment and Plan Start: 12/19/21 21:22 Freq: Status: Active Protocol: Document 01/13/22 07:20 TS (Rec: 01/13/22 08:38 TS [id number]) Physical Therapy Assessment Goals Three Impairment ADLs Impairment L shoulder strength is 2/5 except ext is 2+/5, IR is 3/5. (R shoulder is 5/5 except ER is 3/5). Initial Pain rating 3-7/10. Short Term Goal (STG) Dennys will move from supine to sitting with good body mechanics without an increase in pain. 01/13/22- some straining and slight discomfort in R shldr. STG Duration 5 weeks Ring Sewer Goal (LTG) Dennys will perform a floor transfer without UE support. 01/13/22- Requires chair for UE support into standing from floor. LTG Duration 10 weeks Two Impairment Strength Impairment L shoulder AROM sitting: Flex & AB is 70 deg's, ext is 57 deg's. Reaching behind back is to L4, behind head is to top of the shoulder. (R shoulder sitting: Flex 130 deg 's, AB is 140 deg's, ext 65. Behind back is &12, behind head is T2). L shoulder PROM supine (in deg 's): Flex 125, AB 70, ER 58, IR 34. (R shldr supine: Flex 152, AB 250, ER 52, IR 90). Short Term Goal (STG) Dennys will improve his quad strength to at lest 4+/5. STG Duration 4 weeks Skilled Nursing Goal (LTG) Dennys will show improved LE strength by performing a full squat. LTG Duration 8 weeks Progress Towards Goals Progress Towards Goals Progressing Toward Goals Progress Comments Improved SLS balance during session, still requring UE support for floor transfers. Assessment Summary Assessment Pt is progressing towards his goal of going from supine to sit demonstrating good body mechanics but has some straining in R shoulder. He is still requiring some UE with chair to some into standing. He continues to require CGA progressing to Veda/ModA during shuttle balance. He would continue to benefit from skilled intervention to improve balance and floor transfers. Physical Therapy Plan Frequency and Duration Frequency of Treatment 2x/Week Duration of treatment (weeks) 10 Plan of Care Start Date 12/20/21 Plan of Care End Date 02/28/22 Therapeutic Interventions Therapeutic Interventions Aquatic Therapy,Gait Training, Home Exercise Program,Manual Therapy,Neuromuscular Re- education,Self-Care/Home Management,Therapeutic Activities,Therapeutic Exercises Modalities Cold Pack/Ice Massage,Electric Stimulation,Hot Packs Next Visit Focus/Plan Next Note Type Treatment Note Next Visit Plan Continue challenge balance. Cont tandem stance with eyes closed/open and HTs. POC: Progress strength/balance , body weight strengthening, progress dynamic balance.
--- NOTE | 2022-01-17 09:24 | PT.OTN ---
Current Diagnoses Polymyalgia rheumatica (01/17/22) Other symptoms and signs involving the musculoskeletal system (01/17/22) Physical Therapy Treatment Note PT-OP-A Visit Information Start: 12/19/21 21:22 Freq: Status: Active Protocol: Document 01/17/22 07:28 AMB (Rec: 01/17/22 08:17 AMB [id number]) Out-Patient Physical Therapy Visit Information Visit Information Visit Type Progress Note Visit Start Time 07:30 Visit Stop Time 08:15 Total Visit Minutes 45 Visit Number 9 PT-OP-B Current Condition Start: 12/19/21 21:22 Freq: Status: Active Protocol: Document 12/20/21 07:31 AMB (Rec: 12/20/21 07:40 AMB [id number]) Current Condition History of Current Condition Onset Date 6 months Current Complaints Bilateral leg pain and weakness History of Current Condition On steroids, has 4 day left before completely off of steroids. Bilateral hips knees ankles, feels like pain would move around. Overnight all of a sudden pain and weakness started 6 months ago. Generally on feet all day, denies peripheral neuropathy. Getting out of bed, getting off the floor without UE assistance, standing for more than 15 minutes is still challenging. 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 Stopped biking and sailing due to this , felt balance/strength wasn't up to it. Treatment Goals Patient/Caregiver Goals Get stronger, be able to sail without worrying he's going to fall off the boat. Personal Factors Other Personal Factors That May Effect DMII, CHF Therapy/Recovery PT-OP-C Subjective Start: 12/19/21 21:22 Freq: Status: Active Protocol: Document 01/17/22 07:28 AMB (Rec: 01/17/22 08:17 AMB [id number]) OP-PT Subjective Patient Comments Patient Comments Pt had a busy weekend, feeling good overall. PT-OP-D Balance Start: 12/19/21 21:22 Freq: Status: Active Protocol: Document 12/20/21 07:30 AMB (Rec: 12/20/21 09:37 AMB [id number]) Balance Tests mCTSIB mCTSIB Position 1 30 mCTSIB Position 2 increased ankle sway Single Limb Standing Single Limb- Right 6 Single Limb- Left 6 PT-OP-E Functional Tests Start: 12/19/21 21:22 Freq: Status: Active Protocol: Document 12/20/21 07:30 AMB (Rec: 12/20/21 08:18 AMB [id number]) Functional Tests Five Times Sit to Stand Test Score 16 PT-OP-G Mobility & Gait Start: 12/19/21 21:22 Freq: Status: Active Protocol: Document 12/20/21 07:30 AMB (Rec: 12/20/21 09:37 AMB [id number]) OP Gait Assessment Comments Gait Comments stiff torso without significant trunk rotation PT-OP-K Range of Motion Start: 12/19/21 21:22 Freq: Status: Active Protocol: Document 12/20/21 07:47 AMB (Rec: 12/20/21 07:47 AMB [id number]) Knee Goniometric Range of Motion Knee Left Knee ROM WFL Yes Comments L and R WFL PT-OP-M Strength Start: 12/19/21 21:22 Freq: Status: Active Protocol: Document 01/17/22 09:21 AMB (Rec: 01/17/22 09:24 AMB [id number]) Knee Strength Knee Manual Muscle Testing Right Flexion (S2) 4+ Good+ Extension (L3) 4+ Good+ Left Flexion (S2) 4+ Good+ Extension (L3) 4+ Good+ PT-OP-Q Treatments Start: 12/19/21 21:22 Freq: Status: Active Protocol: Document 01/17/22 07:28 AMB (Rec: 01/17/22 08:17 AMB [id number]) Cardio Equipment Recumbent Elliptical (Biodex) Duration (Minutes) 6 Resistance 5 Seat Position 10 Other LEs only 40-45 RPM, Gym Equipment Shuttle Balance BLUE Details Red: NBOS, stagger Reps/Duration 8 min Comments 1. wt shifting 2. HTs 3. eyes closed m/l: challenging WBOS CUed core, glut fac and trunk alignment for improved stability, Mod<> CG/Min Therapeutic Exercises Standing Exercises heel raises Standing Exercise Name on stair-- double leg Reps/Minutes 2x10 sit to stand Resistance mesh chair Equipment Used 2x10 (legs fatiguing)reps blue foam Comments not pain but tiring having feet higher on foam mini lunges Standing Exercise Name Mini lunges with chair support Equipment Used Chair for UE support Reps/Minutes 1x10 Comments Cues to keep knees behind toes Neuro Re-Education Treatment Balance Activities single leg stance Details SLS w/ handrail & SLS balancing madrigal bag on head Equipment Handrail PT-OP-T Assessment and Plan Start: 12/19/21 21:22 Freq: Status: Active Protocol: Document 01/17/22 07:28 AMB (Rec: 01/17/22 08:17 AMB [id number]) Physical Therapy Assessment Goals Three Impairment ADLs Short Term Goal (STG) Dennys will move from supine to sitting with good body mechanics without an increase in pain. 01/13/22- some straining and slight discomfort in R shldr. STG Duration 5 weeks Title 1 Tutor Goal (LTG) Dennys will perform a floor transfer without UE support. 01/13/22- Requires chair for UE support into standing from floor. LTG Duration 10 weeks Two Impairment Strength Short Term Goal (STG) Dennys will improve his quad strength to at lest 4+/5. STG Duration MET Alf Goal (LTG) Dennys will show improved LE strength by performing a full squat. 01/17: Partial squat LTG Duration Progress made Assessment Summary Assessment Dennys has been showing good improvement with his strength and balance. Continues to progress with his ability to perform sit to stand and floor transfers. He is hoping to improve his balance to the point where he can confidently get on and off his bike without fear of falling, as that was a good way for him to get cardio previously. Physical Therapy Plan Frequency and Duration Frequency of Treatment 2x/Week Duration of treatment (weeks) 10 Plan of Care Start Date 12/20/21 Plan of Care End Date 02/28/22 Therapeutic Interventions Therapeutic Interventions Aquatic Therapy,Gait Training, Home Exercise Program,Manual Therapy,Neuromuscular Re- education,Self-Care/Home Management,Therapeutic Activities,Therapeutic Exercises Modalities Cold Pack/Ice Massage,Electric Stimulation,Hot Packs Next Visit Focus/Plan Next Note Type Treatment Note Next Visit Plan Continue challenge balance. Cont tandem stance with eyes closed/open and HTs. POC: Progress strength/balance , body weight strengthening, progress dynamic balance.
--- NOTE | 2022-01-19 08:13 | PT.OTN ---
Current Diagnoses Polymyalgia rheumatica (01/19/22) Other symptoms and signs involving the musculoskeletal system (01/19/22) Physical Therapy Treatment Note PT-OP-A Visit Information Start: 12/19/21 21:22 Freq: Status: Active Protocol: Document 01/19/22 07:27 TS (Rec: 01/19/22 08:47 TS [id number]) Out-Patient Physical Therapy Visit Information Visit Information Visit Type Treatment Note Visit Note SUHAS Smith lead treatment under supervision and direction of ANGEL Flood. Visit Start Time 07:33 Visit Stop Time 08:13 Total Visit Minutes 40 Visit Number 10 Number of APPLICATION DBA Visits 1 PT-OP-B Current Condition Start: 12/19/21 21:22 Freq: Status: Active Protocol: Document 12/20/21 07:31 AMB (Rec: 12/20/21 07:40 AMB [id number]) Current Condition History of Current Condition Onset Date 6 months Current Complaints Bilateral leg pain and weakness History of Current Condition On steroids, has 4 day left before completely off of steroids. Bilateral hips knees ankles, feels like pain would move around. Overnight all of a sudden pain and weakness started 6 months ago. Generally on feet all day, denies peripheral neuropathy. Getting out of bed, getting off the floor without UE assistance, standing for more than 15 minutes is still challenging. 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 Stopped biking and sailing due to this , felt balance/strength wasn't up to it. Treatment Goals Patient/Caregiver Goals Get stronger, be able to sail without worrying he's going to fall off the boat. Personal Factors Other Personal Factors That May Effect DMII, CHF Therapy/Recovery PT-OP-C Subjective Start: 12/19/21: Freq: Status: Active Protocol: Document 01/19/22 07:27 TS (Rec: 01/19/22 08:47 TS [id number]) OP-PT Subjective Patient Comments Patient Comments Pt states he feels his balance has improved signifcantly and is able to pick things off the floor much easier. Spent his weekend helping his son construct a studio and says he didn't have any issues with loss of balance. PT-OP-D Balance Start: 10/09/22 21:22 Freq: Status: Active Protocol: Document 12/20/21 07:30 AMB (Rec: 12/20/21 09:37 AMB [id number]) Balance Tests mCTSIB mCTSIB Position 1 30 mCTSIB Position 2 increased ankle sway Single Limb Standing Single Limb- Right 6 Single Limb- Left 6 PT-OP-E Functional Tests Start: 12/19/21 21:22 Freq: Status: Active Protocol: Document 12/20/21 07:30 AMB (Rec: 12/20/21 08:18 AMB [id number]) Functional Tests Five Times Sit to Stand Test Score 16 PT-OP-G Mobility & Gait Start: 12/19/21 21:22 Freq: Status: Active Protocol: Document 12/20/21 07:30 AMB (Rec: 12/20/21 09:37 AMB [id number]) OP Gait Assessment Comments Gait Comments stiff torso without significant trunk rotation PT-OP-K Range of Motion Start: 12/19/21 21:22 Freq: Status: Active Protocol: Document 12/20/21 07:47 AMB (Rec: 12/20/21 07:47 AMB [id number]) Knee Goniometric Range of Motion Knee Left Knee ROM WFL Yes Comments L and R WFL PT-OP-M Strength Start: 12/19/21 21:22 Freq: Status: Active Protocol: Document 01/17/22 09:21 AMB (Rec: 01/17/22 09:24 AMB [id number]) Knee Strength Knee Manual Muscle Testing Right Flexion (S2) 4+ Good+ Extension (L3) 4+ Good+ Left Flexion (S2) 4+ Good+ Extension (L3) 4+ Good+ PT-OP-Q Treatments Start: 12/19/21 21:22 Freq: Status: Active Protocol: Document 01/19/22 07:27 TS (Rec: 01/19/22 08:47 TS [id number]) Cardio Equipment Recumbent Elliptical (Biodex) Duration (Minutes) 6 Resistance 5 Seat Position 10 Other LEs only 40-45 RPM, Gym Equipment Shuttle Balance BLUE Details Red: NBOS, stagger Reps/Duration 12 min Comments 1. wt shifting w/ NBOS and Stagger 2. HTs w WBOS/NBOS 3. eyes closed- 4 secs NBOS Cued core, glute fac and trunk alignment for improved stability. CGA to Veda Therapeutic Exercises Standing Exercises Squat Standing Exercise Name Squat Reps/Minutes x5 Comments Demonstrated good form with knees behind toes and weight over balls of feet heel raises Standing Exercise Name on stair-- double leg Reps/Minutes 2x10 Comments Cues for keeping feet straight when plantar flexing. sit to stand Resistance mesh chair Equipment Used 1x10, 1x10 reps blue foam Comments Pt reports foam more challenging, slower into standing. mini lunges Standing Exercise Name Mini lunges with chair support , Oval foam pad Equipment Used Chair for UE support Reps/Minutes 1x10 Comments Good form, knees behind toes, required cues to keep knee aligned with foot Neuro Re-Education Treatment Balance Activities Tandem stance Equipment // bars Reps/Duration RLE in front x22 secs, LLE x30 secs Comments Good carryover of form. PT reports has been practicing at home. Tandem walk Details Tandem walk in // bars Reps/Duration 4x10' eyes open Comments Didn't demonstrate any buckling, sways but no LOB PT-OP-T Assessment and Plan Start: 12/19/21 21:22 Freq: Status: Active Protocol: Document 01/19/22 07:27 TS (Rec: 01/19/22 08:47 TS [id number]) Physical Therapy Assessment Goals Three Impairment ADLs Impairment L shoulder strength is 2/5 except ext is 2+/5, IR is 3/5. (R shoulder is 5/5 except ER is 3/5). Initial Pain rating 3-7/10. Short Term Goal (STG) Dennys will move from supine to sitting with good body mechanics without an increase in pain. 01/13/22- some straining and slight discomfort in R shldr. STG Duration 5 weeks Group Home Goal (LTG) Dennys will perform a floor transfer without UE support. 01/13/22- Requires chair for UE support into standing from floor. LTG Duration 10 weeks Two Impairment Strength Impairment L shoulder AROM sitting: Flex & AB is 70 deg's, ext is 57 deg's. Reaching behind back is to L4, behind head is to top of the shoulder. (R shoulder sitting: Flex 130 deg 's, AB is 140 deg's, ext 65. Behind back is &12, behind head is T2). L shoulder PROM supine (in deg 's): Flex 125, AB 70, ER 58, IR 34. (R shldr supine: Flex 152, AB 250, ER 52, IR 90). Short Term Goal (STG) Dennys will improve his quad strength to at lest 4+/5. STG Duration MET Group Home Goal (LTG) Dennys will show improved LE strength by performing a full squat. 01/17: Partial squat. 01/19/22: Full squat LTG Duration Goal Met Progress Towards Goals Progress Towards Goals Goals Met Progress Comments Long-term goal #2 met with full squat 01/19/22 Assessment Summary Assessment Pt progressed his partial squat to a full squat this session. Progressed mini lunges to front foot on foam for increased balance challenge. He did report some discomfort in R knee during mini lunges and required cues to keep knees straight. Required cues for maintaing feet straight and not inverting during plantar flexion with heel raises. Pt will continue to benefit from intervention to improve balance and floor transfers. Physical Therapy Plan Frequency and Duration Frequency of Treatment 2x/Week Duration of treatment (weeks) 10 Plan of Care Start Date 12/20/21 Plan of Care End Date 02/28/22 Therapeutic Interventions Therapeutic Interventions Aquatic Therapy,Gait Training, Home Exercise Program,Manual Therapy,Neuromuscular Re- education,Self-Care/Home Management,Therapeutic Activities,Therapeutic Exercises Modalities Cold Pack/Ice Massage,Electric Stimulation,Hot Packs Next Visit Focus/Plan Next Note Type Treatment Note Next Visit Plan Continue challenge balance. Cont tandem stance with eyes closed/open, HTs, carrying water, step ups with weight and mini lunges with foam. Assess floor transfers with and without UE support. POC: Progress strength/balance , body weight strengthening, progress dynamic balance.
--- NOTE | 2022-01-20 08:13 | PT.OTN ---
Current Diagnoses Polymyalgia rheumatica (01/19/22) Other symptoms and signs involving the musculoskeletal system (01/19/22) Physical Therapy Treatment Note PT-OP-A Visit Information Start: 12/19/21 21:22 Freq: Status: Active Protocol: Document 01/19/22 07:27 TS (Rec: 01/19/22 08:47 TS [id number]) Out-Patient Physical Therapy Visit Information Visit Information Visit Type Treatment Note Visit Note SUHAS Smith lead treatment under supervision and direction of ANGEL Flood. Visit Start Time 07:33 Visit Stop Time 08:13 Total Visit Minutes 40 Visit Number 10 Number of RECOVERY UNIT OPERATOR Visits 1 PT-OP-B Current Condition Start: 12/19/21 21:22 Freq: Status: Active Protocol: Document 12/20/21 07:31 AMB (Rec: 12/20/21 07:40 AMB [id number]) Current Condition History of Current Condition Onset Date 6 months Current Complaints Bilateral leg pain and weakness History of Current Condition On steroids, has 4 day left before completely off of steroids. Bilateral hips knees ankles, feels like pain would move around. Overnight all of a sudden pain and weakness started 6 months ago. Generally on feet all day, denies peripheral neuropathy. Getting out of bed, getting off the floor without UE assistance, standing for more than 15 minutes is still challenging. 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 Stopped biking and sailing due to this , felt balance/strength wasn't up to it. Treatment Goals Patient/Caregiver Goals Get stronger, be able to sail without worrying he's going to fall off the boat. Personal Factors Other Personal Factors That May Effect DMII, CHF Therapy/Recovery PT-OP-C Subjective Start: 12/19/21: Freq: Status: Active Protocol: Document 01/19/22 07:27 TS (Rec: 01/19/22 08:47 TS [id number]) OP-PT Subjective Patient Comments Patient Comments Pt states he feels his balance has improved signifcantly and is able to pick things off the floor much easier. Spent his weekend helping his son construct a studio and says he didn't have any issues with loss of balance. PT-OP-D Balance Start: 10/09/22 21:22 Freq: Status: Active Protocol: Document 12/20/21 07:30 AMB (Rec: 12/20/21 09:37 AMB [id number]) Balance Tests mCTSIB mCTSIB Position 1 30 mCTSIB Position 2 increased ankle sway Single Limb Standing Single Limb- Right 6 Single Limb- Left 6 PT-OP-E Functional Tests Start: 12/19/21 21:22 Freq: Status: Active Protocol: Document 12/20/21 07:30 AMB (Rec: 12/20/21 08:18 AMB [id number]) Functional Tests Five Times Sit to Stand Test Score 16 PT-OP-G Mobility & Gait Start: 12/19/21 21:22 Freq: Status: Active Protocol: Document 12/20/21 07:30 AMB (Rec: 12/20/21 09:37 AMB [id number]) OP Gait Assessment Comments Gait Comments stiff torso without significant trunk rotation PT-OP-K Range of Motion Start: 12/19/21 21:22 Freq: Status: Active Protocol: Document 12/20/21 07:47 AMB (Rec: 12/20/21 07:47 AMB [id number]) Knee Goniometric Range of Motion Knee Left Knee ROM WFL Yes Comments L and R WFL PT-OP-M Strength Start: 12/19/21 21:22 Freq: Status: Active Protocol: Document 01/17/22 09:21 AMB (Rec: 01/17/22 09:24 AMB [id number]) Knee Strength Knee Manual Muscle Testing Right Flexion (S2) 4+ Good+ Extension (L3) 4+ Good+ Left Flexion (S2) 4+ Good+ Extension (L3) 4+ Good+ PT-OP-Q Treatments Start: 12/19/21 21:22 Freq: Status: Active Protocol: Document 01/19/22 07:27 TS (Rec: 01/19/22 08:47 TS [id number]) Cardio Equipment Recumbent Elliptical (Biodex) Duration (Minutes) 6 Resistance 5 Seat Position 10 Other LEs only 40-45 RPM, Gym Equipment Shuttle Balance BLUE Details Red: NBOS, stagger Reps/Duration 12 min Comments 1. wt shifting w/ NBOS and Stagger 2. HTs w WBOS/NBOS 3. eyes closed- 4 secs NBOS Cued core, glute fac and trunk alignment for improved stability. CGA to Veda Therapeutic Exercises Standing Exercises Squat Standing Exercise Name Squat Reps/Minutes x5 Comments Demonstrated good form with knees behind toes and weight over balls of feet heel raises Standing Exercise Name on stair-- double leg Reps/Minutes 2x10 Comments Cues for keeping feet straight when plantar flexing. sit to stand Resistance mesh chair Equipment Used 1x10, 1x10 reps blue foam Comments Pt reports foam more challenging, slower into standing. mini lunges Standing Exercise Name Mini lunges with chair support , Oval foam pad Equipment Used Chair for UE support Reps/Minutes 1x10 Comments Good form, knees behind toes, required cues to keep knee aligned with foot Neuro Re-Education Treatment Balance Activities Tandem stance Equipment // bars Reps/Duration RLE in front x22 secs, LLE x30 secs Comments Good carryover of form. PT reports has been practicing at home. Tandem walk Details Tandem walk in // bars Reps/Duration 4x10' eyes open Comments Didn't demonstrate any buckling, sways but no LOB PT-OP-T Assessment and Plan Start: 12/19/21 21:22 Freq: Status: Active Protocol: Document 01/19/22 07:27 TS (Rec: 01/19/22 08:47 TS [id number]) Physical Therapy Assessment Goals Three Impairment ADLs Impairment L shoulder strength is 2/5 except ext is 2+/5, IR is 3/5. (R shoulder is 5/5 except ER is 3/5). Initial Pain rating 3-7/10. Short Term Goal (STG) Dennys will move from supine to sitting with good body mechanics without an increase in pain. 01/13/22- some straining and slight discomfort in R shldr. STG Duration 5 weeks Usp Goal (LTG) Dennys will perform a floor transfer without UE support. 01/13/22- Requires chair for UE support into standing from floor. LTG Duration 10 weeks Two Impairment Strength Impairment L shoulder AROM sitting: Flex & AB is 70 deg's, ext is 57 deg's. Reaching behind back is to L4, behind head is to top of the shoulder. (R shoulder sitting: Flex 130 deg 's, AB is 140 deg's, ext 65. Behind back is &12, behind head is T2). L shoulder PROM supine (in deg 's): Flex 125, AB 70, ER 58, IR 34. (R shldr supine: Flex 152, AB 250, ER 52, IR 90). Short Term Goal (STG) Dennys will improve his quad strength to at lest 4+/5. STG Duration MET Usp Goal (LTG) Dennys will show improved LE strength by performing a full squat. 01/17: Partial squat. 01/19/22: Full squat LTG Duration Goal Met Progress Towards Goals Progress Towards Goals Goals Met Progress Comments Long-term goal #2 met with full squat 01/19/22 Assessment Summary Assessment Pt progressed his partial squat to a full squat this session. Progressed mini lunges to front foot on foam for increased balance challenge. He did report some discomfort in R knee during mini lunges and required cues to keep knees straight. Required cues for maintaing feet straight and not inverting during plantar flexion with heel raises. Pt will continue to benefit from intervention to improve balance and floor transfers. Physical Therapy Plan Frequency and Duration Frequency of Treatment 2x/Week Duration of treatment (weeks) 10 Plan of Care Start Date 12/20/21 Plan of Care End Date 02/28/22 Therapeutic Interventions Therapeutic Interventions Aquatic Therapy,Gait Training, Home Exercise Program,Manual Therapy,Neuromuscular Re- education,Self-Care/Home Management,Therapeutic Activities,Therapeutic Exercises Modalities Cold Pack/Ice Massage,Electric Stimulation,Hot Packs Next Visit Focus/Plan Next Note Type Treatment Note Next Visit Plan Continue challenge balance. Cont tandem stance with eyes closed/open, HTs, carrying water, step ups with weight and mini lunges with foam. Assess floor transfers with and without UE support. POC: Progress strength/balance , body weight strengthening, progress dynamic balance.
--- NOTE | 2022-01-24 21:37 | PT.OTN ---
Current Diagnoses Polymyalgia rheumatica (01/24/22) Other symptoms and signs involving the musculoskeletal system (01/24/22) Physical Therapy Treatment Note PT-OP-A Visit Information Start: 12/19/21 21:22 Freq: Status: Active Protocol: Document 01/24/22 07:31 AMB (Rec: 01/24/22 08:13 AMB [id number]) Out-Patient Physical Therapy Visit Information Visit Information Visit Type Treatment Note Visit Start Time 07:30 Visit Stop Time 08:15 Total Visit Minutes 45 Visit Number 11 PT-OP-B Current Condition Start: 12/19/21 21:22 Freq: Status: Active Protocol: Document 12/20/21 07:31 AMB (Rec: 12/20/21 07:40 AMB [id number]) Current Condition History of Current Condition Onset Date 6 months Current Complaints Bilateral leg pain and weakness History of Current Condition On steroids, has 4 day left before completely off of steroids. Bilateral hips knees ankles, feels like pain would move around. Overnight all of a sudden pain and weakness started 6 months ago. Generally on feet all day, denies peripheral neuropathy. Getting out of bed, getting off the floor without UE assistance, standing for more than 15 minutes is still challenging. 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 Stopped biking and sailing due to this , felt balance/strength wasn't up to it. Treatment Goals Patient/Caregiver Goals Get stronger, be able to sail without worrying he's going to fall off the boat. 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 Went 4 days between steroids most recently . PT-OP-D Balance Start: 12/19/21 21:22 Freq: Status: Active Protocol: Document 12/20/21 07:30 AMB (Rec: 12/20/21 09:37 AMB [id number]) Balance Tests mCTSIB mCTSIB Position 1 30 mCTSIB Position 2 increased ankle sway Single Limb Standing Single Limb- Right 6 Single Limb- Left 6 PT-OP-E Functional Tests Start: 12/19/21 21:22 Freq: Status: Active Protocol: Document 12/20/21 07:30 AMB (Rec: 12/20/21 08:18 AMB [id number]) Functional Tests Five Times Sit to Stand Test Score 16 PT-OP-G Mobility & Gait Start: 12/19/21 21:22 Freq: Status: Active Protocol: Document 12/20/21 07:30 AMB (Rec: 12/20/21 09:37 AMB [id number]) OP Gait Assessment Comments Gait Comments stiff torso without significant trunk rotation PT-OP-K Range of Motion Start: 12/19/21 21:22 Freq: Status: Active Protocol: Document 12/20/21 07:47 AMB (Rec: 12/20/21 07:47 AMB [id number]) Knee Goniometric Range of Motion Knee Left Knee ROM WFL Yes Comments L and R WFL PT-OP-M Strength Start: 12/19/21 21:22 Freq: Status: Active Protocol: Document 01/17/22 09:21 AMB (Rec: 01/17/22 09:24 AMB [id number]) Knee Strength Knee Manual Muscle Testing Right Flexion (S2) 4+ Good+ Extension (L3) 4+ Good+ Left Flexion (S2) 4+ Good+ Extension (L3) 4+ Good+ PT-OP-Q Treatments Start: 12/19/21 21:22 Freq: Status: Active Protocol: Document 01/24/22 07:31 AMB (Rec: 01/24/22 08:13 AMB [id number]) Cardio Equipment Recumbent Elliptical (Biodex) Duration (Minutes) 6 Resistance 6 Seat Position 10 Other LEs only 40-45 RPM, Therapeutic Exercises Standing Exercises Squat Standing Exercise Name Squat Reps/Minutes x5 Comments Demonstrated good form with knees behind toes and weight over balls of feet heel raises Standing Exercise Name on stair-- double leg Reps/Minutes 2x10 Comments Cues for keeping feet straight when plantar flexing. mini lunges Standing Exercise Name walking forward Equipment Used no UE support Reps/Minutes 1x10 Comments Good form, knees behind toes, required cues to keep knee aligned with foot Neuro Re-Education Treatment Balance Activities stairs Details 6 Reps/Duration 4sets of 4, alternating Comments holding 5# crate Tandem stance Equipment // bars Reps/Duration RLE in front x22 secs, LLE x30 secs Comments Good carryover of form. PT reports has been practicing at home. Tandem walk Details Tandem walk in // bars Reps/Duration 4x10' eyes open Comments Didn't demonstrate any buckling, sways but no LOB PT-OP-T Assessment and Plan Start: 12/19/21 21:22 Freq: Status: Active Protocol: Document 01/24/22 07:31 AMB (Rec: 01/24/22 08:13 AMB [id number]) Physical Therapy Assessment Goals Three Impairment ADLs Impairment . Short Term Goal (STG) Dennys will move from supine to sitting with good body mechanics without an increase in pain. 01/13/22- some straining and slight discomfort in R shldr. STG Duration 5 weeks Care Home Goal (LTG) Dennys will perform a floor transfer without UE support. 01/13/22- Requires chair for UE support into standing from floor. LTG Duration 10 weeks Two Impairment Strength Impairment . Short Term Goal (STG) Dennys will improve his quad strength to at lest 4+/5. STG Duration MET Care Home Goal (LTG) Dennys will show improved LE strength by performing a full squat. 01/17: Partial squat. 01/19/22: Full squat LTG Duration Goal Met Assessment Summary Assessment Pt continues to want to get back onhis bicycle, did discuss recumbent vs step through to aid in getting on and off. Otherwise pt did well with carrying items on the stairs and tandem balance today. Physical Therapy Plan Frequency and Duration Frequency of Treatment 2x/Week Duration of treatment (weeks) 10 Plan of Care Start Date 12/20/21 Plan of Care End Date 02/28/22 Therapeutic Interventions Therapeutic Interventions Aquatic Therapy,Gait Training, Home Exercise Program,Manual Therapy,Neuromuscular Re- education,Self-Care/Home Management,Therapeutic Activities,Therapeutic Exercises Modalities Cold Pack/Ice Massage,Electric Stimulation,Hot Packs Next Visit Focus/Plan Next Note Type Treatment Note Next Visit Plan Review HEP. Continue challenge balance. Cont tandem stance with eyes closed/open, HTs, carrying water, step ups with weight and mini lunges with foam. Assess floor transfers with and without UE support. POC: Progress strength/balance , body weight strengthening, progress dynamic balance.
--- NOTE | 2022-01-26 08:14 | PT.OTN ---
Current Diagnoses Polymyalgia rheumatica (01/26/22) Other symptoms and signs involving the musculoskeletal system (01/26/22) Physical Therapy Treatment Note PT-OP-A Visit Information Start: 12/19/21 21:22 Freq: Status: Active Protocol: Document 01/26/22 07:20 TS (Rec: 01/26/22 08:20 TS [id number]) Out-Patient Physical Therapy Visit Information Visit Information Visit Type Treatment Note Visit Note SUHAS Luis lead treatment under the supervision of ANGEL Flood Visit Start Time 07:30 Visit Stop Time 08:14 Total Visit Minutes 44 Visit Number 12 PT-OP-B Current Condition Start: 12/19/21 21:22 Freq: Status: Active Protocol: Document 12/20/21 07:31 AMB (Rec: 12/20/21 07:40 AMB [id number]) Current Condition History of Current Condition Onset Date 6 months Current Complaints Bilateral leg pain and weakness History of Current Condition On steroids, has 4 day left before completely off of steroids. Bilateral hips knees ankles, feels like pain would move around. Overnight all of a sudden pain and weakness started 6 months ago. Generally on feet all day, denies peripheral neuropathy. Getting out of bed, getting off the floor without UE assistance, standing for more than 15 minutes is still challenging. 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 Stopped biking and sailing due to this , felt balance/strength wasn't up to it. Treatment Goals Patient/Caregiver Goals Get stronger, be able to sail without worrying he's going to fall off the boat. Personal Factors Other Personal Factors That May Effect DMII, CHF Therapy/Recovery PT-OP-C Subjective Start: 12/19/21:22 Freq: Status: Active Protocol: Document 01/26/22 07:20 TS (Rec: 01/26/22 08:20 TS [id number]) OP-PT Subjective Patient Comments Patient Comments Pt reports he was pretty tired after his treatment on Monday . Reports his sons shelli has big steps to enter and can be challenging but otherwise feels like he is improving. PT-OP-D Balance Start: 12/19/21 21:22 Freq: Status: Active Protocol: Document 12/20/21 07:30 AMB (Rec: 12/20/21 09:37 AMB [id number]) Balance Tests mCTSIB mCTSIB Position 1 30 mCTSIB Position 2 increased ankle sway Single Limb Standing Single Limb- Right 6 Single Limb- Left 6 PT-OP-E Functional Tests Start: 12/19/21 21:22 Freq: Status: Active Protocol: Document 12/20/21 07:30 AMB (Rec: 12/20/21 08:18 AMB [id number]) Functional Tests Five Times Sit to Stand Test Score 16 PT-OP-G Mobility & Gait Start: 12/19/21 21:22 Freq: Status: Active Protocol: Document 12/20/21 07:30 AMB (Rec: 12/20/21 09:37 AMB [id number]) OP Gait Assessment Comments Gait Comments stiff torso without significant trunk rotation PT-OP-K Range of Motion Start: 12/19/21 21:22 Freq: Status: Active Protocol: Document 12/20/21 07:47 AMB (Rec: 12/20/21 07:47 AMB [id number]) Knee Goniometric Range of Motion Knee Left Knee ROM WFL Yes Comments L and R WFL PT-OP-M Strength Start: 12/19/21 21:22 Freq: Status: Active Protocol: Document 01/17/22 09:21 AMB (Rec: 01/17/22 09:24 AMB [id number]) Knee Strength Knee Manual Muscle Testing Right Flexion (S2) 4+ Good+ Extension (L3) 4+ Good+ Left Flexion (S2) 4+ Good+ Extension (L3) 4+ Good+ PT-OP-Q Treatments Start: 12/19/21 21:22 Freq: Status: Active Protocol: Document 01/26/22 07:20 TS (Rec: 01/26/22 08:20 TS [id number]) Cardio Equipment Recumbent Elliptical (Biodex) Duration (Minutes) 6 Resistance 6 Seat Position 10 Other LEs only 40-45 RPM, Therapeutic Exercises Standing Exercises Squat Standing Exercise Name Squat Reps/Minutes x10 Comments 19 from floor to glutes sit to stand Resistance Wood step Equipment Used x2 Reps/Minutes Performed sit to stand from 12 block no UE support Comments Pt reports foam more challenging, slower into standing. Therapeutic Activity Therapeutic Activity Stepping over Bike Reps/Minutes X3 Comments Pt demonstrated good form of stepping over bike and placing feet on peddles with no LOB. Education on setting up proper height of bike seat. floor transfer Reps/Minutes x1 Comments Pt reports no pain, did not use chair for UE support. Neuro Re-Education Treatment Balance Activities Tandem walk Details Dynamic gait with cup of water Equipment CGA-5% Reps/Duration 80'x6 Comments 1. HT's 2. EC 3. backward walk 4. Tandem with HT's-occasional scissor stepping, sways, no LOB PT-OP-T Assessment and Plan Start: 12/19/21 21:22 Freq: Status: Active Protocol: Document 01/26/22 07:20 TS (Rec: 01/26/22 08:20 TS [id number]) Physical Therapy Assessment Goals Three Impairment ADLs Impairment . Short Term Goal (STG) Dennys will move from supine to sitting with good body mechanics without an increase in pain. 01/13/22- some straining and slight discomfort in R shldr. 01/26/22: GOAL MET able to complete bed mobility and on/ off floor without pain STG Duration 5 weeks GOAL MET 01/26/22 [facility] Goal (LTG) Dennys will perform a floor transfer without UE support. 01/13/22- Requires chair for UE support into standing from floor. 01/26/22: progressing: Pt requires UE support pushing off floor and on knee to come into standing. Did not use chair for support. LTG Duration 10 weeks 01/26/22 Progressing Two Impairment Strength Impairment L shoulder AROM sitting: Flex & AB is 70 deg's, ext is 57 deg's. Reaching behind back is to L4, behind head is to top of the shoulder. (R shoulder sitting: Flex 130 deg 's, AB is 140 deg's, ext 65. Behind back is &12, behind head is T2). L shoulder PROM supine (in deg 's): Flex 125, AB 70, ER 58, IR 34. (R shldr supine: Flex 152, AB 250, ER 52, IR 90). Short Term Goal (STG) Dennys will improve his quad strength to at lest 4+/5. STG Duration MET Lace Sewer Goal (LTG) Dennys will show improved LE strength by performing a full squat. 01/17: Partial squat. 01/19/22: Full squat LTG Duration Goal Met Progress Towards Goals Progress Towards Goals Goals Met Progress Comments MET STG #3, mobility without pain. Assessment Summary Assessment Pt progressed his floor transfer with no use of chair support and without pain or discomfort but still requires some UE support for pushing off floor and coming into standing. Pt is looking to purchase bike with lower cross bar and practiced getting on and off the stand up bike. Pt demonstrated good form of getting on/off bike with no LOB. Pt demonstrated progress in getting deeper into his squat to 19 from floor. Pt will continue to benefit from continued intervention to improve dynamic balance. Physical Therapy Plan Frequency and Duration Frequency of Treatment 2x/Week Duration of treatment (weeks) 10 Plan of Care Start Date 12/20/21 Plan of Care End Date 02/28/22 Therapeutic Interventions Therapeutic Interventions Aquatic Therapy,Gait Training, Home Exercise Program,Manual Therapy,Neuromuscular Re- education,Self-Care/Home Management,Therapeutic Activities,Therapeutic Exercises Modalities Cold Pack/Ice Massage,Electric Stimulation,Hot Packs Next Visit Focus/Plan Next Note Type Treatment Note Next Visit Plan NExt session continue dynamic balance act to increase independence in personal goals . POC: Progress strength/ balance, body weight strengthening, progress dynamic balance.
--- NOTE | 2022-01-31 08:12 | PT.OTN ---
Current Diagnoses Polymyalgia rheumatica (01/31/22) Other symptoms and signs involving the musculoskeletal system (01/31/22) Physical Therapy Treatment Note PT-OP-A Visit Information Start: 12/19/21 21:22 Freq: Status: Active Protocol: Document 01/31/22 07:35 AMB (Rec: 01/31/22 08:12 AMB [id number]) Out-Patient Physical Therapy Visit Information Visit Information Visit Type Treatment Note Visit Start Time 07:30 Visit Stop Time 08:15 Total Visit Minutes 45 Visit Number 13 PT-OP-B Current Condition Start: 12/19/21 21:22 Freq: Status: Active Protocol: Document 12/20/21 07:31 AMB (Rec: 12/20/21 07:40 AMB [id number]) Current Condition History of Current Condition Onset Date 6 months Current Complaints Bilateral leg pain and weakness History of Current Condition On steroids, has 4 day left before completely off of steroids. Bilateral hips knees ankles, feels like pain would move around. Overnight all of a sudden pain and weakness started 6 months ago. Generally on feet all day, denies peripheral neuropathy. Getting out of bed, getting off the floor without UE assistance, standing for more than 15 minutes is still challenging. 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 Stopped biking and sailing due to this , felt balance/strength wasn't up to it. Treatment Goals Patient/Caregiver Goals Get stronger, be able to sail without worrying he's going to fall off the boat. Personal Factors Other Personal Factors That May Effect DMII, CHF Therapy/Recovery PT-OP-C Subjective Start: 12/19/21:22 Freq: Status: Active Protocol: Document 01/31/22 07:35 AMB (Rec: 01/31/22 08:12 AMB [id number]) OP-PT Subjective Patient Comments Patient Comments Dennys reports he is doing well, usally takes about a day to recover from PT-OP-D Balance Start: 12/19/21:22 Freq: Status: Active Protocol: Document 12/20/21 07:30 AMB (Rec: 12/20/21 09:37 AMB [id number]) Balance Tests mCTSIB mCTSIB Position 1 30 mCTSIB Position 2 increased ankle sway Single Limb Standing Single Limb- Right 6 Single Limb- Left 6 PT-OP-E Functional Tests Start: 12/19/21 21:22 Freq: Status: Active Protocol: Document 12/20/21 07:30 AMB (Rec: 12/20/21 08:18 AMB [id number]) Functional Tests Five Times Sit to Stand Test Score 16 PT-OP-G Mobility & Gait Start: 12/19/21 21:22 Freq: Status: Active Protocol: Document 12/20/21 07:30 AMB (Rec: 12/20/21 09:37 AMB [id number]) OP Gait Assessment Comments Gait Comments stiff torso without significant trunk rotation PT-OP-K Range of Motion Start: 12/19/21 21:22 Freq: Status: Active Protocol: Document 12/20/21 07:47 AMB (Rec: 12/20/21 07:47 AMB [id number]) Knee Goniometric Range of Motion Knee Left Knee ROM WFL Yes Comments L and R WFL PT-OP-M Strength Start: 12/19/21 21:22 Freq: Status: Active Protocol: Document 01/17/22 09:21 AMB (Rec: 01/17/22 09:24 AMB [id number]) Knee Strength Knee Manual Muscle Testing Right Flexion (S2) 4+ Good+ Extension (L3) 4+ Good+ Left Flexion (S2) 4+ Good+ Extension (L3) 4+ Good+ PT-OP-Q Treatments Start: 12/19/21 21:22 Freq: Status: Active Protocol: Document 01/31/22 07:35 AMB (Rec: 01/31/22 08:12 AMB [id number]) Gym Equipment Shuttle Balance RED Comments 1. wt shifting w/ NBOS and Stagger 2. HTs w WBOS/NBOS 3. mini squats 4. m/l balance. Therapeutic Exercises Standing Exercises Squat Standing Exercise Name Squat Reps/Minutes x10 Comments 19 from floor to glutes sit to stand Resistance Wood step Equipment Used x4 Reps/Minutes Performed sit to stand from 12 block no UE support Comments Pt reports foam more challenging, slower into standing. Neuro Re-Education Treatment Balance Activities stairs Details 6 Reps/Duration 4sets of 4, alternating Comments holding 5# crate Tandem stance Equipment // bars Reps/Duration RLE in front x22 secs, LLE x30 secs Comments Good carryover of form. PT reports has been practicing at home. hurdles Reps/Duration 5 min Comments hurdles with green and blue balance foam between hurdles PT-OP-T Assessment and Plan Start: 12/19/21 21:22 Freq: Status: Active Protocol: Document 01/31/22 07:35 AMB (Rec: 01/31/22 08:12 AMB [id number]) Physical Therapy Assessment Goals Three Impairment ADLs Impairment . Short Term Goal (STG) Dennys will move from supine to sitting with good body mechanics without an increase in pain. 01/13/22- some straining and slight discomfort in R shldr. 01/26/22: GOAL MET able to complete bed mobility and on/ off floor without pain STG Duration 5 weeks GOAL MET 01/26/22 Field Hand Goal (LTG) Dennys will perform a floor transfer without UE support. 01/13/22- Requires chair for UE support into standing from floor. 01/26/22: progressing: Pt requires UE support pushing off floor and on knee to come into standing. Did not use chair for support. LTG Duration 10 weeks 01/26/22 Progressing Two Impairment Strength Impairment . Short Term Goal (STG) Dennys will improve his quad strength to at lest 4+/5. STG Duration MET Field Hand Goal (LTG) Dennys will show improved LE strength by performing a full squat. 01/17: Partial squat. 01/19/22: Full squat LTG Duration Goal Met Assessment Summary Assessment Pt does get fatigued at end of PT session but otherwise doing well. Challenged by stair steppign and uneven surfaces, but able to maintain balance independently. Physical Therapy Plan Frequency and Duration Frequency of Treatment 2x/Week Duration of treatment (weeks) 10 Plan of Care Start Date 12/20/21 Plan of Care End Date 02/28/22 Therapeutic Interventions Therapeutic Interventions Aquatic Therapy,Gait Training, Home Exercise Program,Manual Therapy,Neuromuscular Re- education,Self-Care/Home Management,Therapeutic Activities,Therapeutic Exercises Modalities Cold Pack/Ice Massage,Electric Stimulation,Hot Packs Next Visit Focus/Plan Next Note Type Treatment Note Next Visit Plan NExt session continue dynamic balance act to increase independence in personal goals . POC: Progress strength/ balance, body weight strengthening, progress dynamic balance.
--- NOTE | 2022-02-02 08:15 | PT.OTN ---
Current Diagnoses Polymyalgia rheumatica (02/02/22) Other symptoms and signs involving the musculoskeletal system (02/02/22) Physical Therapy Treatment Note PT-OP-A Visit Information Start: 12/19/21 21:22 Freq: Status: Active Protocol: Document 02/02/22 07:33 SP (Rec: 02/02/22 08:18 SP [id number]) Out-Patient Physical Therapy Visit Information Visit Information Visit Type Treatment Note Visit Start Time 07:33 Visit Stop Time 08:15 Total Visit Minutes 42 Visit Number 14 Number of TEACHING MANAGER Visits 1 PT-OP-B Current Condition Start: 12/19/21 21:22 Freq: Status: Active Protocol: Document 12/20/21 07:31 AMB (Rec: 12/20/21 07:40 AMB [id number]) Current Condition History of Current Condition Onset Date 6 months Current Complaints Bilateral leg pain and weakness History of Current Condition On steroids, has 4 day left before completely off of steroids. Bilateral hips knees ankles, feels like pain would move around. Overnight all of a sudden pain and weakness started 6 months ago. Generally on feet all day, denies peripheral neuropathy. Getting out of bed, getting off the floor without UE assistance, standing for more than 15 minutes is still challenging. 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 Stopped biking and sailing due to this , felt balance/strength wasn't up to it. Treatment Goals Patient/Caregiver Goals Get stronger, be able to sail without worrying he's going to fall off the boat. Personal Factors Other Personal Factors That May Effect DMII, CHF Therapy/Recovery PT-OP-C Subjective Start: 12/19/21 21:22 Freq: Status: Active Protocol: Document 02/02/22 07:33 SP (Rec: 02/02/22 08:18 SP [id number]) OP-PT Subjective Patient Comments Patient Comments Pt reports was a good challenge with carrying box on stairs last tx. PT-OP-D Balance Start: 12/19/21 21:22 Freq: Status: Active Protocol: Document 12/20/21 07:30 AMB (Rec: 12/20/21 09:37 AMB [id number]) Balance Tests mCTSIB mCTSIB Position 1 30 mCTSIB Position 2 increased ankle sway Single Limb Standing Single Limb- Right 6 Single Limb- Left 6 PT-OP-E Functional Tests Start: 12/19/21 21:22 Freq: Status: Active Protocol: Document 12/20/21 07:30 AMB (Rec: 12/20/21 08:18 AMB [id number]) Functional Tests Five Times Sit to Stand Test Score 16 PT-OP-G Mobility & Gait Start: 12/19/21 21:22 Freq: Status: Active Protocol: Document 12/20/21 07:30 AMB (Rec: 12/20/21 09:37 AMB [id number]) OP Gait Assessment Comments Gait Comments stiff torso without significant trunk rotation PT-OP-K Range of Motion Start: 12/19/21 21:22 Freq: Status: Active Protocol: Document 12/20/21 07:47 AMB (Rec: 12/20/21 07:47 AMB [id number]) Knee Goniometric Range of Motion Knee Left Knee ROM WFL Yes Comments L and R WFL PT-OP-M Strength Start: 12/19/21 21:22 Freq: Status: Active Protocol: Document 01/17/22 09:21 AMB (Rec: 01/17/22 09:24 AMB [id number]) Knee Strength Knee Manual Muscle Testing Right Flexion (S2) 4+ Good+ Extension (L3) 4+ Good+ Left Flexion (S2) 4+ Good+ Extension (L3) 4+ Good+ PT-OP-Q Treatments Start: 12/19/21 21:22 Freq: Status: Active Protocol: Document 02/02/22 07:33 SP (Rec: 02/02/22 08:18 SP [id number]) Gym Equipment Shuttle Recovery Unilateral Squats Resistance 37#>50# Reps/Time x10, x12 Bilateral Squats Resistance 75# (87# next tx) Shuttle Recovery Platform Stable Reps/Time x30 Shuttle Balance RED Reps/Duration 5 min Comments 1. wt shifting w/ NBOS and Stagger 2. HTs wNBOS 3. mini squats 4. m/l balance (02/02/22 not today). Therapeutic Exercises Standing Exercises sit to stand Standing Exercise Name STS Resistance 18 mesh chair: foam and rocker board (f/b, med/lat) Equipment Used x4 Reps/Minutes 5 reps each surface Comments cued stable come to full stand before descent (SBA), retro x2 but self rec. Gait Training Gait Activity dynamic gait Description quick pacing fwd/bwd, pivots, HTs Device Used 0 Level of Assistance CG/close SBA Surface tile, carrying cup water Distance/Duration hallway 80 ftx 4 laps Treatment Focus stability NBOS/tandem walk balance recovery Comments 1. HTs 2. EC Cued tall posture, feet apart awareness, core fac- slows little with HTs but stable, viers R with EC bwd cues centering hallway. Neuro Re-Education Treatment Balance Activities stairs Details 6 Reps/Duration 4sets of 4, alternating Comments holding 5# crate, CGA little trunk sway, cautious stepping, cued be sure WBOS for stability/safety Tandem walk Details Dynamic (along carpet line gym ) Equipment SBA/CGA/10% Reps/Duration 20 ft 2 laps each Comments 1. tandem f/b 2. EC fwd CGA, bkwd Min A cued tall, core/ hip abd fac for centering recovery, EC back stepping most challenging , scissor step MIn A support required PT-OP-T Assessment and Plan Start: 12/19/21 21:22 Freq: Status: Active Protocol: Document 02/02/22 07:33 SP (Rec: 02/02/22 08:18 SP [id number]) Physical Therapy Assessment Goals Three Impairment ADLs Impairment . Short Term Goal (STG) Dennys will move from supine to sitting with good body mechanics without an increase in pain. 01/13/22- some straining and slight discomfort in R shldr. 01/26/22: GOAL MET able to complete bed mobility and on/ off floor without pain STG Duration 5 weeks GOAL MET 01/26/22 Detention Goal (LTG) Dennys will perform a floor transfer without UE support. 01/13/22- Requires chair for UE support into standing from floor. 01/26/22: progressing: Pt requires UE support pushing off floor and on knee to come into standing. Did not use chair for support. LTG Duration 10 weeks 01/26/22 Progressing Two Impairment Strength Impairment . Short Term Goal (STG) Dennys will improve his quad strength to at lest 4+/5. STG Duration MET Dumper Mold Cleaner Goal (LTG) Dennys will show improved LE strength by performing a full squat. 01/17: Partial squat. 01/19/22: Full squat LTG Duration Goal Met Assessment Summary Assessment Pt good effort with increased dynamic challenges, required cues for core fac, posturing and stable SLS before advance LE with improvement in forward /backward/ EC mobility this tx . Physical Therapy Plan Frequency and Duration Frequency of Treatment 2x/Week Duration of treatment (weeks) 10 Plan of Care Start Date 12/20/21 Plan of Care End Date 02/28/22 Therapeutic Interventions Therapeutic Interventions Aquatic Therapy,Gait Training, Home Exercise Program,Manual Therapy,Neuromuscular Re- education,Self-Care/Home Management,Therapeutic Activities,Therapeutic Exercises Modalities Cold Pack/Ice Massage,Electric Stimulation,Hot Packs Next Visit Focus/Plan Next Note Type Treatment Note Next Visit Plan NExt session continue dynamic balance act to increase independence in personal goals . POC: Progress strength/ balance, body weight strengthening, progress dynamic balance.
--- NOTE | 2022-02-07 12:45 | PT.OTN ---
Current Diagnoses Polymyalgia rheumatica (02/07/22) Other symptoms and signs involving the musculoskeletal system (02/07/22) Physical Therapy Treatment Note PT-OP-A Visit Information Start: 12/19/21 21:22 Freq: Status: Active Protocol: Document 02/07/22 07:33 AMB (Rec: 02/07/22 09:01 AMB [id number]) Out-Patient Physical Therapy Visit Information Visit Information Visit Type Treatment Note Visit Start Time 07:33 Visit Stop Time 08:15 Total Visit Minutes 42 Visit Number 15 PT-OP-B Current Condition Start: 12/19/21 21:22 Freq: Status: Active Protocol: Document 12/20/21 07:31 AMB (Rec: 12/20/21 07:40 AMB [id number]) Current Condition History of Current Condition Onset Date 6 months Current Complaints Bilateral leg pain and weakness History of Current Condition On steroids, has 4 day left before completely off of steroids. Bilateral hips knees ankles, feels like pain would move around. Overnight all of a sudden pain and weakness started 6 months ago. Generally on feet all day, denies peripheral neuropathy. Getting out of bed, getting off the floor without UE assistance, standing for more than 15 minutes is still challenging. 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 Stopped biking and sailing due to this , felt balance/strength wasn't up to it. Treatment Goals Patient/Caregiver Goals Get stronger, be able to sail without worrying he's going to fall off the boat. Personal Factors Other Personal Factors That May Effect DMII, CHF Therapy/Recovery PT-OP-C Subjective Start: 12/19/21:22 Freq: Status: Active Protocol: Document 02/07/22 07:33 AMB (Rec: 02/07/22 09:01 AMB [id number]) OP-PT Subjective Patient Comments Patient Comments Pt taking steroids every 4- 5days now. Stiffness in the morning. PT-OP-D Balance Start: 12/19/21 21:22 Freq: Status: Active Protocol: Document 12/20/21 07:30 AMB (Rec: 12/20/21 09:37 AMB [id number]) Balance Tests mCTSIB mCTSIB Position 1 30 mCTSIB Position 2 increased ankle sway Single Limb Standing Single Limb- Right 6 Single Limb- Left 6 PT-OP-E Functional Tests Start: 12/19/21 21:22 Freq: Status: Active Protocol: Document 12/20/21 07:30 AMB (Rec: 12/20/21 08:18 AMB [id number]) Functional Tests Five Times Sit to Stand Test Score 16 PT-OP-G Mobility & Gait Start: 12/19/21 21:22 Freq: Status: Active Protocol: Document 12/20/21 07:30 AMB (Rec: 12/20/21 09:37 AMB [id number]) OP Gait Assessment Comments Gait Comments stiff torso without significant trunk rotation PT-OP-K Range of Motion Start: 12/19/21 21:22 Freq: Status: Active Protocol: Document 12/20/21 07:47 AMB (Rec: 12/20/21 07:47 AMB [id number]) Knee Goniometric Range of Motion Knee Left Knee ROM WFL Yes Comments L and R WFL PT-OP-M Strength Start: 12/19/21 21:22 Freq: Status: Active Protocol: Document 01/17/22 09:21 AMB (Rec: 01/17/22 09:24 AMB [id number]) Knee Strength Knee Manual Muscle Testing Right Flexion (S2) 4+ Good+ Extension (L3) 4+ Good+ Left Flexion (S2) 4+ Good+ Extension (L3) 4+ Good+ PT-OP-Q Treatments Start: 12/19/21 21:22 Freq: Status: Active Protocol: Document 02/07/22 07:33 AMB (Rec: 02/07/22 09:01 AMB [id number]) Cardio Equipment Bicycle (Upright) Duration (Minutes) 10 Resistance 15 Seat Position 6 Therapeutic Exercises Standing Exercises hip flexor stretch Side bilateral Reps/Minutes 30x4 calf stretch Side bilateral Reps/Minutes 30x4 Comments on stair hamstring stretch Side bilateral Reps/Minutes 30x4 mini squat Standing Exercise Name on blue foam Equipment Used hands hover rail Reps/Minutes 5 reps 3 sec holds mini lunges Standing Exercise Name walking forward Equipment Used no UE support Reps/Minutes 1x10 Comments Good form, knees behind toes, required cues to keep knee aligned with foot PT-OP-T Assessment and Plan Start: 12/19/21 21:22 Freq: Status: Active Protocol: Document 02/07/22 07:33 AMB (Rec: 02/07/22 09:01 [facility] [id number]) Physical Therapy Assessment Goals Three Impairment ADLs Impairment . Short Term Goal (STG) Dennys will move from supine to sitting with good body mechanics without an increase in pain. 01/13/22- some straining and slight discomfort in R shldr. 01/26/22: GOAL MET able to complete bed mobility and on/ off floor without pain STG Duration 5 weeks GOAL MET 01/26/22 Mcc Goal (LTG) Dennys will perform a floor transfer without UE support. 01/13/22- Requires chair for UE support into standing from floor. 01/26/22: progressing: Pt requires UE support pushing off floor and on knee to come into standing. Did not use chair for support. LTG Duration 10 weeks 01/26/22 Progressing Two Impairment Strength Impairment . Short Term Goal (STG) Dennys will improve his quad strength to at lest 4+/5. STG Duration MET Interstate Bus Driver Goal (LTG) Dennys will show improved LE strength by performing a full squat. 01/17: Partial squat. 01/19/22: Full squat LTG Duration Goal Met Assessment Summary Assessment Dennys has met his goals. He feels ready to discharge. He appreciated the stretching and balance exercises and feels his pain is managable. He continues to try to wean himself from steroids and has been able to go 4-5 days between doses. He is interested in getting a bike so he can continue with cardio exercises, but was encouraged to get something that he can easily get on and off. Physical Therapy Plan Therapeutic Interventions Therapeutic Interventions Aquatic Therapy,Gait Training, Home Exercise Program,Manual Therapy,Neuromuscular Re- education,Self-Care/Home Management,Therapeutic Activities,Therapeutic Exercises Modalities Cold Pack/Ice Massage,Electric Stimulation,Hot Packs Discharge Physical Therapy Discharge Reasons Goals Met
--- NOTE | 2022-02-07 12:46 | PT.OTN ---
Current Diagnoses Polymyalgia rheumatica (02/07/22) Other symptoms and signs involving the musculoskeletal system (02/07/22) Physical Therapy Treatment Note PT-OP-A Visit Information Start: 12/19/21 21:22 Freq: Status: Active Protocol: Document 02/07/22 07:33 AMB (Rec: 02/07/22 09:01 AMB [id number]) Out-Patient Physical Therapy Visit Information Visit Information Visit Type Treatment Note Visit Start Time 07:33 Visit Stop Time 08:15 Total Visit Minutes 42 Visit Number 15 PT-OP-B Current Condition Start: 12/19/21 21:22 Freq: Status: Active Protocol: Document 12/20/21 07:31 AMB (Rec: 12/20/21 07:40 AMB [id number]) Current Condition History of Current Condition Onset Date 6 months Current Complaints Bilateral leg pain and weakness History of Current Condition On steroids, has 4 day left before completely off of steroids. Bilateral hips knees ankles, feels like pain would move around. Overnight all of a sudden pain and weakness started 6 months ago. Generally on feet all day, denies peripheral neuropathy. Getting out of bed, getting off the floor without UE assistance, standing for more than 15 minutes is still challenging. 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 Stopped biking and sailing due to this , felt balance/strength wasn't up to it. Treatment Goals Patient/Caregiver Goals Get stronger, be able to sail without worrying he's going to fall off the boat. Personal Factors Other Personal Factors That May Effect DMII, CHF Therapy/Recovery PT-OP-C Subjective Start: 12/19/21:22 Freq: Status: Active Protocol: Document 02/07/22 07:33 AMB (Rec: 02/07/22 09:01 AMB [id number]) OP-PT Subjective Patient Comments Patient Comments Pt taking steroids every 4- 5days now. Stiffness in the morning. PT-OP-D Balance Start: 12/19/21 21:22 Freq: Status: Active Protocol: Document 12/20/21 07:30 AMB (Rec: 12/20/21 09:37 AMB [id number]) Balance Tests mCTSIB mCTSIB Position 1 30 mCTSIB Position 2 increased ankle sway Single Limb Standing Single Limb- Right 6 Single Limb- Left 6 PT-OP-E Functional Tests Start: 12/19/21 21:22 Freq: Status: Active Protocol: Document 12/20/21 07:30 AMB (Rec: 12/20/21 08:18 AMB [id number]) Functional Tests Five Times Sit to Stand Test Score 16 PT-OP-G Mobility & Gait Start: 12/19/21 21:22 Freq: Status: Active Protocol: Document 12/20/21 07:30 AMB (Rec: 12/20/21 09:37 AMB [id number]) OP Gait Assessment Comments Gait Comments stiff torso without significant trunk rotation PT-OP-K Range of Motion Start: 12/19/21 21:22 Freq: Status: Active Protocol: Document 12/20/21 07:47 AMB (Rec: 12/20/21 07:47 AMB [id number]) Knee Goniometric Range of Motion Knee Left Knee ROM WFL Yes Comments L and R WFL PT-OP-M Strength Start: 12/19/21 21:22 Freq: Status: Active Protocol: Document 01/17/22 09:21 AMB (Rec: 01/17/22 09:24 AMB [id number]) Knee Strength Knee Manual Muscle Testing Right Flexion (S2) 4+ Good+ Extension (L3) 4+ Good+ Left Flexion (S2) 4+ Good+ Extension (L3) 4+ Good+ PT-OP-Q Treatments Start: 12/19/21 21:22 Freq: Status: Active Protocol: Document 02/07/22 07:33 AMB (Rec: 02/07/22 09:01 AMB [id number]) Cardio Equipment Bicycle (Upright) Duration (Minutes) 10 Resistance 15 Seat Position 6 Therapeutic Exercises Standing Exercises hip flexor stretch Side bilateral Reps/Minutes 30x4 calf stretch Side bilateral Reps/Minutes 30x4 Comments on stair hamstring stretch Side bilateral Reps/Minutes 30x4 mini squat Standing Exercise Name on blue foam Equipment Used hands hover rail Reps/Minutes 5 reps 3 sec holds mini lunges Standing Exercise Name walking forward Equipment Used no UE support Reps/Minutes 1x10 Comments Good form, knees behind toes, required cues to keep knee aligned with foot PT-OP-T Assessment and Plan Start: 12/19/21 21:22 Freq: Status: Active Protocol: Document 02/07/22 07:33 AMB (Rec: 02/07/22 09:01 [facility] [id number]) Physical Therapy Assessment Goals Three Impairment ADLs Impairment . Short Term Goal (STG) Dennys will move from supine to sitting with good body mechanics without an increase in pain. 01/13/22- some straining and slight discomfort in R shldr. 01/26/22: GOAL MET able to complete bed mobility and on/ off floor without pain STG Duration 5 weeks GOAL MET 01/26/22 Mcc Goal (LTG) Dennys will perform a floor transfer without UE support. 01/13/22- Requires chair for UE support into standing from floor. 01/26/22: progressing: Pt requires UE support pushing off floor and on knee to come into standing. Did not use chair for support. LTG Duration 10 weeks 01/26/22 Progressing Two Impairment Strength Impairment . Short Term Goal (STG) Dennys will improve his quad strength to at lest 4+/5. STG Duration MET Complex Director Goal (LTG) Dennys will show improved LE strength by performing a full squat. 01/17: Partial squat. 01/19/22: Full squat LTG Duration Goal Met Assessment Summary Assessment Dennys has met his goals. He feels ready to discharge. He appreciated the stretching and balance exercises and feels his pain is managable. He continues to try to wean himself from steroids and has been able to go 4-5 days between doses. He is interested in getting a bike so he can continue with cardio exercises, but was encouraged to get something that he can easily get on and off. Physical Therapy Plan Therapeutic Interventions Therapeutic Interventions Aquatic Therapy,Gait Training, Home Exercise Program,Manual Therapy,Neuromuscular Re- education,Self-Care/Home Management,Therapeutic Activities,Therapeutic Exercises Modalities Cold Pack/Ice Massage,Electric Stimulation,Hot Packs Discharge Physical Therapy Discharge Reasons Goals Met
--- NOTE | 2022-02-08 12:46 | PT.OPDS ---
Current Diagnoses Polymyalgia rheumatica (02/07/22) Other symptoms and signs involving the musculoskeletal system (02/07/22) Visit Care Team Role Provider Type Phil Beyer MD Attending Provider Physician Family Provider Primary Care Provider Referring Provider Specialty: Internal Medicine Address: [address] [place] [address], [address], [facility] Email: [email or web address] Visit Number Visit Number 15 Discharge Summary PT-OP-B Current Condition Start: 12/19/21 21:22 Freq: Status: Active Protocol: Document 12/20/21 07:31 AMB (Rec: 12/20/21 07:40 AMB [id number]) Current Condition History of Current Condition Onset Date 6 months Current Complaints Bilateral leg pain and weakness History of Current Condition On steroids, has 4 day left before completely off of steroids. Bilateral hips knees ankles, feels like pain would move around. Overnight all of a sudden pain and weakness started 6 months ago. Generally on feet all day, denies peripheral neuropathy. Getting out of bed, getting off the floor without UE assistance, standing for more than 15 minutes is still challenging. 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 Stopped biking and sailing due to this , felt balance/strength wasn't up to it. Treatment Goals Patient/Caregiver Goals Get stronger, be able to sail without worrying he's going to fall off the boat. Personal Factors Other Personal Factors That May Effect DMII, CHF Therapy/Recovery PT-OP-C Subjective Start: 12/19/21 21:22 Freq: Status: Active Protocol: Document 02/07/22 07:33 AMB (Rec: 02/07/22 09:01 AMB [id number]) OP-PT Subjective Patient Comments Patient Comments Pt taking steroids every 4- 5days now. Stiffness in the morning. PT-OP-D Balance Start: 12/19/21 21:22 Freq: Status: Active Protocol: Document 12/20/21 07:30 AMB (Rec: 12/20/21 09:37 AMB [id number]) Balance Tests mCTSIB mCTSIB Position 1 30 mCTSIB Position 2 increased ankle sway Single Limb Standing Single Limb- Right 6 Single Limb- Left 6 PT-OP-E Functional Tests Start: 12/19/21 21:22 Freq: Status: Active Protocol: Document 12/20/21 07:30 AMB (Rec: 12/20/21 08:18 AMB [id number]) Functional Tests Five Times Sit to Stand Test Score 16 PT-OP-G Mobility & Gait Start: 12/19/21 21:22 Freq: Status: Active Protocol: Document 12/20/21 07:30 AMB (Rec: 12/20/21 09:37 AMB [id number]) OP Gait Assessment Comments Gait Comments stiff torso without significant trunk rotation PT-OP-K Range of Motion Start: 12/19/21 21:22 Freq: Status: Active Protocol: Document 12/20/21 07:47 AMB (Rec: 12/20/21 07:47 AMB [id number]) Knee Goniometric Range of Motion Knee Left Knee ROM WFL Yes Comments L and R WFL PT-OP-M Strength Start: 12/19/21 21:22 Freq: Status: Active Protocol: Document 01/17/22 09:21 AMB (Rec: 01/17/22 09:24 AMB [id number]) Knee Strength Knee Manual Muscle Testing Right Flexion (S2) 4+ Good+ Extension (L3) 4+ Good+ Left Flexion (S2) 4+ Good+ Extension (L3) 4+ Good+ PT-OP-T Assessment and Plan Start: 12/19/21 21:22 Freq: Status: Active Protocol: Document 02/07/22 07:33 AMB (Rec: 02/07/22 09:01 AMB [id number]) Physical Therapy Assessment Goals Three Impairment ADLs Impairment . Short Term Goal (STG) Dennys will move from supine to sitting with good body mechanics without an increase in pain. 01/13/22- some straining and slight discomfort in R shldr. 01/26/22: GOAL MET able to complete bed mobility and on/ off floor without pain STG Duration 5 weeks GOAL MET 01/26/22 Intermediate Goal (LTG) Dennys will perform a floor transfer without UE support. 01/13/22- Requires chair for UE support into standing from floor. 01/26/22: progressing: Pt requires UE support pushing off floor and on knee to come into standing. Did not use chair for support. LTG Duration 10 weeks 11/16/22 Progressing Two Impairment Strength Impairment . Short Term Goal (STG) Dennys will improve his quad strength to at lest 4+/5. STG Duration MET Tape Cutting Machine Operator Goal (LTG) Dennys will show improved LE strength by performing a full squat. 01/17: Partial squat. 01/19/22: Full squat LTG Duration Goal Met Assessment Summary Assessment Dennys has met his goals. He feels ready to discharge. He appreciated the stretching and balance exercises and feels his pain is managable. He continues to try to wean himself from steroids and has been able to go 4-5 days between doses. He is interested in getting a bike so he can continue with cardio exercises, but was encouraged to get something that he can easily get on and off. Physical Therapy Plan Therapeutic Interventions Therapeutic Interventions Aquatic Therapy,Gait Training, Home Exercise Program,Manual Therapy,Neuromuscular Re- education,Self-Care/Home Management,Therapeutic Activities,Therapeutic Exercises Modalities Cold Pack/Ice Massage,Electric Stimulation,Hot Packs Discharge Physical Therapy Discharge Reasons Goals Met
== END 2022-02-09 11:40 | disposition home or self-care (01) ==
LOC: PHYS 07:30
PROVIDERS: Family Provider Student in an Organized Health Care Education/Training Program; PCP Student in an Organized Health Care Education/Training Program; Referring Provider Student in an Organized Health Care Education/Training Program; Visit Provider Student in an Organized Health Care Education/Training Program
DX: R29.898 Other symptoms and signs involving the musculoskeletal system (principal); M35.3 Polymyalgia rheumatica
CPT/HCPCS: 97110; 97112; 97161; 97530

== ENCOUNTER → 2022-05-11 16:52 | Outpatient (CLI) | payer MEDICARE, OTHER, SELFPAY ==
[2022-05-11 20:42] LABS: Hemoglobin A1C% w Est Avg Glu 9.1 % (4.0-6.0)
== END ==
PROVIDERS: Family Provider Student in an Organized Health Care Education/Training Program; PCP Student in an Organized Health Care Education/Training Program; Referring Provider Student in an Organized Health Care Education/Training Program; Visit Provider Student in an Organized Health Care Education/Training Program
DX: E11.9 Type 2 diabetes mellitus without complications (principal)
CPT/HCPCS: 36415; 83036

== ENCOUNTER → 2022-06-22 06:58 | Outpatient (CLI) | payer MEDICARE, OTHER, SELFPAY ==
--- NOTE | 2022-06-22 06:59 | DI.ECHO.S_ITS ---
[facility] +---------+ : : [address] : [place] : : : : [id number] : : : : Phone: [phone]+ Echocardiogram Report + + :Name: MINNIE YEUNG Study Date: 06/22/2022 Height: 68 in : :[facility] ReadingLocation: Weight: 173 lb : : Gender: Male BSA: 1.9 m2 : :: 1945 Age: 76 yrs BP: 132/67 mmHg: :Reason For Study: ATHEROSCLEROTIC HEART DISEASE OF [place] : :CORONARY ARTERY HR: 65 : :Ordering Physician: MARLIN, : :MINGO Performed By: RIO GARCIA : :Referring: MINGO ISAAC : + + Interpretation Summary The left ventricle is normal in size. Left ventricular ejection fraction is estimated to be 45 +/- 5%. 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 There is no thrombus. The right ventricle is normal size. Right ventricular systolic function is at the lower limits of normal. A bright, mostly linear structure seen without any independent mobility in the left atrium in some of the apical views. It appears during mitral valve closure and on views where only mitral annulus calcification seen without any leaflets. Mostly disappear with mitral valve opening. Likely an artifact and shadow of calcified mitral annulus. Does not appears to be typical mass or tumor or vegetation or thrombus. During contrast study, no obvious filling defect in the left atrium. Not visible from other views. Correlate clinically. There is moderate mitral regurgitation. The mitral regurgitant jet is eccentrically directed. There is mild aortic regurgitation. The IVC is of normal diameter and collapses greater than 50% with a sniff. This suggests a low right atrial pressure of 3 mm Hg. Procedure: A two-dimensional transthoracic echocardiogram with color flow and Doppler was performed in limited views only. The study quality was technically adequate. There is no prior echocardiogram noted for this patient. A contrast injection of Definity was performed to improve assessment of LV function. The patient was in normal sinus rhythm during the exam. Left Ventricle: The left ventricle is normal in size. Left ventricular wall thickness is at the upper limits of normal. There is no thrombus. Left ventricular ejection fraction is estimated to be 45 +/- 5%. 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 Diastolic parameters suggest a relaxation abnormality of the left ventricle, consistent with probable normal filling pressures. Right Ventricle: The right ventricle is normal size. Right ventricular systolic function is at the lower limits of normal. Atria: The left atrial size is normal. A bright, mostly linear structure seen without any independent mobility in the left atrium in some of the apical views. It appears during mitral valve closure and on views where only mitral annulus calcification seen without any leaflets. Mostly disappear with mitral valve opening. Likely an artifact and shadow of calcified mitral annulus. Does not appears to be typical mass or tumor or vegetation or thrombus. During contrast study, no obvious filling defect in the left atrium. Not visible from other views. Correlate clinically. Right atrial size is normal. There is no Doppler evidence for an interatrial shunt. Mitral Valve: The mitral valve leaflets appear mildly thickened, but open well. The mitral valve leaflets are slightly calcified. There is mild to moderate mitral annular calcification. There is no mitral valve stenosis. There is moderate mitral regurgitation. The mitral regurgitant jet is eccentrically directed. Aortic Valve: The aortic valve is trileaflet. The aortic valve opens well. The aortic valve is slightly calcified. There is no aortic valve stenosis. There is mild aortic regurgitation. Tricuspid Valve: The tricuspid valve is normal in structure and function. There is trace tricuspid regurgitation. Pulmonary artery pressures cannot be estimated because of the lack of a measurable TR jet velocity. Pulmonic Valve: The pulmonic valve leaflets are thin and pliable; valve motion is normal. There is mild pulmonic regurgitation. Great Vessels: The aortic root is normal size. The ascending aorta is normal in size. The IVC is of normal diameter and collapses greater than 50% with a sniff. This suggests a low right atrial pressure of 3 mm Hg. Pericardium/ Pleura There is no pericardial effusion. There is no pleural effusion. MMode/2D Measurements & Calculations LVIDd: 5.3 cm LVOT diam: 2.0 cm LVIDs: 3.9 cm Ao root diam: 3.4 cm FS: 27.1 % asc Aorta Diam: 3.4 cm IVSd: 0.86 cm LVPWd: 1.1 cm LV pemberton. diameter/BSA (cm/m^2): 2.7 LV sys. diameter/BSA (cm/m^2): 2.0 LA A2 area: 17.0 cm2 RA long axis: 4.7 cm LA A4 area: 18.8 cm2 RA area: 12.4 cm2 LA length (vol): 5.0 cm RA vol: 27.4 ml LA vol: 54.6 ml RA : 14.3 ml/m2 LA vol index: 28.4 ml/m2 IVC diam: 1.5 cm TAPSE: 1.7 cm Doppler Measurements & Calculations Ao V2 max: 101.6 cm/sec LVOT Max Steven: 91.5 cm/sec Ao V2 mean: 74.7 cm/sec LV V1 max P.4 mmHg Ao max P.1 mmHg LV V1 VTI: 19.2 cm Ao mean P.4 mmHg ROBBY(I,D): 2.9 cm2 Ao V2 VTI: 20.8 cm ROBBY(V,D): 2.9 cm2 sev ratio: 0.93 ROBBY indexed to BSA (cm^2/m^2): 1.5 MV E max steven: 71.9 cm/sec TR max steven: 189.8 cm/sec MV A max steven: 100.1 cm/sec TR max P.4 mmHg MV E/A: 0.72 PA V2 max: 128.4 cm/sec Med Peak E' Steven: 5.0 cm/sec PA V2 mean: 84.6 cm/sec E/E' med: 14.3 PA mean P.3 mmHg Lat Peak E' Steven: 4.8 cm/sec PA pr(Accel): 41.3 mmHg E/E' lat: 15.1 E/e' average: 14.7 MV dec time: 0.24 sec SV(LVOT): 61.1 ml Reading Physician:02:14 PM
== END ==
PROVIDERS: Family Provider Student in an Organized Health Care Education/Training Program; PCP Student in an Organized Health Care Education/Training Program; Referring Provider Student in an Organized Health Care Education/Training Program; Visit Provider Student in an Organized Health Care Education/Training Program
DX: I08.0 Rheumatic disorders of both mitral and aortic valves (principal); I25.118 Atherosclerotic heart disease of native coronary artery with other forms of angina pectoris; I50.20 Unspecified systolic (congestive) heart failure
CPT/HCPCS: 93306; Q9957

== ENCOUNTER → 2022-07-13 10:01 | Outpatient (CLI) | payer MEDICARE, OTHER, SELFPAY ==
--- NOTE | 2022-07-13 10:02 | DI.NM.S_ITS ---
PROCEDURE: NM LONNIE PERF SPECT R&S PHARM Rest and pharmacological stress myocardial perfusion SPECT with gated imaging and ejection fraction RADIOPHARMACEUTICAL: 12.3 mCi Tc-99m tetrafosmin IV at rest and 26.2 mCi Tc-99m tetrafosmin IV at peak effect of pharmacological stress. [id number] was performed. INDICATIONS: Angina TECHNIQUE: Radiopharmaceutical was injected at peak stress test, and also at rest. SPECT images were obtained. SPECT myocardial perfusion images were displayed in short axis, horizontal long axis, and vertical long axis views. Gated images were reviewed using [employer] software. COMPARISON: None. CARDIAC STRESS: A pharmacologic stress test was performed under the supervision of an attending staff, using an infusion of regadenoson 0.4 mg IV. Hemodynamic data: There is normal blood pressure and heart rate response to pharmacologic stress. Symptoms: The patient denied anginal chest pain. EKG: No diagnostic changes of ischemia; no ectopy. FINDINGS: Raw data: There is good myocardial uptake of radiotracer. No significant motion artifacts. Left ventricle function: Gated images demonstrate distal and apical akinesis. No transient ischemic dilation; TID is 1.11 (normal less than 1.3). Left ventricle resting end diastolic volume is 161 mL. Left ventricle stress ejection fraction is calculated at 46% however visually approximately 35%; normal range is above 45%. Myocardial perfusion: There is a large size, severe intensity fixed defect of all distal segments and the apex extending proximally through the mid anterior and anteroseptal ahmadi. No reversible perfusion defects. No prone images obtained. IMPRESSION: Abnormal study without reversible perfusion defects. There is a large size, severe intensity fixed defect in all distal segments including the apex extending proximally to the mid anterior septal ahmadi consistent with scar. All distal segments and apex appear akinetic. Dilated LV, EDV 161 mL. Visual ejection fraction approximately 35%. Dictated by: Natalia Plummer D.O. on 07/13/2022 at 16:22 Approved by: Natalia Plummer D.O. on 07/13/2022 at 16:28
== END ==
PROVIDERS: Family Provider Student in an Organized Health Care Education/Training Program; PCP Student in an Organized Health Care Education/Training Program; Referring Provider Student in an Organized Health Care Education/Training Program; Visit Provider Student in an Organized Health Care Education/Training Program
DX: I25.118 Atherosclerotic heart disease of native coronary artery with other forms of angina pectoris; I50.20 Unspecified systolic (congestive) heart failure; R94.39 Abnormal result of other cardiovascular function study
CPT/HCPCS: 78452; 93017; A9502; J2785

== ENCOUNTER → 2022-11-07 09:36 | Outpatient (CLI) | payer MEDICARE, OTHER, SELFPAY ==
--- NOTE | 2022-11-07 09:39 | DI.RAD.S_ITS ---
PROCEDURE: XR SHOULDER RT MIN 2V INDICATIONS: Right lateral shoulder pain TECHNIQUE: 3 views of the shoulder were acquired. COMPARISON: [facility], CR, XR CHEST 1V, 07/26/2021, 15:26. [facility], CR, XR SHOULDER LT MIN 2V, 08/23/2021, 9:21. [facility], CR, XR SHOULDER LT MIN 2V, 07/26/2021, 16:55. FINDINGS: Bones: No acute fractures or dislocations. No suspicious bony lesions. Visualized ribs appear intact. Moderate AC joint hypertrophy. Possible humeral head spurring. Glenohumeral joint not well evaluated on included views. IMPRESSION: 1. No acute osseous abnormality. 2. Acromioclavicular joint degenerative changes. 3. If symptoms persist, follow-up radiographs and/or CT or MRI may be helpful for further evaluation. Dictated by: Satya Kerr M.D. on 11/07/2022 at 11:04 Approved by: Satya Kerr M.D. on 11/07/2022 at 11:08
== END ==
PROVIDERS: Family Provider Student in an Organized Health Care Education/Training Program; PCP Student in an Organized Health Care Education/Training Program; Referring Provider Physician Assistant; Visit Provider Physician Assistant
DX: M25.511 Pain in right shoulder (principal)
CPT/HCPCS: 73030

== ENCOUNTER → 2023-02-23 07:52 | Outpatient (CLI) | payer MEDICARE, OTHER, SELFPAY ==
[2023-02-23 08:36] LABS: Influenza A - CEPHEID Flu A NEGATIVE (NEGATIVE); Influenza B - CEPHEID Flu B NEGATIVE (NEGATIVE); Respiratory Syncytial Virus Negative (Negative)
[2023-02-23 10:07] LABS: COVID-19 CEPHEID 4-PLEX PCR Negative (Negative)
== END ==
PROVIDERS: Family Provider Student in an Organized Health Care Education/Training Program; PCP Student in an Organized Health Care Education/Training Program; Visit Provider Nurse Practitioner Family
DX: R05.1 Acute cough (principal)
CPT/HCPCS: 0241U

== ENCOUNTER → 2023-03-24 10:17 | Outpatient (CLI) | payer MEDICARE, OTHER, SELFPAY ==
[2023-03-24 11:06] LABS: Add Manual Diff / Slide Review NO; Basophils Absolute Auto 100 /uL (0-100); Basophils Percent Auto 0.8 % (0-2); Eosinophils Absolute Auto 300 /uL (0-450); Eosinophils Percent Auto 4.5 % (2-4); Hematocrit 49.5 % (41-53); Hemoglobin 17.2 g/dL (13.5-17.5); Lymphocytes Absolute Auto 900 /uL (1100-4500); Lymphocytes Percent Auto 13.6 % (25-40); Mean Corpuscular HGB Conc 34.8 % (30-36); Mean Corpuscular Hemoglobin 29.3 PG (26-34); Mean Corpuscular Volume 84.2 fL (80-100); Monocytes Absolute Auto 800 /uL (0-900); Monocytes Percent Auto 11.1 % (3-14); Neutrophils Absolute Auto 4800 /uL (1500-7000); Platelet Count 148 X10^3/uL (150-400); Red Blood Cell Count 5.87 X10^6/uL (4.5-5.9); Red Cell Distribution Width 14.1 % (11.6-14.8); White Blood Cell Count 6.9 X10^3/uL (4.5-11.0)
[2023-03-24 11:15] LABS: Hemoglobin A1C% w Est Avg Glu 10.1 % (4.0-6.0)
[2023-03-24 11:19] LABS: Cholesterol 274 mg/dL (140-199); HDL Cholesterol 35 mg/dL (40-60)
[2023-03-24 11:35] LABS: Triglycerides 531 mg/dL (35-150)
[2023-03-24 11:53] LABS: Prostate Specific Antigen Scrn 0.231 ng/mL (0.1-4.0)
[2023-03-24 12:11] LABS: Creatinine Urine Random 56.6 mg/dL
[2023-03-24 12:15] LABS: Microalbumi Creatinin Ratio Ur 100.7 ug/mg CR (<30); Microalbumin Urine Random 5.7 mg/dL (0-1.6)
== END ==
PROVIDERS: Family Provider Student in an Organized Health Care Education/Training Program; PCP Family Medicine; Referring Provider Family Medicine; Visit Provider Family Medicine
DX: E11.22 Type 2 diabetes mellitus with diabetic chronic kidney disease (principal); N18.2 Chronic kidney disease, stage 2 (mild); E11.9 Type 2 diabetes mellitus without complications; I10 Essential (primary) hypertension; E11.69 Type 2 diabetes mellitus with other specified complication; E78.5 Hyperlipidemia, unspecified; Z12.5 Encounter for screening for malignant neoplasm of prostate
CPT/HCPCS: 36415; 80061; 82043; 82570; 82948; 83036; 85025; G0103

== ENCOUNTER → 2023-06-23 14:50 | Outpatient (CLI) | payer MEDICARE, OTHER, SELFPAY ==
[2023-06-23 15:56] LABS: Alanine Aminotransferase 25 IU/L (<50); Albumin 4.5 g/dL (3.5-5.0); Albumin Globulin Ratio 1.7 (1.0-2.8); Alkaline Phosphatase 89 U/L (38-126); Aspartate Aminotransferase 26 IU/L (17-59); BUN Creatinine Ratio 16.2 (6-22); Bilirubin Total 0.8 mg/dL (0.2-1.3); Blood Urea Nitrogen 19 mg/dL (9-20); Calcium 10.1 mg/dL (8.4-10.2); Carbon Dioxide 28 mmol/L (22-32); Chloride 101 mmol/L (98-107); Estimated Glomerular Filt Rate > 60 mL/min (>60); Globulin 2.6 g/dL (1.7-4.1); Glucose 259 mg/dL (80-110); HEMOLYSIS < 15 (0-50); Potassium 4.3 mmol/L (3.4-5.1); Sodium 140 mmol/L (137-145); Total Protein 7.1 g/dL (6.3-8.2)
== END ==
PROVIDERS: Family Provider Student in an Organized Health Care Education/Training Program; PCP Family Medicine; Referring Provider Family Medicine; Visit Provider Family Medicine
DX: E11.22 Type 2 diabetes mellitus with diabetic chronic kidney disease (principal); N18.2 Chronic kidney disease, stage 2 (mild); I10 Essential (primary) hypertension; E11.69 Type 2 diabetes mellitus with other specified complication; E78.5 Hyperlipidemia, unspecified
CPT/HCPCS: 36415; 80053

== ENCOUNTER 2023-06-27 06:32 | Emergency (ER) | payer MEDICARE, OTHER, SELFPAY ==
[2023-06-27] VITALS (10 sets, daily range): BP systolic 121–127; BP diastolic 60–66; PULSE 62–69; RESP 16–23; TEMP 36; O2SAT 96–100; BMI 27.8
--- NOTE | 2023-06-27 06:36 | DI.RAD.S_ITS ---
PROCEDURE: XR CHEST 1V INDICATIONS: chest pain TECHNIQUE: One view of the chest was acquired. COMPARISON: [facility], CR, XR CHEST 1V, 07/26/2021, 15:26. FINDINGS: Surgical changes and devices: None. Lungs and pleura: Lungs are clear. No pleural effusions or pneumothorax. Mediastinum: Mediastinal contours appear normal. Heart size is normal. Bones and chest wall: No suspicious bony lesions. Overlying soft tissues appear unremarkable. IMPRESSION: No acute cardiopulmonary abnormality is seen. Dictated by: Giovanna Kauffman M.D. on 06/27/2023 at 8:22 Approved by: Giovanna Kauffman M.D. on 06/27/2023 at 8:22
--- NOTE | 2023-06-27 06:39 | ED.CHESTPAIN ---
HPI - Chest Pain <Josee Self MD - Last Filed: 06/27/23 17:45> General Chief Complaint: Chest Pain Stated Complaint: heart issues Time Seen by Provider: 06/27/23 06:33 History of Present Illness HPI narrative: 77-year-old male with history of coronary artery disease status post stents, hypertension, hyperlipidemia, diabetes presents by private vehicle from home for chest tightness that woke him up from sleep approximately 2 hours ago. Patient states that it feels similar to when he was diagnosed with previous heart attacks, last heart attack was 4 years ago per patient. Patient took 2 nitroglycerin prior to arrival, which seemed to improve the tightness, but now he feels lightheaded. No aspirin taken prior to arrival. Related Data Home Medications Medication Instructions Recorded Confirmed aspirin 81 mg tablet,delayed 81 mg PO QDAY ##0 12/26/11 06/23/23 release Previous Rx's Medication Instructions Recorded contour nidhi 7151H monitor #1 ea 12/01/22 lidocaine 5 % topical patch 1 patch topical DAILY #30 ea 12/18/22 lancets 33 gauge #100 ea 01/10/23 fluticasone propionate 50 1 spray intranasal Q12H #16 grams 02/23/23 mcg/actuation nasal spray,suspension (Flonase Allergy Relief) atorvastatin 20 mg tablet 20 mg PO BEDTIME #90 tabs 03/24/23 blood-glucose meter #1 ea 03/24/23 lancets 30 gauge #100 ea 05/19/23 Contour Blood Glucose Test Strips #100 ea 05/24/23 atorvastatin 20 mg tablet 20 mg PO BEDTIME #90 tabs 05/24/23 blood sugar diagnostic (Blood #50 ea 05/24/23 Glucose Test strips) clopidogrel 75 mg tablet 75 mg PO DAILY #90 tabs 05/24/23 empagliflozin 25 mg tablet 25 mg PO DAILY #90 tabs 05/24/23 glipizide 2.5 mg tablet, extended 2.5 mg PO BID #180 tabs 05/24/23 release 24 hr metformin 1,000 mg tablet 1,000 mg PO BID #180 tabs 05/24/23 metoprolol succinate 25 mg 25 mg PO DAILY #90 tabs 05/24/23 tablet,extended release 24 hr nitroglycerin 0.3 mg sublingual 0.3 mg sublingual Q5-15M PRN chest 05/24/23 tablet pain #20 tabs Allergies Allergy/AdvReac Type Severity Reaction Status Date / Time No Known Drug Allergies Allergy Verified 06/23/23 14:25 <Jaydon Kuhn MD - Last Filed: 07/02/23 08:26> History of Present Illness HPI narrative: 77-year-old male with history of coronary artery disease status post stents, hypertension, hyperlipidemia, diabetes presents by private vehicle from home for chest tightness that woke him up from sleep approximately 2 hours ago. Patient states that it feels similar to when he was diagnosed with previous heart attacks, last heart attack was 4 years ago per patient. Patient took 2 nitroglycerin prior to arrival, which seemed to improve the tightness, but now he feels lightheaded. No aspirin taken prior to arrival. Patient did have diaphoresis. Substernal chest discomfort radiating to the arms. Review of Systems <Josee Self MD - Last Filed: 06/27/23 17:45> Review of Systems Narrative: See HPI Patient History <Josee Self MD - Last Filed: 06/27/23 17:45> Medical History Situational anxiety Hyperlipidemia Cognitive decline Prostate cancer Dystrophic nail Vitamin D deficiency Tinnitus (~1965) Hearing loss (~1965) Ureterolithiasis Social History Smoking Status: Never smoker eating out: 4 or more times/week Type(s) of exercise: other Smoking Status: Never smoker Substance Use Type: does not use Exam <Josee Self MD - Last Filed: 06/27/23 17:45> Narrative Exam Narrative: Const: Awake, alert, no acute distress Cardiac: regular rate, regular rhythm RESP: unlabored, clear bilaterally, no wheezing GI: Soft, nontender, nondistended, no rebound, no guarding Skin: Warm, Dry, intact, no rashes Neuro: AO x3, CN II-XII grossly intact, moves all extremities Initial Vital Signs Initial Vital Signs: Vital Signs Pulse Rate 68 06/27/23 06:38 Respiratory Rate 18 06/27/23 06:38 Blood Pressure 125/66 06/27/23 06:38 Pulse Oximetry 100 06/27/23 06:38 Oxygen Delivery Method Room Air 04/16/24 06:38 <Jaydon Kuhn MD - Last Filed: 07/02/23 08:26> Initial Vital Signs Initial Vital Signs: Vital Signs Pulse Rate 68 06/27/23 06:38 Respiratory Rate 18 06/27/23 06:38 Blood Pressure 125/66 06/27/23 06:38 Pulse Oximetry 100 06/27/23 06:38 Oxygen Delivery Method Room Air 06/27/23 06:38 Course <Josee Self MD - Last Filed: 06/27/23 17:45> Orders Ordered: Discontinued Medications Aspirin (Aspirin 81 Mg Chew Tab) 324 mg PO NOW ONE Stop: 06/27/23 06:37 Last Admin: 06/27/23 06:43 Dose: 324 mg Documented By: HEAVEN Sodium Chloride (Normal Saline 0.9%) 1,000 mls @ 150 mls/hr IV CONT [facility] Last Admin: 06/27/23 06:44 Dose: 150 mls/hr Documented By: HEAVEN Vital Signs Vital signs: Vital Signs - 8 hr 06/27/23 10:00 Pulse Rate 64 Respiratory Rate 16 Blood Pressure 124/62 Pulse Oximetry 99 Oxygen Delivery Method Room Air <Jaydon Kuhn MD - Last Filed: 07/02/23 08:26> Orders Ordered: Discontinued Medications Aspirin (Aspirin 81 Mg Chew Tab) 324 mg PO NOW ONE Stop: 06/27/23 06:37 Last Admin: 06/27/23 06:43 Dose: 324 mg Documented By: KH Sodium Chloride (Normal Saline 0.9%) 1,000 mls @ 150 mls/hr IV CONT [facility] Last Admin: 06/27/23 06:44 Dose: 150 mls/hr Documented By: HEAVEN Vital Signs Vital signs: Vital Signs - 8 hr 06/27/23 10:00 Pulse Rate 64 Respiratory Rate 16 Blood Pressure 124/62 Pulse Oximetry 99 Oxygen Delivery Method Room Air MDM - Chest Pain <Josee Self MD - Last Filed: 06/27/23 17:45> Differential Diagnosis Differential diagnosis: Likely stable angina, unstable angina pectoris, st elevation myocardial infarction and costochondritis Lab Data 06/27/23 06:35 06/27/23 06:35 Labs: Lab Results 06/27/23 Range/Units 06:35 WBC 5.9 (4.5-11.0) X10^3/uL RBC 5.99 H (4.5-5.9) X10^6/uL Hgb 17.3 (13.5-17.5) g/dL Hct 50.3 (41-53) % MCV 84.0 (80-100) fL MCH 28.8 (26-34) PG MCHC 34.3 (30-36) % RDW 14.5 (11.6-14.8) % Plt Count 146 L (150-400) X10^3/uL Neut % (Auto) 64.6 (50-75) % Lymph % (Auto) 19.4 L (25-40) % Walton % (Auto) 9.5 (3-14) % Eos % (Auto) 5.9 H (2-4) % Baso % (Auto) 0.6 (0-2) % Neut # (Auto) 3800 (5706-8255) /uL Lymph # (Auto) 1100 (5108-6510) /uL Walton # (Auto) 600 (0-900) /uL Eos # (Auto) 300 (0-450) /uL Baso # (Auto) 0 (0-100) /uL PT 11.2 (9.4-12.5) SECONDS INR 1.0 (0.9-1.3) APTT 37 H (25.1-36.5) SECONDS Sodium 138 (137-145) mmol/L Potassium 4.1 (3.4-5.1) mmol/L Chloride 104 (98-107) mmol/L Carbon Dioxide 26 (22-32) mmol/L BUN 19 (9-20) mg/dL Creatinine 1.14 (0.66-1.25) mg/dL Estimated GFR > 60 (>60) mL/min BUN/Creatinine Ratio 16.7 (6-22) Glucose 341 H (80-110) mg/dL Calcium 10.1 (8.4-10.2) mg/dL Total Bilirubin 1.0 (0.2-1.3) mg/dL AST 31 (17-59) IU/L ALT 29 (<50) IU/L Alkaline Phosphatase 102 (38-126) U/L Total Creatine Kinase 50 L (55-170) U/L Troponin I < 0.012 (0.01-0.034) ng/mL NT-Pro-B Natriuret Pep 155 (<450) pg/mL Total Protein 8.0 (6.3-8.2) g/dL Albumin 5.1 H (3.5-5.0) g/dL Globulin 2.9 (1.7-4.1) g/dL Albumin/Globulin Ratio 1.8 (1.0-2.8) Lipase 1213 H (23-300) U/L ECG Data Interpretation: Normal sinus rhythm at 67 beats per minute, RBBB, no change from EKG 06/2017 MDM Narrative Medical decision making narrative: Chest tightness and shortness of breath. History of coronary disease. EKG shows normal sinus rhythm with left axis deviation and right bundle-branch block, however when compared to EKG taken from 06/28/2017 there is no change found. Patient given full-strength aspirin and cardiac workup to be initiated. Care of patient is signed over to daytime physician. Final disposition pending laboratory work, chest x-ray, physician judgment. <Jaydon Kuhn MD - Last Filed: 07/02/23 08:26> Lab Data Labs: Lab Results 06/27/23 Range/Units 06:35 WBC 5.9 (4.5-11.0) X10^3/uL RBC 5.99 H (4.5-5.9) X10^6/uL Hgb 17.3 (13.5-17.5) g/dL Hct 50.3 (41-53) % MCV 84.0 (80-100) fL MCH 28.8 (26-34) PG MCHC 34.3 (30-36) % RDW 14.5 (11.6-14.8) % Plt Count 146 L (150-400) X10^3/uL Neut % (Auto) 64.6 (50-75) % Lymph % (Auto) 19.4 L (25-40) % Walton % (Auto) 9.5 (3-14) % Eos % (Auto) 5.9 H (2-4) % Baso % (Auto) 0.6 (0-2) % Neut # (Auto) 3800 (5543-2888) /uL Lymph # (Auto) 1100 (1603-0329) /uL Walton # (Auto) 600 (0-900) /uL Eos # (Auto) 300 (0-450) /uL Baso # (Auto) 0 (0-100) /uL PT 11.2 (9.4-12.5) SECONDS INR 1.0 (0.9-1.3) APTT 37 H (25.1-36.5) SECONDS Sodium 138 (137-145) mmol/L Potassium 4.1 (3.4-5.1) mmol/L Chloride 104 (98-107) mmol/L Carbon Dioxide 26 (22-32) mmol/L BUN 19 (9-20) mg/dL Creatinine 1.14 (0.66-1.25) mg/dL Estimated GFR > 60 (>60) mL/min BUN/Creatinine Ratio 16.7 (6-22) Glucose 341 H (80-110) mg/dL Calcium 10.1 (8.4-10.2) mg/dL Total Bilirubin 1.0 (0.2-1.3) mg/dL AST 31 (17-59) IU/L ALT 29 (<50) IU/L Alkaline Phosphatase 102 (38-126) U/L Total Creatine Kinase 50 L (55-170) U/L Troponin I < 0.012 (0.01-0.034) ng/mL NT-Pro-B Natriuret Pep 155 (<450) pg/mL Total Protein 8.0 (6.3-8.2) g/dL Albumin 5.1 H (3.5-5.0) g/dL Globulin 2.9 (1.7-4.1) g/dL Albumin/Globulin Ratio 1.8 (1.0-2.8) Lipase 1213 H (23-300) U/L Imaging Data Chest x-ray: Radiologist's Impression: [address] [address] XRay Report Signed Patient: Dennys Mckeon MR#: [id number] : 1945 Acct:[id number] Age/Sex: 77 / M Date of Service: 06/27/23 Loc: ED Accession Number: [id number] Procedure: XR chest 1V Ordering Provider: Josee Self MD PROCEDURE: XR CHEST 1V INDICATIONS: chest pain TECHNIQUE: One view of the chest was acquired. COMPARISON: [facility], CR, XR CHEST 1V, 07/26/2021, 15:26. FINDINGS: Surgical changes and devices: None. Lungs and pleura: Lungs are clear. No pleural effusions or pneumothorax. Mediastinum: Mediastinal contours appear normal. Heart size is normal. Bones and chest wall: No suspicious bony lesions. Overlying soft tissues appear unremarkable. IMPRESSION: No acute cardiopulmonary abnormality is seen. Dictated by: Giovanna Kauffman M.D. on 06/27/2023 at 8:22 Approved by: Giovanna Kauffman M.D. on 06/27/2023 at 8:22 [facility] Narrative Medical decision making narrative: Chest tightness and shortness of breath. History of coronary disease. EKG shows normal sinus rhythm with left axis deviation and right bundle-branch block, however when compared to EKG taken from 06/28/2017 there is no change found. Patient given full-strength aspirin and cardiac workup to be initiated. Care of patient is signed over to daytime physician. Final disposition pending laboratory work, chest x-ray, physician judgment. June 27, 2023. 7:[address] Khun: Sign-out from Dr. Self, patient chest pain has improved. Patient has history of significant coronary artery disease. Heart attacks in the past with multiple stents. EKG is reassuring unchanged from previous EKG. 7:10 a.m.. Spoke with patient, I did review his records and patient had abnormal stress test July of last year. He did follow up with his cyanide pot hardener Dr. Busby, with [facility] in September. At that time patient did not want to pursue any further testing. Medical management was recommended. Last night 2:00 a.m. patient had diaphoresis radiating chest pain to his arms, similar symptoms he had prior to his stents. Last intervention was 2017 with stents. Patient did contact Cardiology office about 2 months ago and was recommended to have office follow-up in September of this year. Currently chest pain-free. After history and exam CBC CMP chest x-ray EKG troponin aspirin [facility] Medical records reviewed: Stress test from July 2022. Office visit September 2022 with Cardiology Differential considered: Includes but not limited to STEMI non-STEMI unstable angina Lab Test results independently reviewed as above. Pertinent findings: WBC 5.9 hemoglobin 17.3 INR 1.0, troponin less than 0.012 AST 31 ALT 29 Lipase 1213 but no epigastric pain Independently reviewed EKG EKG normal sinus rhythm rate 67 right bundle-branch block present no ST elevation Imaging studies independently reviewed: Chest x-ray no acute finding Consultations: 8:22 a.m.. Spoke with [facility] Cardiology Dr. Elizabeth, recommends patient to be transferred to [facility], possible heart catheterization, no heparin at this time. 10:00 a.m.. I spoke with [facility] hospitalist, dr gallegos, who will admit patient. I did review with him lipase levels but patient is pain-free no abdominal pain. He accepts patient at [facility] Treatments: Aspirin Re-evaluations: 8:30 a.m.. Updated patient and he does agree for transfer to [facility] for continuity of care, currently chest pain-free. Denies abdominal pain. Abdomen is nontender. 10:10 a.m.. I went to speak with patient that he has been accepted however nursing staff has informed me that he has eloped. He pulled out his IV and refused to sign Against Medical Advice forms or discuss with me before he left. I was on the phone with Dr. Gallegos during his elopement. Nursing staff informed me that he was upset because he did not get a full breakfast tray. He was not going to wait and he was upset about this. Discussion: Appropriate for transfer for continuity of care, possible heart catheterization. Patient just had abnormal stress test 1 year ago. No heparin indicated at this time. Labs are reassuring. Diagnosis: Chest pain Discharge Plan Departure Patient Disposition: Elopement Clinical Impression: Eloped from emergency department Chest pain Qualifiers: Chest pain type: unspecified Qualified Code(s): R07.9 - Chest pain, unspecified Prescriptions: No Action lidocaine 5 % adhesive patch,medicated 1 patch topical DAILY Qty: 30 0RF Rx Instructions: leave on most painful area for up to 12 hrs fluticasone propionate [Flonase Allergy Relief] 50 mcg/actuation spray,suspension 1 spray intranasal Q12H Qty: 16 0RF Rx Instructions: administer into each nostril aspirin 81 MG tablet,delayed release (DR/EC) 81 mg PO QDAY Qty: 0 (DME) contour nidhi 7151H monitor See Rx Instructions .Route .MEDSUPPLY Qty: 1 0RF Rx Instructions: check blood sugar 1-2 times a day (DME) lancets 33 gauge misc See Rx Instructions .Route Qty: 100 3RF Rx Instructions: Use to test BS 1-2x a day (DME) lancets 30 gauge misc See Rx Instructions .Route Qty: 100 2RF Rx Instructions: use to test blood sugars BID atorvastatin 20 mg tablet 20 mg PO BEDTIME Qty: 90 3RF (DME) Blood Glucose Test Strip See Rx Instructions .Route Qty: 50 5RF Rx Instructions: use to test blood sugars twice a day clopidogrel 75 mg tablet 75 mg PO DAILY Qty: 90 3RF (DME) Contour Blood Glucose Test Strips Qty: 100 1RF Rx Instructions: Use to test blood sugars 1-2x daily. empagliflozin 25 mg tablet 25 mg PO DAILY Qty: 90 3RF Rx Instructions: continue taking one full dose glipizide 2.5 mg tablet extended release 24hr 2.5 mg PO BID Qty: 180 3RF Rx Instructions: continue taking twice a day with food metformin 1,000 mg tablet 1,000 mg PO BID Qty: 180 3RF Rx Instructions: start taking 1,000 mg twice a day after completing 500 mg twice a day for 2 weeks metoprolol succinate 25 mg tablet extended release 24 hr 25 mg PO DAILY Qty: 90 3RF nitroglycerin 0.3 mg tablet, sublingual 0.3 mg Sublingual Q5-15M PRN (Reason: chest pain) Qty: 20 11RF Rx Instructions: Max dose 3 tabs. atorvastatin 20 mg tablet 20 mg PO BEDTIME Qty: 90 3RF Rx Instructions: start taking atorvastatin 20 mg at bedtime (DME) blood-glucose meter Misc See Rx Instructions .Route Qty: 1 0RF Rx Instructions: Use to test blood sugars twice a day Referrals: Tung Santana, [Primary Care Provider] -
[2023-06-27] MEDS: ASPIRIN 81 MG CHEW TAB 324 MG PO (06:43)
[2023-06-27] MEDS: SODIUM CHLORIDE 0.9% 1,000 ML 150 ML IV (06:44)
[2023-06-27 06:55] LABS: Add Manual Diff / Slide Review NO; Basophils Absolute Auto 0 /uL (0-100); Basophils Percent Auto 0.6 % (0-2); Eosinophils Absolute Auto 300 /uL (0-450); Eosinophils Percent Auto 5.9 % (2-4); Hematocrit 50.3 % (41-53); Hemoglobin 17.3 g/dL (13.5-17.5); Lymphocytes Absolute Auto 1100 /uL (1100-4500); Lymphocytes Percent Auto 19.4 % (25-40); Mean Corpuscular HGB Conc 34.3 % (30-36); Mean Corpuscular Hemoglobin 28.8 PG (26-34); Monocytes Absolute Auto 600 /uL (0-900); Monocytes Percent Auto 9.5 % (3-14); Neutrophils Absolute Auto 3800 /uL (1500-7000); Neutrophils Percent Auto 64.6 % (50-75); Platelet Count 146 X10^3/uL (150-400); Red Blood Cell Count 5.99 X10^6/uL (4.5-5.9); Red Cell Distribution Width 14.5 % (11.6-14.8); White Blood Cell Count 5.9 X10^3/uL (4.5-11.0)
[2023-06-27 07:03] LABS: Prothrombin Time 11.2 SECONDS (9.4-12.5)
[2023-06-27 07:05] LABS: PTT Partial Thromboplastin Tim 37 SECONDS (25.1-36.5)
[2023-06-27 07:36] LABS: Alanine Aminotransferase 29 IU/L (<50); Albumin 5.1 g/dL (3.5-5.0); Albumin Globulin Ratio 1.8 (1.0-2.8); Alkaline Phosphatase 102 U/L (38-126); Aspartate Aminotransferase 31 IU/L (17-59); BUN Creatinine Ratio 16.7 (6-22); Blood Urea Nitrogen 19 mg/dL (9-20); Calcium 10.1 mg/dL (8.4-10.2); Carbon Dioxide 26 mmol/L (22-32); Chloride 104 mmol/L (98-107); Creatine Kinase 50 U/L (55-170); Estimated Glomerular Filt Rate > 60 mL/min (>60); Globulin 2.9 g/dL (1.7-4.1); Glucose 341 mg/dL (80-110); HEMOLYSIS 19 (0-50); Lipase 1213 U/L (23-300); Potassium 4.1 mmol/L (3.4-5.1); Sodium 138 mmol/L (137-145)
[2023-06-27 07:48] LABS: NT-proBNP (BNP-Adult 18+) 155 pg/mL (<450); Troponin I < 0.012 ng/mL (0.01-0.034)
--- NOTE | 2023-06-27 10:02 | PC.NURSE ---
Pt eloped at 1006 without physician consent. Pt here for chest pain, history of [place]. Physician [facility] for cardiac cath work-up when pt disconnected himself from the monitor, took out his IV and eloped. The IV was left at the bedside. Pt told RN that he was upset that his breakfast was yogurt, lowfat milk, hot tea and OJ. Pt stated he expected a full breakfast with all the things and stated the last time he was here in the ED he didn't get a full breakfast. Pt advised he should not leave without talking to the physician and he said I'm going. lightning rod erector spoke to pt in the hallway and advised he should stay and he said no. lightning rod erector asked him to sign paperwork stating he was leaving against medical advice and pt said no and walked out of the ED. Physician aware.
== END 2023-06-27 10:06 | disposition left against medical advice (07) ==
PROVIDERS: Emergency Medicine; Emergency Provider Emergency Medicine; Family Provider Student in an Organized Health Care Education/Training Program; PCP Family Medicine
DX: R07.9 Chest pain, unspecified (principal); I45.10 Unspecified right bundle-branch block; Z79.899 Other long term (current) drug therapy
CPT/HCPCS: 36415; 71045; 80053; 82550; 83690; 83880; 84484; 85025; 85610; 85730; 93005; 99284

== ENCOUNTER 2023-07-04 10:09 | Emergency (ER) | payer MEDICARE, OTHER, SELFPAY ==
[2023-07-04] VITALS (10 sets, daily range): BP systolic 116–166; BP diastolic 58–76; PULSE 74–84; RESP 14–24; TEMP 36.1–36.8; O2SAT 96–99; BMI 27.4
--- NOTE | 2023-07-04 10:19 | DI.RAD.S_ITS ---
PROCEDURE: XR CHEST 1V INDICATIONS: chest pain TECHNIQUE: One view of the chest was acquired. COMPARISON: [facility], CR, XR CHEST 1V, 06/27/2023, 6:42. [facility], CR, XR CHEST 1V, 07/26/2021, 15:26. FINDINGS: Surgical changes and devices: None. Lungs and pleura: Right mid lung granuloma again seen. Low lung volumes. No new dense consolidation or pleural effusion. Mediastinum: Unchanged cardiomediastinal contours. Bones and chest wall: Degenerative findings. IMPRESSION: No acute radiographic abnormality. Dictated by: Venancio Duval M.D. on 07/04/2023 at 12:07 Approved by: Venancio Duval M.D. on 07/04/2023 at 12:07
--- NOTE | 2023-07-04 10:34 | PC.NURSE ---
Pt c/o ongoing CP without relief from nitro. Pt states he was recently seen here and was supposed to be transferred but was hungry so he left.
[2023-07-04 10:39] LABS: Add Manual Diff / Slide Review NO; Basophils Absolute Auto 0 /uL (0-100); Basophils Percent Auto 0.5 % (0-2); Eosinophils Absolute Auto 200 /uL (0-450); Eosinophils Percent Auto 2.9 % (2-4); Hematocrit 51.2 % (41-53); Hemoglobin 17.5 g/dL (13.5-17.5); Lymphocytes Absolute Auto 1200 /uL (1100-4500); Lymphocytes Percent Auto 14.5 % (25-40); Mean Corpuscular HGB Conc 34.1 % (30-36); Mean Corpuscular Hemoglobin 28.8 PG (26-34); Mean Corpuscular Volume 84.6 fL (80-100); Monocytes Absolute Auto 800 /uL (0-900); Monocytes Percent Auto 9.7 % (3-14); Neutrophils Absolute Auto 5800 /uL (1500-7000); Neutrophils Percent Auto 72.4 % (50-75); Platelet Count 150 X10^3/uL (150-400); Red Blood Cell Count 6.05 X10^6/uL (4.5-5.9); Red Cell Distribution Width 14.3 % (11.6-14.8); White Blood Cell Count 7.9 X10^3/uL (4.5-11.0)
[2023-07-04 10:45] LABS: INR 1.1 (0.9-1.3); Prothrombin Time 12.2 SECONDS (9.4-12.5)
[2023-07-04 10:48] LABS: PTT Partial Thromboplastin Tim 36 SECONDS (25.1-36.5)
[2023-07-04 10:52] LABS: Alanine Aminotransferase 24 IU/L (<50); Albumin Globulin Ratio 1.9 (1.0-2.8); Alkaline Phosphatase 84 U/L (38-126); Aspartate Aminotransferase 26 IU/L (17-59); BUN Creatinine Ratio 20.8 (6-22); Bilirubin Total 1.4 mg/dL (0.2-1.3); Blood Urea Nitrogen 22 mg/dL (9-20); Calcium 9.9 mg/dL (8.4-10.2); Carbon Dioxide 24 mmol/L (22-32); Chloride 103 mmol/L (98-107); Creatine Kinase 47 U/L (55-170); Estimated Glomerular Filt Rate > 60 mL/min (>60); Globulin 2.7 g/dL (1.7-4.1); Glucose 297 mg/dL (80-110); HEMOLYSIS 23 (0-50); Lipase 314 U/L (23-300); Magnesium 2.1 mg/dL (1.6-2.3); Potassium 4.5 mmol/L (3.4-5.1); Sodium 137 mmol/L (137-145); Total Protein 7.7 g/dL (6.3-8.2)
[2023-07-04 11:03] LABS: Troponin I < 0.012 ng/mL (0.01-0.034)
[2023-07-04 13:22] LABS: Troponin I < 0.012 ng/mL (0.01-0.034)
--- NOTE | 2023-07-04 13:27 | ED_ITS ---
HPI - Chest Pain General Chief Complaint: Chest Pain Stated Complaint: weakness/ took nitro/ T-7/ increasing worst Time Seen by Provider: 07/04/23 13:27 Source: patient Mode of arrival: Family Vehicle Limitations: no limitations History of Present Illness HPI narrative: 77-year-old gentleman with a history of coronary artery disease, prior stenting, hypertension, hyperlipidemia, and diabetes. Reportedly is having continued episodes chest pain that is responsive to nitroglycerin. He was here on June 26 and was to be transferred to [facility] for evaluation and heart catheterization and he chose to leave against medical advice because he did not get a breakfast tray. He was here on July 02 and frustrated that he had to wait more than 2 hours in the waiting room and left prior to being seen. Today he has had a full workup and is frustrated that he was not offered lunch, people have not been into see him and that he has had to wait. When I go into evaluate him, he is frustrated and states that he is simply going to leave. Explained to him that we had more to talk about, I was concerned about his heart and he said that since he has been here 3 hours and was not offered lunch, or otherwise entertained that he was being mistreated and he would prefer to leave. At this point he has not having any acute STEMI, he is speaking in full sentences and choosing to leave prior to evaluation, discussion of lab work or further recommendations. I did clearly tell him that I am concerned about his heart, I think he does need a heart catheterization I think he needs to stay long enough for complete evaluation. He stated he would simply go to another emergency department. I told him he was more than welcome to do that, I did recommend that if he did do that he might consider choosing an emergency department with a associated heart catheterization opportunities including [facility], [facility] or [facility]. Patient did leave prior to exam and discussion of lab findings. Related Data Home Medications Medication Instructions Recorded Confirmed aspirin 81 mg tablet,delayed 81 mg PO QDAY ##0 12/26/11 06/23/23 release Previous Rx's Medication Instructions Recorded contour [employer] 7151H monitor #1 ea 12/01/22 lidocaine 5 % topical patch 1 patch topical DAILY #30 ea 12/18/22 lancets 33 gauge #100 ea 01/10/23 fluticasone propionate 50 1 spray intranasal Q12H #16 grams 02/23/23 mcg/actuation nasal spray,suspension (Flonase Allergy Relief) atorvastatin 20 mg tablet 20 mg PO BEDTIME #90 tabs 03/24/23 blood-glucose meter #1 ea 03/24/23 lancets 30 gauge #100 ea 05/19/23 Contour Blood Glucose Test Strips #100 ea 05/24/23 atorvastatin 20 mg tablet 20 mg PO BEDTIME #90 tabs 05/24/23 blood sugar diagnostic (Blood #50 ea 05/24/23 Glucose Test strips) clopidogrel 75 mg tablet 75 mg PO DAILY #90 tabs 05/24/23 empagliflozin 25 mg tablet 25 mg PO DAILY #90 tabs 05/24/23 glipizide 2.5 mg tablet, extended 2.5 mg PO BID #180 tabs 05/24/23 release 24 hr metformin 1,000 mg tablet 1,000 mg PO BID #180 tabs 05/24/23 metoprolol succinate 25 mg 25 mg PO DAILY #90 tabs 05/24/23 tablet,extended release 24 hr nitroglycerin 0.3 mg sublingual 0.3 mg sublingual Q5-15M PRN chest 05/24/23 tablet pain #20 tabs Allergies Allergy/AdvReac Type Severity Reaction Status Date / Time No Known Drug Allergies Allergy Verified 07/04/23 10:19 Review of Systems Review of Systems Narrative: Patient was not cooperative with questioning Patient History Medical History Situational anxiety Hyperlipidemia Cognitive decline Prostate cancer Dystrophic nail Vitamin D deficiency Tinnitus (~1965) Hearing loss (~1965) Ureterolithiasis Social History Smoking Status: Never smoker eating out: 4 or more times/week Type(s) of exercise: other Smoking Status: Never smoker Substance Use Type: does not use Exam Initial Vital Signs Initial Vital Signs: Vital Signs Temperature 97.0 F L 07/04/23 10:14 Pulse Rate 84 07/04/23 10:14 Respiratory Rate 19 07/04/23 10:14 Blood Pressure 137/72 07/04/23 10:14 Pulse Oximetry 99 07/04/23 10:14 Oxygen Delivery Method Room Air 07/04/23 10:14 Patient declined exam Course Orders Ordered: ED Orders 07/04/23 10:19 XR chest 1V Stat Complete Blood Count AUTO DIFF Stat Comprehensive Metabolic Panel Stat Lipase Stat Magnesium Stat PTT Partial Thromboplastin Fam Stat Prothrombin Time INR Stat Troponin & CK Cardiac Panel Stat EKG-12 Lead Stat 07/04/23 12:41 Troponin I Stat Discontinued Medications Aspirin (Aspirin 81 Mg Chew Tab) 324 mg PO NOW ONE Stop: 07/04/23 10:20 Last Admin: 07/04/23 10:32 Dose: Not Given Documented By: FROY Vital Signs Vital signs: Vital Signs - 8 hr 07/04/23 10:14 07/04/23 10:23 07/04/23 10:30 Temperature 97.0 F L Pulse Rate 84 81 Respiratory Rate 19 Blood Pressure 137/72 140/68 Pulse Oximetry 99 99 Oxygen Delivery Method Room Air 07/04/23 10:30 07/04/23 11:00 07/04/23 11:00 Temperature Pulse Rate 78 74 Respiratory Rate 20 17 Blood Pressure 123/61 Pulse Oximetry 99 96 Oxygen Delivery Method 07/04/23 11:30 07/04/23 11:30 07/04/23 12:00 Temperature Pulse Rate 75 Respiratory Rate 15 Blood Pressure 131/63 149/72 H Pulse Oximetry 96 Oxygen Delivery Method 07/04/23 12:00 07/04/23 12:33 07/04/23 12:34 Temperature Pulse Rate 81 81 Respiratory Rate 14 Blood Pressure 116/59 L Pulse Oximetry 97 Oxygen Delivery Method 07/04/23 12:34 07/04/23 13:00 07/04/23 13:00 Temperature Pulse Rate 76 79 Respiratory Rate 23 24 Blood Pressure 123/58 L Pulse Oximetry 98 98 Oxygen Delivery Method MDM - Chest Pain Lab Data 07/04/23 10:19 07/04/23 10:19 Labs: Lab Results 07/04/23 07/04/23 Range/Units 10:19 12:41 WBC 7.9 (4.5-11.0) X10^3/uL RBC 6.05 H (4.5-5.9) X10^6/uL Hgb 17.5 (13.5-17.5) g/dL Hct 51.2 (41-53) % MCV 84.6 (80-100) fL MCH 28.8 (26-34) PG MCHC 34.1 (30-36) % RDW 14.3 (11.6-14.8) % Plt Count 150 (150-400) X10^3/uL Neut % (Auto) 72.4 (50-75) % Lymph % (Auto) 14.5 L (25-40) % [place] % (Auto) 9.7 (3-14) % Eos % (Auto) 2.9 (2-4) % Baso % (Auto) 0.5 (0-2) % Neut # (Auto) 5800 (1103-3366) /uL Lymph # (Auto) 1200 (4795-4712) /uL [place] # (Auto) 800 (0-900) /uL Eos # (Auto) 200 (0-450) /uL Baso # (Auto) 0 (0-100) /uL PT 12.2 (9.4-12.5) SECONDS INR 1.1 (0.9-1.3) APTT 36 (25.1-36.5) SECONDS Sodium 137 (137-145) mmol/L Potassium 4.5 (3.4-5.1) mmol/L Chloride 103 (98-107) mmol/L Carbon Dioxide 24 (22-32) mmol/L BUN 22 H (9-20) mg/dL Creatinine 1.06 (0.66-1.25) mg/dL Estimated GFR > 60 (>60) mL/min BUN/Creatinine Ratio 20.8 (6-22) Glucose 297 H (80-110) mg/dL Calcium 9.9 (8.4-10.2) mg/dL Magnesium 2.1 (1.6-2.3) mg/dL Total Bilirubin 1.4 H (0.2-1.3) mg/dL AST 26 (17-59) IU/L ALT 24 (<50) IU/L Alkaline Phosphatase 84 (38-126) U/L Total Creatine Kinase 47 L (55-170) U/L Troponin I < 0.012 < 0.012 (0.01-0.034) ng/mL Total Protein 7.7 (6.3-8.2) g/dL Albumin 5.0 (3.5-5.0) g/dL Globulin 2.7 (1.7-4.1) g/dL Albumin/Globulin Ratio 1.9 (1.0-2.8) Lipase 314 H D (23-300) U/L Urine Dip Bedside Urine Glucose 1000 mg/dl Bedside Urine Bilirubin - Negative Bedside Urine Ketone - Negative Urine Specific [place] 1.015 Bedside Urine Occult Blood - Negative Bedside Urine pH 5.5 Bedside Urine Protein - Negative Bedside Urine Urobilinogen - Negative Bedside Urine Nitrite - Negative Bedside Urine Leukocytes - Negative Esterase MDM Narrative Medical decision making narrative: 77-year-old gentleman with a history of coronary artery disease, prior stenting, hypertension, hyperlipidemia, and diabetes. Reportedly is having continued episodes chest pain that is responsive to nitroglycerin. He was here on June 26 and was to be transferred to [facility] for evaluation and heart catheterization and he chose to leave against medical advice because he did not get a breakfast tray. He was here on July 02 and frustrated that he had to wait more than 2 hours in the waiting room and left prior to being seen. Today he has had a full workup and is frustrated that he was not offered lunch, people have not been into see him and that he has had to wait. When I go into evaluate him, he is frustrated and states that he is simply going to leave. Explained to him that we had more to talk about, I was concerned about his heart and he said that since he has been here 3 hours and was not offered lunch, or otherwise entertained that he was being mistreated and he would prefer to leave. At this point he has not having any acute STEMI, he is speaking in full sentences and choosing to leave prior to evaluation, discussion of lab work or further recommendations. I did clearly tell him that I am concerned about his heart, I think he does need a heart catheterization I think he needs to stay long enough for complete evaluation. He stated he would simply go to another emergency department. I told him he was more than welcome to do that, I did recommend that if he did do that he might consider choosing an emergency department with associated heart catheterization opportunities including [facility], [facility] or [facility]. Patient did leave prior to exam and discussion of lab findings. Brief review of labs chest x-ray and EKG do not suggest acute STEMI. The fact that he is continued to use escalating nitroglycerin over the last number of days is certainly concerning and the patient chose to leave the department, was able to walk out without pain, dyspnea or any type of disability. Discharge Plan Departure Patient Disposition: Left Against Medical Advice Clinical Impression: Chest pain Qualifiers: Chest pain type: unspecified Qualified Code(s): R07.9 - Chest pain, unspecified Prescriptions: No Action lidocaine 5 % adhesive patch,medicated 1 patch topical DAILY Qty: 30 0RF Rx Instructions: leave on most painful area for up to 12 hrs fluticasone propionate [Flonase Allergy Relief] 50 mcg/actuation spray,suspension 1 spray intranasal Q12H Qty: 16 0RF Rx Instructions: administer into each nostril aspirin 81 MG tablet,delayed release (DR/EC) 81 mg PO QDAY Qty: 0 (DME) contour nidhi 7151H monitor See Rx Instructions .Route .MEDSUPPLY Qty: 1 0RF Rx Instructions: check blood sugar 1-2 times a day (DME) lancets 33 gauge misc See Rx Instructions .Route Qty: 100 3RF Rx Instructions: Use to test BS 1-2x a day (DME) lancets 30 gauge misc See Rx Instructions .Route Qty: 100 2RF Rx Instructions: use to test blood sugars BID atorvastatin 20 mg tablet 20 mg PO BEDTIME Qty: 90 3RF (DME) Blood Glucose Test Strip See Rx Instructions .Route Qty: 50 5RF Rx Instructions: use to test blood sugars twice a day clopidogrel 75 mg tablet 75 mg PO DAILY Qty: 90 3RF (DME) Contour Blood Glucose Test Strips Qty: 100 1RF Rx Instructions: Use to test blood sugars 1-2x daily. empagliflozin 25 mg tablet 25 mg PO DAILY Qty: 90 3RF Rx Instructions: continue taking one full dose glipizide 2.5 mg tablet extended release 24hr 2.5 mg PO BID Qty: 180 3RF Rx Instructions: continue taking twice a day with food metformin 1,000 mg tablet 1,000 mg PO BID Qty: 180 3RF Rx Instructions: start taking 1,000 mg twice a day after completing 500 mg twice a day for 2 weeks metoprolol succinate 25 mg tablet extended release 24 hr 25 mg PO DAILY Qty: 90 3RF nitroglycerin 0.3 mg tablet, sublingual 0.3 mg Sublingual Q5-15M PRN (Reason: chest pain) Qty: 20 11RF Rx Instructions: Max dose 3 tabs. atorvastatin 20 mg tablet 20 mg PO BEDTIME Qty: 90 3RF Rx Instructions: start taking atorvastatin 20 mg at bedtime (DME) blood-glucose meter Misc See Rx Instructions .Route Qty: 1 0RF Rx Instructions: Use to test blood sugars twice a day Referrals: Tung Santana DO [Primary Care Provider] - Stand Alone Forms: Patient Portal/API, Against Medical Advice
== END 2023-07-04 13:42 | disposition left against medical advice (07) ==
PROVIDERS: Emergency Provider Emergency Medicine; Family Provider Student in an Organized Health Care Education/Training Program; PCP Family Medicine
DX: R07.9 Chest pain, unspecified (principal); Z53.29 Procedure and treatment not carried out because of patient's decision for other reasons
CPT/HCPCS: 36415; 71045; 80053; 81003; 82550; 83690; 83735; 84484; 85025; 85610; 85730; 93005; 99283; 99284

== ENCOUNTER 2023-08-24 08:14 | Emergency (ER) | payer MEDICARE, OTHER, SELFPAY ==
--- NOTE | 2023-08-24 08:26 | ED.CHESTPAIN ---
HPI - Chest Pain General Chief Complaint: Chest Pain Stated Complaint: Chest Pain Time Seen by Provider: 08/24/23 08:20 Source: patient, RN notes reviewed and old records reviewed Mode of arrival: EMS Limitations: no limitations History of Present Illness HPI narrative: 77-year-old male with known coronary artery disease and 4 stents who presents with complaint of chest pain that started about 3 hours prior to arrival, patient did try nitro x2 improved his symptoms but did not totally resolve it. His chest pain has since now resolved. He describes it as left-sided without radiation, no fevers chills cold cough or congestion. Denies any dyspnea, no diaphoresis, no nausea or vomiting. [place] slightly lightheaded but no syncope. No swelling of extremities. No issues with bowel movements or urination. He has had similar symptoms in the past with his prior MIs he has had he states 3 episodes in the past 5 weeks of similar symptoms. Patient states it feels similar to his prior MIs. He is on aspirin, Plavix, Imdur, beta blockers as well as medication for dyslipidemia and diabetes. Patient states he has had 4 cardiac stents as well as a hernia repair. Denies other surgeries. No known drug allergies. No tobacco, 1 alcoholic drink every 2 weeks, no recreational drugs. He is follows with Cardiology at [facility]. He had a heart catheterization in the past month. He was told it was a very small vessel they were unable to catheterize that they would have like to. He had an office visit this week with Dr. Noriega. Related Data Home Medications Medication Instructions Recorded Confirmed isosorbide mononitrate 30 mg 30 mg PO BID 07/18/23 07/18/23 tablet,extended release 24 hr Previous Rx's Medication Instructions Recorded contour [employer]hi 7151H monitor #1 ea 12/01/22 lancets 33 gauge #100 ea 01/10/23 fluticasone propionate 50 1 spray intranasal Q12H #16 grams 02/23/23 mcg/actuation nasal spray,suspension (Flonase Allergy Relief) blood-glucose meter #1 ea 03/24/23 lancets 30 gauge #100 ea 05/19/23 Contour Blood Glucose Test Strips #100 ea 05/24/23 atorvastatin 20 mg tablet 20 mg PO BEDTIME #90 tabs 05/24/23 blood sugar diagnostic (Blood #50 ea 05/24/23 Glucose Test strips) clopidogrel 75 mg tablet 75 mg PO DAILY #90 tabs 05/24/23 empagliflozin 25 mg tablet 25 mg PO DAILY #90 tabs 05/24/23 glipizide 2.5 mg tablet, extended 2.5 mg PO BID #180 tabs 05/24/23 release 24 hr metformin 1,000 mg tablet 1,000 mg PO BID #180 tabs 05/24/23 metoprolol succinate 25 mg 25 mg PO DAILY #90 tabs 05/24/23 tablet,extended release 24 hr nitroglycerin 0.3 mg sublingual 0.3 mg sublingual Q5-15M PRN chest 05/24/23 tablet pain #20 tabs metoprolol succinate 50 mg capsule 50 mg PO DAILY #30 ea 08/24/23 sprinkle, ext. release 24 hr Allergies Allergy/AdvReac Type Severity Reaction Status Date / Time No Known Drug Allergies Allergy Verified 07/18/23 09:40 Review of Systems Review of Systems ROS Unobtainable: All systems reviewed & are unremarkable except as noted in HPI and below Patient History Medical History Situational anxiety Hyperlipidemia Cognitive decline Prostate cancer Dystrophic nail Vitamin D deficiency Tinnitus (~1965) Hearing loss (~1965) Ureterolithiasis Social History Smoking Status: Never smoker eating out: 4 or more times/week Type(s) of exercise: other Smoking Status: Never smoker Substance Use Type: does not use Exam Narrative Exam Narrative: GENERAL: Alert and oriented x three, male in mild distress note. No diaphoresis. HEENT: Head normocephalic, atraumatic, EOMI, pupils reactive, face symmetric, moist mucous membranes NECK: Supple, full range of motion CARDIOVASCULAR: Regular rate and rhythm without murmurs, rubs or gallops. No JVD. No edema. RESPIRATORY: Breath sounds equal bilaterally, no wheezes rales or rhonchi. ABDOMEN: Soft, nontender. Normoactive bowel sounds all 4 quadrants. No guarding or rebound, rigidity, no mass : No CVA tenderness EXTREMITIES: Normal range of motion, no clubbing or edema. Neurovascularly intact NEUROLOGICAL: Cranial nerves II through XII grossly intact. Moving all extremities SKIN: Warm, dry, no petechiae, no rashes or lesions. Initial Vital Signs Initial Vital Signs: Vital Signs Temperature 98.6 F 08/24/23 08:27 Pulse Rate 74 08/24/23 08:27 Respiratory Rate 20 08/24/23 08:27 Blood Pressure 113/64 08/24/23 08:27 Pulse Oximetry 98 08/24/23 08:27 Oxygen Delivery Method Room Air 08/24/23 08:27 Course Orders Ordered: ED Orders 08/24/23 10:15 Trop I [Troponin I] Stat Discontinued Medications Sodium Chloride (Normal Saline 0.9%) 1,000 mls @ 150 mls/hr IV CONT YELENA Last Admin: 08/24/23 09:16 Dose: 150 mls/hr Documented By: OUMAR Vital Signs Vital signs: Vital Signs - 8 hr 08/24/23 11:15 08/24/23 12:10 Pulse Rate 68 74 Respiratory Rate 19 20 Blood Pressure 115/64 118/76 Pulse Oximetry 96 98 Oxygen Delivery Method Room Air MDM - Chest Pain Lab Data 08/24/23 08:20 08/24/23 08:20 Labs: Lab Results 08/24/23 08/24/23 Range/Units 08:20 10:15 WBC 7.0 (4.5-11.0) X10^3/uL RBC 5.59 (4.5-5.9) X10^6/uL Hgb 16.1 (13.5-17.5) g/dL Hct 47.0 (41-53) % MCV 84.1 (80-100) fL MCH 28.8 (26-34) PG MCHC 34.2 (30-36) % RDW 14.2 (11.6-14.8) % Plt Count 173 (150-400) X10^3/uL Neut % (Auto) 65.4 (50-75) % Lymph % (Auto) 18.5 L (25-40) % [place] % (Auto) 9.7 (3-14) % Eos % (Auto) 5.6 H (2-4) % Baso % (Auto) 0.8 (0-2) % Neut # (Auto) 4600 (7057-5858) /uL Lymph # (Auto) 1300 (3882-8013) /uL [place] # (Auto) 700 (0-900) /uL Eos # (Auto) 400 (0-450) /uL Baso # (Auto) 100 (0-100) /uL Sodium 138 (137-145) mmol/L Potassium 4.5 (3.4-5.1) mmol/L Chloride 107 (98-107) mmol/L Carbon Dioxide 26 (22-32) mmol/L BUN 22 H (9-20) mg/dL Creatinine 1.23 (0.66-1.25) mg/dL Estimated GFR > 60 (>60) mL/min BUN/Creatinine Ratio 17.9 (6-22) Glucose 208 H (80-110) mg/dL Calcium 9.7 (8.4-10.2) mg/dL Total Bilirubin 1.2 (0.2-1.3) mg/dL AST 37 (17-59) IU/L ALT 22 (<50) IU/L Alkaline Phosphatase 90 (38-126) U/L Total Creatine Kinase 42 L (55-170) U/L Troponin I < 0.012 < 0.012 (0.01-0.034) ng/mL Total Protein 7.1 (6.3-8.2) g/dL Albumin 4.5 (3.5-5.0) g/dL Globulin 2.6 (1.7-4.1) g/dL Albumin/Globulin Ratio 1.7 (1.0-2.8) Lipase 866 H (23-300) U/L Imaging Data Chest x-ray: Radiologist's Impression: Close Chest X-Ray (Signed) Dustin Cabral - 08/24/23 Chest X-Ray (Signed) Venancio Duval - 07/04/23 Chest X-Ray (Signed) Giovanna Kauffman - 06/27/23 Shoulder X-Ray (Signed) Satya Kerr - 11/07/22 Myocardial Perfusion Scan Nuc Med (Signed) Natalia Plummer - 07/13/22 Echocardiogram Ultrasound (Signed) Arturo Gongora - 06/22/22 Shoulder MRI (Signed) Satya Tee - 08/25/21 Shoulder X-Ray (Signed) Ulices Foster - 08/23/21 Shoulder X-Ray (Signed) Shakira Arce - 07/26/21 Chest X-Ray (Signed) Edward Jaramillo - 05/16/22 DI Result CC 01/08/20 Outside Echo 01/08/20 Chest X-Ray (Signed) Juan Alberto Stewart - 05/08/19 Launch?Image [address] [address] XRay Report Signed Patient: Dennys Mckeon MR#: [id number] : 1945 Acct:[id number] Age/Sex: 77 / M Date of Service: 08/24/23 Loc: ED Accession Number: [id number] Procedure: XR chest 1V Ordering Provider: Josee Rivera D.O. PROCEDURE: XR CHEST 1V INDICATIONS: chest pain TECHNIQUE: One view of the chest was acquired. COMPARISON: [facility], CR, XR CHEST 1V, 07/04/2023, 10:30. FINDINGS: Surgical changes and devices: Coronary artery stent. Lungs and pleura: Lungs are clear. No pleural effusions or pneumothorax. Mediastinum: Mediastinal contours appear normal. Heart size is normal. Bones and chest wall: No suspicious bony lesions. Overlying soft tissues appear unremarkable. IMPRESSION: Note made of coronary artery stent. No evidence acute pulmonary process. Dictated by: Dustin Cabral M.D. on 08/24/2023 at 9:46 Approved by: Dustin Cabral M.D. on 08/24/2023 at 9:47 ECG Data Attestation: I personally reviewed and interpreted this ECG as follows: Prior ECG tracings: available for review Interpretation: Normal sinus rhythm rate of 73 IA 158 QRS of 152 QTC of 447. Normal sinus rhythm, left axis deviation, right bundle-branch block appears similar to priors. EKG 2. Sinus rhythm rate of 70 IA 154 QRS of 154 QTC of 427, left axis deviation right bundle-branch block. No dynamic changes from prior appears similar from earlier today. MDM Narrative Medical decision making narrative: 77-year-old male with known coronary artery disease with symptoms consistent with prior episodes of [place]. Patient did take nitro at home over several hours did not totally resolve so he ultimately called 911. Labs show normal CBC, BUN 22, electrolytes are otherwise negative, creatinine is 1.23, glucose is 208, total CK is 42, lipase is 866. Troponin is less than 0.012 EKG shows left axis deviation, right bundle-branch block, EKG appears similar to prior from 07/04/2023. Chest x-ray shows no acute change Repeat troponin is less than 0.012 and EKG shows no acute changes. Spoke with Cardiology, Dr. Cantu on-call for [facility]: He notes that patient had run out of his Imdur it was refilled it his appointment. He would recommend increasing his metoprolol metoprolol to 50 mg daily from 30/07. We will continue his Imdur at its current dosage as patient's blood pressure likely would not tolerate an increase. Continue his other medications and medical management at this time. He does note that he had had a distal LAD lesion that they would not be amenable to stenting. Discussed with patient he continues to be chest pain-free he feels comfortable this plan we will send a prescription for additional metoprolol. Discussed return precautions all questions answered. Discharge Plan Departure Patient Disposition: Home Clinical Impression: Chest pain Instructions: DI for Chest Pain Activity Restrictions/Additional Instructions: Follow up with Cardiology, call to set up a follow up appointment as needed. I spoke with your team today continue your Imdur daily, they do ask that you increase your metoprolol from 25-50 mg daily. Take 2 tablets of your current dosage until you run out and I will send a prescription to [facility] for refill. Continue your other home medications as prescribed. Please return for recurrent symptoms, new chest pain, shortness of breath, lightheadedness or passing out, diaphoresis or sweatiness, vomiting or other new or concerning changes. Prescriptions: New metoprolol succinate 50 mg capsule,sprinkle,ER 24hr 50 mg PO DAILY Qty: 30 0RF No Action fluticasone propionate [Flonase Allergy Relief] 50 mcg/actuation spray,suspension 1 spray intranasal Q12H Qty: 16 0RF Rx Instructions: administer into each nostril (DME) contour nidhi 7151H monitor See Rx Instructions .Route .MEDSUPPLY Qty: 1 0RF Rx Instructions: check blood sugar 1-2 times a day (DME) lancets 33 gauge misc See Rx Instructions .Route Qty: 100 3RF Rx Instructions: Use to test BS 1-2x a day (DME) lancets 30 gauge misc See Rx Instructions .Route Qty: 100 2RF Rx Instructions: use to test blood sugars BID atorvastatin 20 mg tablet 20 mg PO BEDTIME Qty: 90 3RF (DME) Blood Glucose Test Strip See Rx Instructions .Route Qty: 50 5RF Rx Instructions: use to test blood sugars twice a day clopidogrel 75 mg tablet 75 mg PO DAILY Qty: 90 3RF (DME) Contour Blood Glucose Test Strips Qty: 100 1RF Rx Instructions: Use to test blood sugars 1-2x daily. empagliflozin 25 mg tablet 25 mg PO DAILY Qty: 90 3RF Rx Instructions: continue taking one full dose glipizide 2.5 mg tablet extended release 24hr 2.5 mg PO BID Qty: 180 3RF Rx Instructions: continue taking twice a day with food metformin 1,000 mg tablet 1,000 mg PO BID Qty: 180 3RF Rx Instructions: start taking 1,000 mg twice a day after completing 500 mg twice a day for 2 weeks metoprolol succinate 25 mg tablet extended release 24 hr 25 mg PO DAILY Qty: 90 3RF nitroglycerin 0.3 mg tablet, sublingual 0.3 mg Sublingual Q5-15M PRN (Reason: chest pain) Qty: 20 11RF Rx Instructions: Max dose 3 tabs. isosorbide mononitrate 30 mg tablet extended release 24 hr 30 mg PO BID (DME) blood-glucose meter Misc See Rx Instructions .Route Qty: 1 0RF Rx Instructions: Use to test blood sugars twice a day Referrals: Tung Santana DO [Primary Care Provider] - Sergio Cantu MD [Physician] - Stand Alone Forms: Patient Portal/API
[2023-08-24 08:27] VITALS: BP 113/64; PULSE 74; RESP 20; TEMP 37; O2SAT 98; BMI 26.6
--- NOTE | 2023-08-24 08:29 | EKG_ITS ---
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
--- NOTE | 2023-08-24 08:34 | DI.RAD.S_ITS ---
PROCEDURE: XR CHEST 1V INDICATIONS: chest pain TECHNIQUE: One view of the chest was acquired. COMPARISON: [facility], CR, XR CHEST 1V, 07/04/2023, 10:30. FINDINGS: Surgical changes and devices: Coronary artery stent. Lungs and pleura: Lungs are clear. No pleural effusions or pneumothorax. Mediastinum: Mediastinal contours appear normal. Heart size is normal. Bones and chest wall: No suspicious bony lesions. Overlying soft tissues appear unremarkable. IMPRESSION: Note made of coronary artery stent. No evidence acute pulmonary process. Dictated by: Dustin Cabral M.D. on 08/24/2023 at 9:46 Approved by: Dustin Cabral M.D. on 08/24/2023 at 9:47
[2023-08-24 08:42] LABS: Add Manual Diff / Slide Review NO; Basophils Absolute Auto 100 /uL (0-100); Basophils Percent Auto 0.8 % (0-2); Eosinophils Absolute Auto 400 /uL (0-450); Eosinophils Percent Auto 5.6 % (2-4); Hemoglobin 16.1 g/dL (13.5-17.5); Lymphocytes Absolute Auto 1300 /uL (1100-4500); Lymphocytes Percent Auto 18.5 % (25-40); Mean Corpuscular HGB Conc 34.2 % (30-36); Mean Corpuscular Hemoglobin 28.8 PG (26-34); Mean Corpuscular Volume 84.1 fL (80-100); Monocytes Absolute Auto 700 /uL (0-900); Monocytes Percent Auto 9.7 % (3-14); Neutrophils Absolute Auto 4600 /uL (1500-7000); Neutrophils Percent Auto 65.4 % (50-75); Platelet Count 173 X10^3/uL (150-400); Red Blood Cell Count 5.59 X10^6/uL (4.5-5.9); Red Cell Distribution Width 14.2 % (11.6-14.8)
[2023-08-24 09:02] LABS: Alanine Aminotransferase 22 IU/L (<50); Albumin 4.5 g/dL (3.5-5.0); Albumin Globulin Ratio 1.7 (1.0-2.8); Alkaline Phosphatase 90 U/L (38-126); Aspartate Aminotransferase 37 IU/L (17-59); BUN Creatinine Ratio 17.9 (6-22); Bilirubin Total 1.2 mg/dL (0.2-1.3); Blood Urea Nitrogen 22 mg/dL (9-20); Calcium 9.7 mg/dL (8.4-10.2); Carbon Dioxide 26 mmol/L (22-32); Chloride 107 mmol/L (98-107); Creatine Kinase 42 U/L (55-170); Estimated Glomerular Filt Rate > 60 mL/min (>60); Globulin 2.6 g/dL (1.7-4.1); Glucose 208 mg/dL (80-110); HEMOLYSIS 22 (0-50); Lipase 866 U/L (23-300); Potassium 4.5 mmol/L (3.4-5.1); Sodium 138 mmol/L (137-145); Total Protein 7.1 g/dL (6.3-8.2)
[2023-08-24 09:13] LABS: Troponin I < 0.012 ng/mL (0.01-0.034)
[2023-08-24] MEDS: SODIUM CHLORIDE 0.9% 1,000 ML 150 ML IV (09:16)
[2023-08-24 09:55] VITALS: PULSE 69; RESP 19; O2SAT 98
[2023-08-24 10:20] VITALS: PULSE 73; RESP 16; O2SAT 98
--- NOTE | 2023-08-24 10:21 | EKG_ITS ---
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
[2023-08-24 10:45] VITALS: PULSE 66; RESP 15; O2SAT 97
[2023-08-24 10:55] LABS: Troponin I < 0.012 ng/mL (0.01-0.034)
[2023-08-24 11:15] VITALS: BP 115/64; PULSE 68; RESP 19; O2SAT 96
[2023-08-24 12:10] VITALS: BP 118/76; PULSE 74; RESP 20; O2SAT 98
== END 2023-08-24 12:13 | disposition home or self-care (01) ==
PROVIDERS: Emergency Provider Emergency Medicine; PCP Family Medicine; Referring Provider Emergency Medicine
DX: R07.9 Chest pain, unspecified (principal); Z95.5 Presence of coronary angioplasty implant and graft
CPT/HCPCS: 36415; 71045; 80053; 82550; 83690; 84484; 85025; 93005; 99284

== ENCOUNTER 2023-09-30 15:01 | Emergency (ER) | payer MEDICARE, OTHER, SELFPAY ==
[2023-09-30 15:05] VITALS: O2SAT 99
[2023-09-30 15:06] VITALS: BP 160/75; PULSE 79; O2SAT 100
[2023-09-30 15:08] VITALS: BP 160/75; PULSE 76; RESP 18; TEMP 36.9; O2SAT 100; BMI 26.6
--- NOTE | 2023-09-30 15:17 | ED_ITS ---
HPI - General Adult General Chief complaint: Diabetic Problem Stated complaint: Glucose @405 Time Seen by Provider: 09/30/23 15:07 Source: patient Mode of arrival: Ambulatory History of Present Illness HPI narrative: Patient is a 78-year-old male. He has a diabetic. Is on metformin and glipizide. States that this morning his blood sugars were elevated to above 300. He checked a few hours later and was above 400. He reports no specific symptoms to include chest pain, nausea vomiting, fevers, abdominal pain. He states he was not calibrated his blood sugar monitor in quite some time. Does not report any changes in his diet. Related Data Previous Rx's Medication Instructions Recorded contour nidhi 7151H monitor #1 ea 12/01/22 lancets 33 gauge #100 ea 01/10/23 fluticasone propionate 50 1 spray intranasal Q12H #16 grams 02/23/23 mcg/actuation nasal spray,suspension (Flonase Allergy Relief) blood-glucose meter #1 ea 03/24/23 lancets 30 gauge #100 ea 05/19/23 Contour Blood Glucose Test Strips #100 ea 05/24/23 atorvastatin 20 mg tablet 20 mg PO BEDTIME #90 tabs 05/24/23 blood sugar diagnostic (Blood #50 ea 05/24/23 Glucose Test strips) clopidogrel 75 mg tablet 75 mg PO DAILY #90 tabs 05/24/23 glipizide 2.5 mg tablet, extended 2.5 mg PO BID #180 tabs 05/24/23 release 24 hr metformin 1,000 mg tablet 1,000 mg PO BID #180 tabs 05/24/23 metoprolol succinate 25 mg 25 mg PO DAILY #90 tabs 05/24/23 tablet,extended release 24 hr nitroglycerin 0.3 mg sublingual 0.3 mg sublingual Q5-15M PRN chest 05/24/23 tablet pain #20 tabs empagliflozin 25 mg tablet 25 mg PO DAILY #90 tabs 08/28/23 isosorbide mononitrate 30 mg 30 mg PO BID #180 tabs 09/05/23 tablet,extended release 24 hr Allergies Allergy/AdvReac Type Severity Reaction Status Date / Time No Known Drug Allergies Allergy Verified 08/28/23 10:33 Review of Systems Review of Systems ROS Unobtainable: All systems reviewed & are unremarkable except as noted in HPI and below Patient History Medical History Situational anxiety Hyperlipidemia Cognitive decline Prostate cancer Dystrophic nail Vitamin D deficiency Tinnitus (~1965) Hearing loss (~1965) Ureterolithiasis Social History Smoking Status: Never smoker eating out: 4 or more times/week Type(s) of exercise: other Smoking Status: Never smoker Substance Use Type: does not use Exam Initial Vital Signs Initial Vital Signs: Vital Signs Pulse Oximetry 99 09/30/23 15:05 Const General: cooperative, comfortable and No ill appearing HENMT Head: normal to inspection and normocephalic Resp Effort & Inspection: normal respiratory effort Auscultation: clear to auscultation bilaterally Cardio Rate: regular rate Rhythm: regular rhythm GI Inspection: normal to inspection and non-distended Skin General: no rashes or lesions noted Neuro General: patient alert and patient awake Extrem General: normal to inspection and capillary refill normal Course Orders Ordered: ED Orders 09/30/23 15:20 Complete Blood Count AUTO DIFF Stat Comprehensive Metabolic Panel Stat Ketones (Beta-Hydroxybutyrate) Stat Lipase Stat Magnesium Stat Phosphorous Stat 09/30/23 15:28 Venous Blood Gas Stat Discontinued Medications Sodium Chloride (Normal Saline 0.9%) 1,000 mls @ 1,000 mls/hr IV BOLUS ONE Stop: 09/30/23 16:06 Last Infusion: 09/30/23 15:57 Dose: Infused Documented By: Admin: 09/30/23 15:21 Dose: 1,000 mls/hr Documented By: ISAMAR Vital Signs Vital signs: Vital Signs - 8 hr 09/30/23 15:05 09/30/23 15:06 09/30/23 15:06 Temperature Pulse Rate 79 Respiratory Rate Blood Pressure 160/75 H Pulse Oximetry 99 100 Oxygen Delivery Method 09/30/23 15:08 09/30/23 15:30 Temperature 98.4 F Pulse Rate 76 69 Respiratory Rate 18 Blood Pressure 160/75 H Pulse Oximetry 100 99 Oxygen Delivery Method Room Air Medical Decision Making Lab Data 09/30/23 15:20 09/30/23 15:20 Labs: Lab Results 09/30/23 09/30/23 Range/Units 15:20 15:28 WBC 6.1 (4.5-11.0) X10^3/uL RBC 5.37 (4.5-5.9) X10^6/uL Hgb 15.6 (13.5-17.5) g/dL Hct 45.3 (41-53) % MCV 84.3 (80-100) fL MCH 29.1 (26-34) PG MCHC 34.5 (30-36) % RDW 14.1 (11.6-14.8) % Plt Count 138 L (150-400) X10^3/uL Neut % (Auto) 68.2 (50-75) % Lymph % (Auto) 16.4 L (25-40) % [place] % (Auto) 9.4 (3-14) % Eos % (Auto) 4.8 H (2-4) % Baso % (Auto) 1.2 (0-2) % Neut # (Auto) 4200 (7029-4612) /uL Lymph # (Auto) 1000 L (3779-5752) /uL [place] # (Auto) 600 (0-900) /uL Eos # (Auto) 300 (0-450) /uL Baso # (Auto) 100 (0-100) /uL VBG pH 7.38 (7.33-7.43) VBG pCO2 42.9 L (45-50) mmHg VBG pO2 35 (35-45) mmHg VBG HCO3 25 (24-28) mmol/L VBG Total CO2 25 (24-29) mmol/L VBG O2 Saturation 65 L (70-75) % VBG Base Excess -0.2 L (0-4) mmol/L FiO2 21 Sodium 137 (137-145) mmol/L Potassium 4.8 (3.4-5.1) mmol/L Chloride 105 (98-107) mmol/L Carbon Dioxide 24 (22-32) mmol/L BUN 19 (9-20) mg/dL Creatinine 1.10 (0.66-1.25) mg/dL Estimated GFR > 60 (>60) mL/min BUN/Creatinine Ratio 17.3 (6-22) Glucose 320 H (80-110) mg/dL Calcium 9.5 (8.4-10.2) mg/dL Phosphorus 4.0 H (2.3-3.7) mg/dL Magnesium 2.2 (1.6-2.3) mg/dL Total Bilirubin 0.8 (0.2-1.3) mg/dL AST 23 (17-59) IU/L ALT 24 (<50) IU/L Alkaline Phosphatase 75 (38-126) U/L Total Protein 7.0 (6.3-8.2) g/dL Albumin 4.3 (3.5-5.0) g/dL Globulin 2.7 (1.7-4.1) g/dL Albumin/Globulin Ratio 1.6 (1.0-2.8) Lipase 419 H (23-300) U/L Ketones < 0.20 (<0.27) mmol/L Point of Care Testing Glucose POC 301 Point of care testing: Point of Care Testing Glucose POC 301 MDM Narrative Medical decision making narrative: Patient is hyperglycemic but is not in DKA. His blood sugar improved with fluids. It appears that he was not calibrated his glucose monitor at home and some time if ever. Advised that he look up how to calibrate the monitor. No indication for changing any medications for now. Is afebrile. Will discharge home with instructions to follow up with primary doctor. Discharge Plan Departure Patient Disposition: Home Clinical Impression: Hyperglycemia Instructions: DI for Hyperglycemia -- Adult Activity Restrictions/Additional Instructions: Recommend that you look up how to calibrate your glucose monitor as that may have something to do with your blood sugar being elevated today. Continue all of your medications as directed. Contact your primary doctor for a follow-up. Return to the emergency department for new symptoms. Prescriptions: No Action fluticasone propionate [Flonase Allergy Relief] 50 mcg/actuation spray,suspension 1 spray intranasal Q12H Qty: 16 0RF Rx Instructions: administer into each nostril (DME) contour nidhi 7151H monitor See Rx Instructions .Route .MEDSUPPLY Qty: 1 0RF Rx Instructions: check blood sugar 1-2 times a day (DME) lancets 33 gauge misc See Rx Instructions .Route Qty: 100 3RF Rx Instructions: Use to test BS 1-2x a day (DME) lancets 30 gauge misc See Rx Instructions .Route Qty: 100 2RF Rx Instructions: use to test blood sugars BID atorvastatin 20 mg tablet 20 mg PO BEDTIME Qty: 90 3RF (DME) Blood Glucose Test Strip See Rx Instructions .Route Qty: 50 5RF Rx Instructions: use to test blood sugars twice a day clopidogrel 75 mg tablet 75 mg PO DAILY Qty: 90 3RF (DME) Contour Blood Glucose Test Strips Qty: 100 1RF Rx Instructions: Use to test blood sugars 1-2x daily. glipizide 2.5 mg tablet extended release 24hr 2.5 mg PO BID Qty: 180 3RF Rx Instructions: continue taking twice a day with food metformin 1,000 mg tablet 1,000 mg PO BID Qty: 180 3RF Rx Instructions: start taking 1,000 mg twice a day after completing 500 mg twice a day for 2 weeks metoprolol succinate 25 mg tablet extended release 24 hr 25 mg PO DAILY Qty: 90 3RF nitroglycerin 0.3 mg tablet, sublingual 0.3 mg Sublingual Q5-15M PRN (Reason: chest pain) Qty: 20 11RF Rx Instructions: Max dose 3 tabs. isosorbide mononitrate 30 mg tablet extended release 24 hr 30 mg PO BID Qty: 180 1RF empagliflozin 25 mg tablet 25 mg PO DAILY Qty: 90 3RF Rx Instructions: continue taking one full dose (DME) blood-glucose meter Misc See Rx Instructions .Route Qty: 1 0RF Rx Instructions: Use to test blood sugars twice a day Referrals: Tung Santana, [Primary Care Provider] - Stand Alone Forms: Patient Portal/API
[2023-09-30] MEDS: SODIUM CHLORIDE 0.9% 1,000 ML 1000 ML IV (15:21)
[2023-09-30 15:30] VITALS: PULSE 69; O2SAT 99
[2023-09-30 15:32] LABS: Add Manual Diff / Slide Review NO; Basophils Absolute Auto 100 /uL (0-100); Basophils Percent Auto 1.2 % (0-2); Eosinophils Absolute Auto 300 /uL (0-450); Eosinophils Percent Auto 4.8 % (2-4); Hematocrit 45.3 % (41-53); Hemoglobin 15.6 g/dL (13.5-17.5); Lymphocytes Absolute Auto 1000 /uL (1100-4500); Lymphocytes Percent Auto 16.4 % (25-40); Mean Corpuscular HGB Conc 34.5 % (30-36); Mean Corpuscular Hemoglobin 29.1 PG (26-34); Mean Corpuscular Volume 84.3 fL (80-100); Monocytes Absolute Auto 600 /uL (0-900); Monocytes Percent Auto 9.4 % (3-14); Neutrophils Absolute Auto 4200 /uL (1500-7000); Neutrophils Percent Auto 68.2 % (50-75); Platelet Count 138 X10^3/uL (150-400); Red Blood Cell Count 5.37 X10^6/uL (4.5-5.9); Red Cell Distribution Width 14.1 % (11.6-14.8); White Blood Cell Count 6.1 X10^3/uL (4.5-11.0)
[2023-09-30 15:43] LABS: Alanine Aminotransferase 24 IU/L (<50); Albumin 4.3 g/dL (3.5-5.0); Albumin Globulin Ratio 1.6 (1.0-2.8); Alkaline Phosphatase 75 U/L (38-126); Aspartate Aminotransferase 23 IU/L (17-59); BUN Creatinine Ratio 17.3 (6-22); Bilirubin Total 0.8 mg/dL (0.2-1.3); Blood Urea Nitrogen 19 mg/dL (9-20); Calcium 9.5 mg/dL (8.4-10.2); Carbon Dioxide 24 mmol/L (22-32); Chloride 105 mmol/L (98-107); Estimated Glomerular Filt Rate > 60 mL/min (>60); Globulin 2.7 g/dL (1.7-4.1); Glucose 320 mg/dL (80-110); HEMOLYSIS < 15 (0-50); Lipase 419 U/L (23-300); Magnesium 2.2 mg/dL (1.6-2.3); Potassium 4.8 mmol/L (3.4-5.1); Sodium 137 mmol/L (137-145)
[2023-09-30 15:50] LABS: Ketones (Beta-Hydroxybutyrate) < 0.20 mmol/L (<0.27)
[2023-09-30 15:53] LABS: PCO2 VBG 42.9 mmHg (45-50); PO2 VBG 35 mmHg (35-45); pH VBG 7.38 (7.33-7.43)
[2023-09-30 15:54] LABS: Base Excess VBG -0.2 mmol/L (0-4); Fractionated Inspired Oxygen 21; HCO3 VBG 25 mmol/L (24-28); Oxygen Saturation VBG 65 % (70-75); Total CO2 VBG 25 mmol/L (24-29)
[2023-09-30 15:57] VITALS: BP 131/63; PULSE 68; O2SAT 99
[2023-09-30 16:00] VITALS: BP 126/67; PULSE 67; O2SAT 98
== END 2023-09-30 16:25 | disposition home or self-care (01) ==
PROVIDERS: Emergency Provider Emergency Medicine; PCP Family Medicine
DX: E11.65 Type 2 diabetes mellitus with hyperglycemia (principal); Z79.899 Other long term (current) drug therapy
CPT/HCPCS: 36415; 80053; 82009; 82805; 82962; 83690; 83735; 84100; 85025; 96360; 99284

== ENCOUNTER → 2023-10-23 06:53 | Outpatient (CLI) | payer MEDICARE, OTHER, SELFPAY ==
[2023-10-23 08:20] LABS: Hemoglobin A1C% w Est Avg Glu 8.2 % (4.0-6.0)
[2023-10-23 08:30] LABS: Alanine Aminotransferase 25 IU/L (<50); Albumin 4.5 g/dL (3.5-5.0); Alkaline Phosphatase 89 U/L (38-126); Aspartate Aminotransferase 27 IU/L (17-59); BUN Creatinine Ratio 13.8 (6-22); Bilirubin Total 0.9 mg/dL (0.2-1.3); Blood Urea Nitrogen 16 mg/dL (9-20); Calcium 10.2 mg/dL (8.4-10.2); Carbon Dioxide 25 mmol/L (22-32); Chloride 104 mmol/L (98-107); Cholesterol 187 mg/dL (140-199); Estimated Glomerular Filt Rate > 60 mL/min (>60); Globulin 2.2 g/dL (1.7-4.1); Glucose 181 mg/dL (80-110); HDL Cholesterol 33 mg/dL (40-60); HEMOLYSIS < 15 (0-50); LDL Cholesterol Calculated 89 mg/dL (<100); Potassium 4.1 mmol/L (3.4-5.1); Sodium 139 mmol/L (137-145); Total Protein 6.7 g/dL (6.3-8.2); Triglycerides 324 mg/dL (35-150)
== END ==
PROVIDERS: PCP Family Medicine; Referring Provider Family Medicine; Visit Provider Family Medicine
DX: E11.9 Type 2 diabetes mellitus without complications (principal); I10 Essential (primary) hypertension; E11.69 Type 2 diabetes mellitus with other specified complication; E78.5 Hyperlipidemia, unspecified
CPT/HCPCS: 36415; 80053; 80061; 83036

== ENCOUNTER 2023-11-16 19:37 | Emergency (ER) | payer MEDICARE, OTHER, SELFPAY ==
[2023-11-16] VITALS (8 sets, daily range): BP systolic 142–187; BP diastolic 68–77; PULSE 70–85; RESP 18; TEMP 36.2; O2SAT 96–99; BMI 26.6
--- NOTE | 2023-11-16 19:52 | EKG_ITS ---
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
[2023-11-16] MEDS: SODIUM CHLORIDE 0.9% 1,000 ML 1000 ML IV (20:12)
[2023-11-16 20:19] LABS: Lactate (Lactic Acid) 1.9 mmol/L (0.7-2.1)
[2023-11-16 20:20] LABS: Alanine Aminotransferase 29 IU/L (<50); Albumin 4.2 g/dL (3.5-5.0); Albumin Globulin Ratio 1.6 (1.0-2.8); Alkaline Phosphatase 119 U/L (38-126); Aspartate Aminotransferase 25 IU/L (17-59); BUN Creatinine Ratio 15.9 (6-22); Bilirubin Total 0.7 mg/dL (0.2-1.3); Blood Urea Nitrogen 17 mg/dL (9-20); Calcium 9.5 mg/dL (8.4-10.2); Carbon Dioxide 25 mmol/L (22-32); Chloride 99 mmol/L (98-107); Estimated Glomerular Filt Rate > 60 mL/min (>60); Globulin 2.7 g/dL (1.7-4.1); HEMOLYSIS 41 (0-50); Potassium 4.4 mmol/L (3.4-5.1); Sodium 131 mmol/L (137-145); Total Protein 6.9 g/dL (6.3-8.2)
[2023-11-16 20:26] LABS: Add Manual Diff / Slide Review NO; Basophils Absolute Auto 100 /uL (0-100); Basophils Percent Auto 0.9 % (0-2); Eosinophils Absolute Auto 300 /uL (0-450); Hematocrit 45.9 % (41-53); Hemoglobin 15.8 g/dL (13.5-17.5); Ketones (Beta-Hydroxybutyrate) < 0.20 mmol/L (<0.27); Lymphocytes Absolute Auto 1000 /uL (1100-4500); Lymphocytes Percent Auto 17.4 % (25-40); Mean Corpuscular HGB Conc 34.4 % (30-36); Mean Corpuscular Volume 84.4 fL (80-100); Monocytes Absolute Auto 500 /uL (0-900); Neutrophils Absolute Auto 3800 /uL (1500-7000); Neutrophils Percent Auto 66.7 % (50-75); Platelet Count 132 X10^3/uL (150-400); Red Blood Cell Count 5.44 X10^6/uL (4.5-5.9); Red Cell Distribution Width 14.7 % (11.6-14.8); White Blood Cell Count 5.7 X10^3/uL (4.5-11.0)
[2023-11-16 20:45] LABS: Glucose 505 mg/dL (80-110)
[2023-11-16 22:33] LABS: Hemoglobin A1C% w Est Avg Glu 8.9 % (4.0-6.0)
--- NOTE | 2023-11-16 22:55 | ED_ITS ---
HPI - General Adult General Chief complaint: Diabetic Problem Stated complaint: high blood sugar, over 500 Time Seen by Provider: 11/16/23 21:58 Source: patient Mode of arrival: Ambulatory History of Present Illness HPI narrative: Patient is a 78-year-old male history of coronary artery disease post CABG, hypertension hyperlipidemia, diabetes presenting today with hyperglycemia he reports that he does not write shaky in weird and not thinking to clearly. Was here previously with hyperglycemia since then it was determined is glucose monitor was not quite working he is since gotten new monitors. Our triage glucose readings greater than 500. He denies any abdominal pain nausea vomiting chest pain or any other symptoms. Currently on metformin and glipizide. Related Data Previous Rx's Medication Instructions Recorded contour nidhi 7151H monitor #1 ea 12/01/22 lancets 33 gauge #100 ea 01/10/23 fluticasone propionate 50 1 spray intranasal Q12H #16 grams 02/23/23 mcg/actuation nasal spray,suspension (Flonase Allergy Relief) blood-glucose meter #1 ea 03/24/23 lancets 30 gauge #100 ea 05/19/23 Contour Blood Glucose Test Strips #100 ea 05/24/23 atorvastatin 20 mg tablet 20 mg PO BEDTIME #90 tabs 05/24/23 blood sugar diagnostic (Blood #50 ea 05/24/23 Glucose Test strips) clopidogrel 75 mg tablet 75 mg PO DAILY #90 tabs 05/24/23 glipizide 2.5 mg tablet, extended 2.5 mg PO BID #180 tabs 05/24/23 release 24 hr metformin 1,000 mg tablet 1,000 mg PO BID #180 tabs 05/24/23 metoprolol succinate 25 mg 25 mg PO DAILY #90 tabs 05/24/23 tablet,extended release 24 hr nitroglycerin 0.3 mg sublingual 0.3 mg sublingual Q5-15M PRN chest 05/24/23 tablet pain #20 tabs empagliflozin 25 mg tablet 25 mg PO DAILY #90 tabs 08/28/23 isosorbide mononitrate 30 mg 30 mg PO BID #180 tabs 09/05/23 tablet,extended release 24 hr Allergies Allergy/AdvReac Type Severity Reaction Status Date / Time No Known Drug Allergies Allergy Verified 10/23/23 09:40 Patient History Medical History Situational anxiety Hyperlipidemia Cognitive decline Prostate cancer Dystrophic nail Vitamin D deficiency Tinnitus (~1964) Hearing loss (~1964) Ureterolithiasis Social History Smoking Status: Never smoker eating out: 4 or more times/week Type(s) of exercise: other Smoking Status: Never smoker alcohol intake frequency: holidays/special occasions only Substance Use Type: does not use Exam Initial Vital Signs Initial Vital Signs: Vital Signs Temperature 97.2 F L 11/16/23 19:43 Pulse Rate 85 11/16/23 19:43 Respiratory Rate 18 11/16/23 19:43 Blood Pressure 187/77 H 11/16/23 19:43 Pulse Oximetry 99 11/16/23 19:43 Oxygen Delivery Method Room Air 11/16/23 19:43 GENERAL: Well-appearing, well-nourished and in no acute distress. CARDIOVASCULAR: peripheral pulses in tact, cap refill <2 sec RESPIRATORY: No respiratory distress, speaks in full sentences without difficulty EXTREMITIES: Normal range of motion, no clubbing or edema. Neurovascularly intact NEUROLOGICAL: Cranial nerves II through XII grossly intact. Normal gait and speech. SKIN: Warm, dry, no petechiae, no rashes or lesions. l Course Orders Ordered: ED Orders 11/16/23 19:50 Complete Blood Count AUTO DIFF Stat Comprehensive Metabolic Panel Stat Ketones (Beta-Hydroxybutyrate) Stat Lactate (Lactic Acid) Stat 11/16/23 19:52 EKG-12 Lead Stat Venous Blood Gas STAT 11/16/23 22:23 A1C [Hemoglobin A1C% w Est Avg Glu] Stat Discontinued Medications Sodium Chloride (Normal Saline 0.9%) 1,000 mls @ 1,000 mls/hr IV BOLUS ONE Stop: 11/16/23 20:59 Last Infusion: 11/16/23 21:25 Dose: Infused Documented By: Admin: 11/16/23 20:12 Dose: 1,000 mls/hr Documented By: MARLA Vital Signs Vital signs: Vital Signs - 8 hr 11/16/23 19:43 11/16/23 20:06 11/16/23 20:07 Temperature 97.2 F L Pulse Rate 85 Respiratory Rate 18 Blood Pressure 187/77 H 161/77 H Pulse Oximetry 99 98 Oxygen Delivery Method Room Air 11/16/23 20:07 11/16/23 20:30 11/16/23 20:30 Temperature Pulse Rate 77 74 Respiratory Rate 18 Blood Pressure 165/74 H Pulse Oximetry 98 97 Oxygen Delivery Method 11/16/23 21:00 11/16/23 21:00 11/16/23 21:30 Temperature Pulse Rate 71 Respiratory Rate Blood Pressure 146/70 H 149/68 H Pulse Oximetry 98 Oxygen Delivery Method 11/16/23 21:30 11/16/23 22:00 11/16/23 22:00 Temperature Pulse Rate 70 71 Respiratory Rate Blood Pressure 142/69 H Pulse Oximetry 96 98 Oxygen Delivery Method 11/16/23 22:30 11/16/23 22:30 Temperature Pulse Rate 70 Respiratory Rate 18 Blood Pressure 150/76 H Pulse Oximetry 98 Oxygen Delivery Method Medical Decision Making Lab Data 11/16/23 19:50 11/16/23 19:50 Labs: Lab Results 11/16/23 11/16/23 Range/Units 19:50 22:23 WBC 5.7 (4.5-11.0) X10^3/uL RBC 5.44 (4.5-5.9) X10^6/uL Hgb 15.8 (13.5-17.5) g/dL Hct 45.9 (41-53) % MCV 84.4 (80-100) fL MCH 29.0 (26-34) PG MCHC 34.4 (30-36) % RDW 14.7 (11.6-14.8) % Plt Count 132 L (150-400) X10^3/uL Neut % (Auto) 66.7 (50-75) % Lymph % (Auto) 17.4 L (25-40) % [place] % (Auto) 9.0 (3-14) % Eos % (Auto) 6.0 H (2-4) % Baso % (Auto) 0.9 (0-2) % Neut # (Auto) 3800 (5487-8449) /uL Lymph # (Auto) 1000 L (6760-7391) /uL [place] # (Auto) 500 (0-900) /uL Eos # (Auto) 300 (0-450) /uL Baso # (Auto) 100 (0-100) /uL Sodium 131 L (137-145) mmol/L Potassium 4.4 (3.4-5.1) mmol/L Chloride 99 (98-107) mmol/L Carbon Dioxide 25 (22-32) mmol/L BUN 17 (9-20) mg/dL Creatinine 1.07 (0.66-1.25) mg/dL Estimated GFR > 60 (>60) mL/min BUN/Creatinine Ratio 15.9 (6-22) Glucose 505 H* (80-110) mg/dL Hemoglobin A1c 8.9 H (4.0-6.0) % Lactate 1.9 (0.7-2.1) mmol/L Calcium 9.5 (8.4-10.2) mg/dL Total Bilirubin 0.7 (0.2-1.3) mg/dL AST 25 (17-59) IU/L ALT 29 (<50) IU/L Alkaline Phosphatase 119 (38-126) U/L Total Protein 6.9 (6.3-8.2) g/dL Albumin 4.2 (3.5-5.0) g/dL Globulin 2.7 (1.7-4.1) g/dL Albumin/Globulin Ratio 1.6 (1.0-2.8) Ketones < 0.20 (<0.27) mmol/L Point of Care Testing Glucose POC 397 Urine Dip Bedside Urine Glucose 1000 mg/dl Bedside Urine Bilirubin - Negative Bedside Urine Ketone - Negative Urine Specific [place] 1.015 Bedside Urine Occult Blood - Negative Bedside Urine pH 5.5 Bedside Urine Protein - Negative Bedside Urine Urobilinogen - Negative Bedside Urine Nitrite - Negative Bedside Urine Leukocytes - Negative Esterase Point of care testing: Point of Care Testing Glucose POC 397 Urine Dip Bedside Urine Glucose 1000 mg/dl Bedside Urine Bilirubin - Negative Bedside Urine Ketone - Negative Urine Specific [place] 1.015 Bedside Urine Occult Blood - Negative Bedside Urine pH 5.5 Bedside Urine Protein - Negative Bedside Urine Urobilinogen - Negative Bedside Urine Nitrite - Negative Bedside Urine Leukocytes - Negative Esterase [facility] Narrative Medical decision making narrative: Patient 78 year old male with diabetes presenting today with not feeling quite right he reports that he does have elevated glucose. He previously had elevated glucose but his monitors were calibrated he is since gotten them calibrated. Our glucose does measure 505 by serum glucose. He has no evidence of DKA he has a pH of 7.3, bicarb 25 creatinine 1.0 potassium 4.4, hemoglobin A1c is 8.9 He has no leukocytosis not complaining of infectious symptoms Patient is quite agitated by the time I have seen him. At this time he has no evidence of DKA his glucose has come down to 397. I encouraged him to follow-up with PCP for further medication adjustment possible insulin. He has not having any chest pain or cardiac like symptoms. He at this point would very much like to go which seems reasonable. Discharge Plan Departure Patient Disposition: Home Clinical Impression: Acute hyperglycemia Instructions: DI for Diabetes Type 2 Activity Restrictions/Additional Instructions: *You have been diagnosed with hyperglycemia *What to do: At this time please follow-up with your primary care provider you will likely need further medication for your diabetic control *Continue to take medications as directed *Follow up with your primary care provider in 2-3 days or call [phone] *Return to ER if you should have abdominal pain nausea vomiting or any new, worsening or concerning symptoms Prescriptions: No Action fluticasone propionate [Flonase Allergy Relief] 50 mcg/actuation spray,suspension 1 spray intranasal Q12H Qty: 16 0RF Rx Instructions: administer into each nostril (DME) contour nidhi 7151H monitor See Rx Instructions .Route .MEDSUPPLY Qty: 1 0RF Rx Instructions: check blood sugar 1-2 times a day (DME) lancets 33 gauge misc See Rx Instructions .Route Qty: 100 3RF Rx Instructions: Use to test BS 1-2x a day (DME) lancets 30 gauge misc See Rx Instructions .Route Qty: 100 2RF Rx Instructions: use to test blood sugars BID atorvastatin 20 mg tablet 20 mg PO BEDTIME Qty: 90 3RF (DME) Blood Glucose Test Strip See Rx Instructions .Route Qty: 50 5RF Rx Instructions: use to test blood sugars twice a day clopidogrel 75 mg tablet 75 mg PO DAILY Qty: 90 3RF (DME) Contour Blood Glucose Test Strips Qty: 100 1RF Rx Instructions: Use to test blood sugars 1-2x daily. glipizide 2.5 mg tablet extended release 24hr 2.5 mg PO BID Qty: 180 3RF Rx Instructions: continue taking twice a day with food metformin 1,000 mg tablet 1,000 mg PO BID Qty: 180 3RF Rx Instructions: start taking 1,000 mg twice a day after completing 500 mg twice a day for 2 weeks metoprolol succinate 25 mg tablet extended release 24 hr 25 mg PO DAILY Qty: 90 3RF nitroglycerin 0.3 mg tablet, sublingual 0.3 mg Sublingual Q5-15M PRN (Reason: chest pain) Qty: 20 11RF Rx Instructions: Max dose 3 tabs. isosorbide mononitrate 30 mg tablet extended release 24 hr 30 mg PO BID Qty: 180 1RF empagliflozin 25 mg tablet 25 mg PO DAILY Qty: 90 3RF Rx Instructions: continue taking one full dose (DME) blood-glucose meter Misc See Rx Instructions .Route Qty: 1 0RF Rx Instructions: Use to test blood sugars twice a day Referrals: Tung Santana, [Primary Care Provider] - Stand Alone Forms: Patient Portal/API
--- NOTE | 2023-11-17 05:52 | PC.NURSE ---
Pt returned this morning requesting discharge paperwork from last night's visit. Discussed paperwork with pt. Answered all questions. Pt thankful for papers and ambulated out of waiting room
== END 2023-11-16 22:51 | disposition home or self-care (01) ==
PROVIDERS: Emergency Provider Emergency Medicine; PCP Family Medicine
DX: E11.65 Type 2 diabetes mellitus with hyperglycemia (principal); R07.9 Chest pain, unspecified; I25.10 Atherosclerotic heart disease of native coronary artery without angina pectoris; I10 Essential (primary) hypertension; Z79.899 Other long term (current) drug therapy
CPT/HCPCS: 36415; 80053; 81003; 82009; 82962; 83036; 83605; 85025; 93005; 93010; 96360; 99284

== ENCOUNTER 2023-12-08 08:32 | Emergency (ER) | payer MEDICARE, OTHER, SELFPAY ==
[2023-12-08] VITALS (10 sets, daily range): BP systolic 116–140; BP diastolic 57–67; PULSE 71–79; RESP 13–24; TEMP 36.7–37.1; O2SAT 92–100; BMI 27.8
--- NOTE | 2023-12-08 08:41 | DI.RAD.S_ITS ---
PROCEDURE: XR CHEST 1V INDICATIONS: chest pain TECHNIQUE: One view of the chest was acquired. COMPARISON: [facility], CR, XR CHEST 1V, 08/24/2023, 8:44. FINDINGS: Surgical changes and devices: None. Lungs and pleura: Lungs are clear. No pleural effusions or pneumothorax. Mediastinum: Mediastinal contours appear normal. Heart size is normal. Bones and chest wall: No suspicious bony lesions. Overlying soft tissues appear unremarkable. IMPRESSION: No acute cardiopulmonary pathology. Dictated by: Aris Garcia M.D. on 12/08/2023 at 9:38 Approved by: Aris Garcia M.D. on 12/08/2023 at 9:39
--- NOTE | 2023-12-08 08:41 | EKG_ITS ---
[address] [address] Test Date: 2023-12-08 Pat Name: Dennys Mckeon Department: Room: Gender: Male Certified Medical Asst: KORINA : 1945 Requested By: Order Number: [id number] Reading MD: Joe Greene MD Measurements Intervals [place] Rate: 77 P: 19 NM: 160 QRS: -25 QRSD: 146 T: 35 QT: 416 QTc: 470 Interpretive Statements Normal sinus rhythm Right bundle branch block Possible Inferior infarct , age undetermined Anteroseptal infarct , age undetermined NO SIGNIFICANT CHANGE FROM PRIOR TRACING Electronically Signed On 12-08-2023 9:45:23 PDT by Joe Greene MD
[2023-12-08 09:03] LABS: Add Manual Diff / Slide Review NO; Basophils Absolute Auto 100 /uL (0-100); Basophils Percent Auto 0.9 % (0-2); Eosinophils Absolute Auto 300 /uL (0-450); Eosinophils Percent Auto 4.1 % (2-4); Hematocrit 44.8 % (41-53); Hemoglobin 15.3 g/dL (13.5-17.5); Lymphocytes Absolute Auto 1100 /uL (1100-4500); Lymphocytes Percent Auto 14.5 % (25-40); Mean Corpuscular HGB Conc 34.1 % (30-36); Mean Corpuscular Hemoglobin 28.7 PG (26-34); Monocytes Absolute Auto 700 /uL (0-900); Monocytes Percent Auto 9.7 % (3-14); Neutrophils Absolute Auto 5300 /uL (1500-7000); Neutrophils Percent Auto 70.8 % (50-75); Platelet Count 150 X10^3/uL (150-400); Red Blood Cell Count 5.33 X10^6/uL (4.5-5.9); Red Cell Distribution Width 14.1 % (11.6-14.8); White Blood Cell Count 7.5 X10^3/uL (4.5-11.0)
[2023-12-08 09:08] LABS: INR 1.1 (0.9-1.3); Prothrombin Time 12.3 SECONDS (9.4-12.5)
[2023-12-08 09:11] LABS: PTT Partial Thromboplastin Tim 36 SECONDS (25.1-36.5)
[2023-12-08 09:12] LABS: Alanine Aminotransferase 21 IU/L (<50); Albumin 4.4 g/dL (3.5-5.0); Albumin Globulin Ratio 1.8 (1.0-2.8); Alkaline Phosphatase 83 U/L (38-126); Aspartate Aminotransferase 23 IU/L (17-59); BUN Creatinine Ratio 16.4 (6-22); Blood Urea Nitrogen 18 mg/dL (9-20); Carbon Dioxide 26 mmol/L (22-32); Chloride 104 mmol/L (98-107); Creatine Kinase 36 U/L (55-170); Estimated Glomerular Filt Rate > 60 mL/min (>60); Globulin 2.4 g/dL (1.7-4.1); Glucose 189 mg/dL (80-110); HEMOLYSIS < 15 (0-50); Lipase 1576 U/L (23-300); Magnesium 1.8 mg/dL (1.6-2.3); Potassium 4.1 mmol/L (3.4-5.1); Sodium 138 mmol/L (137-145); Total Protein 6.8 g/dL (6.3-8.2)
--- NOTE | 2023-12-08 09:15 | ED.CHESTPAIN ---
HPI - Chest Pain General Chief Complaint: Chest Pain Stated Complaint: weird feeling in chest/arms like numbness Time Seen by Provider: 12/08/23 09:01 Source: patient Mode of arrival: Ambulatory Limitations: no limitations History of Present Illness HPI narrative: Patient 78-year-old male history of coronary artery disease with 4 stents, diabetes presenting today with bilateral arm tingling. He says that for the last 3 days he gets some tingling and numbness shoulders elbows across his chest. It lasts for couple hours and goes away. He has some memory issues which are not new. He has no weakness he has not been dropping things. He denies chest pain. He says this is nothing like his prior heart attacks. He has no shortness of breath. He does have some neck cracking but no significant neck pain. He has not had any chiropractic manipulations. He has no facial pain difficulty speaking or other symptoms. Related Data Previous Rx's Medication Instructions Recorded contour nidhi 7151H monitor #1 ea 12/01/22 fluticasone propionate 50 1 spray intranasal Q12H #16 grams 02/23/23 mcg/actuation nasal spray,suspension (Flonase Allergy Relief) blood-glucose meter #1 ea 03/24/23 lancets 30 gauge #100 ea 05/19/23 Contour Blood Glucose Test Strips #100 ea 05/24/23 atorvastatin 20 mg tablet 20 mg PO BEDTIME #90 tabs 05/24/23 clopidogrel 75 mg tablet 75 mg PO DAILY #90 tabs 05/24/23 metformin 1,000 mg tablet 1,000 mg PO BID #180 tabs 05/24/23 metoprolol succinate 25 mg 25 mg PO DAILY #90 tabs 05/24/23 tablet,extended release 24 hr nitroglycerin 0.3 mg sublingual 0.3 mg sublingual Q5-15M PRN chest 05/24/23 tablet pain #20 tabs empagliflozin 25 mg tablet 25 mg PO DAILY #90 tabs 08/28/23 isosorbide mononitrate 30 mg 30 mg PO BID #180 tabs 09/05/23 tablet,extended release 24 hr glipizide 2.5 mg tablet, extended 2.5 mg PO TID #90 tabs 11/21/23 release 24 hr blood sugar diagnostic (Blood #100 ea 12/05/23 Glucose Test strips) Allergies Allergy/AdvReac Type Severity Reaction Status Date / Time No Known Drug Allergies Allergy Verified 10/23/23 09:40 Patient History Medical History Situational anxiety Hyperlipidemia Cognitive decline Prostate cancer Dystrophic nail Vitamin D deficiency Tinnitus (~1964) Hearing loss (~1964) Ureterolithiasis Social History Smoking Status: Never smoker eating out: 4 or more times/week Type(s) of exercise: other Smoking Status: Never smoker alcohol intake frequency: holidays/special occasions only Substance Use Type: does not use Exam Initial Vital Signs Initial Vital Signs: Vital Signs Pulse Rate 79 12/08/23 08:39 Respiratory Rate 24 12/08/23 08:39 Pulse Oximetry 92 12/08/23 08:39 GENERAL: Alert well-appearing mildly confused 70-year-old and in no acute distress. HEENT: Head atraumatic,EOMI, pupils reactive, face symmetric, moist mucous membranes CARDIOVASCULAR: Regular rate and rhythm without murmurs, rubs or gallops. RESPIRATORY: Breath sounds equal bilaterally, no wheezes rales or rhonchi. ABDOMEN: Soft, nontender. Normoactive bowel sounds all 4 quadrants. No guarding or rebound. EXTREMITIES: Normal range of motion, no clubbing or edema. Neurovascularly intact NEUROLOGICAL: Alert and oriented x4.Normal gait and speech. Cranial nerves II through XII grossly intact. Good jtjnjp-wv-jleg, good bztk-of-wjjc, strength equal bilaterally, no dysarthria or aphasia, sensation in tact to soft touch bilaterally, no visual changes, no facial droop SKIN: Warm, dry, no laceration, no petechiae, no rashes or lesions. Scores NIH Stroke Scale Level of Conciousness: Alert, keenly responsive Ask month/age: Answers both questions correctly. Open/close eyes, close hand: Performs both tasks correctly Best gaze horizontal: Normal Visual morales: No visual loss Facial palsy: Normal symetrical movement Left arm drift: No drift for full 10 sec Right arm drift: No drift for full 10 sec Left leg drift: No drift for full 5 sec Right leg drift: No drift for full 5 sec Limb ataxia: Absent Sensory on face/arms/legs: Normal, no sensory loss Best language: No aphasia, normal Dysarthria: Normal Extinction or inattention: No abnormality Total NIH Stroke scale score: 0 Course Orders Ordered: ED Orders 12/08/23 08:55 Complete Blood Count AUTO DIFF Stat Comprehensive Metabolic Panel Stat Lipase Stat Magnesium Stat NT-proBNP (BNP-Adult 18+) Stat PTT Partial Thromboplastin Fam Stat Prothrombin Time INR Stat Troponin & CK Cardiac Panel Stat 12/08/23 09:42 CT abdomen pelvis w con Stat 12/08/23 10:55 Trop I [Troponin I] Stat Discontinued Medications Sodium Chloride (Normal Saline 0.9%) 1,000 mls @ 1,000 mls/hr IV BOLUS ONE Stop: 12/08/23 10:41 Last Infusion: 12/08/23 10:48 Dose: Infused Documented By: Admin: 12/08/23 09:47 Dose: 1,000 mls/hr Documented By: ISAMAR Vital Signs Vital signs: Vital Signs - 8 hr 12/08/23 10:00 12/08/23 10:30 12/08/23 10:45 Temperature Pulse Rate 71 74 Respiratory Rate 16 17 Blood Pressure 131/64 Pulse Oximetry 100 99 Oxygen Delivery Method 12/08/23 10:45 12/08/23 11:00 12/08/23 11:00 Temperature Pulse Rate 76 76 Respiratory Rate 13 15 Blood Pressure 116/57 L Pulse Oximetry 99 97 Oxygen Delivery Method 12/08/23 11:30 12/08/23 11:30 12/08/23 12:03 Temperature 98.7 F Pulse Rate 74 Respiratory Rate 17 Blood Pressure 118/58 L Pulse Oximetry 97 Oxygen Delivery Method Room Air MDM - Chest Pain Lab Data 12/08/23 08:55 12/08/23 08:55 Labs: Lab Results 12/08/23 12/08/23 Range/Units 08:55 10:55 WBC 7.5 (4.5-11.0) X10^3/uL RBC 5.33 (4.5-5.9) X10^6/uL Hgb 15.3 (13.5-17.5) g/dL Hct 44.8 (41-53) % MCV 84.0 (80-100) fL MCH 28.7 (26-34) PG MCHC 34.1 (30-36) % RDW 14.1 (11.6-14.8) % Plt Count 150 (150-400) X10^3/uL Neut % (Auto) 70.8 (50-75) % Lymph % (Auto) 14.5 L (25-40) % [place] % (Auto) 9.7 (3-14) % Eos % (Auto) 4.1 H (2-4) % Baso % (Auto) 0.9 (0-2) % Neut # (Auto) 5300 (5899-4625) /uL Lymph # (Auto) 1100 (0891-7025) /uL [place] # (Auto) 700 (0-900) /uL Eos # (Auto) 300 (0-450) /uL Baso # (Auto) 100 (0-100) /uL PT 12.3 (9.4-12.5) SECONDS INR 1.1 (0.9-1.3) APTT 36 (25.1-36.5) SECONDS Sodium 138 (137-145) mmol/L Potassium 4.1 (3.4-5.1) mmol/L Chloride 104 (98-107) mmol/L Carbon Dioxide 26 (22-32) mmol/L BUN 18 (9-20) mg/dL Creatinine 1.10 (0.66-1.25) mg/dL Estimated GFR > 60 (>60) mL/min BUN/Creatinine Ratio 16.4 (6-22) Glucose 189 H (80-110) mg/dL Calcium 10.0 (8.4-10.2) mg/dL Magnesium 1.8 (1.6-2.3) mg/dL Total Bilirubin 1.0 (0.2-1.3) mg/dL AST 23 (17-59) IU/L ALT 21 (<50) IU/L Alkaline Phosphatase 83 (38-126) U/L Total Creatine Kinase 36 L (55-170) U/L Troponin I < 0.012 < 0.012 (0.01-0.034) ng/mL NT-Pro-B Natriuret Pep 82 (<450) pg/mL Total Protein 6.8 (6.3-8.2) g/dL Albumin 4.4 (3.5-5.0) g/dL Globulin 2.4 (1.7-4.1) g/dL Albumin/Globulin Ratio 1.8 (1.0-2.8) Lipase 1576 H (23-300) U/L Imaging Data Chest x-ray: Radiologist's Impression: PROCEDURE: XR CHEST 1V INDICATIONS: chest pain TECHNIQUE: One view of the chest was acquired. COMPARISON: [facility], , XR CHEST 1V, 08/24/2023, 8:44. FINDINGS: Surgical changes and devices: None. Lungs and pleura: Lungs are clear. No pleural effusions or pneumothorax. Mediastinum: Mediastinal contours appear normal. Heart size is normal. Bones and chest wall: No suspicious bony lesions. Overlying soft tissues appear unremarkable. IMPRESSION: No acute cardiopulmonary pathology. Dictated by: Aris Garcia M.D. on 12/08/2023 at 9:38 CT scan - abdomen/pelvis: Radiologist's Impression: PROCEDURE: CT ABDOMEN PELVIS W CON INDICATIONS: pancreatitis TECHNIQUE: After the administration of intravenous contrast, axial sections acquired from the lung bases to the pubic symphysis. Coronal and sagittal reformats were performed. For radiation dose reduction, the following was used: automated exposure control, adjustment of mA and/or kV according to patient size. COMPARISON: None. FINDINGS: Image quality: Diagnostic. Lower Chest: Dense coronary artery atherosclerotic calcifications are seen. Heart size is enlarged, no pericardial effusion. Bibasilar scarring/atelectasis are seen posteriorly. ABDOMEN: Liver: No solid mass. Hepatic steatosis is seen. Gallbladder: Gallbladder is distended. No radiopaque gallstones or wall thickening. Biliary ducts: No biliary dilation. Pancreas: No ductal dilation. No discrete pancreatic lesion or peripancreatic inflammatory changes. No peripancreatic fluid collection. Spleen: Size is within normal limits. Calcified granuloma are seen scattered in the spleen. Adrenal Glands: No adrenal nodules. Kidneys and Ureters: No hydronephrosis. No solid mass. No complex renal cystic lesion which requires follow up. Stomach and Bowel: Normal colonic caliber, without significant wall thickening. Normal appendix. Mild colonic diverticulosis is seen without CT evidence of acute diverticulitis. Peritoneum: No abnormal intraperitoneal fluid. No free air. Ventral Wall: No significant ventral hernia. Abdominal Nodes: No retroperitoneal or mesenteric adenopathy by size criteria. Vessels: Aorta and inferior vena cava are normal in size. Mild atherosclerotic calcifications are seen in abdominal aorta. PELVIS: Pelvic Organs: Unremarkable. Bladder: No bladder wall thickening, accounting for underdistention. Pelvic Nodes: No enlarged lymph nodes. Miscellaneous: No inguinal hernias are seen. Bones: No aggressive osseous abnormality. IMPRESSION: 1. No gross peripancreatic inflammatory changes or fluid collection. No discrete pancreatic lesion. 2. Hepatic steatosis, no discrete hepatic lesion. A few scattered calcified granuloma are seen scattered in liver and spleen. 3. Normal appendix. No bowel obstruction or abnormal bowel wall thickening. Mild colonic diverticulosis without CT evidence of acute diverticulitis. No free fluid or free air. Dictated by: Aris Garcia M.D. on 12/08/2023 at 10:31 ECG Data Attestation: I personally reviewed and interpreted this ECG as follows: Prior ECG tracings: available for review Interpretation: Normal sinus rhythm rate 77 NJ interval 160 QRS 146 QTC 470 right bundle-branch block noted similar to prior EKG no acute ST changes MDM Narrative Medical decision making narrative: [facility] CC: Numbness tingling in arms Complicating co-morbidities: Significant coronary artery disease hypertension diabetes Medical records reviewed: Patient was transferred to [facility] in June where he had heart catheterization on on 07/07/2023 advanced multivessel coronary artery disease severe mid to distal LAD lesion small and diffusely diseased. Medical management was recommended. EF 40-45% 07/07/2023 Primary care visit on 08/28/2023 shows cognitive decline he is also noncompliant medications which results in angina Differential considered: Acute coronary syndrome CVA neuropathy Exam documented above, pertinent findings include: NIH stroke scale 0 abdomen soft nontender, no focal deficits systems lead strength equal Lab Test results independently reviewed as above. Pertinent findings: Lipase 1500 Independently reviewed EKG as above persistent right bundle-branch block no ischemia Imaging studies independently reviewed: Chest x-ray no acute cardiopulmonary process CT does not any evidence necrotizing pancreatitis or even evidence of pancreatitis there is no inflammatory changes Treatments: IV fluid Re-evaluations: Abdomen remains soft systems lead strength is equal Discussion: 70-year-old male history of cognitive impairment significant coronary artery disease presenting today with bilateral arm numbness and tingling. He reports that symptoms last for couple hours every morning. He has no weakness he has no chest pain. Cardiac workup was done he is 2- troponins EKGs remained stable. Records have been reviewed medical management only 1st coronary artery disease. He subsequently found to have mildly elevated lipase at 3:00 p.m.. He is abdomen soft nontender. He does not have symptoms of pancreatitis and CT does not show evidence of pancreatitis. He is tolerating fluids. I do not think this elevated lipase is related to his numbness tingling of his arms. The tingling is not consistent with a CVA the or an AL. he has not having any neck pain but possible neuropathy or nerve impingement. Patient continues to be asymptomatic here in the emergency department. At this time I see no need for any further imaging Discharge Plan Departure Patient Disposition: Home Clinical Impression: Neuropathy, Acute pancreatitis, Hyperlipidemia associated with type 2 diabetes mellitus Instructions: DI for Pancreatitis Activity Restrictions/Additional Instructions: *You have been diagnosed with neuropathy and pancreatitis *What to do: At this time unclear what is causing your arm sensation every morning. Please make sure that you are taking your medications as directed. You also have mild case of pancreatitis. Increase fluids may eat as tolerated *Continue to take medications as directed *Follow up with your primary care provider in 2-3 days or call [phone] *Return to ER if you should have increasing abdominal pain nausea vomiting chest pain shortness of breath or any new, worsening or concerning symptoms Prescriptions: No Action fluticasone propionate [Flonase Allergy Relief] 50 mcg/actuation spray,suspension 1 spray intranasal Q12H Qty: 16 0RF Rx Instructions: administer into each nostril (DME) contour [place] [place] [address]/LBR 7151H monitor See Rx Instructions .Route .MEDSUPPLY Qty: 1 0RF Rx Instructions: check blood sugar 1-2 times a day (DME) lancets 30 gauge misc See Rx Instructions .Route Qty: 100 2RF Rx Instructions: use to test blood sugars BID atorvastatin 20 mg tablet 20 mg PO BEDTIME Qty: 90 3RF clopidogrel 75 mg tablet 75 mg PO DAILY Qty: 90 3RF (DME) Contour Blood Glucose Test Strips Qty: 100 1RF Rx Instructions: Use to test blood sugars 1-2x daily. metformin 1,000 mg tablet 1,000 mg PO BID Qty: 180 3RF Rx Instructions: start taking 1,000 mg twice a day after completing 500 mg twice a day for 2 weeks metoprolol succinate 25 mg tablet extended release 24 hr 25 mg PO DAILY Qty: 90 3RF nitroglycerin 0.3 mg tablet, sublingual 0.3 mg Sublingual Q5-15M PRN (Reason: chest pain) Qty: 20 11RF Rx Instructions: Max dose 3 tabs. isosorbide mononitrate 30 mg tablet extended release 24 hr 30 mg PO BID Qty: 180 1RF (DME) Blood Glucose Test Strip See Rx Instructions .Route Qty: 100 5RF Rx Instructions: use to test blood sugars twice a day empagliflozin 25 mg tablet 25 mg PO DAILY Qty: 90 3RF Rx Instructions: continue taking one full dose (DME) blood-glucose meter Misc See Rx Instructions .Route Qty: 1 0RF Rx Instructions: Use to test blood sugars twice a day glipizide 2.5 mg tablet extended release 24hr 2.5 mg PO TID Qty: 90 3RF Rx Instructions: Take one tablet with breakfast, lunch, and dinner Referrals: Tung Santana, [Primary Care Provider] - Stand Alone Forms: Patient Portal/API
[2023-12-08 09:24] LABS: NT-proBNP (BNP-Adult 18+) 82 pg/mL (<450); Troponin I < 0.012 ng/mL (0.01-0.034)
--- NOTE | 2023-12-08 09:42 | DI.CT.S_ITS ---
PROCEDURE: CT ABDOMEN PELVIS W CON INDICATIONS: pancreatitis TECHNIQUE: After the administration of intravenous contrast, axial sections acquired from the lung bases to the pubic symphysis. Coronal and sagittal reformats were performed. For radiation dose reduction, the following was used: automated exposure control, adjustment of mA and/or kV according to patient size. COMPARISON: None. FINDINGS: Image quality: Diagnostic. Lower Chest: Dense coronary artery atherosclerotic calcifications are seen. Heart size is enlarged, no pericardial effusion. Bibasilar scarring/atelectasis are seen posteriorly. ABDOMEN: Liver: No solid mass. Hepatic steatosis is seen. Gallbladder: Gallbladder is distended. No radiopaque gallstones or wall thickening. Biliary ducts: No biliary dilation. Pancreas: No ductal dilation. No discrete pancreatic lesion or peripancreatic inflammatory changes. No peripancreatic fluid collection. Spleen: Size is within normal limits. Calcified granuloma are seen scattered in the spleen. Adrenal Glands: No adrenal nodules. Kidneys and Ureters: No hydronephrosis. No solid mass. No complex renal cystic lesion which requires follow up. Stomach and Bowel: Normal colonic caliber, without significant wall thickening. Normal appendix. Mild colonic diverticulosis is seen without CT evidence of acute diverticulitis. Peritoneum: No abnormal intraperitoneal fluid. No free air. Ventral Wall: No significant ventral hernia. Abdominal Nodes: No retroperitoneal or mesenteric adenopathy by size criteria. Vessels: Aorta and inferior vena cava are normal in size. Mild atherosclerotic calcifications are seen in abdominal aorta. PELVIS: Pelvic Organs: Unremarkable. Bladder: No bladder wall thickening, accounting for underdistention. Pelvic Nodes: No enlarged lymph nodes. Miscellaneous: No inguinal hernias are seen. Bones: No aggressive osseous abnormality. IMPRESSION: 1. No gross peripancreatic inflammatory changes or fluid collection. No discrete pancreatic lesion. 2. Hepatic steatosis, no discrete hepatic lesion. A few scattered calcified granuloma are seen scattered in liver and spleen. 3. Normal appendix. No bowel obstruction or abnormal bowel wall thickening. Mild colonic diverticulosis without CT evidence of acute diverticulitis. No free fluid or free air. Dictated by: Aris Garcia M.D. on 12/08/2023 at 10:31 Approved by: Aris Garcia M.D. on 12/08/2023 at 10:42
[2023-12-08] MEDS: SODIUM CHLORIDE 0.9% 1,000 ML 1000 ML IV (09:47)
[2023-12-08 11:22] LABS: Troponin I < 0.012 ng/mL (0.01-0.034)
== END 2023-12-08 12:00 | disposition home or self-care (01) ==
PROVIDERS: Emergency Provider Emergency Medicine; PCP Family Medicine
DX: E78.5 Hyperlipidemia, unspecified (principal); E11.40 Type 2 diabetes mellitus with diabetic neuropathy, unspecified; K85.90 Acute pancreatitis without necrosis or infection, unspecified; I45.10 Unspecified right bundle-branch block; I25.10 Atherosclerotic heart disease of native coronary artery without angina pectoris; R07.9 Chest pain, unspecified; Z95.5 Presence of coronary angioplasty implant and graft
CPT/HCPCS: 36415; 71045; 74177; 80053; 82550; 83690; 83735; 83880; 84484; 85025; 85610; 85730; 93005; 93010; 96360; 99284; Q9967

== ENCOUNTER → 2024-03-11 07:48 | Outpatient (CLI) | payer MEDICARE, OTHER, SELFPAY ==
[2024-03-11 09:11] LABS: Hemoglobin A1C% w Est Avg Glu 8.7 % (4.0-6.0)
[2024-03-11 09:23] LABS: Alanine Aminotransferase 29 IU/L (<50); Albumin 4.5 g/dL (3.5-5.0); Alkaline Phosphatase 69 U/L (38-126); Aspartate Aminotransferase 29 IU/L (17-59); BUN Creatinine Ratio 14.2 (6-22); Bilirubin Total 0.8 mg/dL (0.2-1.3); Blood Urea Nitrogen 17 mg/dL (9-20); Calcium 9.9 mg/dL (8.4-10.2); Carbon Dioxide 27 mmol/L (22-32); Chloride 106 mmol/L (98-107); Estimated Glomerular Filt Rate > 60 mL/min (>60); Globulin 2.2 g/dL (1.7-4.1); Glucose 180 mg/dL (80-110); HEMOLYSIS < 15 (0-50); Lipase 740 U/L (23-300); Potassium 4.2 mmol/L (3.4-5.1); Sodium 140 mmol/L (137-145); Total Protein 6.7 g/dL (6.3-8.2)
== END ==
PROVIDERS: PCP Family Medicine; Referring Provider Family Medicine; Visit Provider Family Medicine
DX: E11.65 Type 2 diabetes mellitus with hyperglycemia (principal); I25.10 Atherosclerotic heart disease of native coronary artery without angina pectoris; I24.9 Acute ischemic heart disease, unspecified; E11.69 Type 2 diabetes mellitus with other specified complication; E78.5 Hyperlipidemia, unspecified; L30.9 Dermatitis, unspecified; Z98.61 Coronary angioplasty status
CPT/HCPCS: 36415; 80053; 83036; 83690

== ENCOUNTER → 2024-06-24 12:32 | Outpatient (CLI) | payer MEDICARE, OTHER, SELFPAY ==
[2024-06-24 13:24] LABS: Alanine Aminotransferase 28 IU/L (<50); Albumin 4.8 g/dL (3.5-5.0); Albumin Globulin Ratio 2.2 (1.0-2.8); Alkaline Phosphatase 69 U/L (38-126); Aspartate Aminotransferase 29 IU/L (17-59); Bilirubin Total 1.1 mg/dL (0.2-1.3); Blood Urea Nitrogen 23 mg/dL (9-20); Calcium 10.2 mg/dL (8.4-10.2); Carbon Dioxide 24 mmol/L (22-32); Chloride 103 mmol/L (98-107); Estimated Glomerular Filt Rate > 60 mL/min (>60); Globulin 2.2 g/dL (1.7-4.1); Glucose 118 mg/dL (80-110); HEMOLYSIS < 15 (0-50); Lipase 757 U/L (23-300); Potassium 4.7 mmol/L (3.4-5.1); Sodium 140 mmol/L (137-145)
[2024-06-24 13:27] LABS: Hemoglobin A1C% w Est Avg Glu 7.7 % (4.0-6.0)
[2024-06-25 22:38] LABS: Calcium 10.1 mg/dL (8.6-10.2); Parathyroid Hormone, Intact 42 pg/mL (15-65)
== END ==
PROVIDERS: PCP Family Medicine; Referring Provider Family Medicine; Visit Provider Family Medicine
DX: E11.65 Type 2 diabetes mellitus with hyperglycemia (principal); E78.00 Pure hypercholesterolemia, unspecified; I10 Essential (primary) hypertension; E83.52 Hypercalcemia
CPT/HCPCS: 36415; 80053; 82310; 83036; 83690; 83970

== ENCOUNTER → 2024-07-12 10:32 | Outpatient (CLI) | payer MEDICARE, OTHER, SELFPAY ==
--- NOTE | 2024-07-12 10:33 | DI.RAD.S_ITS ---
PROCEDURE: XR FOOT LT MIN 3V INDICATIONS: Left foot pain TECHNIQUE: 3 views of the foot were acquired. COMPARISON: None. FINDINGS: Bones: No fractures or dislocations. Small cortical fragment adjacent to the inferior medial malleolus likely represents sequelae of remote trauma. Plantar calcaneal enthesopathy. Soft tissues: No tibiotalar joint effusion. Achilles tendon appears normal. IMPRESSION: No acute bony abnormality. Dictated by: Nilton Marcus M.D. on 07/14/2024 at 0:19 Approved by: Nilton Marcus M.D. on 07/14/2024 at 0:21
[2024-07-12 11:24] LABS: Appearance Urine UA CLEAR; Bilirubin Urine UA NEGATIVE (NEGATIVE); Color Urine UA YELLOW; Glucose Urine UA 3+ g/dL (Negative); Ketones Urine UA NEGATIVE (NEGATIVE); Leukocyte Esterase Urine UA NEGATIVE (NEGATIVE); Nitrite Urine UA NEGATIVE (Negative); Occult Blood Urine UA NEGATIVE (Negative); Protein Urine UA NEGATIVE (Negative); Urobilinogen Urine UA 0.2 E.U./dL (0.2); pH Urine UA 5.5 (4.5-8.0)
[2024-07-12 11:33] LABS: Bacteria Urine Occasional (0-1); Culture Indicated Urine Cult Not Indicated; RBC Urine 0-1/HPF (0-5/HPF); Squamous Epithelial Cell Urine 0-1 /HPF (0-5/HPF); Urine Volume 10mL (spun); WBC Urine 0-1/HPF (0-5/HPF)
== END ==
PROVIDERS: PCP Family Medicine; Referring Provider Family Medicine; Visit Provider Family Medicine
DX: M77.32 Calcaneal spur, left foot (principal); M79.672 Pain in left foot; R30.0 Dysuria
CPT/HCPCS: 73630; 81001

== ENCOUNTER 2024-09-07 09:19 | Emergency (ER) | payer SELFPAY ==
[2024-09-07 09:25] VITALS: BP 138/65; PULSE 74; RESP 16; TEMP 36.8; O2SAT 99; BMI 25.0
--- NOTE | 2024-09-07 09:25 | DI.RAD.S_ITS ---
PROCEDURE: XR CHEST 1V INDICATIONS: Chest Pain TECHNIQUE: One view of the chest was acquired. COMPARISON: [facility], CR, XR CHEST 1V, 12/08/2023, 8:54. [facility], CR, XR CHEST 1V, 08/24/2023, 8:44. FINDINGS AND IMPRESSION: No dense consolidation or pleural effusion on this single view study. Low lung volumes. Probable granuloma again seen in the right mid lung. Heart size is at the upper limit of normal. Unchanged mediastinal contours. Degenerative osseous findings. Dictated by: Venancio Duval M.D. on 09/07/2024 at 8:50 Approved by: Venancio Duval M.D. on 09/07/2024 at 8:50
[2024-09-07 09:26] VITALS: PULSE 75; O2SAT 99
[2024-09-07 09:30] VITALS: PULSE 73; RESP 22; O2SAT 99
--- NOTE | 2024-09-07 09:42 | DI.CT.S_ITS ---
PROCEDURE: CT HEAD/BRAIN WO CON INDICATIONS: acute dizziness, altered mental status TECHNIQUE: Noncontrast 4.5 mm thick angled axial sections acquired from the foramen magnum to the vertex, with coronal and sagittal reformats. For radiation dose reduction, the following was used: automated exposure control, adjustment of mA and/or kV according to patient size. COMPARISON: None. FINDINGS: Image quality: Diagnostic CSF spaces: Basal cisterns are patent. Lateral ventricles are symmetric. Volume: Vascular calcifications. Periventricular white matter disease is commonly seen with chronic microangiopathy. Volume loss is present. These findings are [id number] Brain: No intracranial hemorrhage. Camacho-white differentiation is grossly maintained. Craniofacial structures: No significant paranasal sinus opacity. IMPRESSION: No acute intracranial pathology. If there is high concern for parenchymal pathology, consider further evaluation with MRI. Dictated by: Venancio Duval M.D. on 09/07/2024 at 9:26 Approved by: Venancio Duval M.D. on 09/07/2024 at 9:28
== END 2024-09-07 12:44 | disposition home or self-care (01) ==
LOC: ED 12:44
DX: R42 Dizziness and giddiness (principal); R10.12 Left upper quadrant pain; R07.9 Chest pain, unspecified
CPT/HCPCS: 36415; 70450; 71045; 99283; 99284

== ENCOUNTER 2024-09-07 09:52 | Emergency (ER) | payer MEDICARE, OTHER, SELFPAY ==
[2024-09-07] VITALS (7 sets, daily range): BP systolic 129–147; BP diastolic 60–78; PULSE 66–78; RESP 14–19; TEMP 36.6–36.9; O2SAT 96–100
--- NOTE | 2024-09-07 09:28 | EKG_ITS ---
[address] [address] Test Date: 2024-09-07 Pat Name: Dennys Mckeon Department: Room: Gender: Male Home [employer] Worker: LLUVIA : 1945 Requested By: Order Number: [id number] Reading MD: Joe Greene MD Measurements Intervals [place] Rate: 75 P: 25 [place]: 168 QRS: -25 QRSD: 150 T: 41 QT: 384 QTc: 428 Interpretive Statements Sinus rhythm with premature supraventricular complexes Right bundle branch block Inferior infarct , age undetermined Anteroseptal infarct , age undetermined NO SIGNIFICANT CHANGE FROM PRIOR TRACING Electronically Signed On 09-07-2024 10:33:59 PDT by Joe Greene MD
--- NOTE | 2024-09-07 10:02 | ED.GENADULT ---
HPI - General Adult General Chief complaint: Dizziness Stated complaint: Dizziness Time Seen by Provider: 09/07/24 09:52 History of Present Illness HPI narrative: 78-year-old gentleman with type 2 diabetes, hyperlipidemia, cognitive decline, hypercalcemia, lives with his daughter. He has a history of chronic pancreatitis with elevated lipase and is followed by Gastroenterology, coronary artery disease post CABG, hypertension. Patient comes in today complaining of 3 days of dramatic increase in his baseline dizziness as well as feeling lightheaded. In the past he states this is always been heart related.. He describes the pain as lower chest pain and then points to his left upper quadrant. He reports that his a couple of weeks ago. He states three days ago with the onset of the severe dizziness he had quite a bit of confusion that day along with overall weakness that seems to have improved. Currently having left upper quadrant pain that he describes as chest pain, reproducible with palpation Related Data Home Medications ?Medication ?Instructions ?Recorded ?Confirmed isosorbide mononitrate 60 mg 60 mg PO BID 02/23/24 07/12/24 tablet,extended release 24 hr aspirin 81 mg tablet,delayed 81 mg PO DAILY 06/24/24 07/12/24 release (Adult Aspirin Regimen) fluticasone propionate 50 1 spray intranasal DAILY 06/24/24 07/12/24 mcg/actuation nasal spray,suspension (Flonase Allergy Relief) Previous Rx's ?Medication ?Instructions ?Recorded contour [place] 7151H monitor #1 ea 12/01/22 blood-glucose meter #1 ea 03/24/23 lancets 30 gauge #100 ea 05/19/23 Contour Blood Glucose Test Strips #100 ea 05/24/23 empagliflozin 25 mg tablet 25 mg PO DAILY #90 tabs 01/23/24 nitroglycerin 0.3 mg sublingual 0.3 mg sublingual Q5-15M PRN chest 02/23/24 tablet pain #20 tabs clopidogrel 75 mg tablet 75 mg PO DAILY #90 tabs 05/27/24 metoprolol succinate 25 mg 25 mg PO DAILY #90 tabs 05/28/24 tablet,extended release 24 hr donepezil 5 mg tablet 5 mg PO BEDTIME #90 tabs 06/24/24 glipizide 2.5 mg tablet, extended 2.5 mg PO DAILY #30 tabs 06/25/24 release 24 hr atorvastatin 20 mg tablet 20 mg PO BEDTIME #90 tabs 07/08/24 metformin 1,000 mg tablet 1,000 mg PO BID #180 tabs 07/08/24 blood sugar diagnostic (Blood #100 ea 08/08/24 Glucose Test strips) Allergies Allergy/AdvReac Type Severity Reaction Status Date / Time No Known Drug Allergies Allergy Verified 09/07/24 10:00 Review of Systems Review of Systems Narrative: Pertinent positive and negative findings as per HPI Patient History Medical History (Updated 09/07/24 @ 14:05 by Colleen Feliciano MD) Hyperlipidemia associated with type 2 diabetes mellitus Essential hypertension Stable angina Coronary artery disease with recent acute coronary syndrome and history of coronary revascularization Hypercalcemia Chronic pancreatitis Hyperlipidemia Situational anxiety Cognitive decline Prostate cancer Vitamin D deficiency Tinnitus (~1964) Hearing loss (~1964) Ureterolithiasis Social History Smoking Status: Never smoker eating out: 4 or more times/week Type(s) of exercise: other alcohol intake frequency: holidays/special occasions only Exam Initial Vital Signs Initial Vital Signs: Vital Signs Temperature 97.8 F 09/07/24 09:52 Pulse Rate 78 09/07/24 09:52 Respiratory Rate 18 09/07/24 09:52 Blood Pressure 145/78 H 09/07/24 09:52 Pulse Oximetry 100 09/07/24 09:52 Oxygen Delivery Method Room Air 09/07/24 09:52 General: Healthy appearing, in no acute distress. Well-nourished well-developed HEENT: Moist mucous membranes, normal sclera with reactive pupils, Neck: No JVD, supple Respiratory: Lungs are clear to auscultation, no wheezing no rales no rhonchi. Full and symmetrical air movement Cardiac: Regular rate and rhythm no murmurs no bruits Abdomen: Distended and tympanitic that patient feels is his baseline. There was some minor tenderness in the left upper quadrant, no rebound or guarding Skin: Warm and dry, no rashes Neurologic: No localizing neurologic findings, speech is clear. He is somewhat confused but I suspect that this is close to his baseline Extremities: No trauma, no lower extremity edema Psych: Cooperative, slight confusion, history is not consistent with that documented in medical record Course Orders Ordered: ED Orders 09/07/24 10:05 Complete Blood Count AUTO DIFF Stat Comprehensive Metabolic Panel Stat Magnesium Stat NT-proBNP (BNP-Adult 18+) Stat Troponin I Stat 09/07/24 10:11 EKG-12 Lead Stat 09/07/24 12:05 Lipase Stat Trop I [Troponin I] Stat Discontinued Medications Sodium Chloride (Normal Saline 0.9%) 1,000 mls @ 1,000 mls/hr IV BOLUS ONE Stop: 09/07/24 11:00 Last Infusion: 09/07/24 12:00 Dose: Infused Documented By: Admin: 09/07/24 10:16 Dose: 1,000 mls/hr Documented By: Vital Signs Vital signs: Vital Signs - 8 hr 09/07/24 09:52 09/07/24 10:06 09/07/24 10:30 Temperature 97.8 F Pulse Rate 78 75 74 Respiratory Rate 18 16 15 Blood Pressure 145/78 H Pulse Oximetry 100 96 97 Oxygen Delivery Method Room Air Room Air 09/07/24 10:30 09/07/24 11:00 09/07/24 11:00 Temperature Pulse Rate 78 Respiratory Rate 16 Blood Pressure 134/63 147/68 H Pulse Oximetry 100 Oxygen Delivery Method 09/07/24 11:30 09/07/24 11:30 Temperature Pulse Rate 75 Respiratory Rate 14 Blood Pressure 129/60 Pulse Oximetry 98 Oxygen Delivery Method Room Air Medical Decision Making Lab Data 09/07/24 10:05 09/07/24 10:05 Labs: Lab Results 09/07/24 09/07/24 Range/Units 10:05 12:05 WBC 6.4 (4.5-11.0) X10^3/uL RBC 5.64 (4.5-5.9) X10^6/uL Hgb 16.4 (13.5-17.5) g/dL Hct 48.2 (41-53) % MCV 85.5 (80-100) fL MCH 29.1 (26-34) PG MCHC 34.0 (30-36) % RDW 14.2 (11.6-14.8) % Plt Count 123 L (150-400) X10^3/uL Neut % (Auto) 72.9 (50-75) % Lymph % (Auto) 13.9 L (25-40) % [place] % (Auto) 8.3 (3-14) % Eos % (Auto) 4.3 H (2-4) % Baso % (Auto) 0.6 (0-2) % Neut # (Auto) 4700 (1163-6736) /uL Lymph # (Auto) 900 L (3081-7544) /uL [place] # (Auto) 500 (0-900) /uL Eos # (Auto) 300 (0-450) /uL Baso # (Auto) 0 (0-100) /uL Sodium 137 (137-145) mmol/L Potassium 4.6 (3.4-5.1) mmol/L Chloride 103 (98-107) mmol/L Carbon Dioxide 25 (22-32) mmol/L BUN 18 (9-20) mg/dL Creatinine 1.02 (0.66-1.25) mg/dL Estimated GFR > 60 (>60) mL/min BUN/Creatinine Ratio 17.6 (6-22) Glucose 198 H (70-99) mg/dL Calcium 9.5 (8.4-10.2) mg/dL Magnesium 1.9 (1.6-2.3) mg/dL Total Bilirubin 1.2 (0.2-1.3) mg/dL AST 32 (17-59) IU/L ALT 30 (<50) IU/L Alkaline Phosphatase 72 (38-126) U/L Troponin I < 0.012 < 0.012 (0.01-0.034) ng/mL NT-Pro-B Natriuret Pep 189 (<450) pg/mL Total Protein 7.0 (6.3-8.2) g/dL Albumin 4.5 (3.5-5.0) g/dL Globulin 2.5 (1.7-4.1) g/dL Albumin/Globulin Ratio 1.8 (1.0-2.8) Lipase 260 (23-300) U/L MDM Narrative Medical decision making narrative: CC: Acute dizziness, left lower chest/upper quadrant abdominal pain Complicating co-morbidities: Cognitive decline, chronic pancreatitis, poorly controlled diabetes Data collected from: patient Medical records reviewed: Primary care notes in June and July are reviewed. Last evaluation for pancreatitis was November of [address] scan at that time did not show obvious pancreatitis, lipase was at 1576 Differential considered: Acute coronary syndrome, recurrent pancreatitis, constipation, bowel obstruction, lower lobe pneumonia Exam documented above, pertinent findings include: Patient has some mild tenderness in the left lower lung area and left upper abdominal area. Belly is quite distended and tympanitic but he states this is his baseline and does not complain of pain with belly exam Lab Test results independently reviewed as above. Pertinent findings: CBC is reassuring. Platelet count is 123 which is not significantly off from his baseline Chemistries show normal renal function Troponin is undetectable ProBNP is within normal limits Independently reviewed EKG: EKG shows sinus rhythm, he has a right bundle branch block no obvious ischemia Imaging studies independently reviewed: CT scan of the head shows no intracranial pathology Chest x-ray shows no significant abnormalities, upper normal limits for heart size, no effusions Treatments: 1 L of fluid Discussion: Patient is feeling better. His daughter is at bedside now. She states that frequently when he has these dizzy episodes giving him a meal with some protein tends to help. There was no evidence of stroke, sepsis, acute coronary syndrome, significant electrolyte abnormalities or alternate explanation for his dizziness. His abdominal pain has completely resolved and blood work does not suggest recurrent pancreatitis. CT scan does not show any evidence for mass, bleed or stroke. At this time I believe patient is back to his baseline. I I do not he can needs further imaging, workup or hospitalization. Findings and all results reviewed with both the patient and his daughter and both are pleased with the prospect of discharge home. Additional Information: Initial registration did not include his middle initial L. that initial chart was deleted appropriate chart was Re added. Chest x-ray has been done under initial registration and attempts to merge with current chart attempted. Re documentation of triage notes an initial intake was done Discharge Plan Departure Patient Disposition: Home Clinical Impression: Dizziness, Left sided abdominal pain Instructions: DI for Dizziness-Nonvertigo Activity Restrictions/Additional Instructions: Thank you for coming in today Your workup was very reassuring. I see no evidence of heart attack, infection, stroke, pancreatitis, bleeding or any other reason that would be a fixable cause of your dizziness. Dizziness can be such a frustrating and chronic symptom and frequently so difficult to treat. I would recommend that you drink a bit more water, sometimes an extra glass of water 1st thing in morning can make a big difference in how you feel throughout the day. Please continue all other usual medications If you find that you are getting worse or develop any new symptoms, please feel free to return to the emergency department for further evaluation. Prescriptions: No Action (DME) contour [place] 7151H monitor See Rx Instructions .Route .MEDSUPPLY Qty: 1 0RF Rx Instructions: check blood sugar 1-2 times a day (DME) lancets 30 gauge misc See Rx Instructions .Route Qty: 100 2RF Rx Instructions: use to test blood sugars BID (DME) Contour Blood Glucose Test Strips Qty: 100 1RF Rx Instructions: Use to test blood sugars 1-2x daily. empagliflozin 25 mg tablet 25 mg PO DAILY Qty: 90 3RF Rx Instructions: continue taking one full dose clopidogrel 75 mg tablet 75 mg PO DAILY Qty: 90 3RF metoprolol succinate 25 mg tablet extended release 24 hr 25 mg PO DAILY Qty: 90 3RF glipizide 2.5 mg tablet extended release 24hr 2.5 mg PO DAILY Qty: 30 0RF atorvastatin 20 mg tablet 20 mg PO BEDTIME Qty: 90 3RF metformin 1,000 mg tablet 1,000 mg PO BID Qty: 180 3RF (DME) Blood Glucose Test Strip See Rx Instructions .Route Qty: 100 5RF Rx Instructions: use to test blood sugars twice a day isosorbide mononitrate 60 mg tablet extended release 24 hr 60 mg PO BID nitroglycerin 0.3 mg tablet, sublingual 0.3 mg Sublingual Q5-15M PRN (Reason: chest pain) Qty: 20 11RF Rx Instructions: Max dose 3 tabs. fluticasone propionate [Flonase Allergy Relief] 50 mcg/actuation spray,suspension 1 spray intranasal DAILY Rx Instructions: administer into each nostril aspirin [Adult Aspirin Regimen] 81 mg tablet,delayed release (DR/EC) 81 mg PO DAILY donepezil 5 mg tablet 5 mg PO BEDTIME Qty: 90 3RF (DME) blood-glucose meter Misc See Rx Instructions .Route Qty: 1 0RF Rx Instructions: Use to test blood sugars twice a day Referrals: Tung Santana DO [Primary Care Provider, Family Practice] Stand Alone Forms: Patient Portal/API
[2024-09-07] MEDS: SODIUM CHLORIDE 0.9% 1,000 ML 1000 ML IV (10:16)
[2024-09-07 10:21] LABS: Add Manual Diff / Slide Review NO; Basophils Absolute Auto 0 /uL (0-100); Basophils Percent Auto 0.6 % (0-2); Eosinophils Absolute Auto 300 /uL (0-450); Eosinophils Percent Auto 4.3 % (2-4); Hematocrit 48.2 % (41-53); Hemoglobin 16.4 g/dL (13.5-17.5); Lymphocytes Absolute Auto 900 /uL (1100-4500); Lymphocytes Percent Auto 13.9 % (25-40); Mean Corpuscular Hemoglobin 29.1 PG (26-34); Mean Corpuscular Volume 85.5 fL (80-100); Monocytes Absolute Auto 500 /uL (0-900); Monocytes Percent Auto 8.3 % (3-14); Neutrophils Absolute Auto 4700 /uL (1500-7000); Neutrophils Percent Auto 72.9 % (50-75); Platelet Count 123 X10^3/uL (150-400); Red Blood Cell Count 5.64 X10^6/uL (4.5-5.9); Red Cell Distribution Width 14.2 % (11.6-14.8); White Blood Cell Count 6.4 X10^3/uL (4.5-11.0)
[2024-09-07 10:28] LABS: Alanine Aminotransferase 30 IU/L (<50); Albumin 4.5 g/dL (3.5-5.0); Albumin Globulin Ratio 1.8 (1.0-2.8); Alkaline Phosphatase 72 U/L (38-126); Aspartate Aminotransferase 32 IU/L (17-59); BUN Creatinine Ratio 17.6 (6-22); Bilirubin Total 1.2 mg/dL (0.2-1.3); Blood Urea Nitrogen 18 mg/dL (9-20); Calcium 9.5 mg/dL (8.4-10.2); Carbon Dioxide 25 mmol/L (22-32); Chloride 103 mmol/L (98-107); Estimated Glomerular Filt Rate > 60 mL/min (>60); Globulin 2.5 g/dL (1.7-4.1); Glucose 198 mg/dL (70-99); HEMOLYSIS < 15 (0-50); Magnesium 1.9 mg/dL (1.6-2.3); Potassium 4.6 mmol/L (3.4-5.1); Sodium 137 mmol/L (137-145)
[2024-09-07 10:41] LABS: NT-proBNP (BNP-Adult 18+) 189 pg/mL (<450); Troponin I < 0.012 ng/mL (0.01-0.034)
--- NOTE | 2024-09-07 10:53 | PC.NURSE ---
Pt lying back in gurney. Appears in NAD. Denies pain. Family at bedside.
[2024-09-07 12:31] LABS: Lipase 260 U/L (23-300)
[2024-09-07 12:44] LABS: Troponin I < 0.012 ng/mL (0.01-0.034)
== END 2024-09-07 14:26 | disposition home or self-care (01) ==
PROVIDERS: Emergency Provider Emergency Medicine; PCP Family Medicine
DX: R42 Dizziness and giddiness (principal); R10.12 Left upper quadrant pain; R07.9 Chest pain, unspecified
CPT/HCPCS: 36415; 80053; 83690; 83735; 83880; 84484; 85025; 93005; 93010; 96360; 96361; 99284